=== PATIENT | female | born 1945 | race Caucasian/White ===

== ENCOUNTER 2024-09-28 08:48 | Outpatient (CLI) | payer MEDICARE, SELFPAY ==
--- NOTE | 2024-09-28 08:55 | XR_ITS ---
FINAL REPORT CLINICAL HISTORY: Left hip/pelvis pain COMPARISON: None FINDINGS: LEFT HIP: Two views of the left hip with an AP view of the pelvis demonstrate a comminuted fracture of the left acetabulum with mild displacement, either acute or subacute. There is a age indeterminate fracture of the pubic symphysis and inferior pubic ramus. There are post ORIF changes of the left femur without acute process. The right pelvis is unremarkable. IMPRESSION: Multiple mildly displaced left pelvic fractures, either acute or subacute. CT could better distinguish if these are not known fractures. Reviewed, Interpreted and Dictated by Torsten Hatfield MD Transcribed by Jessica Bragg Authenticated and [facility]
--- OUTSIDE RECORDS SUMMARY | 2024-09-28 09:02 | XMS_ITS | Encounter Summary ---
Author Organization [facility] Address [address] [place] [address] Care Team Providers Care Petal Cutter Name Role Phone Elizabeth Nova APRN Primary Care Provider [phone] Mickey Briseno MD Unavailable [phone] Reason for Referral * Consultation (Routine) - Authorized Specialty Diagnoses / Procedures Referred By Marina sinclair Referred To Contact Gastroenterology Diagnoses Other iron deficiency anemia Elizabeth Nova APRN [address] [place] [address] Phone: tel: fax: Referral ID Status Reason Start Date Expiration Date Visits Requested Visits Authorized [id number] Authorized Specialty Services Required 07/27/2023 01/25/2025 1 1 Encounter Details Date Type Department Care Team (Late st Contact Info) Description 07/27/2023 Community [facility] [address] [place] [address] Elizabeth Nova APRN [address] [place] [address] Iron deficiency anemia secondary to inadequate dietary iron intake (Primary Dx); Other iron deficiency anemia Social History Tobacco Use Types Packs/Day Years Used Date Smoking Tobacco: Never Smokeless Tobacco: Never Comments Unknown Sex and Gender Information Value Date Recorded Sex Assigned at Not on file Legal Sex Female 8:39 PM EDT Gender Identity Not on file Sexual Orientation Not on file documented as of this encounter Plan of Treatment Scheduled Referrals Name Type Priority Associated Diagnoses Order Schedule Ambulatory referral to Gastroenterology Outpatient Referral Routine Other iron deficiency anemia Expected: 07/27/2023 (Approximate), Expires: 01/25/2025 documented as of this encounter Visit Diagnoses Diagnosis Iron deficiency anemia secondary to inadequate dietary iron intake- Primary Other iron deficiency anemia documented in this encounter Care Teams Petal Cutter Relationship Specialty Start Date End Date Elizabeth Nova APRN [address] [place] [address] PCP - General 06/23/23 Mickey Briseno MD [address] [place] [address] Medical Oncologist Medical Oncology 08/16/23 documented as of this encounter
--- OUTSIDE RECORDS SUMMARY | 2024-09-28 09:02 | XMS_ITS | Clinical Summary ---
Author Organization [facility] Address [address] [place] [address] Care Team Providers Care Fractionation Supervisor Name Role Phone Elizabeth Nova APRN Primary Care Provider Mickey Briseno MD Unavailable [phone] Allergies Active Allergy Reactions Criticality Noted Date Comments Mayo Dizziness High 12/30/2009 Dizziness, nausea, syncopal episode Medications ALPRAZolam (Xanax) 1 MG tablet Take by mouth if needed. Active busPIRone (Buspar) 15 MG tablet 4 Active cephalexin (Keflex) 500 MG capsule 4 Active fLuvoxaMINE (Luvox) 100 MG tablet 4 Active gabapentin (Neurontin) 600 MG tablet 4 Active hydrOXYzine HCl (Atarax) 50 MG tablet 3 Active zolpidem (Ambien) 10 MG tablet Take by mouth 1 (one) time each day in the evening. Active venlafaxine (Effexor) 75 MG tablet 3 Active polyethylene glycol (GoLYTELY) 236 g solution SEE PHARMACY NOTES FOR PATIENT LABEL INSTRUCTIONS- for Colonoscopy prep protocol 4000 mL 4 Active Active Problems Problem Noted Date Diagnosed Date Iron deficiency anemia secon fidencio to inadequate dietary iron intake 06/23/2023 Social History Tobacco Use Types Packs/Day Years Used Date Smoking Tobacco: Never Smokeless Tobacco: Never Tobacco Cessation:Counseling Given: Not Answered Comments Unknown Sex and Gender Information Value Date Recorded Sex Assigned at Not on file Legal Sex Female 8:39 PM EDT Gender Identity Not on file Sexual Orientation Not on file Last Filed Vital Signs Vital Sign Reading Time Taken Comments Blood Pressure 175/83 06/23/2023 12:21 PM EDT Pulse 87 06/23/2023 12:21 PM EDT Temperature 38 C (100.4 F) 06/23/2023 12:21 PM EDT Respiratory Rate - - Oxygen Saturation 95% 06/23/2023 12: 21 PM EDT Inhaled Oxygen Concentration - - Weight 46.7 kg (102 lb 15.3 oz) 024 12:21 PM EDT Height 152.4 cm (5') 06/23/2023 12:21 PM EDT Body Mass Index 20.11 06/23/2023 12:21 PM EDT Plan of Treatment Health Maintenance Due Date Last Done Comments [facility]-Depression Screening 1943 [facility]-Infant/Child/Adol SDOH Screenings 1943 [facility]- SDOH Screenings 1961 [facility]-Adult SDOH Screenings 1961 [facility]-DTaP,Tdap,and Td Vaccines (1 - Tdap) 1962 [facility]-Zoster Vaccines (1 of 2) 1993 [facility]-RSV Vaccine: 60+ Years or (1 - 1-dose 75+ series) 2018 [facility]-Medicare Annual Wellness (AWV) 03/02/2023 03/02/2022, 02/25/2021, 02/20/2020 [id number] Vaccine ( season) 2023 01/12/2023, 07/22/2020 [facility]-Influenza Vaccine (Season Ended) 2024 02/25/2021, 01/03/2019, 11/19/2015, Additional history exists [facility]-Bone Density Scan 03/04/2025 03/04/2023 , 03/04/2023, 06/04/2015 [facility]-Pneumococcal Vaccine: 50+ Years Completed 07/04/2018, 05/25/2016, 05/25/2016 HPV Vaccines Aged Out No longer eligi ble based on patient's age to complete this topic [facility]-HIB Vaccines Aged Out No longer e ligible based on patient's age to complete this topic [facility]-Hepatitis A Vaccines Aged Out No longer eligible based on patient's age to complete this topic [facility]-IPV Vaccines Aged Out No longer e ligible based on patient's age to complete this topic [facility]-Rotavirus Vaccines Aged Out No lo nger eligible based on patient's age to complete this topic Insurance [employer] MEDICARE Care Teams Fractionation Supervisor Relationship Specialty Start Date End Date Elizabeth Nova, VALVE MECHANIC [address] [place] [address] PCP - General 06/23/23 Mickey Briseno MD [address] [facility] [address] [place] [address] Medical Oncologist Medical Oncology 08/16/23
--- OUTSIDE RECORDS SUMMARY | 2024-09-28 09:02 | XMS_ITS | Clinical Summary ---
Author Organization [facility] Address [address] [place] [address] Phone Care Team Providers Care Shovel Handle Assembler Name Role Phone Karissa Garcia Unavailable Conditions or Problems Problem Name Problem Code Onset Date Status Entry Date Provider Comment Standard Description Annotate Gastroenteri tis/colitis, non-infectio us NEC 65038688 (SNOMED CT) 0 Active 0 Karissa Garcia Noninfectious gastroenteritis CKD III(document a or b) 021248825 (SNOMED CT) 0 Active 0 Karissa Garcia Chronic kidney disease stage 3A Staph Kloosi Sepsis A41.1 (ICD-10-CM ) 0 Active 0 Karissa Garcia Sepsis due to other specified staphylococcus Hematuria, gross 16240190 (SNOMED CT) 0 Active 0 Karissa Garcia Blood in urine Urinary tract infection (UTI) 16938224 (SNOMED CT) 0 Active 0 Karissa Garcia Urinary tract infectious disease CKD, Stage III 434740802 (SNOMED CT) 04/30 Resolved 04/30 Karissa Garcia Chronic kidney disease stage 3 Acute renal failure due to dehydration 391401061 (SNOMED CT) 04/30 Resolved 04/30 Karissa Garcia Acute renal failure due to ischemia Pulmonary infiltrates 411589071 (SNOMED CT) 04/30 Resolved 04/30 Karissa Garcia Asthmatic pulmonary eosinophilia Cough 43267117 (SNOMED CT) 04/30 Resolved 04/30 Karissa Garcia Cough Pressure ulcer of left hip, stage 4 047838305 (SNOMED CT) 04/30 Resolved 04/30 Karissa Garcia Pressure ulcer stage 4 Pressure ulcer of left hip, unstageable 503393099 (SNOMED CT) 04/30 Resolved 04/30 Karissa Garcia Nonstageable pressure ulcer Acute renal failure due to dehydration 002785600 (SNOMED CT) 04/30 Removed 04/30 Karissa Garcia Acute renal failure due to ischemia Pressure ulcer of left hip, unstageable 334533555 (SNOMED CT) 04/30 Removed 04/30 Karissa Garcia Nonstageable pressure ulcer Pressure ulcer of left hip, stage 4 880384078 (SNOMED CT) 04/30 Removed 04/30 Karissa Garcia Pressure ulcer stage 4 Pulmonary infiltrates 564839410 (SNOMED CT) 04/30 Removed 04/30 Karissa Garcia Asthmatic pulmonary eosinophilia Cough 25386823 (SNOMED CT) 04/30 Removed 04/30 Kraissa Garcia Cough Neutrophilic leukemoid reaction 29785129 (SNOMED CT) 04/30 Active 04/30 Karissa Garcia Leukemoid reaction CKD, Stage III 684484285 (SNOMED CT) 04/30 Removed 04/30 Karissa Garcia Chronic kidney disease stage 3 Medications Medication Instructions Start Date Stop Date Generic Name ND Provider ZOFRAN 4 MG ORAL TABLET Take 1 tablet by mouth every six hours as needed 0 ZOFRAN 4 MG ORAL TABLET Caihakan Michi DULCOLAX 10 MG SUPP Insert once a day as needed 003 bisacodyl 66095052058 Caihakan Michi RANITIDINE HCL 150 MG ORAL TABLET Take 1 tablet by mouth once a day 003 RANITIDINE HCL 150 MG ORAL TABLET Caihakan Michi VITAMIN C 1000 MG TABS Take 1 tablet by mouth once a day 0/03 ascorbic acid (vitamin c) 15323146619 Cailybetito Michi SEROQUEL 100 MG TABS Take 1 tablet by mouth once a day 0/03 quetiapine 11891302226 Stephanie Borden DOXYCYCLINE HYCLATE 100 MG CAPS Take 1 tablet by mouth twice a day 0/03 doxycycline hyclate 31795704035 Stephanie Borden Ditropan XL 10 mg tablet extended release 24hr Take 1 tablet by mouth once a day 0/03 oxybutynin chloride 02954908004 Stephanie Borden AUGMENTIN 875-125 MG ORAL TABLET Take 1 tablet by mouth twice a day 003 AUGMENTIN 875-125 MG ORAL TABLET Stephanie Borden FLORASTOR 250 MG CAPS Take 1 tablet by mouth twice a day 0/03 saccharomyces boulardii 54079855158 Stephanie Borden FERROUS SULFATE 325 (65 Fe) MG TABS Take 1 tablet by mouth twice a day 003 ferrous sulfate 93060996045 Stephanie Borden COLACE 100 MG CAPS Take 1 tablet by mouth twice a day 0/03 docusate sodium 97382833657 Stephanie Borden DIALYVITE VITAMIN D3 MAX 1.25 MG (81284 UT) TABS Take 1 tablet by mouth twice a week 0/03 cholecalciferol (vitamin d3) 54246479427 Stephanie Borden PERCOCET 5-325 MG TABS Take 1 tablet by mouth every four hours as needed 0/03 oxycodone-acetami nophen 57166169431 Stephanie Borden TYLENOL 325 MG CAPS Take 2 tablet by mouth every four hours 0/03 ACETAMINOPHEN Stephanie Borden PAXIL 40 MG TABS Take 1 tablet by mouth once a day 0/03 paroxetine hcl 51105588368 Stephanie Borden LOVENOX 100 MG/ML SUBCUTANEOUS SOLUTION Inject 0.3 ml subcutaneously once a day 0/03 LOVENOX 100 MG/ML SUBCUTANEOUS SOLUTION Stephanie Borden MIDODRINE HCL 10 MG TABS 10 mg, Oral, 3 Times Daily Before Meals midodrine 16238205372 Alejohakan Borden ALENDRONATE SODIUM 70 MG TABS 1 PO every 7 days. Give w/ water 30 minutes before first food/drink in the AM. Do not lay down 30 min after taken alendronate 21862692519 Stephanie Borden ALPRAZOLAM 1 MG TABS TAKE ONE-HALF TO ONE TABLET BY MOUTH ONCE DAILY (EVERY 24 HOURS) NEEDED alprazolam 40211116378 Alejohakan Borden ascorbic acid (vitamin C) 1,000 mg capsule 1,000 mg, Oral, Daily ascorbic acid (vitamin c) 48784133645 Alejohakan Borden aspirin 81 mg capsule 81 mg, Oral, Daily aspirin Alejohakan Borden ETODOLAC 200 MG CAPS 200 mg, Oral, 2 Times Daily PRN etodolac 78854386337 Alejohakan Borden MULTIVITAMIN WOMEN 50+ TABS 1 tablet, Oral, Daily bvkfuuiq-ndz-cmyq -fa-lutein 60288390417 Alejohakan Borden Ditropan XL 10 mg tablet extended release 24hr 10 mg, Oral, Daily oxybutynin chloride 45412546064 Alejohakan Borden PAROXETINE HCL 40 MG TABS 40 mg, Oral, Daily paroxetine hcl 74619822575 Alejohakan Borden QUETIAPINE FUMARATE 300 MG TABS 300 mg, Oral, Nightly quetiapine 59615783938 Alejohakan Borden VITAMIN D (ERGOCALCIFEROL ) 70167 UNIT CAPS TAKE 1 CAPSULE TWICE WEEKLY ergocalciferol (vitamin d2) 84090898479 Alejohakan Borden PEPCID 20 MG TABS Take 1 tablet by mouth daily 05/05 FAMOTIDINE 43897054079 Emily Kerr RANITIDINE HCL 150 MG ORAL TABLET Take 1 tablet by mouth daily 0/03 RANITIDINE HCL 20547362346 Emily Kerr DIALYVITE VITAMIN D3 MAX 1.25 MG (32086 UT) TABS Take one (1) tablet by mouth twice a week 0/03 CHOLECALCIFEROL 37958073413 Emily Kerr VITAMIN C 1000 MG TABS Take 1 tablet by mouth daily 0/03 ASCORBIC ACID 92624257684 Emily Kerr FLORASTOR 250 MG CAPS Take one (1) tablet by mouth twice a day 0/03 SACCHAROMYCES MARSHALLI 37333389492 Emily Kerr SEROQUEL 100 MG TABS Take 1 tablet by mouth daily 0/03 QUETIAPINE FUMARATE 03456131577 Emily Kerr PAXIL 40 MG TABS Take 1 tablet by mouth daily 0/03 PAROXETINE HCL 05897958395 Emily Kerr PERCOCET 5-325 MG TABS Take 1 tablet by mouth every 4 hours as needed 0/03 OXYCODONE-ACETAMI NOPHEN 80740525697 Emily Krer DITROPAN XL 10 MG ORAL TABLET EXTENDED RELEASE 24 HOUR Take 1 tablet by mouth daily 0/03 OXYBUTYNIN CHLORIDE 59185241419 Emily Kerr ZOFRAN 4 MG ORAL TABLET Take 1 tablet by mouth every 6 hours as needed 0/03 ONDANSETRON HCL 34883490610 Emily Kerr FERROUS SULFATE 325 (65 Fe) MG TABS Take one (1) tablet by mouth twice a day 0/03 FERROUS SULFATE 80555012206 Emily Kerr PEPCID 20 MG TABS Take 1 tablet by mouth daily 07/04 FAMOTIDINE 87542067824 Emily Kerr LOVENOX 100 MG/ML SUBCUTANEOUS SOLUTION Inject 0.3 mL subq daily 0/03 ENOXAPARIN SODIUM 51048815244 Emily Kerr DOXYCYCLINE HYCLATE 100 MG CAPS .Take one (1) tablet by mouth twice a day 4/08 DOXYCYCLINE HYCLATE 80073673786 Emily Kerr COLACE 100 MG CAPS Take one (1) tablet by mouth twice a day 6/ DOCUSATE SODIUM 20994441013 Emily Kerr DULCOLAX 10 MG SUPP insert 1 daily as needed 0/03 BISACODYL 20425234111 Emily Kerr AUGMENTIN 875-125 MG ORAL TABLET Take one (1) tablet by mouth twice a day 0/03 AMOXICILLIN-POT CLAVULANATE 37455681810 Emily Kerr TYLENOL 325 MG CAPS Take 2 tablets by mouth every 4 hours 0/03 ACETAMINOPHEN 53180413557 Emily Kerr Medications Administered No information available. Allergies, Adverse Reactions, Alerts Allergy Name Reaction Description Start Date Severity Statu s Provider LITHIUM Moderate Active Emily Kerr Results Date Name Value Unit Range Flag Description Clinical Lists Update: HEP C AB non-reactive Hepatit is C virus Ab [Presence] in Serum Office Visit: room 12. Hospi kavin Follow Up MEDS REVIEW Done Documenta tion of current medications (procedure) Lab Report: ADULT TRANSTHORA CIC ECHO COMPLETE W/ COLOR, SPECTRAL AND CON ... ZZ-GE-unk at 1500 EDT GE use only - for LinkLogic import when terms are not otherwise specified Clinical Lists Update: ORALTOBACUSE Never Tobacco smoking status SMOK STATUS Never smoker Toba tobacco conditioner smoking status Plan of Care No information available. Procedures No information available. Vital Signs Date Name Value Unit Description BMI (Body Mass Index) 21.48 kg/m2 Bod y Mass Index (Ratio) Body Temperature 98.2 [degF] temperat ure E&M BP Diastolic 58 mm[Hg] blood pressu re, diastolic BP Systolic 94 mm[Hg] blood pressur e, systolic Heart Rate 92 /min pulse rate Height 60 [in_us] height E&M Respiratory Rate 16 /min respirat ory rate E&M Weight Measured 110.0 [lb_av] weight E& M Weight Measured 110.0 [lb_av] weight E& M Immunizations Vaccine Administration Date Standard Description CVX Co de Dose Unspecified Formulation Unspecified Formulation 33 Unknown Unspecified Formulation Unspecified Formulation 88 Unknown Pneumovax 23 Injection Injectable 25 MCG/0.5ML Pneumovax 23 Injection Injectable 25 MCG/0.5ML 33 Unknown Prevnar Intramuscular Suspension 16 MCG/0.5ML Prevnar Intramuscular Suspension 16 MCG/0.5ML 100 Unknown Pfizer COVID-19 Vaccine Dose 1 Pfizer COVID-19 Vaccine Dose 1 208 Unknown Advance Directives Directive Description Start Date NO ADVANCED DIRECTIVES AT THIS TIME 2017
== END 2024-09-28 23:59 | disposition home or self-care (01) ==
LOC: RAD 08:52
PROVIDERS: PCP Internal Medicine Adolescent Medicine; Visit Provider Physician Assistant
DX: S32.82XA Multiple fractures of pelvis without disruption of pelvic ring, initial encounter for closed fracture (principal)
CPT/HCPCS: 73502

== ENCOUNTER 2024-10-26 15:03 | Outpatient (CLI) | payer MEDICARE, SELFPAY ==
--- OUTSIDE RECORDS SUMMARY | 2024-08-27 09:21 | XMS_ITS | Encounter Summary ---
Author Organization [facility] Address [address] [place] [id number] Care Team Providers Care Laundry Routeman Name Role Phone Provider, No Known Primary Care Provider Unavail able Reason for Visit * Reason Comments Hip Pain * Auth/Cert (Routine) Specialty Diagnoses / Procedures Referred By Contac t Referred To Contact Diagnoses Hip fracture Referral ID Status Reason Start Date Expiration Date Visits Re quested Visits Authorized [id number] 1 1 Encounter Details Date Type Department Care Team (Late st Contact Info) Description 08/27/2024 9:21 AM EDT - 09/02/2024 2:06 PM EDT Hospital Encounter [address] [place] [id number] Karmen Wilson MD [address] [facility] [place] [address] Fran Vaca MD [address] [place] [address] Carolyne Reynoso MD [address] [facility] 4th [place] [address] Luca Bell MD [address] [facility] [address]th [place] [address] Fall in home, initial encounter (Primary Dx); Closed nondisplaced fracture of left acetabulum, unspecified portion of acetabulum, initial encounter; Inability to bear weight; Insomnia, unspecified type; Idiopathic peripheral neuropathy Discharge Disposition: Assisted Facility (DC - External) Social History Tobacco Use Types Packs/Day Years Used Date Smoking Tobacco: Never Passive Smoke Exposure: Never Smokeless Tobacco: Never Tobacco Cessation:Counseling Given: No Alcohol Use Standard Drinks/Week Comments No 0 (1 standard drink = 0.6 oz pur e alcohol) AUDIT-C Answer Date Recorded Q1: How often do you have a drink containing alcohol? Never 08/27/2024 Q2: How many drinks containi ng alcohol do you have on a typical day when you are drinking? Patient does not drink Frequency of Binge Drinking Not on file 08/04 Overall Financial Resource Strain (CARDIA) Answe r Date Recorded How hard is it for you to pa y for the very basics like food, housing, medical care, and heating? Not hard at all 03/03/2022 PHQ-2 Answer Date Recorded Retired PHQ-9: Brief Depression Severity Measure Score 1 03/02/2022 Exercise Vital Sign Answer Date Recorde d On average, how many days pe r week do you engage in moderate to strenuous exercise (like a brisk walk)? 0 days 08/31/2024 On average, how many minutes do you engage in exercise at this level? 0 min 08/31/2024 Hunger Vital Sign Answer Date Recorded Within the past 12 months, y ou worried that your food would run out before you got the money to buy more. Never true 07/01/19 22 Within the past 12 months, t he food you bought just didn't last and you didn't have money to get more. Never true 06/30/2021 PRAPARE - Transportation Answer Date Re corded In the past 12 months, has l ack of transportation kept you from medical appointments or from getting medications? No 02/04 In the past 12 months, has l ack of transportation kept you from meetings, work, or from getting things needed for daily living? No 03/03/2022 Housing Stability Vital Sign Answer Clyde e Recorded In the last 12 months, was t here a time when you were not able to pay the mortgage or rent on time? No 03/03/2022 In the last 12 months, how many places have you lived? 1 03/03/2022 In the last 12 months, was t here a time when you did not have a steady place to sleep or slept in a chcf (including now)? No 03/03/2022 Abuse Screen Answer Date Recorded Feels Unsafe at Home or Work/School no 08/27/2024 Feels Threatened by Someone no 08/04 Does Anyone Try to Keep You From Having Contact with Others or Doing Things Outside Your Home? no 08/27/2024 Physical Signs of Abuse Present no 08/27/2024 Housing Stability Answer Date Recorded Current Living Arrangements independent living f acility 08/28/2024 Potentially Unsafe Housing Conditions Not on brittney e 08/28/2024 Family and Community Support Answer Clyde e Recorded If for any reason you need h elp with day-to-day activities such as bathing, preparing meals, shopping, managing finances, etc., do you get the help you need? I get all the help I need 08/31/2024 Lonely or Isolated Not on file 08/31/2024 Education Answer Date Recorded Help with school or training? Not on file Preferred Language Chilean 08/31/2024 Comments No Sex and Gender Information Value Date Recorded Sex Assigned at Not on file Legal Sex Female 1:29 PM EDT Gender Identity Not on file Sexual Orientation Not on file documented as of this encounter Last Filed Vital Signs Vital Sign Reading Time Taken Comments Blood Pressure 106/63 09/02/2024 11:16 AM EDT Pulse 81 09/02/2024 11:16 AM EDT Temperature 36.9 C (98.4 F) 09/02/2024 11:16 AM EDT Respiratory Rate 18 09/02/2024 11:16 AM EDT Oxygen Saturation 93% 09/02/2024 11:16 AM EDT Inhaled Oxygen Concentration - - Weight 49.9 kg (110 lb) 08/27/2024 8:59 AM EDT Height 152.4 cm (5') 08/27/2024 8:59 AM EDT Body Mass Index 21.48 08/27/2024 8:59 AM EDT documented in this encounter Functional Status * Calculated C-SSRS Risk Score (Lifetime/Recent) Answer Date of Assessment Author No Risk Indicated 08/27/2024 9:02 AM EDT Helga Ernst RN * [place] Suicide Severity Rating Scale (Screener/Recent Self-Report) Question Answer Date of Assessment Author 1. Wish to be (Past 1 Month) No 08/27/2024 9:02 AM EDT Helga Ernst RN 2. Non-Specific Active Suicidal Thoughts (Past 1 Month) No 08/27/2024 9:02 AM EDT Helga Ernst RN 6. Suicidal Behavior (Lifetime) No 08/27/2024 9:02 AM EDT Helga Ernst RN documented as of this encounter Discharge Summaries * Mary Ann Whitfield PA-C - 09/02/2024 8:59 AM EDT Images from the original note were not included. [facility] Medicine Services DISCHARGE SUMMARY Patient Name: Lorin Raymundo : 1945 Date of Admission: 08/27/2024 9:21 AM Date of Discharge: 09/02/2024 Primary Care Physician: Provider, No Known Hospital Course Active Hospital Problems Diagnosis POA Hip fracture [S72.009A] Yes Closed nondisplaced fracture of left acetabulum [S32.402A] Yes Moderate malnutrition [E44.0] Yes Kidney disease, chronic, stage III (GFR 30-59 ml/min) [N18.30] Yes Generalized anxiety disorder [F41.1] Yes Resolved Hospital Problems No resolved problems to display. Hospital Course: Lorin Raymundo is an 79 y.o. female with PMH significant for anxiety/depression, bipolar disorder, CKD III and prior colon cancer. Admitted to [facility] for L hip fracture after a fall at home. Found to have an acute L acetabular fracture. Ortho evaluated and recommended non-operativemanagement, protected WB and follow up in 3-4 weeks with repeat imaging. PT/OT followed and CM has arranged SNF for rehab. Acute left acetabular fracture Ground level fall Fell while going to restroom, was not using her walker. Unable to bear weight on LLE after the fall X-ray showed left hip acetabular fracture. Dr. Cody with orthopedic surgery evaluated - recommended non-operative management Partial/protected weightbearing on LLE with walker at all times PT/OT followed - to SNF for rehab today ASA 81mg daily x 6 weeks for DVT PPX Follow up with ortho on 09/28/24 @ 11:20am with repeat XRs Anxiety/depression/bipolar/insomnia Resumed home medications Constipation Acute on chronic. At baseline, she reports she usually takes stool softeners but then develops diarrhea and takes Imodium (3 all at once, then 2 more a couple of hours later). Then does not have BM for 3-4 days, develops abdominal cramping and has to take stool softeners which then cause diarrhea Discussed daily bowel regimen to prevent cyclical constipation/diarrhea Day of Discharge HPI: In bed. Developed diarrhea overnight after taking several stool softeners the day before. To SNF today. She asked me to look at a laceration that she sustained during a fall that happened before - said she didn't tell her daughter about it because she had plans and she didn't want her daughter to cancel them Review of Systems Gen- No fevers, chills CV- No chest pain, palpitations Resp- No cough, dyspnea GI- No N/V/D, abd pain Vital Signs: Temp: [97.7 ??F (36.5 ??C)-98.8 ??F (37.1 ??C)] 98.5 ??F (36.9 ??C) Heart Rate: [68-88] 88 Resp: [18] 18 BP: (94-138)/(55-80) 138/68 Physical Exam: Constitutional: No acute distress, awake, alert and conversant HENT: NCAT, mucous membranes moist Respiratory: Clear to auscultation bilaterally, normal respiratory effort Cardiovascular: RRR Gastrointestinal: Positive bowel sounds, soft, nontender, nondistended Musculoskeletal: No bilateral ankle edema Psychiatric: Appropriate affect, cooperative with exam Neurologic: Oriented x 3, moves all extremities spontaneously without focal deficits, speech clear Skin: R posterior scalp laceration is well approximated with no sutures or brian in place. It is clean and dry with no erythema, induration or purulence. I cleaned off dried blood with a warm wash cloth but did not remove all crust as to not cause any bleeding. Pertinent and/or Most Recent Results LAB RESULTS: Lab 09/01/24 1408 08/31/24 0844 08/30/24 0826 08/29/24 1231 08/28/24 0710 08/27/24 1319 WBC 11.19* 12.27* 11.84* 8.91 8.79 11.31* HEMOGLOBIN 9.1* 9.7* 10.1* 9.6* 10.2* 11.7* HEMATOCRIT 28.9* 30.6* 32.3* 31.1* 32.8* 36.4 PLATELETS 304 263 241 207 231 283 NEUTROS ABS -- -- -- -- 6.35 8.28* IMMATURE GRANS (ABS) -- -- -- -- 0.03 0.06* LYMPHS ABS -- -- -- -- 1.27 1.91 MONOS ABS -- -- -- -- 0.81 0.93* EOS ABS -- -- -- -- 0.29 0.09 MCV 94.1 93.9 93.9 95.7 94.8 93.6 Lab 09/01/24 1408 08/31/24 0844 08/30/24 0808/29/24 1231 08/28/24 0710 SODIUM 143 139 137 137 136 POTASSIUM 4.1 4.1 3.8 4.2 4.1 CHLORIDE 104 102 101 101 100 CO2 29.0 25.0 25.0 24.0 26.0 ANION GAP 10.0 12.0 11.0 12.0 10.0 BUN 16.7 14.5 15.4 17.6 12 CREATININE 1.00 0.69 0.74 0.99 1.04* EGFR 56.7* 87.3 81.4 57.4* 54.1* GLUCOSE 157* 101* 114* 126* 115* CALCIUM 7.9* 8.4* 8.6 8.5* 8.2* MAGNESIUM 2.2 1.8 2.1 2.0 1.9 PHOSPHORUS -- -- -- -- 3.1 TSH -- -- -- -- 1.260 Lab 08/28/24 0710 08/27/24 1510 TOTAL PROTEIN 5.8* 6.7 ALBUMIN 3.4* 3.8 GLOBULIN 2.4 2.9 ALT (SGPT) 7 13 AST (SGOT) 13 17 BILIRUBIN 0.4 0.5 ALK PHOS 56 66 Brief Urine Lab Results (Last result in the past 365 days) Color Clarity Blood Leuk Est Nitrite Protein CREAT Urine HCG 08/28/24 0439 Yellow Clear Trace Small (1+) Negative Trace Microbiology Results (last 10 days) No results found for the last [address] Pelvis Without Contrast Result Date: 08/27/2024 CT HEAD WO CONTRAST, CT PELVIS WO CONTRAST Date of Exam: 08/27/2024 12:24 PM EDT Indication: Fell 2 weeks ago, headache since, fell again last night. Comparison: Head CT 12/27/2021. Hip and pelvis radiographs 08/27/2024.. CT abdomen/pelvis 12/27/2021. Technique: Axial CT images were obtained of the head and pelvis without contrast administration. Automated exposure control and iterative construction methods were used. Findings: Head CT: No acute intracranial hemorrhage.Intact appearing malone-white differentiation.No extra-axial fluid collection.No significant mass effect. No hydrocephalus. Mild generalized parenchymal volume loss. Moderate periventricular and subcortical white matter hypoattenuation, nonspecific, perhaps from small vessel ischemic/hypertensive changes in a patient of this age.There are intracranial atherosclerotic calcifications. Mild scattered mucosal thickening in the paranasal sinuses.nonspecific small bilateral mastoid effusions. . Bilateral lens replacements. No acuteor aggressive appearing bony or extracranial soft tissue process. Pelvis CT: Small and large bowel:No significant abnormality. Peritoneal cavity: No free fluid or free air. Bladder: No significant abnormality. Pelvic organs: No significant abnormality. Vasculature: Atherosclerotic calcifications. Lymph nodes: No pathologic appearing lymph nodes by imaging criteria. Bones and soft tissues: Acute comminuted fracture of the left acetabulum. Subacute to chronic appearing nondisplaced fracture of the left inferior pubic ramus. Left proximal femoral fixation hardware. Degenerative changes of the imaged spine. Mild osteoarthrosis of the bilateral hips and sacroiliac joints. Impression: No acute intracranial findings. Acute comminuted fracture of the left acetabulum. Electronically Signed: Reynaldo Santamaria MD 08/27/2024 12:58 PM EDT Workstation ID: [id number] CT Head Without Contrast Result Date: 08/27/2024 CT HEAD WO CONTRAST, CT PELVIS WO CONTRAST Date of Exam: 08/27/2024 12:24 PM EDT Indication: Fell 2 weeks ago, headache since, fell again last night. Comparison: Head CT 12/27/2021. Hip and pelvis radiographs 08/27/2024.. CT abdomen/pelvis 12/27/2021. Technique: Axial CT images were obtained of the head and pelvis without contrast administration. Automated exposure control and iterative construction methods were used. Findings: Head CT: No acute intracranial hemorrhage.Intact appearing malone-white differentiation.No extra-axial fluid collection.No significant mass effect. No hydrocephalus. Mild generalized parenchymal volume loss. Moderate periventricular and subcortical white matter hypoattenuation, nonspecific, perhaps from small vessel ischemic/hypertensive changes in a patient of this age.There are intracranial atherosclerotic calcifications. Mild scattered mucosal thickening in the paranasal sinuses.nonspecific small bilateral mastoid effusions. . Bilateral lens replacements. No acuteor aggressive appearing bony or extracranial soft tissue process. Pelvis CT: Small and large bowel:No significant abnormality. Peritoneal cavity: No free fluid or free air. Bladder: No significant abnormality. Pelvic organs: No significant abnormality. Vasculature: Atherosclerotic calcifications. Lymph nodes: No pathologic appearing lymph nodes by imaging criteria. Bones and soft tissues: Acute comminuted fracture of the left acetabulum. Subacute to chronic appearing nondisplaced fracture of the left inferior pubic ramus. Left proximal femoral fixation hardware. Degenerative changes of the imaged spine. Mild osteoarthrosis of the bilateral hips and sacroiliac joints. Impression: No acute intracranial findings. Acute comminuted fracture of the left acetabulum. Electronically Signed: Reynaldo Santamaria MD 08/27/2024 12:58 PM EDT Workstation ID: [id number] XR Chest 1 View Result Date: 08/27/2024 XR CHEST 1 VW Date of Exam: 08/27/2024 10:35 AM EDT Indication: cough, preop Comparison: 08/10/2024 Findings: Heart size and pulmonary vasculature are within normal limits. Lungs clear than calcified granuloma on the left. Costophrenic angles sharp Impression: No active cardiopulmonary disease Electronically Signed: Denys Munguia 08/27/2024 10:49AM EDT Workstation ID: [id number] XR Knee 1 or 2 View Left Result Date: 08/27/2024 XR KNEE 1 OR 2 VW LEFT Date of Exam: 08/27/2024 9:46 AM EDT Indication: trauma Comparison: 10/18/2020knee radiographs Findings: Partially visualized femoral hardware without evidence of complication. Moderate knee joint effusion. No traumatic malalignment. Moderate degenerative changes of the knee. Articular surfaces appear grossly intact. No evidence of fracture. Impression: 1.Moderate knee joint effusion without evidence of acute fracture or malalignment. 2.Moderate degenerative changes of the knee. Electronically Signed: Richard Wilkerson MD 08/27/2024 10:02AM EDT Workstation ID: [id number] XR Hip With or Without Pelvis 2 - 3 View Left Result Date: 08/27/2024 XR HIP W OR WO PELVIS 2-3 VIEW LEFT Date of Exam: 08/27/2024 9:26 AM EDT Indication: For the last night, cannot put weight on left hip today Comparison: None available. Findings: There is a nondisplaced comminuted fracture of the acetabulum. The fracture involves the acetabular roof and medial acetabular wall. There is an associated fracture at the junction of the superior pubic ramus and ilium. The left hip is not dislocated. There has been previous internal fixation of a fracture of the proximal left femur with a nail and kailee. No acute fracture of the proximal left femur is demonstrated. Degenerative disease in the lower lumbar spine noted Impression: Nondisplaced comminuted fracture of the left acetabulum Electronically Signed: Denys Munguia 08/27/2024 10:02 AM EDT Workstation ID: [id number] Results for orders placed during the hospital encounter of 04/19/17 Duplex Venous Lower Extremity - Bilateral CAR Interpretation Summary ?? Normal bilateral lower extremity venous duplex scan. ?? Technically difficult and limited study. Results for orders placed during the hospital encounter of 12/27/21 Adult Transthoracic Echo Complete W/ Cont if Necessary Per Protocol Interpretation Summary ?? Estimated left ventricular EF = 60% ?? Mild mitral valve regurgitation is present. ?? Moderate tricuspid valve regurgitation is present. Discharge Details Discharge Medications New Medications Instructions Start Date acetaminophen 325 MG tablet Commonly known as: TYLENOL 650 mg, Oral, Every 4 Hours PRN Lidocaine 4 % 1 patch, Transdermal, Every 24 Hours Scheduled, Remove & Discard patch within 12 hours or as directed by loperamide 2 MG capsule Commonly known as: IMODIUM 2 mg, Oral, 3 Times Daily PRN polyethylene glycol 17 g packet Commonly known as: MIRALAX 17 g, Oral, Daily Start Date: September 03, 2024 sennosides-docusate 8.6-50 MG per tablet Commonly known as: PERICOLACE 2 tablets, Oral, 2 Times Daily PRN Changes to Medications Instructions Start Date ascorbic acid 1000 MG tablet Commonly known as: VITAMIN C What changed: additional instructions 1,000 mg, Oral, Daily promethazine 12.5 MG tablet Commonly known as: PHENERGAN What changed: medication strength how much to take 12.5 mg, Oral, Every 8 Hours PRN Continue These Medications Instructions Start Date aspirin 81 MG EC tablet 81 mg, Daily fluvoxaMINE 50 MG tablet Commonly known as: LUVOX 100 mg, Oral, Nightly gabapentin 600 MG tablet Commonly known as: NEURONTIN 600 mg, Oral, 3 Times Daily risperiDONE 0.25 MG tablet Commonly known as: risperDAL 0.5 mg, Oral, 2 Times Daily Vitamin D 50 MCG (2000 UT) tablet 2,000 Units, Daily zolpidem CR 12.5 MG CR tablet Commonly known as: Ambien CR 12.5 mg, Oral, Nightly PRN Allergies Allergen Reactions Fish-Derived Products Hives [place] Other (See Comments) Stated had trouble talking and could not walk Poultry Meal Hives Shellfish-Derived Products Hives Discharge Disposition:Assisted Facility (DC - External) Diet: Diet Instructions Diet: Regular/House Diet; Thin (IDDSI 0) Discharge Diet: Regular/House Diet Fluid Consistency: Thin (IDDSI 0) - Regular diet Activity: Activity Instructions Activity as Tolerated Ortho weight bearing status: partial/protected weight bearing left lower extremity with pelvic/acetabular fractures, walker and wheelchair, okay for pivoting and transfers as able Additional Activity Instructions: - x2 assist bedside commode CODE STATUS: Code Status and Medical Interventions: No CPR (Do Not Attempt to Resuscitate); Limited Support; No intubation (DNI) Ordered at: 08/30/24 1544 Code Status (Patient has no pulse and is not breathing): No CPR (Do Not Attempt to Resuscitate) Medical Interventions (Patient has pulse or is breathing): Limited Support Medical Intervention Limits: No intubation (DNI) Level Of Support Discussed With: Patient Future Appointments Date Time Provider Department Center 09/28/2024 11:20 AM Jodi Danielson PA-C [facility] Additional Instructions for the Follow-ups that You Need to Schedule Discharge Follow-up with PCP As directed Currently Documented PCP: Provider, No Known PCP Phone Number: None Follow Up Details: after dc from rehab Discharge Follow-up with Specified Provider: Ortho; 3 Weeks As directed To: Ortho Follow Up: 3 Weeks Follow Up Details: with repeat imaging Mary Ann Whitfield PA-C 09/02/24 Cosigned by Luca Bell MD at 09/02/2024 11:55 AM EDT Associated attestation - Luca Bell MD - 09/02/2024 11:55 AM EDT Attending Reba I supervised care of the patient on day of service with direct care provided by the advanced care provider (APC). Luca Bell MD 09/02/24 * Veda Zheng APRN - 09/01/2024 11:40 AM EDT Images from the original note were not included. [facility] Medicine Services DISCHARGE SUMMARY Patient Name: Lorin Raymundo : 1945 Date of Admission: 08/27/2024 9:21 AM Date of Discharge: 09/01/24 Primary Care Physician: Provider, No Known Consults No orders found from 07/29/2024 to 08/28/2024. Hospital Course Presenting Problem: fall Active Hospital Problems Diagnosis POA Hip fracture [S72.009A] Yes Closed nondisplaced fracture of left acetabulum [S32.402A] Yes Moderate malnutrition [E44.0] Yes Kidney disease, chronic, stage III (GFR 30-59 ml/min) [N18.30] Yes Generalized anxiety disorder [F41.1] Yes Resolved Hospital Problems No resolved problems to display. Hospital Course: Lorin Raymundo is a 79 y.o. female with history of anxiety/depression/bipolar, CKD, history of coloncancer who presented with acute left acetabular fracture after fall. Acute left acetabular fracture Ground level fall Patient fell. She was not using her walker when she went to the restroom. Patient is not able to bear weight since the fall. X-ray showed left hip acetabular fracture. Dr. Cody with Ortho consulted. Nonoperative measures. Patient reports that she lives in an independent living apartment by herself. Continue PT/OT consultation Follow-up in 3-4 weeks with Orthopedic PA team BH, AP pelvis/inlet/outlet xrays upon arrival to clinic Chemical DVT prophylaxis recommended as an inpatient and then aspirin 81 mg by mouth daily for 6 weeks post-injury Anxiety/depression/bipolar, Resume home medication Discharge Follow Up Recommendations for outpatient labs/diagnostics: PCP 1 week Ortho 3 weeks with repeat imaging Day of Discharge HPI: No issues overnight No complaints currently Hoping for dc to facility today Vital Signs: Temp: [97.6 ??F (36.4 ??C)-99.5 ??F (37.5 ??C)] 97.7 ??F (36.5 ??C) Heart Rate: [71-88] 71 Resp: [18] 18 BP: (92-126)/(55-78) 103/55 Physical Exam: Constitutional: No acute distress, awake, alert, sitting up in bed using eyebrow pencil HENT: NCAT, mucous membranes moist Respiratory: Clear to auscultation bilaterally, respiratory effort normal Cardiovascular: RRR, no murmurs, rubs, or gallops Gastrointestinal: Positive bowel sounds, soft, nontender, nondistended Musculoskeletal: No bilateral ankle edema Psychiatric: Appropriate affect, cooperative, pleasant Neurologic: Oriented x 3, LANDRY, speech clear Skin: No rashes noted Pertinent and/or Most Recent Results LAB RESULTS: Lab 09/01/24 1408 08/31/24 0844 08/30/24 0826 08/29/24 1231 08/28/24 0710 08/27/24 1319 WBC 11.19* 12.27* 11.84* 8.91 8.79 11.31* HEMOGLOBIN 9.1* 9.7* 10.1* 9.6* 10.2* 11.7* HEMATOCRIT 28.9* 30.6* 32.3* 31.1* 32.8* 36.4 PLATELETS 304 263 241 207 231 283 NEUTROS ABS -- -- -- -- 6.35 8.28* IMMATURE GRANS (ABS) -- -- -- -- 0.03 0.06* LYMPHS ABS -- -- -- -- 1.27 1.91 MONOS ABS -- -- -- -- 0.81 0.93* EOS ABS -- -- -- -- 0.29 0.09 MCV 94.1 93.9 93.9 95.7 94.8 93.6 Lab 08/31/24 0844 08/30/24 0826 08/29/24 1231 08/28/24 0710 08/27/24 1510 SODIUM 139 137 137 136 139 POTASSIUM 4.1 3.8 4.2 4.1 4.3 CHLORIDE 102 101 101 100 101 CO2 25.0 25.0 24.0 26.0 25.0 ANION GAP 12.0 11.0 12.0 10.0 13.0 BUN 14.5 15.4 17.6 12 11 CREATININE 0.69 0.74 0.99 1.04* 0.87 EGFR 87.3 81.4 57.4* 54.1* 67.0 GLUCOSE 101* 114* 126* 115* 95 CALCIUM 8.4* 8.6 8.5* 8.2* 9.0 MAGNESIUM 1.8 2.1 2.0 1.9 -- PHOSPHORUS -- -- -- 3.1 -- TSH -- -- -- 1.260 -- Lab 08/28/24 0710 08/27/24 1510 TOTAL PROTEIN 5.8* 6.7 ALBUMIN 3.4* 3.8 GLOBULIN 2.4 2.9 ALT (SGPT) 7 13 AST (SGOT) 13 17 BILIRUBIN 0.4 0.5 ALK PHOS 56 66 Brief Urine Lab Results (Last result in the past 365 days) Color Clarity Blood Leuk Est Nitrite Protein CREAT Urine HCG 08/28/24 0439 Yellow Clear Trace Small (1+) Negative Trace Microbiology Results (last 10 days) No results found for the last [address] Pelvis Without Contrast Result Date: 08/27/2024 CT HEAD WO CONTRAST, CT PELVIS WO CONTRAST Date of Exam: 08/27/2024 12:24 PM EDT Indication: Fell 2 weeks ago, headache since, fell again last night. Comparison: Head CT 12/27/2021. Hip and pelvis radiographs 08/27/2024.. CT abdomen/pelvis 12/27/2021. Technique: Axial CT images were obtained of the head and pelvis without contrast administration. Automated exposure control and iterative construction methods were used. Findings: Head CT: No acute intracranial hemorrhage.Intact appearing malone-white differentiation.No extra-axial fluid collection.No significant mass effect. No hydrocephalus. Mild generalized parenchymal volume loss. Moderate periventricular and subcortical white matter hypoattenuation, nonspecific, perhaps from small vessel ischemic/hypertensive changes in a patient of this age.There are intracranial atherosclerotic calcifications. Mild scattered mucosal thickening in the paranasal sinuses.nonspecific small bilateral mastoid effusions. . Bilateral lens replacements. No acuteor aggressive appearing bony or extracranial soft tissue process. Pelvis CT: Small and large bowel:No significant abnormality. Peritoneal cavity: No free fluid or free air. Bladder: No significant abnormality. Pelvic organs: No significant abnormality. Vasculature: Atherosclerotic calcifications. Lymph nodes: No pathologic appearing lymph nodes by imaging criteria. Bones and soft tissues: Acute comminuted fracture of the left acetabulum. Subacute to chronic appearing nondisplaced fracture of the left inferior pubic ramus. Left proximal femoral fixation hardware. Degenerative changes of the imaged spine. Mild osteoarthrosis of the bilateral hips and sacroiliac joints. Impression: No acute intracranial findings. Acute comminuted fracture of the left acetabulum. Electronically Signed: Reynaldo Santamaria MD 08/27/2024 12:58 PM EDT Workstation ID: [id number] CT Head Without Contrast Result Date: 08/27/2024 CT HEAD WO CONTRAST, CT PELVIS WO CONTRAST Date of Exam: 08/27/2024 12:24 PM EDT Indication: Fell 2 weeks ago, headache since, fell again last night. Comparison: Head CT 12/27/2021. Hip and pelvis radiographs 08/27/2024.. CT abdomen/pelvis 12/27/2021. Technique: Axial CT images were obtained of the head and pelvis without contrast administration. Automated exposure control and iterative construction methods were used. Findings: Head CT: No acute intracranial hemorrhage.Intact appearing malone-white differentiation.No extra-axial fluid collection.No significant mass effect. No hydrocephalus. Mild generalized parenchymal volume loss. Moderate periventricular and subcortical white matter hypoattenuation, nonspecific, perhaps from small vessel ischemic/hypertensive changes in a patient of this age.There are intracranial atherosclerotic calcifications. Mild scattered mucosal thickening in the paranasal sinuses.nonspecific small bilateral mastoid effusions. . Bilateral lens replacements. No acuteor aggressive appearing bony or extracranial soft tissue process. Pelvis CT: Small and large bowel:No significant abnormality. Peritoneal cavity: No free fluid or free air. Bladder: No significant abnormality. Pelvic organs: No significant abnormality. Vasculature: Atherosclerotic calcifications. Lymph nodes: No pathologic appearing lymph nodes by imaging criteria. Bones and soft tissues: Acute comminuted fracture of the left acetabulum. Subacute to chronic appearing nondisplaced fracture of the left inferior pubic ramus. Left proximal femoral fixation hardware. Degenerative changes of the imaged spine. Mild osteoarthrosis of the bilateral hips and sacroiliac joints. Impression: No acute intracranial findings. Acute comminuted fracture of the left acetabulum. Electronically Signed: Reynaldo Santamaria MD 08/27/2024 12:58 PM EDT Workstation ID: [id number] XR Chest 1 View Result Date: 08/27/2024 XR CHEST 1 VW Date of Exam: 08/27/2024 10:35 AM EDT Indication: cough, preop Comparison: 08/10/2024 Findings: Heart size and pulmonary vasculature are within normal limits. Lungs clear than calcified granuloma on the left. Costophrenic angles sharp Impression: No active cardiopulmonary disease Electronically Signed: Denys Munguia 08/27/2024 10:49AM EDT Workstation ID: [id number] XR Knee 1 or 2 View Left Result Date: 08/27/2024 XR KNEE 1 OR 2 VW LEFT Date of Exam: 08/27/2024 9:46 AM EDT Indication: trauma Comparison: 10/18/2020knee radiographs Findings: Partially visualized femoral hardware without evidence of complication. Moderate knee joint effusion. No traumatic malalignment. Moderate degenerative changes of the knee. Articular surfaces appear grossly intact. No evidence of fracture. Impression: 1.Moderate knee joint effusion without evidence of acute fracture or malalignment. 2.Moderate degenerative changes of the knee. Electronically Signed: Richard Wilkerson MD 08/27/2024 10:02AM EDT Workstation ID: [id number] XR Hip With or Without Pelvis 2 - 3 View Left Result Date: 08/27/2024 XR HIP W OR WO PELVIS 2-3 VIEW LEFT Date of Exam: 08/27/2024 9:26 AM EDT Indication: For the last night, cannot put weight on left hip today Comparison: None available. Findings: There is a nondisplaced comminuted fracture of the acetabulum. The fracture involves the acetabular roof and medial acetabular wall. There is an associated fracture at the junction of the superior pubic ramus and ilium. The left hip is not dislocated. There has been previous internal fixation of a fracture of the proximal left femur with a nail and kailee. No acute fracture of the proximal left femur is demonstrated. Degenerative disease in the lower lumbar spine noted Impression: Nondisplaced comminuted fracture of the left acetabulum Electronically Signed: Denys Floresnes 08/27/2024 10:02 AM EDT Workstation ID: [id number] Results for orders placed during the hospital encounter of 04/19/17 Duplex Venous Lower Extremity - Bilateral CAR Interpretation Summary ?? Normal bilateral lower extremity venous duplex scan. ?? Technically difficult and limited study. Results for orders placed during the hospital encounter of 04/19/17 Duplex Venous Lower Extremity - Bilateral CAR Interpretation Summary ?? Normal bilateral lower extremity venous duplex scan. ?? Technically difficult and limited study. Results for orders placed during the hospital encounter of 12/27/21 Adult Transthoracic Echo Complete W/ Cont if Necessary Per Protocol Interpretation Summary ?? Estimated left ventricular EF = 60% ?? Mild mitral valve regurgitation is present. ?? Moderate tricuspid valve regurgitation is present. Pending Labs Order Current Status Basic Metabolic Panel In process Magnesium In process Discharge Details Discharge Medications New Medications Instructions Start Date acetaminophen 325 MG tablet Commonly known as: TYLENOL 650 mg, Oral, Every 4 Hours PRN Lidocaine 4 % 1 patch, Transdermal, Every 24 Hours Scheduled, Remove & Discard patch within 12 hours or as directed by MD Start Date: September 02, 2024 Changes to Medications Instructions Start Date ascorbic acid 1000 MG tablet Commonly known as: VITAMIN C What changed: additional instructions 1,000 mg, Oral, Daily Continue These Medications Instructions Start Date aspirin 81 MG EC tablet 81 mg, Daily fluvoxaMINE 50 MG tablet Commonly known as: LUVOX 100 mg, Oral, Nightly gabapentin 600 MG tablet Commonly known as: NEURONTIN 600 mg, Oral, 3 Times Daily promethazine 25 MG tablet Commonly known as: PHENERGAN 25 mg, Every 8 Hours PRN risperiDONE 0.25 MG tablet Commonly known as: risperDAL 0.5 mg, Oral, 2 Times Daily Vitamin D 50 MCG (1999 UT) tablet 2,000 Units, Daily zolpidem CR 12.5 MG CR tablet Commonly known as: Ambien CR 12.5 mg, Oral, Nightly PRN Allergies Allergen Reactions Fish-Derived Products Hives Gowrie Other (See Comments) Stated had trouble talking and could not walk Poultry Meal Hives Shellfish-Derived Products Hives Discharge Disposition: Assisted Facility (DC - External) Diet: Hospital: Diet Order Procedures Diet: Regular/House; Fluid Consistency: Thin (IDDSI 0) Diet Instructions Diet: Regular/House Diet; Thin (IDDSI 0) Discharge Diet: Regular/House Diet Fluid Consistency: Thin (IDDSI 0) - Regular diet Activity: Activity Instructions Activity as Tolerated Ortho weight bearing status: partial/protected weight bearing left lower extremity with pelvic/acetabular fractures, walker and wheelchair, okay for pivoting and transfers as able Additional Activity Instructions: - x2 assist bedside commode CODE STATUS: Code Status and Medical Interventions: No CPR (Do Not Attempt to Resuscitate); Limited Support; No intubation (DNI) Ordered at: 08/30/24 1544 Code Status (Patient has no pulse and is not breathing): No CPR (Do Not Attempt to Resuscitate) Medical Interventions (Patient has pulse or is breathing): Limited Support Medical Intervention Limits: No intubation (DNI) Level Of Support Discussed With: Patient Future Appointments Date Time Provider Department Center 09/28/2024 11:20 AM Jodi Danielson PA-C [facility] Additional Instructions for the Follow-ups that You Need to Schedule Discharge Follow-up with PCP As directed Currently Documented PCP: Provider, No Known PCP Phone Number: None Follow Up Details: after dc from rehab Discharge Follow-up with Specified Provider: Ortho; 3 Weeks As directed To: Ortho Follow Up: 3 Weeks Follow Up Details: with repeat imaging Veda Zheng APRN 09/01/24 Time Spent on Discharge: I spent 25 minutes on this discharge activity which included: bqol-ly-cqrzhppzrdlum with the patient, reviewing the data in the system, coordination of the care with the nursing staff as well as consultants, documentation, and entering orders. Cosigned by Luca Bell MD at 09/02/2024 10:18 AM EDT Associated attestation - Luca Bell MD - 09/02/2024 10:18 AM EDT I have reviewed this documentation and agree. * Katie Neves - 08/31/2024 10:23 AM EDT Images from the original note were not included. Lorin Raymundo (79 y.o. Female) Date of 1945 Social Security Number [id number] Address [id number] [facility] [address] [facility] Marital Status Admission Date 08/27/2024 Admission Type Emergency Admitting Provider Luca Bell MD Attending Provider Luca Bell MD Department, Room/Bed [address], S[address]/1 Discharge Date Discharge Disposition Discharge Destination Attending Provider: Luca Bell MD Allergies: Fish-derived Products, Gowrie, Poultry Meal, Shellfish-derived Products Isolation: None Infection: None Code Status: No CPR Ht: 152.4 cm (60 ) Wt: 49.9 kg (110 lb) Admission Cmt: None Principal Problem: Hip fracture [S72.009A] Active Insurance as of 08/27/2024 Primary Coverage Payor Plan Insurance Group Employer/Plan Group [employer] MEDICARE REPLACEMENT [employer] MEDICARE ADVANTAGE PPO [id number] Payor Plan Address Payor Plan Phone Number Payor Plan Fax Number Effective Dates [address] [address] 11/03/2022 - None Entered [facility] [id number] Subscriber Name Subscriber Date Member ID LORIN RAYMUNDO 1945 [id number] Emergency Contacts Procurement Consultant (Rel.) Home Phone Work Phone Mobile Phone Sultana Raymundo (Daughter) [phone] -- [phone] History & Physical Carolyne Reynoso MD at 08/27/24 1302 [facility] Medicine Services HISTORY AND PHYSICAL Patient Name: Lorin Raymundo : 1945 Primary Care Physician: Jj, No Known Date of admission: 08/27/2024 Subjective Subjective Chief Complaint:GLF. HPI: Lorin Raymundo is a 79 y.o. female history of anxiety/depression/bipolar, CKD, history of colon cancer who presented after GLF. Patient fell last night. She was not using her walker when she went to the restroom. Patient is not able to bear weight since the fall. In ED patient was hemodynamically stable. Labs ordered but not collected yet. X-ray showed left hip acetabular fracture. Dr. Escobar Davis consulted. Nonoperative measures. Patient reports that she lives in an independent living apartment by herself. She is not going to be able to take take her back. PT/OT consultation. [facility] was asked admit the patient for therapy and placement. Review of Systems Constitutional: Positive for fatigue. Negative for fever. Respiratory: Negative for cough. Cardiovascular: Negative for chest pain. Gastrointestinal: Negative for abdominal pain. Neurological: Positive for weakness. Personal History Past Medical History: Diagnosis Date Anxiety Arthritis Bipolar 1 disorder Cancer Depression Fibromyalgia GERD (gastroesophageal reflux disease) Joint pain localized in the knee Kidney infection Normal routine history and physical examination Seizures Oncology Problem List: Colon cancer (10/09/2015; Status: Active) Oncology/Hematology History No history exists. Past Surgical History: Procedure Laterality Date COLECTOMY PARTIAL / TOTAL N/A Partial COLON SURGERY 1994 HIP TROCHANTERIC NAILING WITH INTRAMEDULLARY HIP SCREW Left 04/21/2017 Procedure: HIP TROCANTERIC NAILING WITH INTRAMEDULLARY HIP SCREW LEFT Debridement of stage 4 decubitus ulcers x 2 with placement of wound vac to left hip; Surgeon: Silver Denny MD; Location: [facility]; Service: KNEE ARTHROSCOPY Right Family History: family history includes Cancer in her brother, daughter, father, and mother. Social History: reports that she has never smoked. She has never used smokeless tobacco. She reports that she does not drink alcohol and does not use drugs. Social History Social History Narrative Not on file Medications: Aspirin Buf([id number]-[id number]), Vitamin D, alendronate, ascorbic acid, hydrOXYzine pamoate, mirtazapine, multivitamin with minerals, omeprazole, ondansetron ODT, risperiDONE, sertraline, tolterodine LA, and zolpidem Allergies Allergen Reactions Gowrie Other (See Comments) Stated had trouble talking and could not walk Objective Objective Vital Signs: Temp: [98.3 ??F (36.8 ??C)] 98.3 ??F (36.8 ??C) Heart Rate: [79-100] 86 Resp: [16] 16 BP: (114-135)/(69-87) 114/74 Physical Exam Vitals and nursing note reviewed. Constitutional: Appearance: Normal appearance. HENT: Head: Normocephalic. Cardiovascular: Rate and Rhythm: Normal rate. Pulmonary: Effort: Pulmonary effort is normal. Abdominal: General: Abdomen is flat. Musculoskeletal: General: Tenderness present. Skin: General: Skin is warm. Neurological: Mental Status: She is alert and oriented to person, place, and time. Psychiatric: Mood and Affect: Mood normal. Result Review: I have personally reviewed the results from the time of this admission to 08/27/2024 13:02 EDT and agree with these findings: [x] Laboratory list / accordion [] Microbiology [] Radiology [] EKG/Telemetry [x] Cardiology/Vascular [] Pathology [] Old records [] Other: Most notable findings include: LAB RESULTS: Brief Urine Lab Results (Last result in the past 365 days) Color Clarity Blood Leuk Est Nitrite Protein CREAT Urine HCG 10/11/23 1114 Yellow Clear Small (1+) Moderate (2+) Negative Negative Microbiology Results (last 10 days) No results found for the last [address] Pelvis Without Contrast Result Date: 08/27/2024 CT HEAD WO CONTRAST, CT PELVIS WO CONTRAST Date of Exam: 08/27/2024 12:24 PM EDT Indication: Fell 2 weeks ago, headache since, fell again last night. Comparison: Head CT 12/27/2021. Hip and pelvis radiographs 08/27/2024.. CT abdomen/pelvis 12/27/2021. Technique: Axial CT images were obtained of the head and pelvis without contrast administration. Automated exposure control and iterative construction methods were used. Findings: Head CT: No acute intracranial hemorrhage.Intact appearing malone-white differentiation.No extra-axial fluid collection.No significant mass effect. No hydrocephalus. Mild generalized parenchymal volume loss. Moderate periventricular and subcortical white matter hypoattenuation, nonspecific, perhaps from small vessel ischemic/hypertensive changes in a patient of this age.There are intracranial atherosclerotic calcifications. Mild scattered mucosal thickening in the paranasal sinuses.nonspecific small bilateral mastoid effusions. . Bilateral lens replacements. No acuteor aggressive appearing bony or extracranial soft tissue process. Pelvis CT: Small and large bowel:No significant abnormality. Peritoneal cavity: No free fluid or free air. Bladder: No significant abnormality. Pelvic organs: No significant abnormality. Vasculature: Atherosclerotic calcifications. Lymph nodes: No pathologic appearing lymph nodes by imaging criteria. Bones and soft tissues: Acute comminuted fracture of the left acetabulum. Subacute to chronic appearing nondisplaced fracture of the left inferior pubic ramus. Left proximal femoral fixation hardware. Degenerative changes of the imaged spine. Mild osteoarthrosis of the bilateral hips and sacroiliac joints. Impression: Impression: No acute intracranial findings. Acute comminuted fracture of the left acetabulum. Electronically Signed: Reynaldo Santamaria MD 08/27/2024 12:58 PM EDT Workstation ID: [id number] CT Head Without Contrast Result Date: 08/27/2024 CT HEAD WO CONTRAST, CT PELVIS WO CONTRAST Date of Exam: 08/27/2024 12:24 PM EDT Indication: Fell 2 weeks ago, headache since, fell again last night. Comparison: Head CT 12/27/2021. Hip and pelvis radiographs 08/27/2024.. CT abdomen/pelvis 12/27/2021. Technique: Axial CT images were obtained of the head and pelvis without contrast administration. Automated exposure control and iterative construction methods were used. Findings: Head CT: No acute intracranial hemorrhage.Intact appearing malone-white differentiation.No extra-axial fluid collection.No significant mass effect. No hydrocephalus. Mild generalized parenchymal volume loss. Moderate periventricular and subcortical white matter hypoattenuation, nonspecific, perhaps from small vessel ischemic/hypertensive changes in a patient of this age.There are intracranial atherosclerotic calcifications. Mild scattered mucosal thickening in the paranasal sinuses.nonspecific small bilateral mastoid effusions. . Bilateral lens replacements. No acuteor aggressive appearing bony or extracranial soft tissue process. Pelvis CT: Small and large bowel:No significant abnormality. Peritoneal cavity: No free fluid or free air. Bladder: No significant abnormality. Pelvic organs: No significant abnormality. Vasculature: Atherosclerotic calcifications. Lymph nodes: No pathologic appearing lymph nodes by imaging criteria. Bones and soft tissues: Acute comminuted fracture of the left acetabulum. Subacute to chronic appearing nondisplaced fracture of the left inferior pubic ramus. Left proximal femoral fixation hardware. Degenerative changes of the imaged spine. Mild osteoarthrosis of the bilateral hips and sacroiliac joints. Impression: Impression: No acute intracranial findings. Acute comminuted fracture of the left acetabulum. Electronically Signed: Reynaldo Santamaria MD 08/27/2024 12:58 PM EDT Workstation ID: [id number] XR Chest 1 View Result Date: 08/27/2024 XR CHEST 1 VW Date of Exam: 08/27/2024 10:35 AM EDT Indication: cough, preop Comparison: 08/10/2024 Findings: Heart size and pulmonary vasculature are within normal limits. Lungs clear than calcified granuloma on the left. Costophrenic angles sharp Impression: Impression: No active cardiopulmonary disease Electronically Signed: Denys Munguia 08/27/2024 10:49 AM EDT Workstation ID: [id number] XR Knee 1 or 2 View Left Result Date: 08/27/2024 XR KNEE 1 OR 2 VW LEFT Date of Exam: 08/27/2024 9:46 AM EDT Indication: trauma Comparison: 10/18/2020knee radiographs Findings: Partially visualized femoral hardware without evidence of complication. Moderate knee joint effusion. No traumatic malalignment. Moderate degenerative changes of the knee. Articular surfaces appear grossly intact. No evidence of fracture. Impression: Impression: 1.Moderate knee joint effusion without evidence of acute fracture or malalignment. 2.Moderate degenerative changes of the knee. Electronically Signed: Richard Wilkerson MD 08/27/2024 10:02 AM EDT Workstation ID: [id number] XR Hip With or Without Pelvis 2 - 3 View Left Result Date: 08/27/2024 XR HIP W OR WO PELVIS 2-3 VIEW LEFT Date of Exam: 08/27/2024 9:26 AM EDT Indication: For the last night, cannot put weight on left hip today Comparison: None available. Findings: There is a nondisplaced comminuted fracture of the acetabulum. The fracture involves the acetabular roof and medial acetabular wall. There is an associated fracture at the junction of the superior pubic ramus and ilium. The left hip is not dislocated. There has been previous internal fixation of a fracture of the proximal left femur with a nail and kailee. No acute fracture of the proximal left femur is demonstrated. Degenerative disease in the lower lumbar spine noted Impression: Impression: Nondisplaced comminuted fracture of the left acetabulum Electronically Signed: Denys Munguia 08/27/2024 10:02 AM EDT Workstation ID: [id number] Results for orders placed during the hospital encounter of 12/27/21 Adult Transthoracic Echo Complete W/ Cont if Necessary Per Protocol Interpretation Summary ?? Estimated left ventricular EF = 60% ?? Mild mitral valve regurgitation is present. ?? Moderate tricuspid valve regurgitation is present. Assessment & Plan Assessment & Plan Hip fracture Generalized anxiety disorder Kidney disease, chronic, stage III (GFR 30-59 ml/min) Moderate malnutrition Lorin Raymundo is a 79 y.o. female history of anxiety/depression/bipolar, CKD, history of colon cancer who presented with acute left acetabular fractureafter GLF. ## Acute left acetabular fracture ## Ground level fall - Patient fell last night. She was not using her walker when she went to the restroom. - Patient is not able to bear weight since the fall. - In ED patient was hemodynamically stable. - Labs ordered but not collected yet. - X-ray showed left hip acetabular fracture. - Dr. Cody with Ortho consulted. Nonoperative measures. - Patient reports that she lives in an independent living apartment by herself. - She is not going to be able to take take her back. - PT/OT consultation. - CM to facilitate discharge pending therapy eval. ## Anxiety/depression/bipolar, - Restart home meds once reconciled. DVT prophylaxis: Lovenox Expected Discharge Expected Discharge Date: 08/29/2024; Expected Discharge Time: This note has been completed as part of a split-shared workflow. Signature: Electronically signed by Carolyne Reynoso MD, 08/27/24, 1:07 PM EDT 1622 Physician Progress Notes (most recent note) Jodi Danielson PA-C at 08/30/24 [id number] Attestation signed by Arun Cody MD at 08/31/24 3778 I have reviewed this documentation and agree. Orthopedic Surgery Note CHIEF COMPLAINT: Left pelvic/acetabular Subjective: Patient seen this afternoon resting in bed. Pain is well-controlled. No new complaints at this time. PHYSICAL THERAPY PROGRESS Outcome Evaluation: Patient continues to need reminder for wt bearing status during transfers. She was able to propell w/c with cues and good technique. (08/30/24 1134) Medications/Allergies: Current Facility-Administered Medications: acetaminophen (TYLENOL) tablet 650 mg, 650 mg, Oral, Q4H PRN, 650 mg at 08/30/24 0638 OR acetaminophen (TYLENOL) 160 MG/5ML oral solution 650 mg, 650 mg, Oral, Q4H PRN OR acetaminophen (TYLENOL) suppository 650 mg, 650 mg, Rectal, Q4H PRN, Carolyne Reynoso MD aspirin EC tablet 81 mg, 81 mg, Oral, Daily, Luca Bell MD, 81 mg at 08/30/24 0821 sennosides-docusate (PERICOLACE) 8.6-50 MG per tablet 2 tablet, 2 tablet, Oral, BID PRN AND polyethylene glycol (MIRALAX) packet 17 g, 17 g, Oral, Daily PRN AND bisacodyl (DULCOLAX) EC tablet5 mg, 5 mg, Oral, Daily PRN AND bisacodyl (DULCOLAX) suppository 10 mg, 10 mg, Rectal, Daily PRN, Carolyne Reynoso MD Calcium Replacement - Follow Nurse / BPA Driven Protocol, , Not Applicable, PRN, Carolyne Reynoso MD enoxaparin sodium (LOVENOX) syringe 30 mg, 30 mg, Subcutaneous, Daily, Carolyne Reynoso MD, 30 mg at08/30/24 0821 gabapentin (NEURONTIN) capsule 600 mg, 600 mg, Oral, Q8H, Luca Bell MD, 600 mg at Lidocaine 4 % 1 patch, 1 patch, Transdermal, Q24H, Carolyne Reynoso MD, 1 patch at 08/29/24 0819 Magnesium Standard Dose Replacement - Follow Nurse / BPA Driven Protocol, , Not Applicable, PRN, Carolyne Reynoso MD melatonin tablet 5 mg, 5 mg, Oral, Nightly PRN, Briana Gasca, TAPE SEWER, 5 mg at 08/27/242117 ondansetron ODT (ZOFRAN-ODT) disintegrating tablet 4 mg, 4 mg, Oral, Q6H PRN OR ondansetron (ZOFRAN) injection 4 mg, 4 mg, Intravenous, Q6H PRN, Carolyne Reynoso MD pantoprazole (PROTONIX) EC tablet 40 mg, 40 mg, Oral, Q AM, Carolyne Reynoso MD, 40 mg at 08/30/24 0638 Phosphorus Replacement - Follow Nurse / BPA Driven Protocol, , Not Applicable, PREdgardo Peraza Rabie, MD Potassium Replacement - Follow Nurse / BPA Driven Protocol, , Not Applicable, Edgardo CHEN Rabie, MD risperiDONE (risperDAL) tablet 0.25 mg, 0.25 mg, Oral, BID, Carolyne Reynoso MD, 0.25 mg at 030 sertraline (ZOLOFT) tablet 100 mg, 100 mg, Oral, Daily, Carolyne Reynoso MD, 100 mg at 08/30/24 0821 sodium chloride 0.9 % flush 10 mL, 10 mL, Intravenous, Q12H, Carolyne Reynoso MD, 10 mL at 08/30/24 0821 sodium chloride 0.9 % flush 10 mL, 10 mL, Intravenous, PRN, Carolyne Reynoso MD sodium chloride 0.9 % infusion 40 mL, 40 mL, Intravenous, PRN, Carolyne Reynoso MD traMADol (ULTRAM) tablet 25 mg, 25 mg, Oral, Q8H PRN, Carolyne Reynoso MD zolpidem (AMBIEN) tablet 10 mg, 10 mg, Oral, Nightly, Luca Bell MD Allergies Allergen Reactions Fish-Derived Products Hives [place] Other (See Comments) Stated had trouble talking and could not walk Poultry Meal Hives Shellfish-Derived Products Hives Objective: Vital Signs Temp: [97.6 ??F (36.4 ??C)-98.5 ??F (36.9 ??C)] 98 ??F (36.7 ??C) Heart Rate: [71-87] 87 Resp: [16-18] 16 BP: (106-121)/(59-72) 121/65 Results Review: I reviewed the patient's new clinical results. Results from last 7 days Lab Units 08/30/24 0826 WBC 10*3/mm3 11.84* HEMOGLOBIN g/dL 10.1* HEMATOCRIT % 32.3* PLATELETS 10*3/mm3 241 Results from last 7 days Lab Units 08/30/24 0826 SODIUM mmol/L 137 POTASSIUM mmol/L 3.8 CHLORIDE mmol/L 101 CO2 mmol/L 25.0 BUN mg/dL 15.4 CREATININE mg/dL 0.74 GLUCOSE mg/dL 114* CALCIUM mg/dL 8.6 Results from last 7 days Lab Units 08/30/24 0826 08/29/24 1231 08/28/24 0710 SODIUM mmol/L 137 < > 136 POTASSIUM mmol/L 3.8 < > 4.1 CHLORIDE mmol/L 101 < > 100 CO2 mmol/L 25.0 < > 26.0 BUN mg/dL 15.4 < > 12 CREATININE mg/dL 0.74 < > 1.04* CALCIUM mg/dL 8.6 < > 8.2* ALK PHOS U/L -- -- 56 ALT (SGPT) U/L -- -- 7 AST (SGOT) U/L -- -- 13 GLUCOSE mg/dL 114* < > 115* < > = values in this interval not displayed. Physical Exam: General: comfortable Vascular: digits are pink and well perfused Neurologic: sensation to light touch is intact distally, EHL/FHL/TA/GCS intact Dermatologic: Skin is clean dry and intact left hip; no obvious signs or symptoms of infection or DVT, no calf swelling No pain with gentle log rolling No hip deformity, symmetric leg length No tenderness with palpation of pelvis and hip area Hip fracture Generalized anxiety disorder Kidney disease, chronic, stage III (GFR 30-59 ml/min) Moderate malnutrition Closed nondisplaced fracture of left acetabulum Assessment/Plan: Closed nondisplaced fracture of left acetabulum Nonoperative management recommended. Pain is controlled at this time. Improvements noted. Disposition: Anticipate placement will be needed Pain control - well controlled at this time while resting in bed Diet - per primary team PT/OT: partial/protected weightbearing as tolerated with assistance of therapy team AP pelvis, inlet outlet views upon arrival to the clinic in 3 to 4 weeks. Chemical DVT prophylaxis recommended as an inpatient and then aspirin 81 mg by mouth daily for 6 weeks post-injury I discussed the patient's findings and my recommendations with the patient. Follow-up: Please have the schedulers call our office line at [phone] for a clinic appointment with our orthopedic PA team in 3 to 4 weeks. Jodi Danielson PA-C [facility] Orthopedic Surgery 08/30/24 16:51 EDT 5225 Physical Therapy Notes (most recent note) Nciole Urias, PT at 08/30/24 0948 Version 1 of Patient Name: Lorin Raymnudo : 1945 Today's Date: 08/30/2024 Admit Date: 08/27/2024 Visit Dx: ICD-10-CM ICD-9-CM 1. Fall in home, initial encounter W19.XXXA E888.9 Y92.009 E849.0 2. Closed nondisplaced fracture of left acetabulum, unspecified portion of acetabulum, initial encounter S32.402A 808.0 3. Inability to bear weight R26.89 V49.89 Patient Active Problem List Diagnosis Insomnia Generalized anxiety disorder Gastroesophageal reflux disease Vitamin D deficiency Osteoporosis Peripheral neuropathy Kidney disease, chronic, stage III (GFR 30-59 ml/min) Overflow incontinence Colon cancer Moderate malnutrition Hip fracture Closed nondisplaced fracture of left acetabulum Past Medical History: Diagnosis Date Anxiety Arthritis Bipolar 1 disorder Cancer Depression Fibromyalgia GERD (gastroesophageal reflux disease) Joint pain localized in the knee Kidney infection Normal routine history and physical examination Seizures Past Surgical History: Procedure Laterality Date COLECTOMY PARTIAL / TOTAL N/A Partial COLON SURGERY 1994 HIP TROCHANTERIC NAILING WITH INTRAMEDULLARY HIP SCREW Left 04/21/2017 Procedure: HIP TROCANTERIC NAILING WITH INTRAMEDULLARY HIP SCREW LEFT Debridement of stage 4 decubitus ulcers x 2 with placement of wound vac to left hip; Surgeon: Silver Denny MD; Location: [facility]; Service: KNEE ARTHROSCOPY Right General Information Row Name 08/30/24 1129 08/30/24 112 Physical Therapy Time and Intention Document Type therapy note (daily note) -MI therapy note (daily note) -MI Mode of Treatment physical therapy -MI physical therapy -MI Row Name 08/30/24112808/30/241127 General Information Patient Profile Reviewed yes -MI yes -MI Existing Precautions/Restrictions fall;partial weight bearing;left;seizures;other (see comments) PWB, TTWB -MI fall;partial weight bearing;left;seizures;other (see comments) -MI Row Name 08/30/241128 Cognition Orientation Status (Cognition) oriented x 3 -[facility] Name 08/30/241128 Safety Issues/Impairments Affecting Functional Mobility Impairments Affecting Function (Mobility) balance;strength;endurance/activity tolerance;pain;range of motion (ROM);motor control;sensation/sensory awareness -MI Comment, Safety Issues/Impairments (Mobility) alert, following commands -MI User Turner (r) = Recorded By, (t) = Taken By, (c) = Cosigned By Initials Name Provider Type MI Nicole Urias PT Physical Therapist Mobility Row Name 08/30/24 112 Bed Mobility Bed Mobility supine-sit;scooting/bridging -MI Scooting/Bridging Cosmos (Bed Mobility) modified independence -MI Supine-Sit Cosmos (Bed Mobility) verbal cues;minimum assist (75% patient effort) -MI Assistive Device (Bed Mobility) head of bed elevated;bed rails;repositioning sheet -MI Comment, (Bed Mobility) some help with L leg getting in/oob -[facility] Name 08/30/241128 Transfers Comment, (Transfers) STS with cues for hand placement. Demonstrated good technique -[facility] Name 08/30/241128 Sit-Stand Transfer Sit-Stand Cosmos (Transfers) verbal cues;minimum assist (75% patient effort);1 person to manage equipment -MI Assistive Device (Sit-Stand Transfers) walker, front-wheeled -[facility] Name 08/30/241128 Gait/Stairs (Locomotion) Cosmos Level (Gait) 1 person assist;1 person to manage equipment;contact guard;verbal cues -MI Assistive Device (Gait) walker, front-wheeled -MI Distance in Feet (Gait) 3 -MI Deviations/Abnormal Patterns (Gait) left sided deviations;antalgic;stride length decreased;weight shifting decreased;gait speed decreased -MI Bilateral Gait Deviations forward flexed posture -MI Comment, (Gait/Stairs) Gt training limited to transfers with walker. Cues for sequencing steps. Encouraged upright posture and pushing into walker to off load L leg. Some assistance needed to controlwker on turns. Some difficulty off loading leg requiring VC and tactile cues. Time taken to transfer to w/c and work on propulsion with VC for turning. Patietn able to push 200 feet with frequent standing rest breaks. -[facility] Name 08/30/24 1129 Mobility Extremity Weight-bearing Status left lower extremity -MI Left Lower Extremity (Weight-bearing Status) partial weight-bearing (PWB) -MI User Turner (r) = Recorded By, (t) = Taken By, (c) = Cosigned By Initials Name Provider Type MI Nicole Urias, PT Physical Therapist Obj/Interventions [facility] 08/30/24 1133 Motor Skills Therapeutic Exercise hip -[facility] 08/30/24 1133 Hip (Therapeutic Exercise) Hip Strengthening (Therapeutic Exercise) bilateral;flexion;extension;10 repetitions -[facility] 08/30/24 1133 Knee (Therapeutic Exercise) Knee (Therapeutic Exercise) AROM (active range of motion) -MI Knee AROM (Therapeutic Exercise) bilateral;LAQ (long arc quad);10 repetitions -[facility] 08/30/24 1133 Ankle (Therapeutic Exercise) Ankle AROM (Therapeutic Exercise) bilateral;dorsiflexion;plantarflexion;10 repetitions -[facility] 08/30/24 1133 Balance Dynamic Standing Balance 1 person to manage equipment;minimal assist -MI Position/Device Used, Standing Balance supported;walker, rolling -MI User Turner (r) = Recorded By, (t) = Taken By, (c) = Cosigned By Initials Name Provider Type MI Nicole Urias, PT Physical Therapist Goals/Plan No documentation. Clinical Impression [facility] Name 08/30/24 1134 Pain Pain Location hip -MI Pain Side/Orientation left -MI Pain Management Interventions positioning techniques utilized -MI Response to Pain Interventions functional ability unchanged -[facility] 08/30/24 1134 Pain Scale: FACES Pre/Post-Treatment Pain: FACES Scale, Pretreatment 2-->hurts little bit -MI Posttreatment Pain Rating 2-->hurts little bit -[facility] 08/30/24 1134 Plan of Care Review Plan of Care Reviewed With patient -MI Progress improving -MI Outcome Evaluation Patient continues to need reminder for wt bearing status during transfers. She was able to propell w/c with cues and good technique. -MI Row Name 08/30/24 1134 Therapy Assessment/Plan (PT) Patient/Family Therapy Goals Statement (PT) walk one day -MI Rehab Potential (PT) good -MI Criteria for Skilled Interventions Met (PT) yes;skilled treatment is necessary;meets criteria -MI Therapy Frequency (PT) daily -MI User Turner (r) = Recorded By, (t) = Taken By, (c) = Cosigned By Initials Name Provider Type MI Nicole Urias, PT Physical Therapist Outcome Measures Row Name 08/30/24 1137 How much help from another person do you currently need... Turning from your back to your side while in flat bed without using bedrails? 3 -SC Moving from lying on back to sitting on the side of a flat bed without bedrails? 3 -SC Moving to and from a bed to a chair (including a wheelchair)? 3 -SC Standing up from a chair using your arms (e.g., wheelchair, bedside chair)? 3 -SC Climbing 3-5 steps with a railing? 2 -SC To walk in hospital room? 3 -MI AM-PAC 6 Clicks Score (PT) 17 -MI Highest Level of Mobility Goal Stand (1 or More Minutes)-[facility] Row Name 08/30/24 1137 Functional Assessment Outcome Measure Options AM-PAC 6 Clicks Basic Mobility (PT) -MI User Turner (r) = Recorded By, (t) = Taken By, (c) = Cosigned By Initials Name Provider Type MI Nicole Urias, PT Physical Therapist Physical Therapy Education Title: PT OT [employer] Therapies (In Progress) Topic: Physical Therapy (Done) Point: Mobility training (Done) Learning Progress Summary Patient Eager, Phill, VU,NR by MI at 08/30/2024 1138 Comment: reviewed wt bearing status Eager, Phill, VU by MI at 08/29/2024 1150 Comment: reviewed HEP Acceptance, E,D, VU,NR by at 08/28/2024 1010 Comment: Educated on precautions, partial weight bearing status, LE HEP, benefits of mobility and being OOB, correct supine to sit t/f technique, correct sit<->stand t/f technique, correct bed to chair t/f technique, and progression of POC. Point: Home exercise program (Done) Learning Progress Summary Patient Eager, E, VU,NR by MI at 08/30/2024 1138 Comment: reviewed wt bearing status Eager, E, VU by MI at 08/29/2024 1150 Comment: reviewed HEP Acceptance, E,D, VU,NR by LR at 08/28/2024 1010 Comment: Educated on precautions, partial weight bearing status, LE HEP, benefits of mobility and being OOB, correct supine to sit t/f technique, correct sit<->stand t/f technique, correct bed to chair t/f technique, and progression of POC. Point: Body mechanics (Done) Learning Progress Summary Patient Eager, E, VU,NR by MI at 08/30/2024 1138 Comment: reviewed wt bearing status Eager, E, VU by MI at 08/29/2024 1150 Comment: reviewed HEP Acceptance, E,D, VU,NR by LR at 08/28/2024 1010 Comment: Educated on precautions, partial weight bearing status, LE HEP, benefits of mobility and being OOB, correct supine to sit t/f technique, correct sit<->stand t/f technique, correct bed to chair t/f technique, and progression of POC. Point: Precautions (Done) Learning Progress Summary Patient Eager, E, VU,NR by MI at 08/30/2024 1138 Comment: reviewed wt bearing status Eager, E, VU by MI at 08/29/2024 1150 Comment: reviewed HEP Acceptance, E,D, VU,NR by LR at 08/28/2024 1010 Comment: Educated on precautions, partial weight bearing status, LE HEP, benefits of mobility and being OOB, correct supine to sit t/f technique, correct sit<->stand t/f technique, correct bed to chair t/f technique, and progression of POC. User Turner Initials Effective Dates Name Provider Type Discipline MI 05/08/22 - Nicole Urias, PT Physical Therapist PT LR 05/08/22 - Susan Guerrero, PT Physical Therapist PT PT Recommendation and Plan Progress: improving Outcome Evaluation: Patient continues to need reminder for wt bearing status during transfers. She was able to propell w/c with cues and good technique. Time Calculation: PT Charges Row Name 08/30/24 0948 Time Calculation Start Time 0948 -MI PT Received On 08/30/24 -MI PT Goal Re-Cert Due Date 09/07/24 -MI Timed Charges 34398 - PT Therapeutic Exercise Minutes 5 -SC 80101 - Gait Training Minutes 5 -SC 22897 - PT Therapeutic Activity Minutes 25 -SC Total Minutes Timed Charges Total Minutes 35 -SC Total Minutes 35 -SC User Turner (r) = Recorded By, (t) = Taken By, (c) = Cosigned By Initials Name Provider Type MI Nicole Urias PT Physical Therapist Therapy Charges for Today Code Description Service Date Service Provider Modifiers Qty 37218510317 HC PT THER PROC EA 15 MIN 08/29/2024 Nicole Urias PT GP 1 33610257223 HC PT THERAPEUTIC ACT EA 15 MIN 08/30/2024 Nicole Urias PT GP 2 28371917874 HC PT THER SUPP EA 15 MIN 08/30/2024 Nicole Urias PT GP 2 PT G-Codes Outcome Measure Options: AM-PAC 6 Clicks Basic Mobility (PT) AM-PAC 6 Clicks Score (PT): 17 AM-PAC 6 Clicks Score (OT): 13 PT Discharge Summary Anticipated Discharge Disposition (PT): [facility] Nicole Urias PT 08/30/2024 1140 Occupational Therapy Notes (most recent note) Tisha Yu, OT at 08/29/24 1115 Patient Name: Lorin Raymundo : 1945 Today's Date: 08/29/2024 Admit Date: 08/27/2024 Visit Dx: ICD-10-CM ICD-9-CM 1. Fall in home, initial encounter W19.XXXA E888.9 Y92.009 E849.0 2. Closed nondisplaced fracture of left acetabulum, unspecified portion of acetabulum, initial encounter S32.402A 808.0 3. Inability to bear weight R26.89 V49.89 Patient Active Problem List Diagnosis Insomnia Generalized anxiety disorder Gastroesophageal reflux disease Vitamin D deficiency Osteoporosis Peripheral neuropathy Kidney disease, chronic, stage III (GFR 30-59 ml/min) Overflow incontinence Colon cancer Moderate malnutrition Hip fracture Closed nondisplaced fracture of left acetabulum Past Medical History: Diagnosis Date Anxiety Arthritis Bipolar 1 disorder Cancer Depression Fibromyalgia GERD (gastroesophageal reflux disease) Joint pain localized in the knee Kidney infection Normal routine history and physical examination Seizures Past Surgical History: Procedure Laterality Date COLECTOMY PARTIAL / TOTAL N/A Partial COLON SURGERY 1994 HIP TROCHANTERIC NAILING WITH INTRAMEDULLARY HIP SCREW Left 04/21/2017 Procedure: HIP TROCANTERIC NAILING WITH INTRAMEDULLARY HIP SCREW LEFT Debridement of stage 4 decubitus ulcers x 2 with placement of wound vac to left hip; Surgeon: Silver Denny MD; Location: [facility]; Service: KNEE ARTHROSCOPY Right General Information Row Name 08/29/24 1133 OT Time and Intention Document Type therapy note (daily note) -MR Mode of Treatment occupational therapy -MR Row Name 08/29/24 1133 General Information Existing Precautions/Restrictions fall;partial weight bearing;left;seizures;other (see comments) L acetabulum fx s/p fall, partial/protected weight bearing L LE -MR Barriers to Rehab medically complex -MR Row Name 08/29/24 1133 Cognition Orientation Status (Cognition) oriented x 3 -MR Row Name 08/29/24 1133 Safety Issues/Impairments Affecting Functional Mobility Safety Issues Affecting Function (Mobility) awareness of need for assistance;insight into deficits/self-awareness;positioning of assistive device;safety precaution awareness;safety precautions follow- through/compliance;sequencing abilities -MR Impairments Affecting Function (Mobility) balance;strength;endurance/activity tolerance;pain;range of motion (ROM);motor control;sensation/sensory awareness -MR User Turner (r) = Recorded By, (t) = Taken By, (c) = Cosigned By Initials Name Provider Type MR Gigi Tisha, OT Occupational Therapist Mobility/ADL's Row Name 08/29/24 1133 Bed Mobility Bed Mobility rolling left;sidelying-sit -MR Rolling Right Cosmos (Bed Mobility) moderate assist (50% patient effort);verbal cues;nonverbal cues (demo/gesture) -MR Sidelying-Sit Cosmos (Bed Mobility) moderate assist (50% patient effort);2 person assist;verbal cues;nonverbal cues (demo/gesture) -MR Assistive Device (Bed Mobility) head of bed elevated;bed rails -MR Row Name 08/29/24 1133 Transfers Transfers bed-chair transfer -MR Row Name 08/29/24 1133 Bed-Chair Transfer Bed-Chair Cosmos (Transfers) verbal cues;minimum assist (75% patient effort);2 person assist -MR Assistive Device (Bed-Chair Transfers) walker, front-wheeled -MR Row Name 08/29/24 1133 Activities of Daily Living BADL Assessment/Intervention grooming;lower body dressing -MR Row Name 08/29/24 1133 Mobility Extremity Weight-bearing Status left lower extremity -MR Left Lower Extremity (Weight-bearing Status) partial weight-bearing (PWB);other (see comments) partial/protected weight bearing -MR Row Name 08/29/24 1133 Grooming Assessment/Training Cosmos Level (Grooming) hair care, combing/brushing;wash face, hands;set up -MR Position (Grooming) supported sitting -MR Row Name 08/29/24 1133 Lower Body Dressing Assessment/Training Cosmos Level (Lower Body Dressing) don;socks;dependent (less than 25% patient effort) -MR Position (Lower Body Dressing) supine -MR User Turner (r) = Recorded By, (t) = Taken By, (c) = Cosigned By Initials Name Provider Type Tisha Pierson OT Occupational Therapist Obj/Interventions Row Name 08/29/24 1134 Balance Balance Assessment sitting static balance;sitting dynamic balance;standing static balance;standing dynamic balance -MR Static Sitting Balance standby assist -MR Dynamic Sitting Balance contact guard -MR Position, Sitting Balance unsupported;sitting edge of bed;sitting in chair -MR Static Standing Balance minimal assist;verbal cues;non-verbal cues (demo/gesture) -MR Dynamic Standing Balance minimal assist;2-person assist;verbal cues;non-verbal cues (demo/gesture) -MR Position/Device Used, Standing Balance supported;walker, front-wheeled -MR Balance Interventions sitting;standing;sit to stand;supported;static;dynamic -MR User Turner (r) = Recorded By, (t) = Taken By, (c) = Cosigned By Initials Name Provider Type Tisha Pierson, BERNICE Occupational Therapist Goals/Plan No documentation. Clinical Impression Row Name 08/29/24 1135 Pain Assessment Pretreatment Pain Rating 0/10 - no pain - Posttreatment Pain Rating 0/10 - no pain - Row Name 08/29/24 1135 Plan of Care Review Plan of Care Reviewed With patient -MR Progress no change -MR Outcome Evaluation Patient demonstrated improvements w/ activity tolerance, good effort noted w/ grooming tasks. Pt continues to be below her functional baseline warranting continuation of skilled OTservices. Continue per current POC as able. -MR Row Name 08/29/24 1135 Therapy Plan Review/Discharge Plan (OT) Anticipated Discharge Disposition (OT) [facility]ent[facility] facility -MR Row Name 08/29/24 1135 Vital Signs O2 Delivery Pre Treatment room air -MR O2 Delivery Intra Treatment room air -MR O2 Delivery Post Treatment room air -MR Pre Patient Position Supine -MR Intra Patient Position Standing -MR Post Patient Position Sitting -MR Row Name 08/29/24 1135 Positioning and Restraints Pre-Treatment Position in bed -MR Post Treatment Position chair -MR In Chair with PT;sitting -MR User Turner (r) = Recorded By, (t) = Taken By, (c) = Cosigned By Initials Name Provider Type Tisha Pierson OT Occupational Therapist Outcome Measures Row Name 08/29/24 1136 How much help from another is currently needed... Putting on and taking off regular lower body clothing? 1 -MR Bathing (including washing, rinsing, and drying) 2 -MR Toileting (which includes using toilet bed farrell or urinal) 1 -MR Putting on and taking off regular upper body clothing 3 -MR Taking care of personal grooming (such as brushing teeth) 3 -MR Eating meals 3 -MR AM-PAC 6 Clicks Score (OT) 13 -MR Row Name 08/29/24 1136 Functional Assessment Outcome Measure Options AM-PAC 6 Clicks Daily Activity (OT) -MR User Turner (r) = Recorded By, (t) = Taken By, (c) = Cosigned By Initials Name Provider Type Tisha Pierson OT Occupational Therapist Occupational Therapy Education Title: PT OT [employer] Therapies (In Progress) Topic: Occupational Therapy (In Progress) Point: ADL training (In Progress) Learning Progress Summary Patient Acceptance, E, NR by MR at 08/29/2024 1136 Acceptance, E, NR by SA at 08/28/2024 1533 Point: Precautions (In Progress) Learning Progress Summary Patient Acceptance, E, NR by MR at 08/29/2024 1136 Acceptance, E, NR by SA at 08/28/2024 1533 Point: Body mechanics (In Progress) Learning Progress Summary Patient Acceptance, E, NR by at 08/29/2024 1136 Acceptance, E, NR by at 08/28/2024 1533 User Turner Initials Effective Dates Name Provider Type Discipline MR 12/25/21 - Tisha Yu OT Occupational Therapist OT 07/19/24 - Nevin Larsen OT Occupational Therapist OT OT Recommendation and Plan Plan of Care Review Plan of Care Reviewed With: patient Progress: no change Outcome Evaluation: Patient demonstrated improvements w/ activity tolerance, good effort noted w/ grooming tasks. Pt continues to be below her functional baseline warranting continuation of skilled OT services. Continue per current POC as able. Time Calculation: Time Calculation- OT Row Name 08/29/241135 Time Calculation- OT OT Start Time 1115 -MR OT Received On 08/29/24 -MR Timed Charges 29834 - OT Therapeutic Activity Minutes 5 -MR 91586 - OT Self Care/Mgmt Minutes 5 -MR Total Minutes Timed Charges Total Minutes 10 -MR Total Minutes 10 -MR User Turner (r) = Recorded By, (t) = Taken By, (c) = Cosigned By Initials Name Provider Type MR Gigi Tisha, BERNICE Occupational Therapist Therapy Charges for Today Code Description Service Date Service Provider Modifiers Qty [id number] OT THERAPEUTIC ACT EA 15 MIN 08/29/2024 Tisha Yu OT GO 1 Tisha Yu OT 08/29/2024 1137 * Bette Leonardo RN - 08/30/2024 9:22 AM EDT Images from the original note were not included. Lorin Raymundo (79 y.o. Female) Bette Leonardo RN [phone] Looking for short term rehab Date of 1945 Social Security Number [id number] Address [facility] [place] [address] [facility] [address] [employer] Status Admission Date 08/27/2024 Admission Type Emergency Admitting Provider Luca Bell MD Attending Provider Luca Bell MD Department, Room/Bed [facility] 3H, S386/1 Discharge Date Discharge Disposition Discharge Destination Attending Provider: Luca Bell MD Allergies: Fish-derived Products, [place], Poultry Meal, Shellfish-derived Products Isolation: None Infection: None Code Status: Prior Ht: 152.4 cm (60 ) Wt: 49.9 kg (110 lb) Admission Cmt: None Principal Problem: Hip fracture [S72.009A] Active Insurance as of 08/27/2024 Primary Coverage Payor Plan Insurance Group Employer/Plan Group [employer] MEDICARE REPLACEMENT [employer] MEDICARE ADVANTAGE PPO [id number] Payor Plan Address Payor Plan Phone Number Payor Plan Fax Number Effective Dates [address] [address] 11/03/2022 - None Entered [facility] [id number] Subscriber Name Subscriber Date Member ID LORIN RAYMUNDO 1945 [id number] Emergency Contacts Procurement Consultant (Rel.) Home Phone Work Phone Mobile Phone Sultana Raymundo (Daughter) [phone] -- [phone] Insurance Information [employer] REPLACEMENT/[employer] MEDICARE ADVANTAGE PPO Subscriber: Lorin Raymundo Subscriber#: [id number] Group#: [id number] Precert#: -- Authorization#: -- Effective Date: -- History & Physical Carolyne Reynoso MD at 08/27/24 1302 [facility] Medicine Services HISTORY AND PHYSICAL Patient Name: Lorin Raymundo : 1945 Primary Care Physician: Provider, No Known Date of admission: 08/27/2024 Subjective Subjective Chief Complaint:GLF. HPI: Lorin Raymundo is a 79 y.o. female history of anxiety/depression/bipolar, CKD, history of colon cancer who presented after GLF. Patient fell last night. She was not using her walker when she went to the restroom. Patient is not able to bear weight since the fall. In ED patient was hemodynamically stable. Labs ordered but not collected yet. X-ray showed left hip acetabular fracture. Dr. Escobar Davis consulted. Nonoperative measures. Patient reports that she lives in an independent living apartment by herself. She is not going to be able to take take her back. PT/OT consultation. [facility] [place] was asked admit the patient for therapy and placement. Review of Systems Constitutional: Positive for fatigue. Negative for fever. Respiratory: Negative for cough. Cardiovascular: Negative for chest pain. Gastrointestinal: Negative for abdominal pain. Neurological: Positive for weakness. Personal History Past Medical History: Diagnosis Date Anxiety Arthritis Bipolar 1 disorder Cancer Depression Fibromyalgia GERD (gastroesophageal reflux disease) Joint pain localized in the knee Kidney infection Normal routine history and physical examination Seizures Oncology Problem List: Colon cancer (10/09/2015; Status: Active) Oncology/Hematology History No history exists. Past Surgical History: Procedure Laterality Date COLECTOMY PARTIAL / TOTAL N/A Partial COLON SURGERY 1994 HIP TROCHANTERIC NAILING WITH INTRAMEDULLARY HIP SCREW Left 04/21/2017 Procedure: HIP TROCANTERIC NAILING WITH INTRAMEDULLARY HIP SCREW LEFT Debridement of stage 4 decubitus ulcers x 2 with placement of wound vac to left hip; Surgeon: Silver Denny MD; Location: [facility]; Service: KNEE ARTHROSCOPY Right Family History: family history includes Cancer in her brother, daughter, father, and mother. Social History: reports that she has never smoked. She has never used smokeless tobacco. She reports that she does not drink alcohol and does not use drugs. Social History Social History Narrative Not on file Medications: Aspirin Buf([id number]), Vitamin D, alendronate, ascorbic acid, hydrOXYzine pamoate, mirtazapine, multivitamin with minerals, omeprazole, ondansetron ODT, risperiDONE, sertraline, tolterodine LA, and zolpidem Allergies Allergen Reactions [place] Other (See Comments) Stated had trouble talking and could not walk Objective Objective Vital Signs: Temp: [98.3 ??F (36.8 ??C)] 98.3 ??F (36.8 ??C) Heart Rate: [79-100] 86 Resp: [16] 16 BP: (114-135)/(69-87) 114/74 Physical Exam Vitals and nursing note reviewed. Constitutional: Appearance: Normal appearance. HENT: Head: Normocephalic. Cardiovascular: Rate and Rhythm: Normal rate. Pulmonary: Effort: Pulmonary effort is normal. Abdominal: General: Abdomen is flat. Musculoskeletal: General: Tenderness present. Skin: General: Skin is warm. Neurological: Mental Status: She is alert and oriented to person, place, and time. Psychiatric: Mood and Affect: Mood normal. Result Review: I have personally reviewed the results from the time of this admission to 08/27/2024 13:02 EDT and agree with these findings: [x] Laboratory list / accordion [] Microbiology [] Radiology [] EKG/Telemetry [x] Cardiology/Vascular [] Pathology [] Old records [] Other: Most notable findings include: LAB RESULTS: Brief Urine Lab Results (Last result in the past 365 days) Color Clarity Blood Leuk Est Nitrite Protein CREAT Urine HCG 10/11/23 1114 Yellow Clear Small (1+) Moderate (2+) Negative Negative Microbiology Results (last 10 days) No results found for the last [address] Pelvis Without Contrast Result Date: 08/27/2024 CT HEAD WO CONTRAST, CT PELVIS WO CONTRAST Date of Exam: 08/27/2024 12:24 PM EDT Indication: Fell 2 weeks ago, headache since, fell again last night. Comparison: Head CT 12/27/2021. Hip and pelvis radiographs 08/27/2024.. CT abdomen/pelvis 12/27/2021. Technique: Axial CT images were obtained of the head and pelvis without contrast administration. Automated exposure control and iterative construction methods were used. Findings: Head CT: No acute intracranial hemorrhage.Intact appearing malone-white differentiation.No extra-axial fluid collection.No significant mass effect. No hydrocephalus. Mild generalized parenchymal volume loss. Moderate periventricular and subcortical white matter hypoattenuation, nonspecific, perhaps from small vessel ischemic/hypertensive changes in a patient of this age.There are intracranial atherosclerotic calcifications. Mild scattered mucosal thickening in the paranasal sinuses.nonspecific small bilateral mastoid effusions. . Bilateral lens replacements. No acuteor aggressive appearing bony or extracranial soft tissue process. Pelvis CT: Small and large bowel:No significant abnormality. Peritoneal cavity: No free fluid or free air. Bladder: No significant abnormality. Pelvic organs: No significant abnormality. Vasculature: Atherosclerotic calcifications. Lymph nodes: No pathologic appearing lymph nodes by imaging criteria. Bones and soft tissues: Acute comminuted fracture of the left acetabulum. Subacute to chronic appearing nondisplaced fracture of the left inferior pubic ramus. Left proximal femoral fixation hardware. Degenerative changes of the imaged spine. Mild osteoarthrosis of the bilateral hips and sacroiliac joints. Impression: Impression: No acute intracranial findings. Acute comminuted fracture of the left acetabulum. Electronically Signed: Reynaldo Santamaria MD 08/27/2024 12:58 PM EDT Workstation ID: [id number] CT Head Without Contrast Result Date: 08/27/2024 CT HEAD WO CONTRAST, CT PELVIS WO CONTRAST Date of Exam: 08/27/2024 12:24 PM EDT Indication: Fell 2 weeks ago, headache since, fell again last night. Comparison: Head CT 12/27/2021. Hip and pelvis radiographs 08/27/2024.. CT abdomen/pelvis 12/27/2021. Technique: Axial CT images were obtained of the head and pelvis without contrast administration. Automated exposure control and iterative construction methods were used. Findings: Head CT: No acute intracranial hemorrhage.Intact appearing malone-white differentiation.No extra-axial fluid collection.No significant mass effect. No hydrocephalus. Mild generalized parenchymal volume loss. Moderate periventricular and subcortical white matter hypoattenuation, nonspecific, perhaps from small vessel ischemic/hypertensive changes in a patient of this age.There are intracranial atherosclerotic calcifications. Mild scattered mucosal thickening in the paranasal sinuses.nonspecific small bilateral mastoid effusions. . Bilateral lens replacements. No acuteor aggressive appearing bony or extracranial soft tissue process. Pelvis CT: Small and large bowel:No significant abnormality. Peritoneal cavity: No free fluid or free air. Bladder: No significant abnormality. Pelvic organs: No significant abnormality. Vasculature: Atherosclerotic calcifications. Lymph nodes: No pathologic appearing lymph nodes by imaging criteria. Bones and soft tissues: Acute comminuted fracture of the left acetabulum. Subacute to chronic appearing nondisplaced fracture of the left inferior pubic ramus. Left proximal femoral fixation hardware. Degenerative changes of the imaged spine. Mild osteoarthrosis of the bilateral hips and sacroiliac joints. Impression: Impression: No acute intracranial findings. Acute comminuted fracture of the left acetabulum. Electronically Signed: Reynaldo Santamaria MD 08/27/2024 12:58 PM EDT Workstation ID: [id number] XR Chest 1 View Result Date: 08/27/2024 XR CHEST 1 VW Date of Exam: 08/27/2024 10:35 AM EDT Indication: cough, preop Comparison: 08/10/2024 Findings: Heart size and pulmonary vasculature are within normal limits. Lungs clear than calcified granuloma on the left. Costophrenic angles sharp Impression: Impression: No active cardiopulmonary disease Electronically Signed: Denys Munguia 08/27/2024 10:49 AM EDT Workstation ID: [id number] XR Knee 1 or 2 View Left Result Date: 08/27/2024 XR KNEE 1 OR 2 VW LEFT Date of Exam: 08/27/2024 9:46 AM EDT Indication: trauma Comparison: 10/18/2020knee radiographs Findings: Partially visualized femoral hardware without evidence of complication. Moderate knee joint effusion. No traumatic malalignment. Moderate degenerative changes of the knee. Articular surfaces appear grossly intact. No evidence of fracture. Impression: Impression: 1.Moderate knee joint effusion without evidence of acute fracture or malalignment. 2.Moderate degenerative changes of the knee. Electronically Signed: Richard Wilkerson MD 08/27/2024 10:02 AM EDT Workstation ID: [id number] XR Hip With or Without Pelvis 2 - 3 View Left Result Date: 08/27/2024 XR HIP W OR WO PELVIS 2-3 VIEW LEFT Date of Exam: 08/27/2024 9:26 AM EDT Indication: For the last night, cannot put weight on left hip today Comparison: None available. Findings: There is a nondisplaced comminuted fracture of the acetabulum. The fracture involves the acetabular roof and medial acetabular wall. There is an associated fracture at the junction of the superior pubic ramus and ilium. The left hip is not dislocated. There has been previous internal fixation of a fracture of the proximal left femur with a nail and kailee. No acute fracture of the proximal left femur is demonstrated. Degenerative disease in the lower lumbar spine noted Impression: Impression: Nondisplaced comminuted fracture of the left acetabulum Electronically Signed: Denys Munguia 08/27/2024 10:02 AM EDT Workstation ID: [id number] Results for orders placed during the hospital encounter of 12/27/21 Adult Transthoracic Echo Complete W/ Cont if Necessary Per Protocol Interpretation Summary ?? Estimated left ventricular EF = 60% ?? Mild mitral valve regurgitation is present. ?? Moderate tricuspid valve regurgitation is present. Assessment & Plan Assessment & Plan Hip fracture Generalized anxiety disorder Kidney disease, chronic, stage III (GFR 30-59 ml/min) Moderate malnutrition Lorin Raymundo is a 79 y.o. female history of anxiety/depression/bipolar, CKD, history of colon cancer who presented with acute left acetabular fractureafter GLF. ## Acute left acetabular fracture ## Ground level fall - Patient fell last night. She was not using her walker when she went to the restroom. - Patient is not able to bear weight since the fall. - In ED patient was hemodynamically stable. - Labs ordered but not collected yet. - X-ray showed left hip acetabular fracture. - Dr. Cody with Ortho consulted. Nonoperative measures. - Patient reports that she lives in an independent living apartment by herself. - She is not going to be able to take take her back. - PT/OT consultation. - CM to facilitate discharge pending therapy eval. ## Anxiety/depression/bipolar, - Restart home meds once reconciled. DVT prophylaxis: Lovenox Expected Discharge Expected Discharge Date: 08/29/2024; Expected Discharge Time: This note has been completed as part of a split-shared workflow. Signature: Electronically signed by Carolyne Reynoso MD, 08/27/24, 1:07 PM EDT 1622 Current Facility-Administered Medications Medication Dose Route Frequency Provider Last Rate Last Admin acetaminophen (TYLENOL) tablet 650 mg 650 mg Oral Q4H PRN Carolyne Reynoso MD 650 mg at 08/30/24 0638 Or acetaminophen (TYLENOL) 160 MG/5ML oral solution 650 mg 650 mg Oral Q4H PRN Carolyne Reynoso MD Or acetaminophen (TYLENOL) suppository 650 mg 650 mg Rectal Q4H PRN Carolyne Reynoso MD aspirin EC tablet 81 mg 81 mg Oral Daily Luca Bell MD 81 mg at 08/30/24 0821 sennosides-docusate (PERICOLACE) 8.6-50 MG per tablet 2 tablet 2 tablet Oral BID PRN Carolyne Reynoso MD And polyethylene glycol (MIRALAX) packet 17 g 17 g Oral Daily PRN Carolyne Reynoso MD And bisacodyl (DULCOLAX) EC tablet 5 mg 5 mg Oral Daily PRN Carolyne Reynoso MD And bisacodyl (DULCOLAX) suppository 10 mg 10 mg Rectal Daily PRN Carolyne Reynoso MD Calcium Replacement - Follow Nurse / BPA Driven Protocol Not Applicable PRN Carolyne Reynoso MD enoxaparin sodium (LOVENOX) syringe 30 mg 30 mg Subcutaneous Daily Carolyne Reynoso MD 30 mg at 08/30/24 0821 gabapentin (NEURONTIN) capsule 600 mg 600 mg Oral Q8H Luca Bell MD 600 mg at 08/30/24 0638 Lidocaine 4 % 1 patch 1 patch Transdermal Q24H Carolyne Reynoso MD 1 patch at 08/29/24 0819 Magnesium Standard Dose Replacement - Follow Nurse / BPA Driven Protocol Not Applicable PRN Carolyne Reynoso MD melatonin tablet 5 mg 5 mg Oral Nightly PRN Briana Gasca APRN 5 mg at 08/27/24 211 ondansetron ODT (ZOFRAN-ODT) disintegrating tablet 4 mg 4 mg Oral Q6H PRN Carolyne Reynoso MD Or ondansetron (ZOFRAN) injection 4 mg 4 mg Intravenous Q6H PRN Carolyne Reynoso MD pantoprazole (PROTONIX) EC tablet 40 mg 40 mg Oral Q AM Carolyne Reynoso MD 40 mg at 08/30/24 0638 Phosphorus Replacement - Follow Nurse / BPA Driven Protocol Not Applicable PRN Carolyne Reynoso MD Potassium Replacement - Follow Nurse / BPA Driven Protocol Not Applicable PRN Carolyne Reynoso MD risperiDONE (risperDAL) tablet 0.25 mg 0.25 mg Oral BID Carolyne Reynoso MD 0.25 mg at 08/29/24 204 sertraline (ZOLOFT) tablet 100 mg 100 mg Oral Daily Carolyne Reynoso MD 100 mg at 08/30/24 0821 sodium chloride 0.9 % flush 10 mL 10 mL Intravenous Q12H Carolyne Reynoso MD 10 mL at 08/30/24 0821 sodium chloride 0.9 % flush 10 mL 10 mL Intravenous PRN Carolyne Reynoso MD sodium chloride 0.9 % infusion 40 mL 40 mL Intravenous PRN Carolyne Reynoso MD traMADol (ULTRAM) tablet 25 mg 25 mg Oral Q8H PRN Carolyne Reynoso MD zolpidem (AMBIEN) tablet 5 mg 5 mg Oral Nightly Luca Bell MD 5 mg at 08/29/242048 Physician Progress Notes (most recent note) Luca Bell MD at 08/29/24 0920 [facility] Medicine Services PROGRESS NOTE Patient Name: Lorin Raymundo : 1945 Date of Admission: 08/27/2024 Primary Care Physician: Provider, No Known Subjective Subjective CC: Left acetabular fracture HPI: No significant overnight events, patient doing well this a.m., not endorsing any pain at this time.Did have a small bowel movement. Objective Objective Vital Signs: Temp: [97.4 ??F (36.3 ??C)-99.2 ??F (37.3 ??C)] 97.9 ??F (36.6 ??C) Heart Rate: [64-94] 65 Resp: [16] 16 BP: (88-123)/(54-75) 94/64 Flow (L/min) (Oxygen Therapy): [2] 2 Physical Exam: Constitutional: No acute distress, awake, alert HENT: NCAT, mucous membranes moist Respiratory: Clear to auscultation bilaterally, respiratory effort normal Cardiovascular: RRR, no murmurs, rubs, or gallops Gastrointestinal: Positive bowel sounds, soft, nontender, nondistended Musculoskeletal: No bilateral ankle edema Psychiatric: Appropriate affect, cooperative Neurologic: Oriented x 3, strength symmetric in all extremities, Cranial Nerves grossly intact to confrontation, speech clear Skin: No rashes Results Reviewed: LAB RESULTS: Lab 08/28/24 0710 08/27/24 1319 WBC 8.79 11.31* HEMOGLOBIN 10.2* 11.7* HEMATOCRIT 32.8* 36.4 PLATELETS 231 283 NEUTROS ABS 6.35 8.28* IMMATURE GRANS (ABS) 0.03 0.06* LYMPHS ABS 1.27 1.91 MONOS ABS 0.81 0.93* EOS ABS 0.29 0.09 MCV 94.8 93.6 Lab 08/28/24 0710 08/27/24 1510 SODIUM 136 139 POTASSIUM 4.1 4.3 CHLORIDE 100 101 CO2 26.0 25.0 ANION GAP 10.0 13.0 BUN 12 11 CREATININE 1.04* 0.87 EGFR 54.1* 67.0 GLUCOSE 115* 95 CALCIUM 8.2* 9.0 MAGNESIUM 1.9 -- PHOSPHORUS 3.1 -- TSH 1.260 -- Lab 08/28/24 0710 08/27/24 1510 TOTAL PROTEIN 5.8* 6.7 ALBUMIN 3.4* 3.8 GLOBULIN 2.4 2.9 ALT (SGPT) 7 13 AST (SGOT) 13 17 BILIRUBIN 0.4 0.5 ALK PHOS 56 66 Brief Urine Lab Results (Last result in the past 365 days) Color Clarity Blood Leuk Est Nitrite Protein CREAT Urine HCG 08/28/24 0439 Yellow Clear Trace Small (1+) Negative Trace Microbiology Results Abnormal None CT Pelvis Without Contrast Result Date: 08/27/2024 CT HEAD WO CONTRAST, CT PELVIS WO CONTRAST Date of Exam: 08/27/2024 12:24 PM EDT Indication: Fell 2 weeks ago, headache since, fell again last night. Comparison: Head CT 12/27/2021. Hip and pelvis radiographs 08/27/2024.. CT abdomen/pelvis 12/27/2021. Technique: Axial CT images were obtained of the head and pelvis without contrast administration. Automated exposure control and iterative construction methods were used. Findings: Head CT: No acute intracranial hemorrhage.Intact appearing malone-white differentiation.No extra-axial fluid collection.No significant mass effect. No hydrocephalus. Mild generalized parenchymal volume loss. Moderate periventricular and subcortical white matter hypoattenuation, nonspecific, perhaps from small vessel ischemic/hypertensive changes in a patient of this age.There are intracranial atherosclerotic calcifications. Mild scattered mucosal thickening in the paranasal sinuses.nonspecific small bilateral mastoid effusions. . Bilateral lens replacements. No acuteor aggressive appearing bony or extracranial soft tissue process. Pelvis CT: Small and large bowel:No significant abnormality. Peritoneal cavity: No free fluid or free air. Bladder: No significant abnormality. Pelvic organs: No significant abnormality. Vasculature: Atherosclerotic calcifications. Lymph nodes: No pathologic appearing lymph nodes by imaging criteria. Bones and soft tissues: Acute comminuted fracture of the left acetabulum. Subacute to chronic appearing nondisplaced fracture of the left inferior pubic ramus. Left proximal femoral fixation hardware. Degenerative changes of the imaged spine. Mild osteoarthrosis of the bilateral hips and sacroiliac joints. Impression: Impression: No acute intracranial findings. Acute comminuted fracture of the left acetabulum. Electronically Signed: Reynaldo Santamaria MD 08/27/2024 12:58 PM EDT Workstation ID: [id number] CT Head Without Contrast Result Date: 08/27/2024 CT HEAD WO CONTRAST, CT PELVIS WO CONTRAST Date of Exam: 08/27/2024 12:24 PM EDT Indication: Fell 2 weeks ago, headache since, fell again last night. Comparison: Head CT 12/27/2021. Hip and pelvis radiographs 08/27/2024.. CT abdomen/pelvis 12/27/2021. Technique: Axial CT images were obtained of the head and pelvis without contrast administration. Automated exposure control and iterative construction methods were used. Findings: Head CT: No acute intracranial hemorrhage.Intact appearing malone-white differentiation.No extra-axial fluid collection.No significant mass effect. No hydrocephalus. Mild generalized parenchymal volume loss. Moderate periventricular and subcortical white matter hypoattenuation, nonspecific, perhaps from small vessel ischemic/hypertensive changes in a patient of this age.There are intracranial atherosclerotic calcifications. Mild scattered mucosal thickening in the paranasal sinuses.nonspecific small bilateral mastoid effusions. . Bilateral lens replacements. No acuteor aggressive appearing bony or extracranial soft tissue process. Pelvis CT: Small and large bowel:No significant abnormality. Peritoneal cavity: No free fluid or free air. Bladder: No significant abnormality. Pelvic organs: No significant abnormality. Vasculature: Atherosclerotic calcifications. Lymph nodes: No pathologic appearing lymph nodes by imaging criteria. Bones and soft tissues: Acute comminuted fracture of the left acetabulum. Subacute to chronic appearing nondisplaced fracture of the left inferior pubic ramus. Left proximal femoral fixation hardware. Degenerative changes of the imaged spine. Mild osteoarthrosis of the bilateral hips and sacroiliac joints. Impression: Impression: No acute intracranial findings. Acute comminuted fracture of the left acetabulum. Electronically Signed: Reynaldo Santamaria MD 08/27/2024 12:58 PM EDT Workstation ID: [id number] XR Chest 1 View Result Date: 08/27/2024 XR CHEST 1 VW Date of Exam: 08/27/2024 10:35 AM EDT Indication: cough, preop Comparison: 08/10/2024 Findings: Heart size and pulmonary vasculature are within normal limits. Lungs clear than calcified granuloma on the left. Costophrenic angles sharp Impression: Impression: No active cardiopulmonary disease Electronically Signed: Denys Munguia 08/27/2024 10:49 AM EDT Workstation ID: [id number] XR Knee 1 or 2 View Left Result Date: 08/27/2024 XR KNEE 1 OR 2 VW LEFT Date of Exam: 08/27/2024 9:46 AM EDT Indication: trauma Comparison: 10/18/2020knee radiographs Findings: Partially visualized femoral hardware without evidence of complication. Moderate knee joint effusion. No traumatic malalignment. Moderate degenerative changes of the knee. Articular surfaces appear grossly intact. No evidence of fracture. Impression: Impression: 1.Moderate knee joint effusion without evidence of acute fracture or malalignment. 2.Moderate degenerative changes of the knee. Electronically Signed: Richard Wilkerson MD 08/27/2024 10:02 AM EDT Workstation ID: [id number] XR Hip With or Without Pelvis 2 - 3 View Left Result Date: 08/27/2024 XR HIP W OR WO PELVIS 2-3 VIEW LEFT Date of Exam: 08/27/2024 9:26 AM EDT Indication: For the last night, cannot put weight on left hip today Comparison: None available. Findings: There is a nondisplaced comminuted fracture of the acetabulum. The fracture involves the acetabular roof and medial acetabular wall. There is an associated fracture at the junction of the superior pubic ramus and ilium. The left hip is not dislocated. There has been previous internal fixation of a fracture of the proximal left femur with a nail and kailee. No acute fracture of the proximal left femur is demonstrated. Degenerative disease in the lower lumbar spine noted Impression: Impression: Nondisplaced comminuted fracture of the left acetabulum Electronically Signed: Denys Munguia 08/27/2024 10:02 AM EDT Workstation ID: [id number] Results for orders placed during the hospital encounter of 12/27/21 Adult Transthoracic Echo Complete W/ Cont if Necessary Per Protocol Interpretation Summary ?? Estimated left ventricular EF = 60% ?? Mild mitral valve regurgitation is present. ?? Moderate tricuspid valve regurgitation is present. Current medications: Scheduled Meds:aspirin, 81 mg, Oral, Daily enoxaparin sodium, 30 mg, Subcutaneous, Daily gabapentin, 600 mg, Oral, Q8H Lidocaine, 1 patch, Transdermal, Q24H pantoprazole, 40 mg, Oral, Q AM risperiDONE, 0.25 mg, Oral, BID sertraline, 100 mg, Oral, Daily sodium chloride, 10 mL, Intravenous, Q12H zolpidem, 5 mg, Oral, Nightly Continuous Infusions: PRN Meds:. acetaminophen OR acetaminophen OR acetaminophen senna-docusate sodium AND polyethylene glycol AND bisacodyl AND bisacodyl Calcium Replacement - Follow Nurse / BPA Driven Protocol Magnesium Standard Dose Replacement - Follow Nurse / BPA Driven Protocol melatonin ondansetron ODT OR ondansetron Phosphorus Replacement - Follow Nurse / BPA Driven Protocol Potassium Replacement - Follow Nurse / BPA Driven Protocol sodium chloride sodium chloride traMADol Assessment & Plan Assessment & Plan Active Hospital Problems Diagnosis POA Hip fracture [S72.009A] Yes Closed nondisplaced fracture of left acetabulum [S32.402A] Yes Moderate malnutrition [E44.0] Yes Kidney disease, chronic, stage III (GFR 30-59 ml/min) [N18.30] Yes Generalized anxiety disorder [F41.1] Yes Resolved Hospital Problems No resolved problems to display. Brief Hospital Course to date: Lorin Raymundo is a 79 y.o. female history of anxiety/depression/bipolar, CKD, history of colon cancer who presented with acute left acetabular fractureafter GLF. Acute left acetabular fracture Ground level fall Patient fell last night. She was not using her walker when she went to the restroom. Patient is not able to bear weight since the fall. In ED patient was hemodynamically stable. Labs ordered but not collected yet. X-ray showed left hip acetabular fracture. Dr. Cody with Ortho consulted. Nonoperative measures. Patient reports that she lives in an independent living apartment by herself. She is not going to be able to take take her back. PT/OT consultation, plan for SNF CM to facilitate discharge Follow-up in 3-4 weeks with Orthopedic [place] team [facility] [place] pelvis/inlet/outlet xrays upon arrival to clinic Chemical DVT prophylaxis recommended as an inpatient and then aspirin 81 mg by mouth daily for 6 weeks post-injury Anxiety/depression/bipolar, Resume home medication Expected Discharge Location and Transportation: Rehab Expected Discharge TBD Expected Discharge Date: 08/29/2024; Expected Discharge Time: VTE Prophylaxis: Pharmacologic VTE prophylaxis orders are present. Total time spent: Time Spent: Time Spent: 40 minutes Time spent includes time reviewing chart, quiv-qu-[id number] time, counseling patient/family/caregiver, ordering medications/tests/procedures, communicating with other health healthcare translator, documenting clinical information in the electronic health record, and coordination of care. AM-PAC 6 Clicks Score (PT): 15 (08/28/242011) CODE STATUS: There are no questions and answers to display. Luca Bell MD 08/29/24 1449 Physical Therapy Notes (most recent note) Nicole Urias, PT at 08/29/24 1115 Version 1 of 1 Patient Name: Lorin Raymundo : 1945 Today's Date: 08/29/2024 Admit Date: 08/27/2024 Visit Dx: ICD-10-CM ICD-9-CM 1. Fall in home, initial encounter W19.XXXA E888.9 Y92.009 E849.0 2. Closed nondisplaced fracture of left acetabulum, unspecified portion of acetabulum, initial encounter S32.402A 808.0 3. Inability to bear weight R26.89 V49.89 Patient Active Problem List Diagnosis Insomnia Generalized anxiety disorder Gastroesophageal reflux disease Vitamin D deficiency Osteoporosis Peripheral neuropathy Kidney disease, chronic, stage III (GFR 30-59 ml/min) Overflow incontinence Colon cancer Moderate malnutrition Hip fracture Closed nondisplaced fracture of left acetabulum Past Medical History: Diagnosis Date Anxiety Arthritis Bipolar 1 disorder Cancer Depression Fibromyalgia GERD (gastroesophageal reflux disease) Joint pain localized in the knee Kidney infection Normal routine history and physical examination Seizures Past Surgical History: Procedure Laterality Date COLECTOMY PARTIAL / TOTAL N/A Partial COLON SURGERY 1994 HIP TROCHANTERIC NAILING WITH INTRAMEDULLARY HIP SCREW Left 04/21/2017 Procedure: HIP TROCANTERIC NAILING WITH INTRAMEDULLARY HIP SCREW LEFT Debridement of stage 4 decubitus ulcers x 2 with placement of wound vac to left hip; Surgeon: Silver Denny MD; Location: [facility]; Service: KNEE ARTHROSCOPY Right General Information Row Name 08/29/24 1138 Physical Therapy Time and Intention Document Type therapy note (daily note) -MI Mode of Treatment physical therapy;co-treatment -MI Row Name 08/29/24 1138 General Information Patient Profile Reviewed yes -MI Existing Precautions/Restrictions fall;partial weight bearing;left;seizures;other (see comments) L acetabular fx, pwb -MI Row Name 08/29/24 1138 Cognition Orientation Status (Cognition) oriented x 3 -MI Row Name 08/29/24 1138 Safety Issues/Impairments Affecting Functional Mobility Impairments Affecting Function (Mobility) balance;strength;endurance/activity tolerance;pain;range of motion (ROM);motor control;sensation/sensory awareness -MI Comment, Safety Issues/Impairments (Mobility) alert, following commands -MI User Turner (r) = Recorded By, (t) = Taken By, (c) = Cosigned By Initials Name Provider Type MI Nicole Urias, PT Physical Therapist Mobility Row Name 08/29/24 1139 Bed Mobility Bed Mobility supine-sit;scooting/bridging -MI Scooting/Bridging Cosmos (Bed Mobility) minimum assist (75% patient effort);moderate assist (50% patient effort) -MI Supine-Sit Cosmos (Bed Mobility) verbal cues;minimum assist (75% patient effort) -MI Assistive Device (Bed Mobility) head of bed elevated;bed rails;repositioning sheet -MI Comment, (Bed Mobility) worked on getting up to EOB with VC for sequencing. Able to move legs over edge and reach for bed rail. Assistance needed to scoot forward which required alot of cueing -MI Row Name 08/29/24 113 Transfers Comment, (Transfers) STS from EOb with VC for hand placement.. Demonstrated slow, careful transfer into standing -[facility] Name 08/29/24 1139 Bed-Chair Transfer Bed-Chair Cosmos (Transfers) verbal cues;minimum assist (75% patient effort);2 person assist -MI Assistive Device (Bed-Chair Transfers) walker, front-wheeled -MI Row Name 08/29/24 1139 Sit-Stand Transfer Sit-Stand Cosmos (Transfers) verbal cues;minimum assist (75% patient effort);1 person to manage equipment -MI Assistive Device (Sit-Stand Transfers) walker, front-wheeled -[facility] Name 08/29/24 1139 Gait/Stairs (Locomotion) Cosmos Level (Gait) 1 person assist;1 person to manage equipment;contact guard;verbal cues -MI Assistive Device (Gait) walker, front-wheeled [facility] Distance in Feet (Gait) 3 -MI Deviations/Abnormal Patterns (Gait) left sided deviations;antalgic;stride length decreased;weight shifting decreased;gait speed decreased -MI Bilateral Gait Deviations forward flexed posture -MI Comment, (Gait/Stairs) Gt training limited to transfer with walker. Cues for sequencing steping . Encouraged upright posture and pushing into walker to off load L leg. Some assistance needed to control walker on turns. Further ambuilation deferred due to inability to sustaing PWB for longer distance -[facility] 08/29/24 1139 Mobility Extremity Weight-bearing Status left lower extremity -MI Left Lower Extremity (Weight-bearing Status) partial weight-bearing (PWB) -MI User Turner (r) = Recorded By, (t) = Taken By, (c) = Cosigned By Initials Name Provider Type MI Nicole Urias PT Physical Therapist Obj/Interventions [facility] 08/29/24 114 Motor Skills Therapeutic Exercise hip;knee;ankle -[facility] 08/29/24 114 Hip (Therapeutic Exercise) Hip (Therapeutic Exercise) AAROM (active assistive range of motion) -MI Hip AAROM (Therapeutic Exercise) left;flexion;extension;10 repetitions;supine -[facility] 08/29/24 114 Knee (Therapeutic Exercise) Knee (Therapeutic Exercise) AROM (active range of motion) -MI Knee Isometrics (Therapeutic Exercise) bilateral;10 repetitions;quad sets -MI Knee Strengthening (Therapeutic Exercise) bilateral;flexion;extension;LAQ (long arc quad);10 repetitions;2 sets -[facility] 08/29/24 114 Ankle (Therapeutic Exercise) Ankle (Therapeutic Exercise) AROM (active range of motion) -MI Ankle AROM (Therapeutic Exercise) bilateral;dorsiflexion;plantarflexion;10 repetitions -[facility] 08/29/24 1144 Balance Balance Assessment standing dynamic balance -MI Dynamic Standing Balance 1-person assist;1 person to manage equipment;minimal assist -MI Position/Device Used, Standing Balance supported;walker, rolling -MI Comment, Balance no lob -MI User Turner (r) = Recorded By, (t) = Taken By, (c) = Cosigned By Initials Name Provider Type MI Nicole Urias, PT Physical Therapist Goals/Plan No documentation. Clinical Impression [facility] Name 08/29/24 1147 Pain Pain Location hip -MI Pain Side/Orientation left -MI Pain Management Interventions positioning techniques utilized -MI Response to Pain Interventions functional ability unchanged -[facility] 08/29/24 1147 Pain Scale: FACES Pre/Post-Treatment Pain: FACES Scale, Pretreatment 2-->hurts little bit -MI Posttreatment Pain Rating 4-->hurts little more -[facility] Name 08/29/24 1147 Plan of Care Review Plan of Care Reviewed With patient -MI Progress improving -MI Outcome Evaluation Patient with better pain control today and able to control her waker to get to chair. Recommend also working on w/c transfers and propulsion. -[facility] 08/29/24 1147 Therapy Assessment/Plan (PT) Patient/Family Therapy Goals Statement (PT) decrease pain -MI Rehab Potential (PT) good -MI Criteria for Skilled Interventions Met (PT) yes;skilled treatment is necessary;meets criteria -MI Therapy Frequency (PT) daily -[facility] Name 08/29/24 1147 Positioning and Restraints Pre-Treatment Position in bed -MI Post Treatment Position chair -MI In Chair notified nsg;reclined;sitting;call light within reach;encouraged to call for assist -MI User Turner (r) = Recorded By, (t) = Taken By, (c) = Cosigned By Initials Name Provider Type MI Nicole Urias, PT Physical Therapist Outcome Measures Row Name 08/29/24 1149 How much help from another person do you currently need... Turning from your back to your side while in flat bed without using bedrails? 3 -SC Moving from lying on back to sitting on the side of a flat bed without bedrails? 3 -SC Moving to and from a bed to a chair (including a wheelchair)? 3 -SC Standing up from a chair using your arms (e.g., wheelchair, bedside chair)? 3 -SC Climbing 3-5 steps with a railing? 2 -SC To walk in hospital room? 3 -MI AM-PAC 6 Clicks Score (PT) 17 -MI Highest Level of Mobility Goal Stand (1 or More Minutes)-5 -MI Row Name 08/29/24 1149 08/29/24 1136 Functional Assessment Outcome Measure Options AM-PAC 6 Clicks Basic Mobility (PT) -MI AM-PAC 6 Clicks Daily Activity (OT)-MR User Turner (r) = Recorded By, (t) = Taken By, (c) = Cosigned By Initials Name Provider Type MI Nicole Urias, PT Physical Therapist Tisha Pierson, OT Occupational Therapist Physical Therapy Education Title: PT OT [employer] Therapies (In Progress) Topic: Physical Therapy (Done) Point: Mobility training (Done) Learning Progress Summary Patient Phill Roberts VU by MI at 08/29/2024 1150 Comment: reviewed HEP Acceptance, E,D, VU,NR by LR at 08/28/2024 1010 Comment: Educated on precautions, partial weight bearing status, LE HEP, benefits of mobility and being OOB, correct supine to sit t/f technique, correct sit<->stand t/f technique, correct bed to chair t/f technique, and progression of POC. Point: Home exercise program (Done) Learning Progress Summary Patient Phill Roberts VU by MI at 08/29/2024 1150 Comment: reviewed HEP Acceptance, E,D, VU,NR by LR at 08/28/2024 1010 Comment: Educated on precautions, partial weight bearing status, LE HEP, benefits of mobility and being OOB, correct supine to sit t/f technique, correct sit<->stand t/f technique, correct bed to chair t/f technique, and progression of POC. Point: Body mechanics (Done) Learning Progress Summary Patient Phill Roberts, VU by MI at 08/29/2024 1150 Comment: reviewed HEP Acceptance, E,D, VU,NR by LR at 08/28/2024 1010 Comment: Educated on precautions, partial weight bearing status, LE HEP, benefits of mobility and being OOB, correct supine to sit t/f technique, correct sit<->stand t/f technique, correct bed to chair t/f technique, and progression of POC. Point: Precautions (Done) Learning Progress Summary Patient Phill Roberts, VU by MI at 08/29/2024 1150 Comment: reviewed HEP Acceptance, E,Keyanna, VU,NR by LR at 08/28/2024 1010 Comment: Educated on precautions, partial weight bearing status, LE HEP, benefits of mobility and being OOB, correct supine to sit t/f technique, correct sit<->stand t/f technique, correct bed to chair t/f technique, and progression of POC. User Turner Initials Effective Dates Name Provider Type Discipline MI 05/08/22 - Nicole Urias PT Physical Therapist PT LR 05/08/22 - Susan Guerrero PT Physical Therapist PT PT Recommendation and Plan Progress: improving Outcome Evaluation: Patient with better pain control today and able to control her waker to get to chair. Recommend also working on w/c transfers and propulsion. Time Calculation: PT Charges Row Name 08/29/24 1115 Time Calculation Start Time 1115 -MI PT Received On 08/29/24 -MI PT Goal Re-Cert Due Date 09/07/24 -MI Timed Charges 84945 - PT Therapeutic Exercise Minutes 5 -MI 23152 - Gait Training Minutes 5 -MI Total Minutes Timed Charges Total Minutes 10 -MI Total Minutes 10 -MI User Turner (r) = Recorded By, (t) = Taken By, (c) = Cosigned By Initials Name Provider Type MI Nicole Urias, PT Physical Therapist Therapy Charges for Today Code Description Service Date Service Provider Modifiers Qty 12053887457 HC PT THER PROC EA 15 MIN 08/29/2024 Nicole Urias, PT GP 1 PT G-Codes Outcome Measure Options: AM-PAC 6 Clicks Basic Mobility (PT) AM-PAC 6 Clicks Score (PT): 17 AM-PAC 6 Clicks Score (OT): 13 PT Discharge Summary Anticipated Discharge Disposition (PT): [facility] Nicole Urias PT 08/29/2024 1151 Occupational Therapy Notes (most recent note) Tisha Yu, OT at 08/29/24 1115 Patient Name: Lorin Raymundo : 1945 Today's Date: 08/29/2024 Admit Date: 08/27/2024 Visit Dx: ICD-10-CM ICD-9-CM 1. Fall in home, initial encounter W19.XXXA E888.9 Y92.009 E849.0 2. Closed nondisplaced fracture of left acetabulum, unspecified portion of acetabulum, initial encounter S32.402A 808.0 3. Inability to bear weight R26.89 V49.89 Patient Active Problem List Diagnosis Insomnia Generalized anxiety disorder Gastroesophageal reflux disease Vitamin D deficiency Osteoporosis Peripheral neuropathy Kidney disease, chronic, stage III (GFR 30-59 ml/min) Overflow incontinence Colon cancer Moderate malnutrition Hip fracture Closed nondisplaced fracture of left acetabulum Past Medical History: Diagnosis Date Anxiety Arthritis Bipolar 1 disorder Cancer Depression Fibromyalgia GERD (gastroesophageal reflux disease) Joint pain localized in the knee Kidney infection Normal routine history and physical examination Seizures Past Surgical History: Procedure Laterality Date COLECTOMY PARTIAL / TOTAL N/A Partial COLON SURGERY 1994 HIP TROCHANTERIC NAILING WITH INTRAMEDULLARY HIP SCREW Left 04/21/2017 Procedure: HIP TROCANTERIC NAILING WITH INTRAMEDULLARY HIP SCREW LEFT Debridement of stage 4 decubitus ulcers x 2 with placement of wound vac to left hip; Surgeon: Silver Denny MD; Location: [facility]; Service: KNEE ARTHROSCOPY Right General Information Row Name 08/29/24 1133 OT Time and Intention Document Type therapy note (daily note) -MR Mode of Treatment occupational therapy -MR Row Name 08/29/24 1133 General Information Existing Precautions/Restrictions fall;partial weight bearing;left;seizures;other (see comments) L acetabulum fx s/p fall, partial/protected weight bearing L LE -MR Barriers to Rehab medically complex -MR Row Name 08/29/24 1133 Cognition Orientation Status (Cognition) oriented x 3 -MR Row Name 08/29/24 1133 Safety Issues/Impairments Affecting Functional Mobility Safety Issues Affecting Function (Mobility) awareness of need for assistance;insight into deficits/self-awareness;positioning of assistive device;safety precaution awareness;safety precautions follow- through/compliance;sequencing abilities -MR Impairments Affecting Function (Mobility) balance;strength;endurance/activity tolerance;pain;range of motion (ROM);motor control;sensation/sensory awareness -MR User Turner (r) = Recorded By, (t) = Taken By, (c) = Cosigned By Initials Name Provider Type Tisha Pierson, OT Occupational Therapist Mobility/ADL's Row Name 08/29/24 1133 Bed Mobility Bed Mobility rolling left;sidelying-sit -MR Rolling Right Cosmos (Bed Mobility) moderate assist (50% patient effort);verbal cues;nonverbal cues (demo/gesture) -MR Sidelying-Sit Cosmos (Bed Mobility) moderate assist (50% patient effort);2 person assist;verbal cues;nonverbal cues (demo/gesture) -MR Assistive Device (Bed Mobility) head of bed elevated;bed rails -MR Row Name 08/29/24 1133 Transfers Transfers bed-chair transfer -MR Row Name 08/29/24 1133 Bed-Chair Transfer Bed-Chair Cosmos (Transfers) verbal cues;minimum assist (75% patient effort);2 person assist -MR Assistive Device (Bed-Chair Transfers) walker, front-wheeled -MR Row Name 08/29/24 1133 Activities of Daily Living BADL Assessment/Intervention grooming;lower body dressing -MR Row Name 08/29/24 1133 Mobility Extremity Weight-bearing Status left lower extremity -MR Left Lower Extremity (Weight-bearing Status) partial weight-bearing (PWB);other (see comments) partial/protected weight bearing -MR Row Name 08/29/24 1133 Grooming Assessment/Training Cosmos Level (Grooming) hair care, combing/brushing;wash face, hands;set up -MR Position (Grooming) supported sitting -MR Row Name 08/29/24 1133 Lower Body Dressing Assessment/Training Cosmos Level (Lower Body Dressing) don;socks;dependent (less than 25% patient effort) -MR Position (Lower Body Dressing) supine -MR User Turner (r) = Recorded By, (t) = Taken By, (c) = Cosigned By Initials Name Provider Type Tisha Pierson OT Occupational Therapist Obj/Interventions Row Name 08/29/24 1134 Balance Balance Assessment sitting static balance;sitting dynamic balance;standing static balance;standing dynamic balance -MR Static Sitting Balance standby assist -MR Dynamic Sitting Balance contact guard -MR Position, Sitting Balance unsupported;sitting edge of bed;sitting in chair -MR Static Standing Balance minimal assist;verbal cues;non-verbal cues (demo/gesture) -MR Dynamic Standing Balance minimal assist;2-person assist;verbal cues;non-verbal cues (demo/gesture) -MR Position/Device Used, Standing Balance supported;walker, front-wheeled -MR Balance Interventions sitting;standing;sit to stand;supported;static;dynamic -MR User Turner (r) = Recorded By, (t) = Taken By, (c) = Cosigned By Initials Name Provider Type Tisha Pierson OT Occupational Therapist Goals/Plan No documentation. Clinical Impression Row Name 08/29/24 1135 Pain Assessment Pretreatment Pain Rating 0/10 - no pain -MR Posttreatment Pain Rating 0/10 - no pain -MR Row Name 08/29/24 1135 Plan of Care Review Plan of Care Reviewed With patient -MR Progress no change -MR Outcome Evaluation Patient demonstrated improvements w/ activity tolerance, good effort noted w/ grooming tasks. Pt continues to be below her functional baseline warranting continuation of skilled OTservices. Continue per current POC as able. -MR Row Name 08/29/24 1135 Therapy Plan Review/Discharge Plan (OT) Anticipated Discharge Disposition (OT) penitentiary facility -MR Row Name 08/29/24 1135 Vital Signs O2 Delivery Pre Treatment room air -MR O2 Delivery Intra Treatment room air -MR O2 Delivery Post Treatment room air -MR Pre Patient Position Supine -MR Intra Patient Position Standing -MR Post Patient Position Sitting -MR Row Name 08/29/24 1135 Positioning and Restraints Pre-Treatment Position in bed -MR Post Treatment Position chair -MR In Chair with PT;sitting -MR User Turner (r) = Recorded By, (t) = Taken By, (c) = Cosigned By Initials Name Provider Type Tisha Pierson OT Occupational Therapist Outcome Measures Row Name 08/29/24 1136 How much help from another is currently needed... Putting on and taking off regular lower body clothing? 1 -MR Bathing (including washing, rinsing, and drying) 2 -MR Toileting (which includes using toilet bed farrell or urinal) 1 -MR Putting on and taking off regular upper body clothing 3 -MR Taking care of personal grooming (such as brushing teeth) 3 -MR Eating meals 3 -MR AM-PAC 6 Clicks Score (OT) 13 -MR Row Name 08/29/24 1136 Functional Assessment Outcome Measure Options AM-PAC 6 Clicks Daily Activity (OT) -MR User Turner (r) = Recorded By, (t) = Taken By, (c) = Cosigned By Initials Name Provider Type MR Yu Tisha OT Occupational Therapist Occupational Therapy Education Title: PT OT [employer] Therapies (In Progress) Topic: Occupational Therapy (In Progress) Point: ADL training (In Progress) Learning Progress Summary Patient Acceptance, E, NR by MR at 08/29/2024 1136 Acceptance, E, NR by SA at 08/28/2024 1533 Point: Precautions (In Progress) Learning Progress Summary Patient Acceptance, E, NR by MR at 08/29/2024 1136 Acceptance, E, NR by SA at 08/28/2024 1533 Point: Body mechanics (In Progress) Learning Progress Summary Patient Acceptance, E, NR by MR at 08/29/2024 1136 Acceptance, E, NR by SA at 08/28/2024 1533 User Turner Initials Effective Dates Name Provider Type Discipline MR 12/25/21 - Tisha Yu OT Occupational Therapist OT 07/19/24 - Nevin Larsen OT Occupational Therapist OT OT Recommendation and Plan Plan of Care Review Plan of Care Reviewed With: patient Progress: no change Outcome Evaluation: Patient demonstrated improvements w/ activity tolerance, good effort noted w/ grooming tasks. Pt continues to be below her functional baseline warranting continuation of skilled OT services. Continue per current POC as able. Time Calculation: Time Calculation- OT Row Name 08/29/241135 Time Calculation- OT OT Start Time 1115 -MR OT Received On 08/29/24 -MR Timed Charges 75939 - OT Therapeutic Activity Minutes 5 -MR 28003 - OT Self Care/Mgmt Minutes 5 -MR Total Minutes Timed Charges Total Minutes 10 -MR Total Minutes 10 -MR User Turner (r) = Recorded By, (t) = Taken By, (c) = Cosigned By Initials Name Provider Type MR Yu Tisha, BERNICE Occupational Therapist Therapy Charges for Today Code Description Service Date Service Provider Modifiers Qty [id number] HC OT THERAPEUTIC ACT EA 15 MIN 08/29/2024 Tisha Yu OT GO 1 Tisha Yu OT 08/29/2024 113 * Bette Leonardo RN - 08/29/2024 9:45 AM EDT Images from the original note were not included. Lorin Raymundo (79 y.o. Female) Bette Leonardo RN [phone] Date of 1945 Social Security Number [id number] Address [address] [facility] [address] [employer] Marital Status Admission Date 08/27/2024 Admission Type Emergency Admitting Provider Luca Bell MD Attending Provider Luca Bell MD Department, Room/Bed [facility] 3H, S386/1 Discharge Date Discharge Disposition Discharge Destination Attending Provider: Luca Bell MD Allergies: Fish-derived Products, [place], Poultry Meal, Shellfish-derived Products Isolation: None Infection: None Code Status: Prior Ht: 152.4 cm (60 ) Wt: 49.9 kg (110 lb) Admission Cmt: None Principal Problem: Hip fracture [S72.009A] Active Insurance as of 08/27/2024 Primary Coverage Payor Plan Insurance Group Employer/Plan Group [employer] MEDICARE REPLACEMENT [employer]NA MEDICARE ADVANTAGE PPO [id number] Payor Plan Address Payor Plan Phone Number Payor Plan Fax Number Effective Dates [address] [address] 11/03/2022 - None Entered [facility] [address] Subscriber Name Subscriber Date Member ID LORIN RAYMUNDO 1945 [id number] Emergency Contacts Procurement Consultant (Rel.) Home Phone Work Phone Mobile Phone Sultana Raymundo (Daughter) [phone] -- [phone] Insurance Information [employer] MEDICARE REPLACEMENT/[employer] MEDICARE ADVANTAGE PPO Subscriber: Lorin Raymundo Subscriber#: [id number] Group#: [id number] Precert#: -- Authorization#: -- Effective Date: -- History & Physical Carolyne Reynoso MD at 08/27/24 1302 [facility] Medicine Services HISTORY AND PHYSICAL Patient Name: Lorin Raymundo : 1945 Primary Care Physician: Provider, No Known Date of admission: 08/27/2024 Subjective Subjective Chief Complaint:GLF. HPI: Lorin Raymundo is a 79 y.o. female history of anxiety/depression/bipolar, CKD, history of colon cancer who presented after GLF. Patient fell last night. She was not using her walker when she went to the restroom. Patient is not able to bear weight since the fall. In ED patient was hemodynamically stable. Labs ordered but not collected yet. X-ray showed left hip acetabular fracture. Dr. Escobar Davis consulted. Nonoperative measures. Patient reports that she lives in an independent living apartment by herself. She is not going to be able to take take her back. PT/OT consultation. [facility] [place] was asked admit the patient for therapy and placement. Review of Systems Constitutional: Positive for fatigue. Negative for fever. Respiratory: Negative for cough. Cardiovascular: Negative for chest pain. Gastrointestinal: Negative for abdominal pain. Neurological: Positive for weakness. Personal History Past Medical History: Diagnosis Date Anxiety Arthritis Bipolar 1 disorder Cancer Depression Fibromyalgia GERD (gastroesophageal reflux disease) Joint pain localized in the knee Kidney infection Normal routine history and physical examination Seizures Oncology Problem List: Colon cancer (10/09/2015; Status: Active) Oncology/Hematology History No history exists. Past Surgical History: Procedure Laterality Date COLECTOMY PARTIAL / TOTAL N/A Partial COLON SURGERY 1994 HIP TROCHANTERIC NAILING WITH INTRAMEDULLARY HIP SCREW Left 04/21/2017 Procedure: HIP TROCANTERIC NAILING WITH INTRAMEDULLARY HIP SCREW LEFT Debridement of stage 4 decubitus ulcers x 2 with placement of wound vac to left hip; Surgeon: Silver Denny MD; Location: [facility]; Service: KNEE ARTHROSCOPY Right Family History: family history includes Cancer in her brother, daughter, father, and mother. Social History: reports that she has never smoked. She has never used smokeless tobacco. She reports that she does not drink alcohol and does not use drugs. Social History Social History Narrative Not on file Medications: Aspirin Buf([id number]), Vitamin D, alendronate, ascorbic acid, hydrOXYzine pamoate, mirtazapine, multivitamin with minerals, omeprazole, ondansetron ODT, risperiDONE, sertraline, tolterodine LA, and zolpidem Allergies Allergen Reactions [place] Other (See Comments) Stated had trouble talking and could not walk Objective Objective Vital Signs: Temp: [98.3 ??F (36.8 ??C)] 98.3 ??F (36.8 ??C) Heart Rate: [79-100] 86 Resp: [16] 16 BP: (114-135)/(69-87) 114/74 Physical Exam Vitals and nursing note reviewed. Constitutional: Appearance: Normal appearance. HENT: Head: Normocephalic. Cardiovascular: Rate and Rhythm: Normal rate. Pulmonary: Effort: Pulmonary effort is normal. Abdominal: General: Abdomen is flat. Musculoskeletal: General: Tenderness present. Skin: General: Skin is warm. Neurological: Mental Status: She is alert and oriented to person, place, and time. Psychiatric: Mood and Affect: Mood normal. Result Review: I have personally reviewed the results from the time of this admission to 08/27/2024 13:02 EDT and agree with these findings: [x] Laboratory list / accordion [] Microbiology [] Radiology [] EKG/Telemetry [x] Cardiology/Vascular [] Pathology [] Old records [] Other: Most notable findings include: LAB RESULTS: Brief Urine Lab Results (Last result in the past 365 days) Color Clarity Blood Leuk Est Nitrite Protein CREAT Urine HCG 10/11/23 1114 Yellow Clear Small (1+) Moderate (2+) Negative Negative Microbiology Results (last 10 days) No results found for the last [address] Pelvis Without Contrast Result Date: 08/27/2024 CT HEAD WO CONTRAST, CT PELVIS WO CONTRAST Date of Exam: 08/27/2024 12:24 PM EDT Indication: Fell 2 weeks ago, headache since, fell again last night. Comparison: Head CT 12/27/2021. Hip and pelvis radiographs 08/27/2024.. CT abdomen/pelvis 12/27/2021. Technique: Axial CT images were obtained of the head and pelvis without contrast administration. Automated exposure control and iterative construction methods were used. Findings: Head CT: No acute intracranial hemorrhage.Intact appearing malone-white differentiation.No extra-axial fluid collection.No significant mass effect. No hydrocephalus. Mild generalized parenchymal volume loss. Moderate periventricular and subcortical white matter hypoattenuation, nonspecific, perhaps from small vessel ischemic/hypertensive changes in a patient of this age.There are intracranial atherosclerotic calcifications. Mild scattered mucosal thickening in the paranasal sinuses.nonspecific small bilateral mastoid effusions. . Bilateral lens replacements. No acuteor aggressive appearing bony or extracranial soft tissue process. Pelvis CT: Small and large bowel:No significant abnormality. Peritoneal cavity: No free fluid or free air. Bladder: No significant abnormality. Pelvic organs: No significant abnormality. Vasculature: Atherosclerotic calcifications. Lymph nodes: No pathologic appearing lymph nodes by imaging criteria. Bones and soft tissues: Acute comminuted fracture of the left acetabulum. Subacute to chronic appearing nondisplaced fracture of the left inferior pubic ramus. Left proximal femoral fixation hardware. Degenerative changes of the imaged spine. Mild osteoarthrosis of the bilateral hips and sacroiliac joints. Impression: Impression: No acute intracranial findings. Acute comminuted fracture of the left acetabulum. Electronically Signed: Reynaldo Santamaria MD 08/27/2024 12:58 PM EDT Workstation ID: [id number] CT Head Without Contrast Result Date: 08/27/2024 CT HEAD WO CONTRAST, CT PELVIS WO CONTRAST Date of Exam: 08/27/2024 12:24 PM EDT Indication: Fell 2 weeks ago, headache since, fell again last night. Comparison: Head CT 12/27/2021. Hip and pelvis radiographs 08/27/2024.. CT abdomen/pelvis 12/27/2021. Technique: Axial CT images were obtained of the head and pelvis without contrast administration. Automated exposure control and iterative construction methods were used. Findings: Head CT: No acute intracranial hemorrhage.Intact appearing malone-white differentiation.No extra-axial fluid collection.No significant mass effect. No hydrocephalus. Mild generalized parenchymal volume loss. Moderate periventricular and subcortical white matter hypoattenuation, nonspecific, perhaps from small vessel ischemic/hypertensive changes in a patient of this age.There are intracranial atherosclerotic calcifications. Mild scattered mucosal thickening in the paranasal sinuses.nonspecific small bilateral mastoid effusions. . Bilateral lens replacements. No acuteor aggressive appearing bony or extracranial soft tissue process. Pelvis CT: Small and large bowel:No significant abnormality. Peritoneal cavity: No free fluid or free air. Bladder: No significant abnormality. Pelvic organs: No significant abnormality. Vasculature: Atherosclerotic calcifications. Lymph nodes: No pathologic appearing lymph nodes by imaging criteria. Bones and soft tissues: Acute comminuted fracture of the left acetabulum. Subacute to chronic appearing nondisplaced fracture of the left inferior pubic ramus. Left proximal femoral fixation hardware. Degenerative changes of the imaged spine. Mild osteoarthrosis of the bilateral hips and sacroiliac joints. Impression: Impression: No acute intracranial findings. Acute comminuted fracture of the left acetabulum. Electronically Signed: Reynaldo Santamaria MD 08/27/2024 12:58 PM EDT Workstation ID: [id number] XR Chest 1 View Result Date: 08/27/2024 XR CHEST 1 VW Date of Exam: 08/27/2024 10:35 AM EDT Indication: cough, preop Comparison: 08/10/2024 Findings: Heart size and pulmonary vasculature are within normal limits. Lungs clear than calcified granuloma on the left. Costophrenic angles sharp Impression: Impression: No active cardiopulmonary disease Electronically Signed: Denys Munguia 08/27/2024 10:49 AM EDT Workstation ID: [id number] XR Knee 1 or 2 View Left Result Date: 08/27/2024 XR KNEE 1 OR 2 VW LEFT Date of Exam: 08/27/2024 9:46 AM EDT Indication: trauma Comparison: 10/18/2020knee radiographs Findings: Partially visualized femoral hardware without evidence of complication. Moderate knee joint effusion. No traumatic malalignment. Moderate degenerative changes of the knee. Articular surfaces appear grossly intact. No evidence of fracture. Impression: Impression: 1.Moderate knee joint effusion without evidence of acute fracture or malalignment. 2.Moderate degenerative changes of the knee. Electronically Signed: Richard Wilkerson MD 08/27/2024 10:02 AM EDT Workstation ID: [id number] XR Hip With or Without Pelvis 2 - 3 View Left Result Date: 08/27/2024 XR HIP W OR WO PELVIS 2-3 VIEW LEFT Date of Exam: 08/27/2024 9:26 AM EDT Indication: For the last night, cannot put weight on left hip today Comparison: None available. Findings: There is a nondisplaced comminuted fracture of the acetabulum. The fracture involves the acetabular roof and medial acetabular wall. There is an associated fracture at the junction of the superior pubic ramus and ilium. The left hip is not dislocated. There has been previous internal fixation of a fracture of the proximal left femur with a nail and kailee. No acute fracture of the proximal left femur is demonstrated. Degenerative disease in the lower lumbar spine noted Impression: Impression: Nondisplaced comminuted fracture of the left acetabulum Electronically Signed: Denys Munguia 08/27/2024 10:02 AM EDT Workstation ID: [id number] Results for orders placed during the hospital encounter of 12/27/21 Adult Transthoracic Echo Complete W/ Cont if Necessary Per Protocol Interpretation Summary ?? Estimated left ventricular EF = 60% ?? Mild mitral valve regurgitation is present. ?? Moderate tricuspid valve regurgitation is present. Assessment & Plan Assessment & Plan Hip fracture Generalized anxiety disorder Kidney disease, chronic, stage III (GFR 30-59 ml/min) Moderate malnutrition Lorin Raymundo is a 79 y.o. female history of anxiety/depression/bipolar, CKD, history of colon cancer who presented with acute left acetabular fractureafter GLF. ## Acute left acetabular fracture ## Ground level fall - Patient fell last night. She was not using her walker when she went to the restroom. - Patient is not able to bear weight since the fall. - In ED patient was hemodynamically stable. - Labs ordered but not collected yet. - X-ray showed left hip acetabular fracture. - Dr. Cody with Ortho consulted. Nonoperative measures. - Patient reports that she lives in an independent living apartment by herself. - She is not going to be able to take take her back. - PT/OT consultation. - CM to facilitate discharge pending therapy eval. ## Anxiety/depression/bipolar, - Restart home meds once reconciled. DVT prophylaxis: Lovenox Expected Discharge Expected Discharge Date: 08/29/2024; Expected Discharge Time: This note has been completed as part of a split-shared workflow. Signature: Electronically signed by Carolyne Reynoso MD, 08/27/24, 1:07 PM EDT 8388 Current Facility-Administered Medications Medication Dose Route Frequency Provider Last Rate Last Admin acetaminophen (TYLENOL) tablet 650 mg 650 mg Oral Q4H PRN Carolyne Reynoso MD 650 mg at 08/29/24 0515 Or acetaminophen (TYLENOL) 160 MG/5ML oral solution 650 mg 650 mg Oral Q4H PRN Carolyne Reynoso MD Or acetaminophen (TYLENOL) suppository 650 mg 650 mg Rectal Q4H PRN Carolyne Reynoso MD aspirin EC tablet 81 mg 81 mg Oral Daily Luca Bell MD 81 mg at 08/29/24 0817 sennosides-docusate (PERICOLACE) 8.6-50 MG per tablet 2 tablet 2 tablet Oral BID PRN Carolyne Reynoso MD And polyethylene glycol (MIRALAX) packet 17 g 17 g Oral Daily PRN Carolyne Reynoso MD And bisacodyl (DULCOLAX) EC tablet 5 mg 5 mg Oral Daily PRN Carolyne Reynoso MD And bisacodyl (DULCOLAX) suppository 10 mg 10 mg Rectal Daily PRN Carolyne Reynoso MD Calcium Replacement - Follow Nurse / BPA Driven Protocol Not Applicable PRN Carolyne Reynoso MD enoxaparin sodium (LOVENOX) syringe 30 mg 30 mg Subcutaneous Daily Carolyne Reynoso MD 30 mg at 08/29/24 0818 gabapentin (NEURONTIN) capsule 600 mg 600 mg Oral Q8H Luca Bell MD 600 mg at 08/29/24 0515 Lidocaine 4 % 1 patch 1 patch Transdermal Q24H Carolyne Reynoso MD 1 patch at 08/29/24 0819 Magnesium Standard Dose Replacement - Follow Nurse / BPA Driven Protocol Not Applicable PRN Carolyne Reynoso MD melatonin tablet 5 mg 5 mg Oral Nightly PRN Briana Gasca APRN 5 mg at 08/27/24 2118 ondansetron ODT (ZOFRAN-ODT) disintegrating tablet 4 mg 4 mg Oral Q6H PRN Carolyne Reynoso MD Or ondansetron (ZOFRAN) injection 4 mg 4 mg Intravenous Q6H PRN Carolyne Reynoso MD pantoprazole (PROTONIX) EC tablet 40 mg 40 mg Oral Q AM Carolyne Reynoso MD 40 mg at 08/29/24 0515 Phosphorus Replacement - Follow Nurse / BPA Driven Protocol Not Applicable PRN Carolyne Reynoso MD Potassium Replacement - Follow Nurse / BPA Driven Protocol Not Applicable PRN Carolyne Reynoso MD risperiDONE (risperDAL) tablet 0.25 mg 0.25 mg Oral BID Carolyne Reynoos MD 0.25 mg at 08/29/24 0818 sertraline (ZOLOFT) tablet 100 mg 100 mg Oral Daily Carolyne Reynoso MD 100 mg at 08/29/24 0817 sodium chloride 0.9 % flush 10 mL 10 mL Intravenous Q12H Carolyne Reynoso MD 10 mL at 08/29/24 0822 sodium chloride 0.9 % flush 10 mL 10 mL Intravenous PRN Carolyne Reynoso MD sodium chloride 0.9 % infusion 40 mL 40 mL Intravenous PRN Carolyne Reynoso MD traMADol (ULTRAM) tablet 25 mg 25 mg Oral Q8H PRN Carolyne Reynoso MD zolpidem (AMBIEN) tablet 5 mg 5 mg Oral Nightly Luca Bell MD 5 mg at 08/28/242005 Physician Progress Notes (most recent note) Luca Bell MD at 08/28/24 1316 [facility] Medicine Services PROGRESS NOTE Patient Name: Lorin Raymundo : 1945 Date of Admission: 08/27/2024 Primary Care Physician: Provider, No Known Subjective Subjective CC: Left acetabular fracture HPI: Patient doing well this a.m., no active complaints otherwise. Does not endorse significant amount of pain, tolerating diet well. Worked with physical therapy today. Does endorse constipation. Objective Objective Vital Signs: Temp: [97.3 ??F (36.3 ??C)-98.9 ??F (37.2 ??C)] 97.4 ??F (36.3 ??C) Heart Rate: [74-94] 94 Resp: [16-18] 16 BP: (97-124)/(53-76) 122/69 Flow (L/min) (Oxygen Therapy): [2] 2 Physical Exam: Constitutional: No acute distress, awake, alert HENT: NCAT, mucous membranes moist Respiratory: Clear to auscultation bilaterally, respiratory effort normal Cardiovascular: RRR, no murmurs, rubs, or gallops Gastrointestinal: Positive bowel sounds, soft, nontender, nondistended Musculoskeletal: No bilateral ankle edema Psychiatric: Appropriate affect, cooperative Neurologic: Oriented x 3, strength symmetric in all extremities, Cranial Nerves grossly intact to confrontation, speech clear Skin: No rashes Results Reviewed: LAB RESULTS: Lab 08/28/24 0710 08/27/24 1319 WBC 8.79 11.31* HEMOGLOBIN 10.2* 11.7* HEMATOCRIT 32.8* 36.4 PLATELETS 231 283 NEUTROS ABS 6.35 8.28* IMMATURE GRANS (ABS) 0.03 0.06* LYMPHS ABS 1.27 1.91 MONOS ABS 0.81 0.93* EOS ABS 0.29 0.09 MCV 94.8 93.6 Lab 08/28/24 0710 08/27/24 1510 SODIUM 136 139 POTASSIUM 4.1 4.3 CHLORIDE 100 101 CO2 26.0 25.0 ANION GAP 10.0 13.0 BUN 12 11 CREATININE 1.04* 0.87 EGFR 54.1* 67.0 GLUCOSE 115* 95 CALCIUM 8.2* 9.0 MAGNESIUM 1.9 -- PHOSPHORUS 3.1 -- TSH 1.260 -- Lab 08/28/24 0710 08/27/24 1510 TOTAL PROTEIN 5.8* 6.7 ALBUMIN 3.4* 3.8 GLOBULIN 2.4 2.9 ALT (SGPT) 7 13 AST (SGOT) 13 17 BILIRUBIN 0.4 0.5 ALK PHOS 56 66 Brief Urine Lab Results (Last result in the past 365 days) Color Clarity Blood Leuk Est Nitrite Protein CREAT Urine HCG 08/28/24 0439 Yellow Clear Trace Small (1+) Negative Trace Microbiology Results Abnormal None CT Pelvis Without Contrast Result Date: 08/27/2024 CT HEAD WO CONTRAST, CT PELVIS WO CONTRAST Date of Exam: 08/27/2024 12:24 PM EDT Indication: Fell 2 weeks ago, headache since, fell again last night. Comparison: Head CT 12/27/2021. Hip and pelvis radiographs 08/27/2024.. CT abdomen/pelvis 12/27/2021. Technique: Axial CT images were obtained of the head and pelvis without contrast administration. Automated exposure control and iterative construction methods were used. Findings: Head CT: No acute intracranial hemorrhage.Intact appearing malone-white differentiation.No extra-axial fluid collection.No significant mass effect. No hydrocephalus. Mild generalized parenchymal volume loss. Moderate periventricular and subcortical white matter hypoattenuation, nonspecific, perhaps from small vessel ischemic/hypertensive changes in a patient of this age.There are intracranial atherosclerotic calcifications. Mild scattered mucosal thickening in the paranasal sinuses.nonspecific small bilateral mastoid effusions. . Bilateral lens replacements. No acuteor aggressive appearing bony or extracranial soft tissue process. Pelvis CT: Small and large bowel:No significant abnormality. Peritoneal cavity: No free fluid or free air. Bladder: No significant abnormality. Pelvic organs: No significant abnormality. Vasculature: Atherosclerotic calcifications. Lymph nodes: No pathologic appearing lymph nodes by imaging criteria. Bones and soft tissues: Acute comminuted fracture of the left acetabulum. Subacute to chronic appearing nondisplaced fracture of the left inferior pubic ramus. Left proximal femoral fixation hardware. Degenerative changes of the imaged spine. Mild osteoarthrosis of the bilateral hips and sacroiliac joints. Impression: Impression: No acute intracranial findings. Acute comminuted fracture of the left acetabulum. Electronically Signed: Reynaldo Santamaria MD 08/27/2024 12:58 PM EDT Workstation ID: [id number] CT Head Without Contrast Result Date: 08/27/2024 CT HEAD WO CONTRAST, CT PELVIS WO CONTRAST Date of Exam: 08/27/2024 12:24 PM EDT Indication: Fell 2 weeks ago, headache since, fell again last night. Comparison: Head CT 12/27/2021. Hip and pelvis radiographs 08/27/2024.. CT abdomen/pelvis 12/27/2021. Technique: Axial CT images were obtained of the head and pelvis without contrast administration. Automated exposure control and iterative construction methods were used. Findings: Head CT: No acute intracranial hemorrhage.Intact appearing malone-white differentiation.No extra-axial fluid collection.No significant mass effect. No hydrocephalus. Mild generalized parenchymal volume loss. Moderate periventricular and subcortical white matter hypoattenuation, nonspecific, perhaps from small vessel ischemic/hypertensive changes in a patient of this age.There are intracranial atherosclerotic calcifications. Mild scattered mucosal thickening in the paranasal sinuses.nonspecific small bilateral mastoid effusions. . Bilateral lens replacements. No acuteor aggressive appearing bony or extracranial soft tissue process. Pelvis CT: Small and large bowel:No significant abnormality. Peritoneal cavity: No free fluid or free air. Bladder: No significant abnormality. Pelvic organs: No significant abnormality. Vasculature: Atherosclerotic calcifications. Lymph nodes: No pathologic appearing lymph nodes by imaging criteria. Bones and soft tissues: Acute comminuted fracture of the left acetabulum. Subacute to chronic appearing nondisplaced fracture of the left inferior pubic ramus. Left proximal femoral fixation hardware. Degenerative changes of the imaged spine. Mild osteoarthrosis of the bilateral hips and sacroiliac joints. Impression: Impression: No acute intracranial findings. Acute comminuted fracture of the left acetabulum. Electronically Signed: Reynaldo Santamaria MD 08/27/2024 12:58 PM EDT Workstation ID: [id number] XR Chest 1 View Result Date: 08/27/2024 XR CHEST 1 VW Date of Exam: 08/27/2024 10:35 AM EDT Indication: cough, preop Comparison: 08/10/2024 Findings: Heart size and pulmonary vasculature are within normal limits. Lungs clear than calcified granuloma on the left. Costophrenic angles sharp Impression: Impression: No active cardiopulmonary disease Electronically Signed: Denys Munguia 08/27/2024 10:49 AM EDT Workstation ID: [id number] XR Knee 1 or 2 View Left Result Date: 08/27/2024 XR KNEE 1 OR 2 VW LEFT Date of Exam: 08/27/2024 9:46 AM EDT Indication: trauma Comparison: 10/18/2020knee radiographs Findings: Partially visualized femoral hardware without evidence of complication. Moderate knee joint effusion. No traumatic malalignment. Moderate degenerative changes of the knee. Articular surfaces appear grossly intact. No evidence of fracture. Impression: Impression: 1.Moderate knee joint effusion without evidence of acute fracture or malalignment. 2.Moderate degenerative changes of the knee. Electronically Signed: Richard Wilkerson MD 08/27/2024 10:02 AM EDT Workstation ID: [id number] XR Hip With or Without Pelvis 2 - 3 View Left Result Date: 08/27/2024 XR HIP W OR WO PELVIS 2-3 VIEW LEFT Date of Exam: 08/27/2024 9:26 AM EDT Indication: For the last night, cannot put weight on left hip today Comparison: None available. Findings: There is a nondisplaced comminuted fracture of the acetabulum. The fracture involves the acetabular roof and medial acetabular wall. There is an associated fracture at the junction of the superior pubic ramus and ilium. The left hip is not dislocated. There has been previous internal fixation of a fracture of the proximal left femur with a nail and kailee. No acute fracture of the proximal left femur is demonstrated. Degenerative disease in the lower lumbar spine noted Impression: Impression: Nondisplaced comminuted fracture of the left acetabulum Electronically Signed: Denys Munguia 08/27/2024 10:02 AM EDT Workstation ID: [id number] Results for orders placed during the hospital encounter of 12/27/21 Adult Transthoracic Echo Complete W/ Cont if Necessary Per Protocol Interpretation Summary ?? Estimated left ventricular EF = 60% ?? Mild mitral valve regurgitation is present. ?? Moderate tricuspid valve regurgitation is present. Current medications: Scheduled Meds:aspirin, 81 mg, Oral, Daily enoxaparin sodium, 30 mg, Subcutaneous, Daily gabapentin, 600 mg, Oral, Q8H Lidocaine, 1 patch, Transdermal, Q24H pantoprazole, 40 mg, Oral, Q AM risperiDONE, 0.25 mg, Oral, BID sertraline, 100 mg, Oral, Daily sodium chloride, 10 mL, Intravenous, Q12H zolpidem, 5 mg, Oral, Nightly Continuous Infusions: PRN Meds:. acetaminophen OR acetaminophen OR acetaminophen senna-docusate sodium AND polyethylene glycol AND bisacodyl AND bisacodyl Calcium Replacement - Follow Nurse / BPA Driven Protocol Magnesium Standard Dose Replacement - Follow Nurse / BPA Driven Protocol melatonin ondansetron ODT OR ondansetron Phosphorus Replacement - Follow Nurse / BPA Driven Protocol Potassium Replacement - Follow Nurse / BPA Driven Protocol sodium chloride sodium chloride traMADol Assessment & Plan Assessment & Plan Active Hospital Problems Diagnosis POA Hip fracture [S72.009A] Yes Closed nondisplaced fracture of left acetabulum [S32.402A] Yes Moderate malnutrition [E44.0] Yes Kidney disease, chronic, stage III (GFR 30-59 ml/min) [N18.30] Yes Generalized anxiety disorder [F41.1] Yes Resolved Hospital Problems No resolved problems to display. Brief Hospital Course to date: Lorin Raymundo is a 79 y.o. female history of anxiety/depression/bipolar, CKD, history of colon cancer who presented with acute left acetabular fractureafter GLF. Acute left acetabular fracture Ground level fall Patient fell last night. She was not using her walker when she went to the restroom. Patient is not able to bear weight since the fall. In ED patient was hemodynamically stable. Labs ordered but not collected yet. X-ray showed left hip acetabular fracture. Dr. Cody with Ortho consulted. Nonoperative measures. Patient reports that she lives in an independent living apartment by herself. She is not going to be able to take take her back. PT/OT consultation. CM to facilitate discharge pending therapy eval. Follow-up in 3-4 weeks with Orthopedic [place] [facility] [place] pelvis/inlet/outlet xrays upon arrival to clinic Chemical DVT prophylaxis recommended as an inpatient and then aspirin 81 mg by mouth daily for 6 weeks post-injury Anxiety/depression/bipolar, Resume home medication Expected Discharge Location and Transportation: Rehab Expected Discharge TBD Expected Discharge Date: 08/29/2024; Expected Discharge Time: VTE Prophylaxis: Pharmacologic VTE prophylaxis orders are present. Total time spent: Time Spent: Time Spent: 40 minutes Time spent includes time reviewing chart, [id number]-[id number] time, counseling patient/family/caregiver, ordering medications/tests/procedures, communicating with other health healthcare translator, documenting clinical information in the electronic health record, and coordination of care. AM-PAC 6 Clicks Score (PT): 13 (08/28/24 1010) CODE STATUS: There are no questions and answers to display. Luca Bell MD 08/28/24 1442 Physical Therapy Notes (most recent note) Susan Guerrero, PT at 08/28/24 1010 Version 1 of 1 Patient Name: Lorin Raymundo : 1945 Today's Date: 08/28/2024 Admit Date: 08/27/2024 Visit Dx: ICD-10-CM ICD-9-CM 1. Fall in home, initial encounter W19.XXXA E888.9 Y92.009 E849.0 2. Closed nondisplaced fracture of left acetabulum, unspecified portion of acetabulum, initial encounter S32.402A 808.0 3. Inability to bear weight R26.89 V49.89 Patient Active Problem List Diagnosis Insomnia Generalized anxiety disorder Gastroesophageal reflux disease Vitamin D deficiency Osteoporosis Peripheral neuropathy Kidney disease, chronic, stage III (GFR 30-59 ml/min) Overflow incontinence Colon cancer Moderate malnutrition Hip fracture Closed nondisplaced fracture of left acetabulum Past Medical History: Diagnosis Date Anxiety Arthritis Bipolar 1 disorder Cancer Depression Fibromyalgia GERD (gastroesophageal reflux disease) Joint pain localized in the knee Kidney infection Normal routine history and physical examination Seizures Past Surgical History: Procedure Laterality Date COLECTOMY PARTIAL / TOTAL N/A Partial COLON SURGERY 1994 HIP TROCHANTERIC NAILING WITH INTRAMEDULLARY HIP SCREW Left 04/21/2017 Procedure: HIP TROCANTERIC NAILING WITH INTRAMEDULLARY HIP SCREW LEFT Debridement of stage 4 decubitus ulcers x 2 with placement of wound vac to left hip; Surgeon: Silver Denny MD; Location: [facility]; Service: KNEE ARTHROSCOPY Right General Information Row Name 08/28/24 1010 Physical Therapy Time and Intention Document Type evaluation -LR Mode of Treatment physical therapy;individual therapy -LR Row Name 08/28/24 1010 General Information Patient Profile Reviewed yes -LR Prior Level of Function independent:;all household mobility;gait;transfer;bed mobility;ADL's ambulated independently with rollator, w/c for long distances -LR Existing Precautions/Restrictions fall;partial weight bearing;left;seizures;other (see comments) L acetabulum fx s/p fall, partial/protected weight bearing L LE -LR Barriers to Rehab none identified -LR Row Name 08/28/24 1010 Living Environment Current Living Arrangements independent living facility states she has 2 call buttons in room and one on her phone if she needs assistance -LR People in Home alone -LR Row Name 08/28/24 1010 Home Main Entrance Number of Stairs, Main Entrance none -LR Row Name 08/28/24 1010 Stairs Within Home, Primary Number of Stairs, Within Home, Primary none -LR Row Name 08/28/24 1010 Cognition Orientation Status (Cognition) oriented x 3;other (see comments) required increased time for current month and year -LR Row Name 08/28/24 1010 Safety Issues/Impairments Affecting Functional Mobility Safety Issues Affecting Function (Mobility) awareness of need for assistance;insight into deficits/self-awareness;safety precautions follow- through/compliance;safety precaution awareness;positioning of assistive device;sequencing abilities -LR Impairments Affecting Function (Mobility) balance;strength;endurance/activity tolerance;pain;range of motion (ROM);motor control;sensation/sensory awareness -LR User Turner (r) = Recorded By, (t) = Taken By, (c) = Cosigned By Initials Name Provider Type LR Susan Guerrero, PT Physical Therapist Mobility Row Name 08/28/24 1010 Bed Mobility Bed Mobility supine-sit;scooting/bridging -LR Scooting/Bridging Cosmos (Bed Mobility) verbal cues;moderate assist (50% patient effort) -LR Supine-Sit Cosmos (Bed Mobility) verbal cues;minimum assist (75% patient effort) -LR Assistive Device (Bed Mobility) head of bed elevated;bed rails;other (see comments);repositioning sheet -LR Comment, (Bed Mobility) Verbal cues to move LEs towards EOB and to push up from bed to raise trunk into sitting. Once in long sitting, patient had difficulty pushing from bed to scoot hips to get feet on floor. Required mod assist with draw sheet to scoot hips out to get feet on floor. Denied dizziness upon sitting up. -LR Row Name 08/28/24 1010 Transfers Comment, (Transfers) Verbal cues to push up from bed to stand and to reach back for chair to lower into sitting. Verbal cues to step L LE out before t/f for comfort and to keep R LE under her prior to t/f. Cues for limited weight bearing on L LE during t/f. Mild dizziness upon standing. PT demonstrated correct technique for forward ambulation prior to patient standing. Patient unable to adequately weight shift to take steps forward. Verbal cues for t/f to chair. Patient could only unweight R LEenough to pivot to chair. One small side step noted with R LE at the end. Limited weight bearing noted on L d/t pain and weight bearing restriction. -LR Row Name 08/28/24 1010 Bed-Chair Transfer Bed-Chair Cosmos (Transfers) verbal cues;minimum assist (75% patient effort);2 person assist -LR Assistive Device (Bed-Chair Transfers) walker, front-wheeled -LR Row Name 08/28/24 1010 Sit-Stand Transfer Sit-Stand Cosmos (Transfers) verbal cues;minimum assist (75% patient effort);1 person to manage equipment -LR Assistive Device (Sit-Stand Transfers) walker, front-wheeled -LR Row Name 08/28/24 1010 Gait/Stairs (Locomotion) Patient was able to Ambulate no, other medical factors prevent ambulation -LR Reason Patient was unable to Ambulate Uncontrolled Pain;Excessive Weakness -LR Cosmos Level (Stairs) not tested -LR Comment, (Gait/Stairs) Patient could not adequately weight shift and maintain PWB on L to attempt forward ambulation. -LR Row Name 08/28/24 1010 Mobility Extremity Weight-bearing Status left lower extremity -LR Left Lower Extremity (Weight-bearing Status) partial weight-bearing (PWB);other (see comments) partial/protected weigh bearing -LR User Turner (r) = Recorded By, (t) = Taken By, (c) = Cosigned By Initials Name Provider Type LR Susan Guerrero, PT Physical Therapist Obj/Interventions Row Name 08/28/24 1010 Range of Motion Comprehensive General Range of Motion lower extremity range of motion deficits identified -LR Row Name 08/28/24 1010 Strength Comprehensive (MMT) General Manual Muscle Testing (MMT) Assessment lower extremity strength deficits identified -LR Row Name 08/28/24 1010 Motor Skills Therapeutic Exercise ankle;hip;knee;other (see comments) cues for technique; min assist L hip abd, L heel slides -LR Row Name 08/28/24 1010 Hip (Therapeutic Exercise) Hip (Therapeutic Exercise) strengthening exercise;isometric exercises -LR Hip Isometrics (Therapeutic Exercise) bilateral;gluteal sets;sitting;10 repetitions -LR Hip Strengthening (Therapeutic Exercise) bilateral;aBduction;sitting;10 repetitions -LR Row Name 08/28/24 1010 Knee (Therapeutic Exercise) Knee (Therapeutic Exercise) strengthening exercise;isometric exercises -LR Knee Isometrics (Therapeutic Exercise) bilateral;quad sets;sitting;10 repetitions -LR Knee Strengthening (Therapeutic Exercise) bilateral;heel slides;sitting;10 repetitions -LR Row Name 08/28/24 1010 Ankle (Therapeutic Exercise) Ankle (Therapeutic Exercise) AROM (active range of motion) -LR Ankle AROM (Therapeutic Exercise) bilateral;dorsiflexion;plantarflexion;sitting;10 repetitions -LR Row Name 08/28/24 1010 Balance Balance Assessment sitting static balance;sitting dynamic balance;standing static balance;standing dynamic balance -LR Static Sitting Balance standby assist -LR Dynamic Sitting Balance contact guard -LR Position, Sitting Balance unsupported;sitting edge of bed -LR Static Standing Balance minimal assist;1 person to manage equipment -LR Dynamic Standing Balance minimal assist;2-person assist -LR Position/Device Used, Standing Balance supported;walker, rolling -LR Row Name 08/28/24 1010 Sensory Assessment (Somatosensory) Sensory Assessment (Somatosensory) LE sensation intact;other (see comments) patient denied numbness/tingling presently, reports neuropathy in feet at baseline, reported light touch was equal and intact upon assessment -LR Row Name 08/28/24 1010 General Lower Extremity Assessment (Range of Motion) Lower Extremity: Range of Motion RLE ROM WFL -LR Comment: Lower Extremity ROM L hip AROM impaired 15% d/t pain, L knee/ankle AROM WFL -LR Row Name 08/28/24 1010 Lower Extremity (Manual Muscle Testing) Lower Extremity: Manual Muscle Testing (MMT) other (see comments) -LR Comment, MMT: Lower Extremity L LE functionally 4-/5, R LE functionally 4/5 -LR User Turner (r) = Recorded By, (t) = Taken By, (c) = Cosigned By Initials Name Provider Type LR Susan Guerrero, PT Physical Therapist Goals/Plan Row Name 08/28/24 1010 Bed Mobility Goal 1 (PT) Activity/Assistive Device (Bed Mobility Goal 1, PT) sit to supine/supine to sit -LR Cosmos Level/Cues Needed (Bed Mobility Goal 1, PT) contact guard required -LR Time Frame (Bed Mobility Goal 1, PT) short term goal (STG);3 days -LR Progress/Outcomes (Bed Mobility Goal 1, PT) goal ongoing -LR Row Name 08/28/24 1010 Transfer Goal 1 (PT) Activity/Assistive Device (Transfer Goal 1, PT) [id number]-[id number]/[id number]-zr-[id number];[id number]-[id number]/lmlxx-ci-[id number]-LR Cosmos Level/Cues Needed (Transfer Goal 1, PT) contact guard required -LR Time Frame (Transfer Goal 1, PT) long-term goal (LTG);5 days -LR Progress/Outcome (Transfer Goal 1, PT) goal ongoing - Row Name 08/28/24 1010 Gait Training Goal 1 (PT) Activity/Assistive Device (Gait Training Goal 1, PT) gait (walking locomotion);walker, rolling -LR Cosmos Level (Gait Training Goal 1, PT) minimum assist (75% or more patient effort);other (see comments) x2 -LR Distance (Gait Training Goal 1, PT) 25 feet -LR Time Frame (Gait Training Goal 1, PT) long-term goal (LTG);5 days -LR Progress/Outcome (Gait Training Goal 1, PT) goal ongoing -LR Row Name 08/28/24 1010 Therapy Assessment/Plan (PT) Planned Therapy Interventions (PT) balance training;bed mobility training;home exercise program;gait training;patient/family education;transfer training;strengthening;ROM (range of motion) -LR User Turner (r) = Recorded By, (t) = Taken By, (c) = Cosigned By Initials Name Provider Type LR Susan Guerrero, PT Physical Therapist Clinical Impression Row Name 08/28/24 1010 Pain Pretreatment Pain Rating 0/10 - no pain -LR Pain Location hip -LR Pain Side/Orientation left;lateral -LR Pain Management Interventions exercise or physical activity utilized;movement retraining implemented -LR Response to Pain Interventions activity level improved;mobility function improved;functional ability improved;activity participation with increased pain -LR Additional Documentation Pain Scale: FACES Pre/Post-Treatment (Group) -LR Row Name 08/28/24 1010 Pain Scale: FACES Pre/Post-Treatment Pain: FACES Scale, Pretreatment 0-->no hurt -LR Posttreatment Pain Rating 4-->hurts little more -LR Row Name 08/28/24 1010 Plan of Care Review Plan of Care Reviewed With patient -LR Progress improving -LR Outcome Evaluation Patient performed bed to chair t/f via pivoting on R LE, with use of RW and min assist x2, limited by pain and weakness. Patient was unable to adequately weight shift to attempt forward ambulation. Patient currently below functional baseline, demonstrating decreased functional mobility status, impaired balance, decreased endurance, and decreased strength/ROM. Will address thesedeficits to promote return to PLOF. Recommend SNF at d/c. -LR Row Name 08/28/24 1010 Therapy Assessment/Plan (PT) Patient/Family Therapy Goals Statement (PT) decrease pain, get better -LR Rehab Potential (PT) good -LR Criteria for Skilled Interventions Met (PT) yes;skilled treatment is necessary;meets criteria -LR Therapy Frequency (PT) daily -LR Predicted Duration of Therapy Intervention (PT) 5 days -LR Row Name 08/28/24 1010 Vital Signs Pre Systolic BP Rehab 107 -LR Pre Treatment Diastolic BP 63 -LR Intra Systolic BP Rehab 117 -LR Intra Treatment Diastolic BP 70 -LR Post Systolic BP Rehab 129 -LR Post Treatment Diastolic BP 69 -LR Pre Patient Position Supine -LR Intra Patient Position Sitting -LR Post Patient Position Sitting -LR Row Name 08/28/24 1010 Positioning and Restraints Pre-Treatment Position in bed -LR Post Treatment Position chair -LR In Chair notified nsg;reclined;sitting;call light within reach;encouraged to call for assist;exit alarm on;compression device;legs elevated;waffle cushion;on mechanical lift sling -LR User Turner (r) = Recorded By, (t) = Taken By, (c) = Cosigned By Initials Name Provider Type Susan Mckeon, PT Physical Therapist Outcome Measures Row Name 08/28/24 1010 08/28/24 0805 How much help from another person do you currently need... Turning from your back to your side while in flat bed without using bedrails? 3 -LR 3 -DJ Moving from lying on back to sitting on the side of a flat bed without bedrails? 3 -LR -- Moving to and from a bed to a chair (including a wheelchair)? 2 -LR -- Standing up from a chair using your arms (e.g., wheelchair, bedside chair)? 3 - LR -- Climbing 3-5 steps with a railing? 1 -LR -- To walk in hospital room? 1 -LR -- AM-PAC 6 Clicks Score (PT) 13 -LR -- Highest Level of Mobility Goal Move to Chair/Commode-4 -LR -- Row Name 08/28/24 1010 Functional Assessment Outcome Measure Options AM-PAC 6 Clicks Basic Mobility (PT) -LR User Turner (r) = Recorded By, (t) = Taken By, (c) = Cosigned By Initials Name Provider Type Susna Mckeon, PT Physical Therapist Be Collado, RN Registered Nurse Physical Therapy Education Title: PT OT [employer] Therap[facility] (In Progress) Topic: Physical Therapy (Done) Point: Mobility training (Done) Learning Progress Summary Patient Acceptance, E,D, VU,NR by BESSY at 08/28/2024 1010 Comment: Educated on precautions, partial weight bearing status, LE HEP, benefits of mobility and being OOB, correct supine to sit t/f technique, correct sit<->stand t/f technique, correct bed to chair t/f technique, and progression of POC. Point: Home exercise program (Done) Learning Progress Summary Patient Acceptance, E,D, VU,NR by LR at 08/28/2024 1010 Comment: Educated on precautions, partial weight bearing status, LE HEP, benefits of mobility and being OOB, correct supine to sit t/f technique, correct sit<->stand t/f technique, correct bed to chair t/f technique, and progression of POC. Point: Body mechanics (Done) Learning Progress Summary Patient Acceptance, E,D, VU,NR by LR at 08/28/2024 1010 Comment: Educated on precautions, partial weight bearing status, LE HEP, benefits of mobility and being OOB, correct supine to sit t/f technique, correct sit<->stand t/f technique, correct bed to chair t/f technique, and progression of POC. Point: Precautions (Done) Learning Progress Summary Patient Acceptance, E,D, VU,NR by LR at 08/28/2024 1010 Comment: Educated on precautions, partial weight bearing status, LE HEP, benefits of mobility and being OOB, correct supine to sit t/f technique, correct sit<->stand t/f technique, correct bed to chair t/f technique, and progression of POC. User Turner Initials Effective Dates Name Provider Type Discipline 05/08/22 - Susan Guerrero, PT Physical Therapist PT PT Recommendation and Plan Planned Therapy Interventions (PT): balance training, bed mobility training, home exercise program,gait training, patient/family education, transfer training, strengthening, ROM (range of motion) Progress: improving Outcome Evaluation: Patient performed bed to chair t/f via pivoting on R LE, with use of RW and minassist x2, limited by pain and weakness. Patient was unable to adequately weight shift to attempt forward ambulation. Patient currently below functional baseline, demonstrating decreased functional mobility status, impaired balance, decreased endurance, and decreased strength/ROM. Will address these deficits to promote return to PLOF. Recommend SNF at d/c. Time Calculation: PT Evaluation Complexity History, PT Evaluation Complexity: 3 or more personal factors and/or comorbidities Examination of Body Systems (PT Eval Complexity): total of 3 or more elements Clinical Presentation (PT Evaluation Complexity): evolving Clinical Decision Making (PT Evaluation Complexity): moderate complexity Overall Complexity (PT Evaluation Complexity): moderate complexity PT Charges Row Name 08/28/24 1010 Time Calculation Start Time 1010 -LR PT Received On 08/28/24 -LR PT Goal Re-Cert Due Date 09/07/24 -LR Timed Charges 81023 - PT Therapeutic Exercise Minutes 10 -LR Untimed Charges PT Eval/Re-eval Minutes 60 -LR Total Minutes Timed Charges Total Minutes 10 -LR Untimed Charges Total Minutes 60 -LR Total Minutes 70 -LR User Turner (r) = Recorded By, (t) = Taken By, (c) = Cosigned By Initials Name Provider Type LR Susan Guerrero, PT Physical Therapist Therapy Charges for Today Code Description Service Date Service Provider Modifiers Qty 57038190541 HC PT THER PROC EA 15 MIN 08/28/2024 Susan Guerrero, PT GP 1 55532292795 HC PT EVAL MOD COMPLEXITY 4 08/28/2024 Susan Guerrero, PT GP 1 [id number] HC PT THER SUPP EA 15 MIN 08/28/2024 Susan Guerrero, PT GP 3 PT G-Codes Outcome Measure Options: AM-PAC 6 Clicks Basic Mobility (PT) AM-PAC 6 Clicks Score (PT): 13 PT Discharge Summary Anticipated Discharge Disposition (PT[facility] Susan Guerrero PT 08/28/2024 1121 Occupational Therapy Notes (most recent note) Nevin Larsen, OT at 08/28/24 1459 Patient Name: Lorin Raymundo : 1945 Today's Date: 08/28/2024 Admit Date: 08/27/2024 Visit Dx: ICD-10-CM ICD-9-CM 1. Fall in home, initial encounter W19.XXXA E888.9 Y92.009 E849.0 2. Closed nondisplaced fracture of left acetabulum, unspecified portion of acetabulum, initial encounter S32.402A 808.0 3. Inability to bear weight R26.89 V49.89 Patient Active Problem List Diagnosis Insomnia Generalized anxiety disorder Gastroesophageal reflux disease Vitamin D deficiency Osteoporosis Peripheral neuropathy Kidney disease, chronic, stage III (GFR 30-59 ml/min) Overflow incontinence Colon cancer Moderate malnutrition Hip fracture Closed nondisplaced fracture of left acetabulum Past Medical History: Diagnosis Date Anxiety Arthritis Bipolar 1 disorder Cancer Depression Fibromyalgia GERD (gastroesophageal reflux disease) Joint pain localized in the knee Kidney infection Normal routine history and physical examination Seizures Past Surgical History: Procedure Laterality Date COLECTOMY PARTIAL / TOTAL N/A Partial COLON SURGERY 1994 HIP TROCHANTERIC NAILING WITH INTRAMEDULLARY HIP SCREW Left 04/21/2017 Procedure: HIP TROCANTERIC NAILING WITH INTRAMEDULLARY HIP SCREW LEFT Debridement of stage 4 decubitus ulcers x 2 with placement of wound vac to left hip; Surgeon: Silver Denny MD; Location: [facility]; Service: KNEE ARTHROSCOPY Right General Information Row Name 08/28/24 1519 OT Time and Intention Document Type evaluation -SA Mode of Treatment occupational therapy - Row Name 08/28/24 1519 General Information Patient Profile Reviewed yes -SA Prior Level of Function independent:;all household mobility;gait;transfer;bed mobility;ADL's Independent with rollator, w/c for long distances - Existing Precautions/Restrictions fall;partial weight bearing;left;seizures;other (see comments) L acetabulum fx s/p fall, partial/protected weight bearing L LE -SA Barriers to Rehab medically complex - Row Name 08/28/24 1519 Living Environment Current Living Arrangements independent living facility - People in Home alone - Row Name 08/28/24 1519 Home Main Entrance Number of Stairs, Main Entrance none -SA Row Name 08/28/24 1519 Stairs Within Home, Primary Number of Stairs, Within Home, Primary none -SA Row Name 08/28/24 1519 Cognition Orientation Status (Cognition) oriented x 3 -SA Row Name 08/28/24 1519 Safety Issues/Impairments Affecting Functional Mobility Safety Issues Affecting Function (Mobility) awareness of need for assistance;insight into deficits/self-awareness;positioning of assistive device;safety precaution awareness;safety precautions follow- through/compliance;sequencing abilities -SA Impairments Affecting Function (Mobility) balance;strength;endurance/activity tolerance;pain;range of motion (ROM);motor control;sensation/sensory awareness - User Turner (r) = Recorded By, (t) = Taken By, (c) = Cosigned By Initials Name Provider Type Nevin Cisneros OT Occupational Therapist Mobility/ADL's Row Name 08/28/24 152 Bed Mobility Bed Mobility rolling right - Rolling Right Cosmos (Bed Mobility) verbal cues;moderate assist (50% patient effort) - Assistive Device (Bed Mobility) bed rails - Row Name 08/28/24 152 Transfers Comment, (Transfers) Pt declined transfers at this time, pt reported too fatigued after sitting in chair so long, also reported soreness from sitting in chair; pt also on bed farrell upon OT arrival and had not yet had a bowel movement; pt agreeable to rolling right to reposition bed farrell for comfort - Row Name 08/28/24 152 Functional Mobility Patient was able to Ambulate no, other medical factors prevent ambulation - Row Name 08/28/24 152 Mobility Extremity Weight-bearing Status left lower extremity - Left Lower Extremity (Weight-bearing Status) partial weight-bearing (PWB);other (see comments) partial/protected weight bearing - User Turner (r) = Recorded By, (t) = Taken By, (c) = Cosigned By Initials Name Provider Type Nevin Cisneros OT Occupational Therapist Obj/Interventions Row Name 08/28/24 1525 08/28/24 152 Sensory Assessment (Somatosensory) Sensory Assessment (Somatosensory) sensation intact - -- - Row Name 08/28/24 1525 08/28/24 1523 Vision Assessment/Intervention Visual Impairment/Limitations WFL - -- - Row Name 08/28/24 1525 08/28/24 1523 Range of Motion Comprehensive General Range of Motion bilateral upper extremity ROM WNL -SA -- - Row Name 08/28/24 1525 08/28/24 1523 Strength Comprehensive (MMT) Comment, General Manual Muscle Testing (MMT) Assessment BUE grossly at least 3/5 throughout as demonstrated with functional movement - -- - Row Name 08/28/24 1525 Shoulder (Therapeutic Exercise) Shoulder (Therapeutic Exercise) AROM (active range of motion) - Shoulder AROM (Therapeutic Exercise) bilateral;flexion;extension;scapular elevation;10 repetitions - Row Name 08/28/24 1525 Elbow/Forearm (Therapeutic Exercise) Elbow/Forearm (Therapeutic Exercise) AROM (active range of motion) -SA Elbow/Forearm AROM (Therapeutic Exercise) bilateral;flexion;extension;10 repetitions -SA Row Name 08/28/24 152 Motor Skills Therapeutic Exercise shoulder;elbow/forearm -SA User Turner (r) = Recorded By, (t) = Taken By, (c) = Cosigned By Initials Name Provider Type Nevin Cisneros OT Occupational Therapist Goals/Plan Row Name 08/28/24 153 Bed Mobility Goal 1 (OT) Activity/Assistive Device (Bed Mobility Goal 1, OT) supine to sit -SA Cosmos Level/Cues Needed (Bed Mobility Goal 1, OT) standby assist -SA Time Frame (Bed Mobility Goal 1, OT) long-term goal (LTG);10 days -SA Progress/Outcomes (Bed Mobility Goal 1, OT) new goal -SA Row Name 08/28/241530 Transfer Goal 1 (OT) Activity/Assistive Device (Transfer Goal 1, OT) [id number]-uf-pfhet/[id number]-au-xgx -SA Cosmos Level/Cues Needed (Transfer Goal 1, OT) minimum assist (75% or more patient effort) -SA Time Frame (Transfer Goal 1, OT) long-term goal (LTG);10 days -SA Progress/Outcome (Transfer Goal 1, OT) new goal -SA Row Name 08/28/241530 Dressing Goal 1 (OT) Activity/Device (Dressing Goal 1, OT) lower body dressing -SA Cosmos/Cues Needed (Dressing Goal 1, OT) minimum assist (75% or more patient effort) -SA Time Frame (Dressing Goal 1, OT) ferry terminal supervisor goal (LTG);10 days -SA Progress/Outcome (Dressing Goal 1, OT) new goal -SA Row Name 08/28/24 153 Grooming Goal 1 (OT) Activity/Device (Grooming Goal 1, OT) hair care;wash face, hands;oral care;other (see comments) Sitting EOB -SA Cosmos (Grooming Goal 1, OT) set-up required -SA Time Frame (Grooming Goal 1, OT) short term goal (STG);5 days -SA Progress/Outcome (Grooming Goal 1, OT) new goal -SA Row Name 08/28/24 153 Therapy Assessment/Plan (OT) Planned Therapy Interventions (OT) activity tolerance training;adaptive equipment training;functional balance retraining;occupation/activity based interventions;patient/caregiver education/training;ROM/therapeutic exercise;strengthening exercise;transfer/mobility retraining - User Turner (r) = Recorded By, (t) = Taken By, (c) = Cosigned By Initials Name Provider Type SA Nevin Larsen OT Occupational Therapist Clinical Impression Row Name 08/28/24 1527 08/28/24 152 Pain Assessment Pretreatment Pain Rating 0/10 - no pain -SA 0/10 - no pain Reported no pain at rest, general soreness LLE after sitting up in chair -SA Posttreatment Pain Rating 0/10 - no pain -SA 0/10 - no pain -SA Row Name 08/28/24 1527 08/28/24 152 Plan of Care Review Plan of Care Reviewed With patient -SA patient -SA Progress no change -SA no change -SA Outcome Evaluation OT evaluation complete. Pt declined OOB mobility secondary to fatigue and on bedpan at time of OT arrival. Pt did agree to roll to R 1x for better positioning of bed farrell and was able to roll with Mod A and use of bed rails. Pt performed BUE AROM exercises without difficulty. Pt presents below baseline level secondary to weakness, decreased activity tolerance, impaired balance,and decreased independence with ADLs and fxnl mobility and would benefit from skilled IPOT servicesto improve fxnl status. OT recommends SNF at discharge. - -- Row Name 08/28/241526 Therapy Assessment/Plan (OT) Patient/Family Therapy Goal Statement (OT) Return to [facility] - Rehab Potential (OT) good - Criteria for Skilled Therapeutic Interventions Met (OT) yes;meets criteria;skilled treatment is necessary - Therapy Frequency (OT) daily - Predicted Duration of Therapy Intervention (OT) 10 days - Row Name 08/28/241526 Therapy Plan Review/Discharge Plan (OT) Anticipated Discharge Disposition (OT[facility] - Row Name 08/28/24 152 Vital Signs Pre Systolic BP Rehab 122 -SA Pre Treatment Diastolic BP 69 -SA Pre SpO2 (%) 95 -SA O2 Delivery Pre Treatment room air -SA Pre Patient Position Supine -SA Row Name 08/28/24 152 Positioning and Restraints Pre-Treatment Position in bed -SA Post Treatment Position bed -SA In Bed notified nsg;supine;fowlers;call light within reach;encouraged to call for assist;exit alarmon -SA User Turner (r) = Recorded By, (t) = Taken By, (c) = Cosigned By Initials Name Provider Type Nevin Cisneros OT Occupational Therapist Outcome Measures Row Name 08/28/24 1532 How much help from another is currently needed... Putting on and taking off regular lower body clothing? 1 -SA Bathing (including washing, rinsing, and drying) 2 -SA Toileting (which includes using toilet bed farrell or urinal) 1 -SA Putting on and taking off regular upper body clothing 3 -SA Taking care of personal grooming (such as brushing teeth) 3 -SA Eating meals 3 -SA AM-PAC 6 Clicks Score (OT) 13 -SA Row Name 08/28/24 1010 08/28/24 0805 How much help from another person do you currently need... Turning from your back to your side while in flat bed without using bedrails? 3 -LR 3 -MK Moving from lying on back to sitting on the side of a flat bed without bedrails? 3 -LR 3 -MK Moving to and from a bed to a chair (including a wheelchair)? 2 -LR 2 -MK Standing up from a chair using your arms (e.g., wheelchair, bedside chair)? 3 - LR 2 -MK Climbing 3-5 steps with a railing? 1 -LR 1 -MK To walk in hospital room? 1 -LR 1 -MK AM-PAC 6 Clicks Score (PT) 13 -LR 12 -MK Highest Level of Mobility Goal Move to Chair/Commode-4 -LR Move to Chair/Commode-4 -MK Row Name 08/28/24 1532 08/28/24 1010 Functional Assessment Outcome Measure Options AM-PAC 6 Clicks Daily Activity (OT) - AM-PAC 6 Clicks Basic Mobility (PT)-LR User Turner (r) = Recorded By, (t) = Taken By, (c) = Cosigned By Initials Name Provider Type Susan Mckeon, PT Physical Therapist Chelsea Frye, RN Registered Nurse Nevin Cisneros OT Occupational Therapist Occupational Therapy Education Title: PT OT [employer] Therapies (In Progress) Topic: Occupational Therapy (In Progress) Point: ADL training (In Progress) Learning Progress Summary Patient Acceptance, E, NR by at 08/28/2024 1533 Point: Precautions (In Progress) Learning Progress Summary Patient Acceptance, E, NR by at 08/28/2024 1533 Point: Body mechanics (In Progress) Learning Progress Summary Patient Acceptance, E, NR by at 08/28/2024 1533 User Turner Initials Effective Dates Name Provider Type Discipline 07/19/24 - Nevin Larsen OT Occupational Therapist OT OT Recommendation and Plan Planned Therapy Interventions (OT): activity tolerance training, adaptive equipment training, functional balance retraining, occupation/activity based interventions, patient/caregiver education/training, ROM/therapeutic exercise, strengthening exercise, transfer/mobility retraining Therapy Frequency (OT): daily Plan of Care Review Plan of Care Reviewed With: patient Progress: no change Outcome Evaluation: OT evaluation complete. Pt declined OOB mobility secondary to fatigue and on bed farrell at time of OT arrival. Pt did agree to roll to R 1x for better positioning of bed farrell and was able to roll with Mod A and use of bed rails. Pt performed BUE AROM exercises without difficulty. Ptpresents below baseline level secondary to weakness, decreased activity tolerance, impaired balance, and decreased independence with ADLs and fxnl mobility and would benefit from skilled IPOT services to improve fxnl status. OT recommends SNF at discharge. Time Calculation: Evaluation Complexity (OT) Review Occupational Profile/Medical/Therapy History Complexity: expanded/moderate complexity Assessment, Occupational Performance/Identification of Deficit Complexity: 3-5 performance deficits Clinical Decision Making Complexity (OT): detailed assessment/moderate complexity Overall Complexity of Evaluation (OT): moderate complexity Time Calculation- OT Row Name 08/28/241532 Time Calculation- OT OT Start Time 1459 - OT Received On 08/28/24 OT Goal Re-Cert Due Date 09/07/24 - Untimed Charges OT Eval/Re-eval Minutes 40 -SA Total Minutes Untimed Charges Total Minutes 40 -SA Total Minutes 40 -SA User Turner (r) = Recorded By, (t) = Taken By, (c) = Cosigned By Initials Name Provider Type Nevin Larsen OT Occupational Therapist Therapy Charges for Today Code Description Service Date Service Provider Modifiers Qty [id number] OT EVAL MOD COMPLEXITY 3 08/28/2024 Nevin Larsen OT GO 1 Nevin Larsen OT 08/28/2024 1534 documented in this encounter Discharge Instructions * Discharge Instr - Activity* Natalia Mccain RN - 09/01/2024 8:00 AM EDT - x2 assist bedside commode * Discharge Instr - Diet* Natalia Mccain RN - 09/01/2024 8:01 AM EDT - Regular diet * Attachments The following attachments cannot be sent through Care Everywhere. * Simple Pelvic Fracture Adult (Chilean) * Fall Prevention in the Home Adult [id number] (Chilean) * How to Use a Walker (Chilean) documented in this encounter Medications at Time of Discharge acetaminophen (TYLENOL) 325 MG tablet Take 2 tablets by mouth Every 4 (Four) Hours As Needed for Mild Pain. 09/01/2024 aspirin 81 MG EC tablet Take 1 tablet by mouth Daily. OTC Cholecalciferol (Vitamin D) 50 MCG (2000 UT) tablet Take 1 tablet by mouth Daily. OTC gabapentin (NEURONTIN) 600 MG tabletIndications :Idiopathic peripheral neuropathy Take 1 tablet by mouth 3 (Three) Times a Day. 9 tablet 09/01/2024 Lidocaine 4 % Place 1 patch on the skin as directed by provider Daily. Remove & Discard patch within 12 hours or as directed by MD 09/02/2024 loperamide (IMODIUM) 2 MG capsule Take 1 capsule by mouth 3 (Three) Times a Day As Needed for Diarrhea. 09/02/2024 polyethylene glycol (MIRALAX) 17 g packet Take 17 g by mouth Daily. 09/03/2024 promethazine (PHENERGAN) 12.5 MG tablet Take 1 tablet by mouth Every 8 (Eight) Hours As Needed for Nausea or Vomiting. 09/02/2024 risperiDONE (risperDAL) 0.25 MG tablet Take 2 tablets by mouth 2 (Two) Times a Day. 09/01/2024 sennosides-docusa te (PERICOLACE) 8.6-50 MG per tablet Take 2 tablets by mouth 2 (Two) Times a Day As Needed for Constipation. 09/02/2024 vitamin C (VITAMIN C) 1000 MG tablet Take 1 tablet by mouth Daily. 04/29/2017 zolpidem CR (Ambien CR) 12.5 MG CR tabletIndications :Insomnia, unspecified type Take 1 tablet by mouth At Night As Needed for Sleep. 3 tablet 09/01/2024 fluvoxaMINE (LUVOX) 50 MG tablet Take 2 tablets by mouth Every Night. documented as of this encounter Progress Notes * Luca Bell MD - 08/31/2024 12:54 PM EDT Images from the original note were not included. [facility] Medicine Services PROGRESS NOTE Patient Name: Lorin Raymundo : 1945 Date of Admission: 08/27/2024 Primary Care Physician: Provider, No Known Subjective Subjective CC: Left acetabular fracture HPI: No significant overnight events, patient endorsing constipation, adjusting bowel regimen. No pain endorsed, states she slept very well last night, dose of Ambien was increased. Likely to be transferred tomorrow, pending precertification has a bed at [facility]. Objective Objective Vital Signs: Temp: [98 ??F (36.7 ??C)-98.8 ??F (37.1 ??C)] 98.3 ??F (36.8 ??C) Heart Rate: [81-92] 92 Resp: [16-18] 18 BP: (106-123)/(57-78) 106/57 Physical Exam: Constitutional: No acute distress, awake, alert HENT: NCAT, mucous membranes moist Respiratory: Clear to auscultation bilaterally, respiratory effort normal Cardiovascular: RRR, no murmurs, rubs, or gallops Gastrointestinal: Positive bowel sounds, soft, nontender, nondistended Musculoskeletal: No bilateral ankle edema Psychiatric: Appropriate affect, cooperative Neurologic: Oriented x 3, strength symmetric in all extremities, Cranial Nerves grossly intact to confrontation, speech clear Skin: No rashes Results Reviewed: LAB RESULTS: Lab 08/31/24 0844 08/30/24 0808/29/24 12308/28/24 0710 08/27/24 1319 WBC 12.27* 11.84* 8.91 8.79 11.31* HEMOGLOBIN 9.7* 10.1* 9.6* 10.2* 11.7* HEMATOCRIT 30.6* 32.3* 31.1* 32.8* 36.4 PLATELETS 263 241 207 231 283 NEUTROS ABS -- -- -- 6.35 8.28* IMMATURE GRANS (ABS) -- -- -- 0.03 0.06* LYMPHS ABS -- -- -- 1.27 1.91 MONOS ABS -- -- -- 0.81 0.93* EOS ABS -- -- -- 0.29 0.09 MCV 93.9 93.9 95.7 94.8 93.6 Lab 08/31/24 08 08/30/24 0808/29/24 12308/28/24 0708/27/24 1510 SODIUM 139 137 137 136 139 POTASSIUM 4.1 3.8 4.2 4.1 4.3 CHLORIDE 102 101 101 100 101 CO2 25.0 25.0 24.0 26.0 25.0 ANION GAP 12.0 11.0 12.0 10.0 13.0 BUN 14.5 15.4 17.6 12 11 CREATININE 0.69 0.74 0.99 1.04* 0.87 EGFR 87.3 81.4 57.4* 54.1* 67.0 GLUCOSE 101* 114* 126* 115* 95 CALCIUM 8.4* 8.6 8.5* 8.2* 9.0 MAGNESIUM 1.8 2.1 2.0 1.9 -- PHOSPHORUS -- -- -- 3.1 -- TSH -- -- -- 1.260 -- Lab 08/28/24 0708/27/24 1510 TOTAL PROTEIN 5.8* 6.7 ALBUMIN 3.4* 3.8 GLOBULIN 2.4 2.9 ALT (SGPT) 7 13 AST (SGOT) 13 17 BILIRUBIN 0.4 0.5 ALK PHOS 56 66 Brief Urine Lab Results (Last result in the past 365 days) Color Clarity Blood Leuk Est Nitrite Protein CREAT Urine HCG 08/28/24 0439 Yellow Clear Trace Small (1+) Negative Trace Microbiology Results Abnormal None No radiology results from the last 24 hrs Results for orders placed during the hospital encounter of 12/27/21 Adult Transthoracic Echo Complete W/ Cont if Necessary Per Protocol Interpretation Summary ?? Estimated left ventricular EF = 60% ?? Mild mitral valve regurgitation is present. ?? Moderate tricuspid valve regurgitation is present. Current medications: Scheduled Meds:aspirin, 81 mg, Oral, Daily enoxaparin sodium, 30 mg, Subcutaneous, Daily gabapentin, 600 mg, Oral, Q8H Lidocaine, 1 patch, Transdermal, Q24H pantoprazole, 40 mg, Oral, Q AM risperiDONE, 0.25 mg, Oral, BID sertraline, 100 mg, Oral, Daily sodium chloride, 10 mL, Intravenous, Q12H zolpidem, 10 mg, Oral, Nightly Continuous Infusions: PRN Meds:. acetaminophen OR acetaminophen OR acetaminophen senna-docusate sodium AND polyethylene glycol AND bisacodyl AND bisacodyl Calcium Replacement - Follow Nurse / BPA Driven Protocol Magnesium Standard Dose Replacement - Follow Nurse / BPA Driven Protocol melatonin ondansetron ODT OR ondansetron Phosphorus Replacement - Follow Nurse / BPA Driven Protocol Potassium Replacement - Follow Nurse / BPA Driven Protocol sodium chloride sodium chloride traMADol Assessment & Plan Assessment & Plan Active Hospital Problems Diagnosis POA Hip fracture [S72.009A] Yes Closed nondisplaced fracture of left acetabulum [S32.402A] Yes Moderate malnutrition [E44.0] Yes Kidney disease, chronic, stage III (GFR 30-59 ml/min) [N18.30] Yes Generalized anxiety disorder [F41.1] Yes Resolved Hospital Problems No resolved problems to display. Brief Hospital Course to date: Lorin Raymundo is a 79 y.o. female history of anxiety/depression/bipolar, CKD, history of colon cancer who presented with acute left acetabular fractureafter GLF. Acute left acetabular fracture Ground level fall Patient fell last night. She was not using her walker when she went to the restroom. Patient is not able to bear weight since the fall. In ED patient was hemodynamically stable. Labs ordered but not collected yet. X-ray showed left hip acetabular fracture. Dr. Cody with Ortho consulted. Nonoperative measures. Patient reports that she lives in an independent living apartment by herself. She is not going to be able to take take her back. PT/OT consultation, plan for SNF CM to facilitate discharge Follow-up in 3-4 weeks with Orthopedic PA team [facility] [place] pelvis/inlet/outlet xrays upon arrival to clinic Chemical DVT prophylaxis recommended as an inpatient and then aspirin 81 mg by mouth daily for 6 weeks post-injury Anxiety/depression/bipolar, Resume home medication Expected Discharge Location and Transportation: Rehab Expected Discharge TBD Expected Discharge Date: 08/29/2024; Expected Discharge Time: VTE Prophylaxis: Pharmacologic VTE prophylaxis orders are present. Total time spent: Time Spent: Time Spent: 40 minutes Time spent includes time reviewing chart, debo-bo-iodd time, counseling patient/family/caregiver, ordering medications/tests/procedures, communicating with other health healthcare translator, documenting clinical information in the electronic health record, and coordination of care. AM-PAC 6 Clicks Score (PT): 16 (08/31/24 1108) CODE STATUS: Code Status and Medical Interventions: No CPR (Do Not Attempt to Resuscitate); Limited Support; No intubation (DNI) Ordered at: 08/30/24 0816 Code Status (Patient has no pulse and is not breathing): No CPR (Do Not Attempt to Resuscitate) Medical Interventions (Patient has pulse or is breathing): Limited Support Medical Intervention Limits: No intubation (DNI) Level Of Support Discussed With: Patient Luca Bell MD 08/31/24 * Jodi Danielson PA-C - 08/30/2024 4:50 PM EDT Orthopedic Surgery Note CHIEF COMPLAINT: Left pelvic/acetabular Subjective: Patient seen this afternoon resting in bed. Pain is well-controlled. No new complaints at this time. PHYSICAL THERAPY PROGRESS Outcome Evaluation: Patient continues to need reminder for wt bearing status during transfers. She was able to propell w/c with cues and good technique. (08/30/24 9353) Medications/Allergies: Current Facility-Administered Medications: acetaminophen (TYLENOL) tablet 650 mg, 650 mg, Oral, Q4H PRN, 650 mg at 08/30/24 0638 OR acetaminophen (TYLENOL) 160 MG/5ML oral solution 650 mg, 650 mg, Oral, Q4H PRN OR acetaminophen (TYLENOL) suppository 650 mg, 650 mg, Rectal, Q4H PRN, Carolyne Reynoso MD aspirin EC tablet 81 mg, 81 mg, Oral, Daily, Luca Bell MD, 81 mg at 08/30/24 0821 sennosides-docusate (PERICOLACE) 8.6-50 MG per tablet 2 tablet, 2 tablet, Oral, BID PRN AND polyethylene glycol (MIRALAX) packet 17 g, 17 g, Oral, Daily PRN AND bisacodyl (DULCOLAX) EC tablet5 mg, 5 mg, Oral, Daily PRN AND bisacodyl (DULCOLAX) suppository 10 mg, 10 mg, Rectal, Daily PRN, Carolyne Reynoso MD Calcium Replacement - Follow Nurse / BPA Driven Protocol, , Not Applicable, PRN, Carolyne Reynoso MD enoxaparin sodium (LOVENOX) syringe 30 mg, 30 mg, Subcutaneous, Daily, Carolyne Reynoso MD, 30 mg at08/30/24 08 gabapentin (NEURONTIN) capsule 600 mg, 600 mg, Oral, Q8H, Luca Bell MD, 600 mg at Lidocaine 4 % 1 patch, 1 patch, Transdermal, Q24H, Carolyne Reynoso MD, 1 patch at 08/29/24 0819 Magnesium Standard Dose Replacement - Follow Nurse / BPA Driven Protocol, , Not Applicable, PRN, Carolyne Reynoso MD melatonin tablet 5 mg, 5 mg, Oral, Nightly PRN, Briana Gasca, TAPE SEWER, 5 mg at 08/27/242117 ondansetron ODT (ZOFRAN-ODT) disintegrating tablet 4 mg, 4 mg, Oral, Q6H PRN OR ondansetron (ZOFRAN) injection 4 mg, 4 mg, Intravenous, Q6H PRN, Carolyne Reynoso MD pantoprazole (PROTONIX) EC tablet 40 mg, 40 mg, Oral, Q AM, Carolyne Reynoso MD, 40 mg at 08/30/24 0638 Phosphorus Replacement - Follow Nurse / BPA Driven Protocol, , Not Applicable, PRN, Carolyne Reynoso MD Potassium Replacement - Follow Nurse / BPA Driven Protocol, , Not Applicable, PRN, Carolyne Reynoso MD risperiDONE (risperDAL) tablet 0.25 mg, 0.25 mg, Oral, BID, Carolyne Reynoso MD, 0.25 mg at sertraline (ZOLOFT) tablet 100 mg, 100 mg, Oral, Daily, Carolyne Reynoso MD, 100 mg at 08/30/24 0821 sodium chloride 0.9 % flush 10 mL, 10 mL, Intravenous, Q12H, Carolyne Reynoso MD, 10 mL at 08/30/24 0821 sodium chloride 0.9 % flush 10 mL, 10 mL, Intravenous, PRN, Carolyne Reynoso MD sodium chloride 0.9 % infusion 40 mL, 40 mL, Intravenous, PRN, Carolyne Reynoso MD traMADol (ULTRAM) tablet 25 mg, 25 mg, Oral, Q8H PRN, Carolyne Reynoso MD zolpidem (AMBIEN) tablet 10 mg, 10 mg, Oral, Nightly, Luca Bell MD Allergies Allergen Reactions Fish-Derived Products Hives [place] Other (See Comments) Stated had trouble talking and could not walk Poultry Meal Hives Shellfish-Derived Products Hives Objective: Vital Signs Temp: [97.6 ??F (36.4 ??C)-98.5 ??F (36.9 ??C)] 98 ??F (36.7 ??C) Heart Rate: [71-87] 87 Resp: [16-18] 16 BP: (106-121)/(59-72) 121/65 Results Review: I reviewed the patient's new clinical results. Results from last 7 days Lab Units 08/30/24 0826 WBC 10*3/mm3 11.84* HEMOGLOBIN g/dL 10.1* HEMATOCRIT % 32.3* PLATELETS 10*3/mm3 241 Results from last 7 days Lab Units 08/30/24 0826 SODIUM mmol/L 137 POTASSIUM mmol/L 3.8 CHLORIDE mmol/L 101 CO2 mmol/L 25.0 BUN mg/dL 15.4 CREATININE mg/dL 0.74 GLUCOSE mg/dL 114* CALCIUM mg/dL 8.6 Results from last 7 days Lab Units 08/30/24 0826 08/29/24 1231 08/28/24 0710 SODIUM mmol/L 137 < > 136 POTASSIUM mmol/L 3.8 < > 4.1 CHLORIDE mmol/L 101 < > 100 CO2 mmol/L 25.0 < > 26.0 BUN mg/dL 15.4 < > 12 CREATININE mg/dL 0.74 < > 1.04* CALCIUM mg/dL 8.6 < > 8.2* ALK PHOS U/L -- -- 56 ALT (SGPT) U/L -- -- 7 AST (SGOT) U/L -- -- 13 GLUCOSE mg/dL 114* < > 115* < > = values in this interval not displayed. Physical Exam: General: comfortable Vascular: digits are pink and well perfused Neurologic: sensation to light touch is intact distally, EHL/FHL/TA/GCS intact Dermatologic: Skin is clean dry and intact left hip; no obvious signs or symptoms of infection or DVT, no calf swelling No pain with gentle log rolling No hip deformity, symmetric leg length No tenderness with palpation of pelvis and hip area Hip fracture Generalized anxiety disorder Kidney disease, chronic, stage III (GFR 30-59 ml/min) Moderate malnutrition Closed nondisplaced fracture of left acetabulum Assessment/Plan: Closed nondisplaced fracture of left acetabulum Nonoperative management recommended. Pain is controlled at this time. Improvements noted. Disposition: Anticipate placement will be needed Pain control - well controlled at this time while resting in bed Diet - per primary team PT/OT: partial/protected weightbearing as tolerated with assistance of therapy team AP pelvis, inlet outlet views upon arrival to the clinic in 3 to 4 weeks. Chemical DVT prophylaxis recommended as an inpatient and then aspirin 81 mg by mouth daily for 6 weeks post-injury I discussed the patient's findings and my recommendations with the patient. Follow-up: Please have the schedulers call our office line at [phone] for a clinic appointment with our orthopedic PA team in 3 to 4 weeks. Jodi Danielson PA-C [facility] Orthopedic Surgery 08/30/24 16:51 EDT Cosigned by Arun Cody MD at 08/31/2024 7:58 AM EDT Associated attestation - Arun Cody MD - 08/31/2024 7:58 AM EDT I have reviewed this documentation and agree. * Luca Bell MD - 08/30/2024 10:06 AM EDT Images from the original note were not included. [facility] Medicine Services PROGRESS NOTE Patient Name: Lorin Raymundo : 1945 Date of Admission: 08/27/2024 Primary Care Physician: Provider, No Known Subjective Subjective CC: Left acetabular fracture HPI: Overnight events, patient stating that her Ambien dose given here is half of what she takes at home, did not sleep very well overnight. Has trialed trazodone in the past which also did not work for her. Objective Objective Vital Signs: Temp: [97.6 ??F (36.4 ??C)-98.5 ??F (36.9 ??C)] 98 ??F (36.7 ??C) Heart Rate: [71-79] 76 Resp: [16-18] 16 BP: (106-113)/(59-72) 110/72 Physical Exam: Constitutional: No acute distress, awake, alert HENT: NCAT, mucous membranes moist Respiratory: Clear to auscultation bilaterally, respiratory effort normal Cardiovascular: RRR, no murmurs, rubs, or gallops Gastrointestinal: Positive bowel sounds, soft, nontender, nondistended Musculoskeletal: No bilateral ankle edema Psychiatric: Appropriate affect, cooperative Neurologic: Oriented x 3, strength symmetric in all extremities, Cranial Nerves grossly intact to confrontation, speech clear Skin: No rashes Results Reviewed: LAB RESULTS: Lab 08/30/24 0826 08/29/24 1231 08/28/24 0710 08/27/24 1319 WBC 11.84* 8.91 8.79 11.31* HEMOGLOBIN 10.1* 9.6* 10.2* 11.7* HEMATOCRIT 32.3* 31.1* 32.8* 36.4 PLATELETS 241 207 231 283 NEUTROS ABS -- -- 6.35 8.28* IMMATURE GRANS (ABS) -- -- 0.03 0.06* LYMPHS ABS -- -- 1.27 1.91 MONOS ABS -- -- 0.81 0.93* EOS ABS -- -- 0.29 0.09 MCV 93.9 95.7 94.8 93.6 Lab 08/30/24 0826 08/29/24 1231 08/28/24 0710 08/27/24 1510 SODIUM 137 137 136 139 POTASSIUM 3.8 4.2 4.1 4.3 CHLORIDE 101 101 100 101 CO2 25.0 24.0 26.0 25.0 ANION GAP 11.0 12.0 10.0 13.0 BUN 15.4 17.6 12 11 CREATININE 0.74 0.99 1.04* 0.87 EGFR 81.4 57.4* 54.1* 67.0 GLUCOSE 114* 126* 115* 95 CALCIUM 8.6 8.5* 8.2* 9.0 MAGNESIUM 2.1 2.0 1.9 -- PHOSPHORUS -- -- 3.1 -- TSH -- -- 1.260 -- Lab 08/28/24 0710 08/27/24 1510 TOTAL PROTEIN 5.8* 6.7 ALBUMIN 3.4* 3.8 GLOBULIN 2.4 2.9 ALT (SGPT) 7 13 AST (SGOT) 13 17 BILIRUBIN 0.4 0.5 ALK PHOS 56 66 Brief Urine Lab Results (Last result in the past 365 days) Color Clarity Blood Leuk Est Nitrite Protein CREAT Urine HCG 08/28/24 0439 Yellow Clear Trace Small (1+) Negative Trace Microbiology Results Abnormal None No radiology results from the last 24 hrs Results for orders placed during the hospital encounter of 12/27/21 Adult Transthoracic Echo Complete W/ Cont if Necessary Per Protocol Interpretation Summary ?? Estimated left ventricular EF = 60% ?? Mild mitral valve regurgitation is present. ?? Moderate tricuspid valve regurgitation is present. Current medications: Scheduled Meds:aspirin, 81 mg, Oral, Daily enoxaparin sodium, 30 mg, Subcutaneous, Daily gabapentin, 600 mg, Oral, Q8H Lidocaine, 1 patch, Transdermal, Q24H pantoprazole, 40 mg, Oral, Q AM risperiDONE, 0.25 mg, Oral, BID sertraline, 100 mg, Oral, Daily sodium chloride, 10 mL, Intravenous, Q12H zolpidem, 5 mg, Oral, Nightly Continuous Infusions: PRN Meds:. acetaminophen OR acetaminophen OR acetaminophen senna-docusate sodium AND polyethylene glycol AND bisacodyl AND bisacodyl Calcium Replacement - Follow Nurse / BPA Driven Protocol Magnesium Standard Dose Replacement - Follow Nurse / BPA Driven Protocol melatonin ondansetron ODT OR ondansetron Phosphorus Replacement - Follow Nurse / BPA Driven Protocol Potassium Replacement - Follow Nurse / BPA Driven Protocol sodium chloride sodium chloride traMADol Assessment & Plan Assessment & Plan Active Hospital Problems Diagnosis POA Hip fracture [S72.009A] Yes Closed nondisplaced fracture of left acetabulum [S32.402A] Yes Moderate malnutrition [E44.0] Yes Kidney disease, chronic, stage III (GFR 30-59 ml/min) [N18.30] Yes Generalized anxiety disorder [F41.1] Yes Resolved Hospital Problems No resolved problems to display. Brief Hospital Course to date: Lorin Raymundo is a 79 y.o. female history of anxiety/depression/bipolar, CKD, history of colon cancer who presented with acute left acetabular fractureafter GLF. Acute left acetabular fracture Ground level fall Patient fell last night. She was not using her walker when she went to the restroom. Patient is not able to bear weight since the fall. In ED patient was hemodynamically stable. Labs ordered but not collected yet. X-ray showed left hip acetabular fracture. Dr. Cody with Ortho consulted. Nonoperative measures. Patient reports that she lives in an independent living apartment by herself. She is not going to be able to take take her back. PT/OT consultation, plan for SNF CM to facilitate discharge Follow-up in 3-4 weeks with Orthopedic PA team [facility], AP pelvis/inlet/outlet xrays upon arrival to clinic Chemical DVT prophylaxis recommended as an inpatient and then aspirin 81 mg by mouth daily for 6 weeks post-injury Anxiety/depression/bipolar, Resume home medication Expected Discharge Location and Transportation: Rehab Expected Discharge TBD Expected Discharge Date: 08/29/2024; Expected Discharge Time: VTE Prophylaxis: Pharmacologic VTE prophylaxis orders are present. Total time spent: Time Spent: Time Spent: 40 minutes Time spent includes time reviewing chart, [id number] time, counseling patient/family/caregiver, ordering medications/tests/procedures, communicating with other health healthcare translator, documenting clinical information in the electronic health record, and coordination of care. AM-PAC 6 Clicks Score (PT): 16 (08/29/242044) CODE STATUS: There are no questions and answers to display. Luca Bell MD 08/30/24 * Luca Bell MD - 08/29/2024 9:20 AM EDT Images from the original note were not included. [facility] Medicine Services PROGRESS NOTE Patient Name: Lorin Raymundo : 1945 Date of Admission: 08/27/2024 Primary Care Physician: Provider, No Known Subjective Subjective CC: Left acetabular fracture HPI: No significant overnight events, patient doing well this a.m., not endorsing any pain at this time.Did have a small bowel movement. Objective Objective Vital Signs: Temp: [97.4 ??F (36.3 ??C)-99.2 ??F (37.3 ??C)] 97.9 ??F (36.6 ??C) Heart Rate: [64-94] 65 Resp: [16] 16 BP: (88-123)/(54-75) 94/64 Flow (L/min) (Oxygen Therapy): [2] 2 Physical Exam: Constitutional: No acute distress, awake, alert HENT: NCAT, mucous membranes moist Respiratory: Clear to auscultation bilaterally, respiratory effort normal Cardiovascular: RRR, no murmurs, rubs, or gallops Gastrointestinal: Positive bowel sounds, soft, nontender, nondistended Musculoskeletal: No bilateral ankle edema Psychiatric: Appropriate affect, cooperative Neurologic: Oriented x 3, strength symmetric in all extremities, Cranial Nerves grossly intact to confrontation, speech clear Skin: No rashes Results Reviewed: LAB RESULTS: Lab 08/28/24 0710 08/27/24 1319 WBC 8.79 11.31* HEMOGLOBIN 10.2* 11.7* HEMATOCRIT 32.8* 36.4 PLATELETS 231 283 NEUTROS ABS 6.35 8.28* IMMATURE GRANS (ABS) 0.03 0.06* LYMPHS ABS 1.27 1.91 MONOS ABS 0.81 0.93* EOS ABS 0.29 0.09 MCV 94.8 93.6 Lab 08/28/24 0710 08/27/24 1510 SODIUM 136 139 POTASSIUM 4.1 4.3 CHLORIDE 100 101 CO2 26.0 25.0 ANION GAP 10.0 13.0 BUN 12 11 CREATININE 1.04* 0.87 EGFR 54.1* 67.0 GLUCOSE 115* 95 CALCIUM 8.2* 9.0 MAGNESIUM 1.9 -- PHOSPHORUS 3.1 -- TSH 1.260 -- Lab 08/28/24 0710 08/27/24 1510 TOTAL PROTEIN 5.8* 6.7 ALBUMIN 3.4* 3.8 GLOBULIN 2.4 2.9 ALT (SGPT) 7 13 AST (SGOT) 13 17 BILIRUBIN 0.4 0.5 ALK PHOS 56 66 Brief Urine Lab Results (Last result in the past 365 days) Color Clarity Blood Leuk Est Nitrite Protein CREAT Urine HCG 08/28/24 0439 Yellow Clear Trace Small (1+) Negative Trace Microbiology Results Abnormal None CT Pelvis Without Contrast Result Date: 08/27/2024 CT HEAD WO CONTRAST, CT PELVIS WO CONTRAST Date of Exam: 08/27/2024 12:24 PM EDT Indication: Fell 2 weeks ago, headache since, fell again last night. Comparison: Head CT 12/27/2021. Hip and pelvis radiographs 08/27/2024.. CT abdomen/pelvis 12/27/2021. Technique: Axial CT images were obtained of the head and pelvis without contrast administration. Automated exposure control and iterative construction methods were used. Findings: Head CT: No acute intracranial hemorrhage.Intact appearing malone-white differentiation.No extra-axial fluid collection.No significant mass effect. No hydrocephalus. Mild generalized parenchymal volume loss. Moderate periventricular and subcortical white matter hypoattenuation, nonspecific, perhaps from small vessel ischemic/hypertensive changes in a patient of this age.There are intracranial atherosclerotic calcifications. Mild scattered mucosal thickening in the paranasal sinuses.nonspecific small bilateral mastoid effusions. . Bilateral lens replacements. No acuteor aggressive appearing bony or extracranial soft tissue process. Pelvis CT: Small and large bowel:No significant abnormality. Peritoneal cavity: No free fluid or free air. Bladder: No significant abnormality. Pelvic organs: No significant abnormality. Vasculature: Atherosclerotic calcifications. Lymph nodes: No pathologic appearing lymph nodes by imaging criteria. Bones and soft tissues: Acute comminuted fracture of the left acetabulum. Subacute to chronic appearing nondisplaced fracture of the left inferior pubic ramus. Left proximal femoral fixation hardware. Degenerative changes of the imaged spine. Mild osteoarthrosis of the bilateral hips and sacroiliac joints. Impression: Impression: No acute intracranial findings. Acute comminuted fracture of the left acetabulum. Electronically Signed: Reynaldo Santamaria MD 08/27/2024 12:58 PM EDT Workstation ID: [id number] CT Head Without Contrast Result Date: 08/27/2024 CT HEAD WO CONTRAST, CT PELVIS WO CONTRAST Date of Exam: 08/27/2024 12:24 PM EDT Indication: Fell 2 weeks ago, headache since, fell again last night. Comparison: Head CT 12/27/2021. Hip and pelvis radiographs 08/27/2024.. CT abdomen/pelvis 12/27/2021. Technique: Axial CT images were obtained of the head and pelvis without contrast administration. Automated exposure control and iterative construction methods were used. Findings: Head CT: No acute intracranial hemorrhage.Intact appearing malone-white differentiation.No extra-axial fluid collection.No significant mass effect. No hydrocephalus. Mild generalized parenchymal volume loss. Moderate periventricular and subcortical white matter hypoattenuation, nonspecific, perhaps from small vessel ischemic/hypertensive changes in a patient of this age.There are intracranial atherosclerotic calcifications. Mild scattered mucosal thickening in the paranasal sinuses.nonspecific small bilateral mastoid effusions. . Bilateral lens replacements. No acuteor aggressive appearing bony or extracranial soft tissue process. Pelvis CT: Small and large bowel:No significant abnormality. Peritoneal cavity: No free fluid or free air. Bladder: No significant abnormality. Pelvic organs: No significant abnormality. Vasculature: Atherosclerotic calcifications. Lymph nodes: No pathologic appearing lymph nodes by imaging criteria. Bones and soft tissues: Acute comminuted fracture of the left acetabulum. Subacute to chronic appearing nondisplaced fracture of the left inferior pubic ramus. Left proximal femoral fixation hardware. Degenerative changes of the imaged spine. Mild osteoarthrosis of the bilateral hips and sacroiliac joints. Impression: Impression: No acute intracranial findings. Acute comminuted fracture of the left acetabulum. Electronically Signed: Reynaldo Santamaria MD 08/27/2024 12:58 PM EDT Workstation ID: [id number] XR Chest 1 View Result Date: 08/27/2024 XR CHEST 1 VW Date of Exam: 08/27/2024 10:35 AM EDT Indication: cough, preop Comparison: 08/10/2024 Findings: Heart size and pulmonary vasculature are within normal limits. Lungs clear than calcified granuloma on the left. Costophrenic angles sharp Impression: Impression: No active cardiopulmonary disease Electronically Signed: Denys Munguia 08/27/2024 10:49 AM EDT Workstation ID: [id number] XR Knee 1 or 2 View Left Result Date: 08/27/2024 XR KNEE 1 OR 2 VW LEFT Date of Exam: 08/27/2024 9:46 AM EDT Indication: trauma Comparison: 10/18/2020knee radiographs Findings: Partially visualized femoral hardware without evidence of complication. Moderate knee joint effusion. No traumatic malalignment. Moderate degenerative changes of the knee. Articular surfaces appear grossly intact. No evidence of fracture. Impression: Impression: 1.Moderate knee joint effusion without evidence of acute fracture or malalignment. 2.Moderate degenerative changes of the knee. Electronically Signed: Richard Wilkerson MD 08/27/2024 10:02 AM EDT Workstation ID: [id number] XR Hip With or Without Pelvis 2 - 3 View Left Result Date: 08/27/2024 XR HIP W OR WO PELVIS 2-3 VIEW LEFT Date of Exam: 08/27/2024 9:26 AM EDT Indication: For the last night, cannot put weight on left hip today Comparison: None available. Findings: There is a nondisplaced comminuted fracture of the acetabulum. The fracture involves the acetabular roof and medial acetabular wall. There is an associated fracture at the junction of the superior pubic ramus and ilium. The left hip is not dislocated. There has been previous internal fixation of a fracture of the proximal left femur with a nail and kailee. No acute fracture of the proximal left femur is demonstrated. Degenerative disease in the lower lumbar spine noted Impression: Impression: Nondisplaced comminuted fracture of the left acetabulum Electronically Signed: Denys Munguia 08/27/2024 10:02 AM EDT Workstation ID: [id number] Results for orders placed during the hospital encounter of 12/27/21 Adult Transthoracic Echo Complete W/ Cont if Necessary Per Protocol Interpretation Summary ?? Estimated left ventricular EF = 60% ?? Mild mitral valve regurgitation is present. ?? Moderate tricuspid valve regurgitation is present. Current medications: Scheduled Meds:aspirin, 81 mg, Oral, Daily enoxaparin sodium, 30 mg, Subcutaneous, Daily gabapentin, 600 mg, Oral, Q8H Lidocaine, 1 patch, Transdermal, Q24H pantoprazole, 40 mg, Oral, Q AM risperiDONE, 0.25 mg, Oral, BID sertraline, 100 mg, Oral, Daily sodium chloride, 10 mL, Intravenous, Q12H zolpidem, 5 mg, Oral, Nightly Continuous Infusions: PRN Meds:. acetaminophen OR acetaminophen OR acetaminophen senna-docusate sodium AND polyethylene glycol AND bisacodyl AND bisacodyl Calcium Replacement - Follow Nurse / BPA Driven Protocol Magnesium Standard Dose Replacement - Follow Nurse / BPA Driven Protocol melatonin ondansetron ODT OR ondansetron Phosphorus Replacement - Follow Nurse / BPA Driven Protocol Potassium Replacement - Follow Nurse / BPA Driven Protocol sodium chloride sodium chloride traMADol Assessment & Plan Assessment & Plan Active Hospital Problems Diagnosis POA Hip fracture [S72.009A] Yes Closed nondisplaced fracture of left acetabulum [S32.402A] Yes Moderate malnutrition [E44.0] Yes Kidney disease, chronic, stage III (GFR 30-59 ml/min) [N18.30] Yes Generalized anxiety disorder [F41.1] Yes Resolved Hospital Problems No resolved problems to display. Brief Hospital Course to date: Lorin Raymundo is a 79 y.o. female history of anxiety/depression/bipolar, CKD, history of colon cancer who presented with acute left acetabular fractureafter GLF. Acute left acetabular fracture Ground level fall Patient fell last night. She was not using her walker when she went to the restroom. Patient is not able to bear weight since the fall. In ED patient was hemodynamically stable. Labs ordered but not collected yet. X-ray showed left hip acetabular fracture. Dr. Cody with Ortho consulted. Nonoperative measures. Patient reports that she lives in an independent living apartment by herself. She is not going to be able to take take her back. PT/OT consultation, plan for SNF CM to facilitate discharge Follow-up in 3-4 weeks with Orthopedic [place] team [facility] [place] pelvis/inlet/outlet xrays upon arrival to clinic Chemical DVT prophylaxis recommended as an inpatient and then aspirin 81 mg by mouth daily for 6 weeks post-injury Anxiety/depression/bipolar, Resume home medication Expected Discharge Location and Transportation: Rehab Expected Discharge TBD Expected Discharge Date: 08/29/2024; Expected Discharge Time: VTE Prophylaxis: Pharmacologic VTE prophylaxis orders are present. Total time spent: Time Spent: Time Spent: 40 minutes Time spent includes time reviewing chart, [id number]-[id number] time, counseling patient/family/caregiver, ordering medications/tests/procedures, communicating with other health healthcare translator, documenting clinical information in the electronic health record, and coordination of care. AM-PAC 6 Clicks Score (PT): 15 (08/28/242011) CODE STATUS: There are no questions and answers to display. Luca Bell MD 08/29/24 * Luca Bell MD - 08/28/2024 1:16 PM EDT Images from the original note were not included. [facility] Medicine Services PROGRESS NOTE Patient Name: Lorin Raymundo : 1945 Date of Admission: 08/27/2024 Primary Care Physician: Provider, No Known Subjective Subjective CC: Left acetabular fracture HPI: Patient doing well this a.m., no active complaints otherwise. Does not endorse significant amount of pain, tolerating diet well. Worked with physical therapy today. Does endorse constipation. Objective Objective Vital Signs: Temp: [97.3 ??F (36.3 ??C)-98.9 ??F (37.2 ??C)] 97.4 ??F (36.3 ??C) Heart Rate: [74-94] 94 Resp: [16-18] 16 BP: (97-124)/(53-76) 122/69 Flow (L/min) (Oxygen Therapy): [2] 2 Physical Exam: Constitutional: No acute distress, awake, alert HENT: NCAT, mucous membranes moist Respiratory: Clear to auscultation bilaterally, respiratory effort normal Cardiovascular: RRR, no murmurs, rubs, or gallops Gastrointestinal: Positive bowel sounds, soft, nontender, nondistended Musculoskeletal: No bilateral ankle edema Psychiatric: Appropriate affect, cooperative Neurologic: Oriented x 3, strength symmetric in all extremities, Cranial Nerves grossly intact to confrontation, speech clear Skin: No rashes Results Reviewed: LAB RESULTS: Lab 08/28/24 0710 08/27/24 1319 WBC 8.79 11.31* HEMOGLOBIN 10.2* 11.7* HEMATOCRIT 32.8* 36.4 PLATELETS 231 283 NEUTROS ABS 6.35 8.28* IMMATURE GRANS (ABS) 0.03 0.06* LYMPHS ABS 1.27 1.91 MONOS ABS 0.81 0.93* EOS ABS 0.29 0.09 MCV 94.8 93.6 Lab 08/28/24 0710 08/27/24 1510 SODIUM 136 139 POTASSIUM 4.1 4.3 CHLORIDE 100 101 CO2 26.0 25.0 ANION GAP 10.0 13.0 BUN 12 11 CREATININE 1.04* 0.87 EGFR 54.1* 67.0 GLUCOSE 115* 95 CALCIUM 8.2* 9.0 MAGNESIUM 1.9 -- PHOSPHORUS 3.1 -- TSH 1.260 -- Lab 08/28/24 0710 08/27/24 1510 TOTAL PROTEIN 5.8* 6.7 ALBUMIN 3.4* 3.8 GLOBULIN 2.4 2.9 ALT (SGPT) 7 13 AST (SGOT) 13 17 BILIRUBIN 0.4 0.5 ALK PHOS 56 66 Brief Urine Lab Results (Last result in the past 365 days) Color Clarity Blood Leuk Est Nitrite Protein CREAT Urine HCG 08/28/24 0439 Yellow Clear Trace Small (1+) Negative Trace Microbiology Results Abnormal None CT Pelvis Without Contrast Result Date: 08/27/2024 CT HEAD WO CONTRAST, CT PELVIS WO CONTRAST Date of Exam: 08/27/2024 12:24 PM EDT Indication: Fell 2 weeks ago, headache since, fell again last night. Comparison: Head CT 12/27/2021. Hip and pelvis radiographs 08/27/2024.. CT abdomen/pelvis 12/27/2021. Technique: Axial CT images were obtained of the head and pelvis without contrast administration. Automated exposure control and iterative construction methods were used. Findings: Head CT: No acute intracranial hemorrhage.Intact appearing malone-white differentiation.No extra-axial fluid collection.No significant mass effect. No hydrocephalus. Mild generalized parenchymal volume loss. Moderate periventricular and subcortical white matter hypoattenuation, nonspecific, perhaps from small vessel ischemic/hypertensive changes in a patient of this age.There are intracranial atherosclerotic calcifications. Mild scattered mucosal thickening in the paranasal sinuses.nonspecific small bilateral mastoid effusions. . Bilateral lens replacements. No acuteor aggressive appearing bony or extracranial soft tissue process. Pelvis CT: Small and large bowel:No significant abnormality. Peritoneal cavity: No free fluid or free air. Bladder: No significant abnormality. Pelvic organs: No significant abnormality. Vasculature: Atherosclerotic calcifications. Lymph nodes: No pathologic appearing lymph nodes by imaging criteria. Bones and soft tissues: Acute comminuted fracture of the left acetabulum. Subacute to chronic appearing nondisplaced fracture of the left inferior pubic ramus. Left proximal femoral fixation hardware. Degenerative changes of the imaged spine. Mild osteoarthrosis of the bilateral hips and sacroiliac joints. Impression: Impression: No acute intracranial findings. Acute comminuted fracture of the left acetabulum. Electronically Signed: Reynaldo Santamaria MD 08/27/2024 12:58 PM EDT Workstation ID: [id number] CT Head Without Contrast Result Date: 08/27/2024 CT HEAD WO CONTRAST, CT PELVIS WO CONTRAST Date of Exam: 08/27/2024 12:24 PM EDT Indication: Fell 2 weeks ago, headache since, fell again last night. Comparison: Head CT 12/27/2021. Hip and pelvis radiographs 08/27/2024.. CT abdomen/pelvis 12/27/2021. Technique: Axial CT images were obtained of the head and pelvis without contrast administration. Automated exposure control and iterative construction methods were used. Findings: Head CT: No acute intracranial hemorrhage.Intact appearing malone-white differentiation.No extra-axial fluid collection.No significant mass effect. No hydrocephalus. Mild generalized parenchymal volume loss. Moderate periventricular and subcortical white matter hypoattenuation, nonspecific, perhaps from small vessel ischemic/hypertensive changes in a patient of this age.There are intracranial atherosclerotic calcifications. Mild scattered mucosal thickening in the paranasal sinuses.nonspecific small bilateral mastoid effusions. . Bilateral lens replacements. No acuteor aggressive appearing bony or extracranial soft tissue process. Pelvis CT: Small and large bowel:No significant abnormality. Peritoneal cavity: No free fluid or free air. Bladder: No significant abnormality. Pelvic organs: No significant abnormality. Vasculature: Atherosclerotic calcifications. Lymph nodes: No pathologic appearing lymph nodes by imaging criteria. Bones and soft tissues: Acute comminuted fracture of the left acetabulum. Subacute to chronic appearing nondisplaced fracture of the left inferior pubic ramus. Left proximal femoral fixation hardware. Degenerative changes of the imaged spine. Mild osteoarthrosis of the bilateral hips and sacroiliac joints. Impression: Impression: No acute intracranial findings. Acute comminuted fracture of the left acetabulum. Electronically Signed: Reynaldo Santamaria MD 08/27/2024 12:58 PM EDT Workstation ID: [id number] XR Chest 1 View Result Date: 08/27/2024 XR CHEST 1 VW Date of Exam: 08/27/2024 10:35 AM EDT Indication: cough, preop Comparison: 08/10/2024 Findings: Heart size and pulmonary vasculature are within normal limits. Lungs clear than calcified granuloma on the left. Costophrenic angles sharp Impression: Impression: No active cardiopulmonary disease Electronically Signed: Denys Munguia 08/27/2024 10:49 AM EDT Workstation ID: [id number] XR Knee 1 or 2 View Left Result Date: 08/27/2024 XR KNEE 1 OR 2 VW LEFT Date of Exam: 08/27/2024 9:46 AM EDT Indication: trauma Comparison: 10/18/2020knee radiographs Findings: Partially visualized femoral hardware without evidence of complication. Moderate knee joint effusion. No traumatic malalignment. Moderate degenerative changes of the knee. Articular surfaces appear grossly intact. No evidence of fracture. Impression: Impression: 1.Moderate knee joint effusion without evidence of acute fracture or malalignment. 2.Moderate degenerative changes of the knee. Electronically Signed: Richard Wilkerson MD 08/27/2024 10:02 AM EDT Workstation ID: [id number] XR Hip With or Without Pelvis 2 - 3 View Left Result Date: 08/27/2024 XR HIP W OR WO PELVIS 2-3 VIEW LEFT Date of Exam: 08/27/2024 9:26 AM EDT Indication: For the last night, cannot put weight on left hip today Comparison: None available. Findings: There is a nondisplaced comminuted fracture of the acetabulum. The fracture involves the acetabular roof and medial acetabular wall. There is an associated fracture at the junction of the superior pubic ramus and ilium. The left hip is not dislocated. There has been previous internal fixation of a fracture of the proximal left femur with a nail and kailee. No acute fracture of the proximal left femur is demonstrated. Degenerative disease in the lower lumbar spine noted Impression: Impression: Nondisplaced comminuted fracture of the left acetabulum Electronically Signed: Denys Munguia 08/27/2024 10:02 AM EDT Workstation ID: [id number] Results for orders placed during the hospital encounter of 12/27/21 Adult Transthoracic Echo Complete W/ Cont if Necessary Per Protocol Interpretation Summary ?? Estimated left ventricular EF = 60% ?? Mild mitral valve regurgitation is present. ?? Moderate tricuspid valve regurgitation is present. Current medications: Scheduled Meds:aspirin, 81 mg, Oral, Daily enoxaparin sodium, 30 mg, Subcutaneous, Daily gabapentin, 600 mg, Oral, Q8H Lidocaine, 1 patch, Transdermal, Q24H pantoprazole, 40 mg, Oral, Q AM risperiDONE, 0.25 mg, Oral, BID sertraline, 100 mg, Oral, Daily sodium chloride, 10 mL, Intravenous, Q12H zolpidem, 5 mg, Oral, Nightly Continuous Infusions: PRN Meds:. acetaminophen OR acetaminophen OR acetaminophen senna-docusate sodium AND polyethylene glycol AND bisacodyl AND bisacodyl Calcium Replacement - Follow Nurse / BPA Driven Protocol Magnesium Standard Dose Replacement - Follow Nurse / BPA Driven Protocol melatonin ondansetron ODT OR ondansetron Phosphorus Replacement - Follow Nurse / BPA Driven Protocol Potassium Replacement - Follow Nurse / BPA Driven Protocol sodium chloride sodium chloride traMADol Assessment & Plan Assessment & Plan Active Hospital Problems Diagnosis POA Hip fracture [S72.009A] Yes Closed nondisplaced fracture of left acetabulum [S32.402A] Yes Moderate malnutrition [E44.0] Yes Kidney disease, chronic, stage III (GFR 30-59 ml/min) [N18.30] Yes Generalized anxiety disorder [F41.1] Yes Resolved Hospital Problems No resolved problems to display. Brief Hospital Course to date: Lorin Raymundo is a 79 y.o. female history of anxiety/depression/bipolar, CKD, history of colon cancer who presented with acute left acetabular fractureafter GLF. Acute left acetabular fracture Ground level fall Patient fell last night. She was not using her walker when she went to the restroom. Patient is not able to bear weight since the fall. In ED patient was hemodynamically stable. Labs ordered but not collected yet. X-ray showed left hip acetabular fracture. Dr. Cody with Ortho consulted. Nonoperative measures. Patient reports that she lives in an independent living apartment by herself. She is not going to be able to take take her back. PT/OT consultation. CM to facilitate discharge pending therapy eval. Follow-up in 3-4 weeks with Orthopedic PA team [facility], [facility] pelvis/inlet/outlet xrays upon arrival to clinic Chemical DVT prophylaxis recommended as an inpatient and then aspirin 81 mg by mouth daily for 6 weeks post-injury Anxiety/depression/bipolar, Resume home medication Expected Discharge Location and Transportation: Rehab Expected Discharge TBD Expected Discharge Date: 08/29/2024; Expected Discharge Time: VTE Prophylaxis: Pharmacologic VTE prophylaxis orders are present. Total time spent: Time Spent: Time Spent: 40 minutes Time spent includes time reviewing chart, [id number] time, counseling patient/family/caregiver, ordering medications/tests/procedures, communicating with other health healthcare translator, documenting clinical information in the electronic health record, and coordination of care. AM-PAC 6 Clicks Score (PT): 13 (08/28/24 1010) CODE STATUS: There are no questions and answers to display. Luca Bell MD 08/28/24 * Arun Cody MD - 08/28/2024 8:19 AM EDT Orthopedic Surgery Note - Arun Cody MD CHIEF COMPLAINT: Left pelvic/acetabular Subjective: The patient is resting comfortably this a.m. Review of system negative except left-sided hip/pelvicand acetabular pain. Counseled patient again on the diagnosis and treatment. Anticipate physical therapy working with the patient discussed weightbearing status. PHYSICAL THERAPY PROGRESS Medications/Allergies: Current Facility-Administered Medications: acetaminophen (TYLENOL) tablet 650 mg, 650 mg, Oral, Q4H PRN OR acetaminophen (TYLENOL) 160 MG/5ML oral solution 650 mg, 650 mg, Oral, Q4H PRN OR acetaminophen (TYLENOL) suppository 650 mg, 650 mg, Rectal, Q4H PRN, Carolyne Reynoso MD sennosides-docusate (PERICOLACE) 8.6-50 MG per tablet 2 tablet, 2 tablet, Oral, BID PRN AND polyethylene glycol (MIRALAX) packet 17 g, 17 g, Oral, Daily PRN AND bisacodyl (DULCOLAX) EC tablet5 mg, 5 mg, Oral, Daily PRN AND bisacodyl (DULCOLAX) suppository 10 mg, 10 mg, Rectal, Daily PRN, Carolyne Reynoso MD Calcium Replacement - Follow Nurse / BPA Driven Protocol, , Not Applicable, PRN, Carolyne Reynoso MD enoxaparin sodium (LOVENOX) syringe 30 mg, 30 mg, Subcutaneous, Daily, Carolyne Reynoso MD, 30 mg at08/27/24 1557 Lidocaine 4 % 1 patch, 1 patch, Transdermal, Q24H, Carolyne Reynoso MD, 1 patch at 08/27/24 1557 Magnesium Standard Dose Replacement - Follow Nurse / BPA Driven Protocol, , Not Applicable, APRIL, Carolyne Reynoso MD melatonin tablet 5 mg, 5 mg, Oral, Nightly PRN, Briana Gasca, TAPE SEWER, 5 mg at 08/27/24 2118 ondansetron ODT (ZOFRAN-ODT) disintegrating tablet 4 mg, 4 mg, Oral, Q6H PRN OR ondansetron (ZOFRAN) injection 4 mg, 4 mg, Intravenous, Q6H PRN, Carolyne Reynoso MD pantoprazole (PROTONIX) EC tablet 40 mg, 40 mg, Oral, Q AM, Carolyne Reynoso MD, 40 mg at 08/28/24 0643 Phosphorus Replacement - Follow Nurse / BPA Driven Protocol, , Not Applicable, PRN, Carolyne Reynoso MD Potassium Replacement - Follow Nurse / BPA Driven Protocol, , Not Applicable, PRN, Carolyne Reynoso MD risperiDONE (risperDAL) tablet 0.25 mg, 0.25 mg, Oral, BID, Carolyne Reynoso MD, 0.25 mg at 118 sertraline (ZOLOFT) tablet 100 mg, 100 mg, Oral, Daily, Carolyne Reynoso MD, 100 mg at 08/27/24 1557 sodium chloride 0.9 % flush 10 mL, 10 mL, Intravenous, Q12H, Carolyne Reynoso MD, 10 mL at 08/27/24 2120 sodium chloride 0.9 % flush 10 mL, 10 mL, Intravenous, PRN, Carolyne Reynoso MD sodium chloride 0.9 % infusion 40 mL, 40 mL, Intravenous, PRN, Carolyne Reynoso MD traMADol (ULTRAM) tablet 25 mg, 25 mg, Oral, Q8H PRN, Carolyne Reynoso MD Allergies Allergen Reactions Fish-Derived Products Hives [place] Other (See Comments) Stated had trouble talking and could not walk Poultry Meal Hives Shellfish-Derived Products Hives Objective: Vital Signs Temp: [97.3 ??F (36.3 ??C)-98.9 ??F (37.2 ??C)] 97.7 ??F (36.5 ??C) Heart Rate: [74-100] 77 Resp: [16-18] 16 BP: (97-135)/(53-87) Results Review: I reviewed the patient's new clinical results. Results from last 7 days Lab Units 08/28/24 0710 WBC 10*3/mm3 8.79 HEMOGLOBIN g/dL 10.2* HEMATOCRIT % 32.8* PLATELETS 10*3/mm3 231 Results from last 7 days Lab Units 08/27/24 1510 SODIUM mmol/L 139 POTASSIUM mmol/L 4.3 CHLORIDE mmol/L 101 CO2 mmol/L 25.0 BUN mg/dL 11 CREATININE mg/dL 0.87 GLUCOSE mg/dL 95 CALCIUM mg/dL 9.0 Results from last 7 days Lab Units 08/27/24 1510 SODIUM mmol/L 139 POTASSIUM mmol/L 4.3 CHLORIDE mmol/L 101 CO2 mmol/L 25.0 BUN mg/dL 11 CREATININE mg/dL 0.87 CALCIUM mg/dL 9.0 ALK PHOS U/L 66 ALT (SGPT) U/L 13 AST (SGOT) U/L 17 GLUCOSE mg/dL 95 Physical Exam: General: comfortable Vascular: digits are pink and well perfused Neurologic: sensation to light touch is intact distally, EHL/FHL/TA/GCS intact Dermatologic: Skin is clean dry and intact left hip; no obvious signs or symptoms of infection or DVT, no calf swelling No pain with gentle log rolling No hip deformity, symmetric leg length Patient has pain with ambulation Hip fracture Generalized anxiety disorder Kidney disease, chronic, stage III (GFR 30-59 ml/min) Moderate malnutrition Closed nondisplaced fracture of left acetabulum Assessment/Plan: Disposition: Anticipate placement will be needed Pain control - well controlled at this time while resting in bed Diet - per primary team Closed nondisplaced fracture of left acetabulum Assessment and plan is stable as compared to prior. Patient will need to work with physical therapyand advance as tolerated. Please contact our team with any questions or concerns during this hospitalization. We will plan to see her back in 3 to 4 weeks for repeat evaluation. AP pelvis, inlet outlet views upon arrival to the clinic in 3 to 4 weeks. I discussed the patient's findings and my recommendations with patient. Very pleasant patient. Anticipate placement being necessary. Formal plan as noted below. Okay for partial/protected weightbearing to the left lower extremity but I do think this will be driven by her pain and hopefully will improve in short order but significant injury. DVT prophylaxis is recommended as noted below I reviewed xrays and CT reviewed I spoke with Dr. Wilson in the emergency department on day of admission Recommendations for left sided pelvic and acetabular fractures: Admission to team, appreciate their assistance Ortho weight bearing status: partial/protected weight bearing left lower extremity with pelvic/acetabular fractures, walker and wheelchair, okay for pivoting and transfers as able Chemical DVT prophylaxis recommended as an inpatient and then aspirin 81 mg by mouth daily for 6 weeks post-injury PT/OT recommended No orthopedic surgery recommended so okay to continue diet from orthopedic perspective LEFT sided pubic root and acetabular fracture CT scan reviewed and patient counseled Follow-up in 3-4 weeks with Orthopedic [place] team [facility] [place] pelvis/inlet/outlet xrays upon arrival to clinic Please have the schedulers call our office line at [phone] for a clinic appointment with our orthopedic PA team in 3 to 4 weeks. I discussed the patient's findings and my recommendations with the patient. No future appointments. Arun Cody MD, FAAOS Orthopedic Surgeon [facility] [address] [place] [address]. [address] [place] [address] Arun Cody MD 08/28/24 08:20 EDT * Arun Cody MD - 08/27/2024 11:12 AM EDT I reviewed xrays and CT reviewed I spoke with Dr. Wilson Recommendations for left sided pelvic and acetabular fractures: Admission to IM team, appreciate their assistance Ortho weight bearing status: partial/protected weight bearing left lower extremity with pelvic/acetabular fractures, walker and wheelchair, okay for pivoting and transfers as able Chemical DVT prophylaxis recommended as an inpatient and then aspirin 81 mg by mouth daily for 6 weeks post-injury PT/OT recommended No orthopedic surgery recommended so okay for diet from orthopedic perspective LEFT sided pubic root and acetabular fracture CT scan *reviewed* Follow-up in 3-4 weeks with Orthopedic PA team [facility] [place], AP pelvis/inlet/outlet xrays upon arrival to clinic documented in this encounter H&P Notes * Carolyne Reynoso MD - 08/27/2024 1:02 PM EDT Images from the original note were not included. [facility] Medicine Services HISTORY AND PHYSICAL Patient Name: Lorin Raymundo : 1945 Primary Care Physician: Provider, No Known Date of admission: 08/27/2024 Subjective Subjective Chief Complaint:GLF. HPI: Lorin Raymundo is a 79 y.o. female history of anxiety/depression/bipolar, CKD, history of colon cancer who presented after GLF. Patient fell last night. She was not using her walker when she went to the restroom. Patient is not able to bear weight since the fall. In ED patient was hemodynamically stable. Labs ordered but not collected yet. X-ray showed left hip acetabular fracture. Dr. Escobar Davis consulted. Nonoperative measures. Patient reports that she lives in an independent living apartment by herself. She is not going to be able to take take her back. PT/OT consultation. [facility] [place] was asked admit the patient for therapy and placement. Review of Systems Constitutional: Positive for fatigue. Negative for fever. Respiratory: Negative for cough. Cardiovascular: Negative for chest pain. Gastrointestinal: Negative for abdominal pain. Neurological: Positive for weakness. Personal History Past Medical History: Diagnosis Date Anxiety Arthritis Bipolar 1 disorder Cancer Depression Fibromyalgia GERD (gastroesophageal reflux disease) Joint pain localized in the knee Kidney infection Normal routine history and physical examination Seizures Oncology Problem List: Colon cancer (10/09/2015; Status: Active) Oncology/Hematology History No history exists. Past Surgical History: Procedure Laterality Date COLECTOMY PARTIAL / TOTAL N/A Partial COLON SURGERY 1994 HIP TROCHANTERIC NAILING WITH INTRAMEDULLARY HIP SCREW Left 04/21/2017 Procedure: HIP TROCANTERIC NAILING WITH INTRAMEDULLARY HIP SCREW LEFT Debridement of stage 4 decubitus ulcers x 2 with placement of wound vac to left hip; Surgeon: Silver Denny MD; Location: [facility]; Service: KNEE ARTHROSCOPY Right Family History: family history includes Cancer in her brother, daughter, father, and mother. Social History: reports that she has never smoked. She has never used smokeless tobacco. She reports that she does not drink alcohol and does not use drugs. Social History Social History Narrative Not on file Medications: Aspirin Buf([id number]), Vitamin D, alendronate, ascorbic acid, hydrOXYzine pamoate, mirtazapine, multivitamin with minerals, omeprazole, ondansetron ODT, risperiDONE, sertraline, tolterodine LA, and zolpidem Allergies Allergen Reactions [place] Other (See Comments) Stated had trouble talking and could not walk Objective Objective Vital Signs: Temp: [98.3 ??F (36.8 ??C)] 98.3 ??F (36.8 ??C) Heart Rate: [79-100] 86 Resp: [16] 16 BP: (114-135)/(69-87) 114/74 Physical Exam Vitals and nursing note reviewed. Constitutional: Appearance: Normal appearance. HENT: Head: Normocephalic. Cardiovascular: Rate and Rhythm: Normal rate. Pulmonary: Effort: Pulmonary effort is normal. Abdominal: General: Abdomen is flat. Musculoskeletal: General: Tenderness present. Skin: General: Skin is warm. Neurological: Mental Status: She is alert and oriented to person, place, and time. Psychiatric: Mood and Affect: Mood normal. Result Review: I have personally reviewed the results from the time of this admission to 08/27/2024 13:02 EDT and agree with these findings: [x] Laboratory list / accordion [] Microbiology [] Radiology [] EKG/Telemetry [x] Cardiology/Vascular [] Pathology [] Old records [] Other: Most notable findings include: LAB RESULTS: Brief Urine Lab Results (Last result in the past 365 days) Color Clarity Blood Leuk Est Nitrite Protein CREAT Urine HCG 10/11/23 1114 Yellow Clear Small (1+) Moderate (2+) Negative Negative Microbiology Results (last 10 days) No results found for the last [address] Pelvis Without Contrast Result Date: 08/27/2024 CT HEAD WO CONTRAST, CT PELVIS WO CONTRAST Date of Exam: 08/27/2024 12:24 PM EDT Indication: Fell 2 weeks ago, headache since, fell again last night. Comparison: Head CT 12/27/2021. Hip and pelvis radiographs 08/27/2024.. CT abdomen/pelvis 12/27/2021. Technique: Axial CT images were obtained of the head and pelvis without contrast administration. Automated exposure control and iterative construction methods were used. Findings: Head CT: No acute intracranial hemorrhage.Intact appearing malone-white differentiation.No extra-axial fluid collection.No significant mass effect. No hydrocephalus. Mild generalized parenchymal volume loss. Moderate periventricular and subcortical white matter hypoattenuation, nonspecific, perhaps from small vessel ischemic/hypertensive changes in a patient of this age.There are intracranial atherosclerotic calcifications. Mild scattered mucosal thickening in the paranasal sinuses.nonspecific small bilateral mastoid effusions. . Bilateral lens replacements. No acuteor aggressive appearing bony or extracranial soft tissue process. Pelvis CT: Small and large bowel:No significant abnormality. Peritoneal cavity: No free fluid or free air. Bladder: No significant abnormality. Pelvic organs: No significant abnormality. Vasculature: Atherosclerotic calcifications. Lymph nodes: No pathologic appearing lymph nodes by imaging criteria. Bones and soft tissues: Acute comminuted fracture of the left acetabulum. Subacute to chronic appearing nondisplaced fracture of the left inferior pubic ramus. Left proximal femoral fixation hardware. Degenerative changes of the imaged spine. Mild osteoarthrosis of the bilateral hips and sacroiliac joints. Impression: Impression: No acute intracranial findings. Acute comminuted fracture of the left acetabulum. Electronically Signed: Reynaldo Santamaria MD 08/27/2024 12:58 PM EDT Workstation ID: [id number] CT Head Without Contrast Result Date: 08/27/2024 CT HEAD WO CONTRAST, CT PELVIS WO CONTRAST Date of Exam: 08/27/2024 12:24 PM EDT Indication: Fell 2 weeks ago, headache since, fell again last night. Comparison: Head CT 12/27/2021. Hip and pelvis radiographs 08/27/2024.. CT abdomen/pelvis 12/27/2021. Technique: Axial CT images were obtained of the head and pelvis without contrast administration. Automated exposure control and iterative construction methods were used. Findings: Head CT: No acute intracranial hemorrhage.Intact appearing malone-white differentiation.No extra-axial fluid collection.No significant mass effect. No hydrocephalus. Mild generalized parenchymal volume loss. Moderate periventricular and subcortical white matter hypoattenuation, nonspecific, perhaps from small vessel ischemic/hypertensive changes in a patient of this age.There are intracranial atherosclerotic calcifications. Mild scattered mucosal thickening in the paranasal sinuses.nonspecific small bilateral mastoid effusions. . Bilateral lens replacements. No acuteor aggressive appearing bony or extracranial soft tissue process. Pelvis CT: Small and large bowel:No significant abnormality. Peritoneal cavity: No free fluid or free air. Bladder: No significant abnormality. Pelvic organs: No significant abnormality. Vasculature: Atherosclerotic calcifications. Lymph nodes: No pathologic appearing lymph nodes by imaging criteria. Bones and soft tissues: Acute comminuted fracture of the left acetabulum. Subacute to chronic appearing nondisplaced fracture of the left inferior pubic ramus. Left proximal femoral fixation hardware. Degenerative changes of the imaged spine. Mild osteoarthrosis of the bilateral hips and sacroiliac joints. Impression: Impression: No acute intracranial findings. Acute comminuted fracture of the left acetabulum. Electronically Signed: Reynaldo Santamaria MD 08/27/2024 12:58 PM EDT Workstation ID: [id number] XR Chest 1 View Result Date: 08/27/2024 XR CHEST 1 VW Date of Exam: 08/27/2024 10:35 AM EDT Indication: cough, preop Comparison: 08/10/2024 Findings: Heart size and pulmonary vasculature are within normal limits. Lungs clear than calcified granuloma on the left. Costophrenic angles sharp Impression: Impression: No active cardiopulmonary disease Electronically Signed: Denys Munguia 08/27/2024 10:49 AM EDT Workstation ID: [id number] XR Knee 1 or 2 View Left Result Date: 08/27/2024 XR KNEE 1 OR 2 VW LEFT Date of Exam: 08/27/2024 9:46 AM EDT Indication: trauma Comparison: 10/18/2020knee radiographs Findings: Partially visualized femoral hardware without evidence of complication. Moderate knee joint effusion. No traumatic malalignment. Moderate degenerative changes of the knee. Articular surfaces appear grossly intact. No evidence of fracture. Impression: Impression: 1.Moderate knee joint effusion without evidence of acute fracture or malalignment. 2.Moderate degenerative changes of the knee. Electronically Signed: Richard Wilkerson MD 08/27/2024 10:02 AM EDT Workstation ID: [id number] XR Hip With or Without Pelvis 2 - 3 View Left Result Date: 08/27/2024 XR HIP W OR WO PELVIS 2-3 VIEW LEFT Date of Exam: 08/27/2024 9:26 AM EDT Indication: For the last night, cannot put weight on left hip today Comparison: None available. Findings: There is a nondisplaced comminuted fracture of the acetabulum. The fracture involves the acetabular roof and medial acetabular wall. There is an associated fracture at the junction of the superior pubic ramus and ilium. The left hip is not dislocated. There has been previous internal fixation of a fracture of the proximal left femur with a nail and kailee. No acute fracture of the proximal left femur is demonstrated. Degenerative disease in the lower lumbar spine noted Impression: Impression: Nondisplaced comminuted fracture of the left acetabulum Electronically Signed: Denys Munguia 08/27/2024 10:02 AM EDT Workstation ID: [id number] Results for orders placed during the hospital encounter of 12/27/21 Adult Transthoracic Echo Complete W/ Cont if Necessary Per Protocol Interpretation Summary ?? Estimated left ventricular EF = 60% ?? Mild mitral valve regurgitation is present. ?? Moderate tricuspid valve regurgitation is present. Assessment & Plan Assessment & Plan Hip fracture Generalized anxiety disorder Kidney disease, chronic, stage III (GFR 30-59 ml/min) Moderate malnutrition Lorin Raymundo is a 79 y.o. female history of anxiety/depression/bipolar, CKD, history of colon cancer who presented with acute left acetabular fractureafter GLF. ## Acute left acetabular fracture ## Ground level fall - Patient fell last night. She was not using her walker when she went to the restroom. - Patient is not able to bear weight since the fall. - In ED patient was hemodynamically stable. - Labs ordered but not collected yet. - X-ray showed left hip acetabular fracture. - Dr. Cody with Ortho consulted. Nonoperative measures. - Patient reports that she lives in an independent living apartment by herself. - She is not going to be able to take take her back. - PT/OT consultation. - CM to facilitate discharge pending therapy eval. ## Anxiety/depression/bipolar, - Restart home meds once reconciled. DVT prophylaxis: Lovenox Expected Discharge Expected Discharge Date: 08/29/2024; Expected Discharge Time: This note has been completed as part of a split-shared workflow. Signature: Electronically signed by Carolyne Reynoso MD, 08/27/24, 1:07 PM EDT documented in this encounter Consult Notes * Arun Cody MD - 08/27/2024 10:27 PM EDT Referring Provider:Dr. Wilson, ER Reason for Consultation: left acetabular/pelvic fractures Patient Care Team: Provider, No Known as PCP - General Chief complaint left acetabular/pelvic pain Subjective . History of present illness: The patient suffered a fall. I was contacted by the ER and discussed with Dr. Wilson. CT and xrays reviewed. Prior left IMN with Dr. Denny. Fall in her bathroom, unable to ambulate due to pelvic pain LOCATION: Sharp, left pelvic acetabular region QUALITY: Off-and-on, sharp TIMING: Off-and-on WORSENED WITH: Ambulation IMPROVED WITH: Rest PAIN RATING (OUT OF 10): Up to 10 of 10 at time of injury Review of Systems Pertinent items are noted in HPI, all other systems reviewed and negative, emergency room and ER notes reviewed for more comprehensive review of systems. Patient does have left-sided hip/acetabular pain. History Family History Problem Relation Age of Onset Cancer Mother Cancer Father Cancer Brother Cancer Daughter Social History Socioeconomic History Marital status: Tobacco Use Smoking status: Never Smokeless tobacco: Never Substance and Sexual Activity Alcohol use: No Drug use: No Sexual activity: Never Past Surgical History: Procedure Laterality Date COLECTOMY PARTIAL / TOTAL N/A Partial COLON SURGERY 1994 HIP TROCHANTERIC NAILING WITH INTRAMEDULLARY HIP SCREW Left 04/21/2017 Procedure: HIP TROCANTERIC NAILING WITH INTRAMEDULLARY HIP SCREW LEFT Debridement of stage 4 decubitus ulcers x 2 with placement of wound vac to left hip; Surgeon: Silver Denny MD; Location: [facility]; Service: KNEE ARTHROSCOPY Right Past Medical History: Diagnosis Date Anxiety Arthritis Bipolar 1 disorder Cancer Depression Fibromyalgia GERD (gastroesophageal reflux disease) Joint pain localized in the knee Kidney infection Normal routine history and physical examination Seizures Allergies Allergen Reactions Fish-Derived Products Hives [place] Other (See Comments) Stated had trouble talking and could not walk Poultry Meal Hives Shellfish-Derived Products Hives Current Facility-Administered Medications: acetaminophen (TYLENOL) tablet 650 mg, 650 mg, Oral, Q4H PRN OR acetaminophen (TYLENOL) 160 MG/5ML oral solution 650 mg, 650 mg, Oral, Q4H PRN OR acetaminophen (TYLENOL) suppository 650 mg, 650 mg, Rectal, Q4H PRN, Carolyne Reynoso MD sennosides-docusate (PERICOLACE) 8.6-50 MG per tablet 2 tablet, 2 tablet, Oral, BID PRN AND polyethylene glycol (MIRALAX) packet 17 g, 17 g, Oral, Daily PRN AND bisacodyl (DULCOLAX) EC tablet5 mg, 5 mg, Oral, Daily PRN AND bisacodyl (DULCOLAX) suppository 10 mg, 10 mg, Rectal, Daily PRN, Carolyne Reynoso MD Calcium Replacement - Follow Nurse / BPA Driven Protocol, , Not Applicable, PRN, Carolyne Reynoso MD enoxaparin sodium (LOVENOX) syringe 30 mg, 30 mg, Subcutaneous, Daily, Carolyne Reynoso MD, 30 mg at08/27/24 1557 Lidocaine 4 % 1 patch, 1 patch, Transdermal, Q24H, Carolyne Reynoso MD, 1 patch at 08/27/24 1557 Magnesium Standard Dose Replacement - Follow Nurse / BPA Driven Protocol, , Not Applicable, PRN, Carolyne Reynoso MD melatonin tablet 5 mg, 5 mg, Oral, Nightly PRN, Briana Gasca, TAPE SEWER, 5 mg at 08/27/242117 ondansetron ODT (ZOFRAN-ODT) disintegrating tablet 4 mg, 4 mg, Oral, Q6H PRN OR ondansetron (ZOFRAN) injection 4 mg, 4 mg, Intravenous, Q6H PRN, Carolyne Reynoso MD [START ON 08/28/2024] pantoprazole (PROTONIX) EC tablet 40 mg, 40 mg, Oral, Q AM, Carolyne Reynoso MD Phosphorus Replacement - Follow Nurse / BPA Driven Protocol, , Not Applicable, PREdgardo Peraza Rabie, MD Potassium Replacement - Follow Nurse / BPA Driven Protocol, , Not Applicable, PREdgardo Peraza Rabie, MD risperiDONE (risperDAL) tablet 0.25 mg, 0.25 mg, Oral, BID, Carolyne Reynoso MD, 0.25 mg at sertraline (ZOLOFT) tablet 100 mg, 100 mg, Oral, Daily, Carolyne Reynoso MD, 100 mg at 08/27/24 1557 sodium chloride 0.9 % flush 10 mL, 10 mL, Intravenous, Q12H, Carolyne Reynoso MD, 10 mL at 08/27/24 2120 sodium chloride 0.9 % flush 10 mL, 10 mL, Intravenous, PRN, Carolyne Reynoso MD sodium chloride 0.9 % infusion 40 mL, 40 mL, Intravenous, PRN, Carolyne Reynoso MD traMADol (ULTRAM) tablet 25 mg, 25 mg, Oral, Q8H PRN, Carolyne Reynoso MD Objective Vital Signs Temp: [98.3 ??F (36.8 ??C)-98.9 ??F (37.2 ??C)] 98.9 ??F (37.2 ??C) Heart Rate: [79-100] 85 Resp: [16-18] 18 BP: (106-135)/(53-87) 106/53 Physical Exam: General Appearance: Alert, cooperative, pleasant, evaluated this p.m. Head: Normocephalic, without obvious abnormality, atraumatic Ears: Ears intact with no obvious external abnormalities noted Throat: No external oral excretions Lungs: respirations regular, even and unlabored Heart: Regular rhythm and normal rate Chest Wall: No abnormalities observed, no intercostal retractions noted Abdomen: soft nontender, nondistended, no guarding Pulses: well perfused Skin: No bleeding or rash left hip Neurologic: sensation intact distally Orthopedic/MSK: Motor intact distally left hip reasonable arc of motion for left hip joint she notes that the pain is with attempted ambulation. No groin pain with logrolling. No pain of the femur proper. Well-perfused distally motor intact distally. Negative compression testing Results Review: I reviewed the patient's new clinical results. Results from last 7 days Lab Units 08/27/24 1319 WBC 10*3/mm3 11.31* HEMOGLOBIN g/dL 11.7* HEMATOCRIT % 36.4 PLATELETS 10*3/mm3 283 Results from last 7 days Lab Units 08/27/24 1510 SODIUM mmol/L 139 POTASSIUM mmol/L 4.3 CHLORIDE mmol/L 101 CO2 mmol/L 25.0 BUN mg/dL 11 CREATININE mg/dL 0.87 GLUCOSE mg/dL 95 CALCIUM mg/dL 9.0 Results from last 7 days Lab Units 08/27/24 1510 SODIUM mmol/L 139 POTASSIUM mmol/L 4.3 CHLORIDE mmol/L 101 CO2 mmol/L 25.0 BUN mg/dL 11 CREATININE mg/dL 0.87 CALCIUM mg/dL 9.0 ALK PHOS U/L 66 ALT (SGPT) U/L 13 AST (SGOT) U/L 17 GLUCOSE mg/dL 95 CT Pelvis Without Contrast Result Date: 08/27/2024 CT HEAD WO CONTRAST, CT PELVIS WO CONTRAST Date of Exam: 08/27/2024 12:24 PM EDT Indication: Fell 2 weeks ago, headache since, fell again last night. Comparison: Head CT 12/27/2021. Hip and pelvis radiographs 08/27/2024.. CT abdomen/pelvis 12/27/2021. Technique: Axial CT images were obtained of the head and pelvis without contrast administration. Automated exposure control and iterative construction methods were used. Findings: Head CT: No acute intracranial hemorrhage.Intact appearing malone-white differentiation.No extra-axial fluid collection.No significant mass effect. No hydrocephalus. Mild generalized parenchymal volume loss. Moderate periventricular and subcortical white matter hypoattenuation, nonspecific, perhaps from small vessel ischemic/hypertensive changes in a patient of this age.There are intracranial atherosclerotic calcifications. Mild scattered mucosal thickening in the paranasal sinuses.nonspecific small bilateral mastoid effusions. . Bilateral lens replacements. No acuteor aggressive appearing bony or extracranial soft tissue process. Pelvis CT: Small and large bowel:No significant abnormality. Peritoneal cavity: No free fluid or free air. Bladder: No significant abnormality. Pelvic organs: No significant abnormality. Vasculature: Atherosclerotic calcifications. Lymph nodes: No pathologic appearing lymph nodes by imaging criteria. Bones and soft tissues: Acute comminuted fracture of the left acetabulum. Subacute to chronic appearing nondisplaced fracture of the left inferior pubic ramus. Left proximal femoral fixation hardware. Degenerative changes of the imaged spine. Mild osteoarthrosis of the bilateral hips and sacroiliac joints. Impression: No acute intracranial findings. Acute comminuted fracture of the left acetabulum. Electronically Signed: Reynaldo Santamaria MD 08/27/2024 12:58 PM EDT Workstation ID: [id number] XR Knee 1 or 2 View Left Result Date: 08/27/2024 XR KNEE 1 OR 2 VW LEFT Date of Exam: 08/27/2024 9:46 AM EDT Indication: trauma Comparison: 10/18/2020knee radiographs Findings: Partially visualized femoral hardware without evidence of complication. Moderate knee joint effusion. No traumatic malalignment. Moderate degenerative changes of the knee. Articular surfaces appear grossly intact. No evidence of fracture. Impression: 1.Moderate knee joint effusion without evidence of acute fracture or malalignment. 2.Moderate degenerative changes of the knee. Electronically Signed: Richard Wilkerson MD 08/27/2024 10:02AM EDT Workstation ID: [id number] XR Hip With or Without Pelvis 2 - 3 View Left Result Date: 08/27/2024 XR HIP W OR WO PELVIS 2-3 VIEW LEFT Date of Exam: 08/27/2024 9:26 AM EDT Indication: For the last night, cannot put weight on left hip today Comparison: None available. Findings: There is a nondisplaced comminuted fracture of the acetabulum. The fracture involves the acetabular roof and medial acetabular wall. There is an associated fracture at the junction of the superior pubic ramus and ilium. The left hip is not dislocated. There has been previous internal fixation of a fracture of the proximal left femur with a nail and kailee. No acute fracture of the proximal left femur is demonstrated. 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 Some displacement of the pubicroot. Baseline degenerative changes noted. Evidence of prior left hip intertrochanteric nail. Assessment & Plan Hip fracture Generalized anxiety disorder Kidney disease, chronic, stage III (GFR 30-59 ml/min) Moderate malnutrition Closed nondisplaced fracture of left acetabulum I discussed the patient's findings and my recommendations with patient. Very pleasant patient. Anticipate placement being necessary. Formal plan as noted below. Okay for partial/protected weightbearing to the left lower extremity but I do think this will be driven by her pain and hopefully will improve in short order but significant injury. DVT prophylaxis is recommended as noted below I reviewed xrays and CT reviewed I spoke with Dr. Wilson Recommendations for left sided pelvic and acetabular fractures: Admission to IM team, appreciate their assistance Ortho weight bearing status: partial/protected weight bearing left lower extremity with pelvic/acetabular fractures, walker and wheelchair, okay for pivoting and transfers as able Chemical DVT prophylaxis recommended as an inpatient and then aspirin 81 mg by mouth daily for 6 weeks post-injury PT/OT recommended No orthopedic surgery recommended so okay for diet from orthopedic perspective LEFT sided pubic root and acetabular fracture CT scan *reviewed* Follow-up in 3-4 weeks with Orthopedic PA team [facility], AP pelvis/inlet/outlet xrays upon arrival to clinic Please have the schedulers call our office line at [phone] for a clinic appointment with our orthopedic PA team in 3 to 4 weeks.. Arun Cody MD, FAAOS Orthopedic Surgeon Fellowship-trained Shoulder and Elbow Surgeon [facility] [address] [place] [address]. [address] [place] [address] Arun Cody MD 08/27/24 22:27 EDT documented in this encounter Nursing Notes * Natalia Mccain RN - 09/02/2024 9:19 AM EDT Report called to Jonah Jon RN wants [facility] summary. This nurse will fax to number from previous case management note. * Vonnie Garrett RN - 09/02/2024 6:05 AM EDT Problem: Adult Inpatient Plan of Care Goal: Absence of Hospital-Acquired Illness or Injury Intervention: Identify and Manage Fall Risk Recent Flowsheet Documentation Taken 09/02/2024 0600 by Vonnie Garrett RN Safety Promotion/Fall Prevention: safety round/check completed Taken 09/02/2024 0400 by Vonnie Garrett RN Safety Promotion/Fall Prevention: safety round/check completed Taken 09/02/2024 0200 by Vonnie Garrett RN Safety Promotion/Fall Prevention: safety round/check completed Intervention: Prevent Skin Injury Recent Flowsheet Documentation Taken 09/02/2024 06 by Vonnie Garrett RN Body Position: supine Skin Protection: incontinence pads utilized Taken 09/02/2024 0400 by Vonnie Garrett RN Body Position: position maintained Skin Protection: incontinence pads utilized Taken 09/02/2024 0200 by Vonnie Garrett RN Body Position: position maintained Skin Protection: incontinence pads utilized Intervention: Prevent Infection Recent Flowsheet Documentation Taken 09/02/2024 06 by Vonnie Garrett RN Infection Prevention: rest/sleep promoted Taken 09/02/2024 0400 by Vonnie Garrett RN Infection Prevention: rest/sleep promoted Taken 09/02/2024 020 by Vonnie Garrett RN Infection Prevention: rest/sleep promoted Problem: Skin Injury Risk Increased Goal: Skin Health and Integrity Intervention: Optimize Skin Protection Recent Flowsheet Documentation Taken 09/02/2024 06 by Vonnie Garrett RN Pressure Reduction Techniques: frequent weight shift encouraged weight shift assistance provided Head of Bed (HOB) Positioning: HOB elevated Pressure Reduction Devices: positioning supports utilized pressure-redistributing mattress utilized Skin Protection: incontinence pads utilized Taken 09/02/2024 040 by Vonnie Garrett RN Pressure Reduction Techniques: frequent weight shift encouraged weight shift assistance provided Head of Bed (HOB) Positioning: HOB elevated Pressure Reduction Devices: positioning supports utilized pressure-redistributing mattress utilized Skin Protection: incontinence pads utilized Taken 09/02/2024 0200 by Vonnie Garrett RN Pressure Reduction Techniques: frequent weight shift encouraged weight shift assistance provided Head of Bed (HOB) Positioning: HOB elevated Pressure Reduction Devices: positioning supports utilized pressure-redistributing mattress utilized Skin Protection: incontinence pads utilized Problem: Fall Injury Risk Goal: Absence of Fall and Fall-Related Injury Intervention: Promote Injury-Free Environment Recent Flowsheet Documentation Taken 09/02/2024 06 by Vonnie Garrett RN Safety Promotion/Fall Prevention: safety round/check completed Taken 09/02/2024 0400 by Vonnie Garrett RN Safety Promotion/Fall Prevention: safety round/check completed Taken 09/02/2024 0200 by Vonnie Garrett RN Safety Promotion/Fall Prevention: safety round/check completed Problem: Mobility Impairment Goal: Optimal Mobility Intervention: Optimize Mobility Recent Flowsheet Documentation Taken 09/02/2024 0600 by Vonnie Garrett RN Positioning/Transfer Devices: pillows in use Taken 09/02/2024 0400 by Vonnie Garrett RN Positioning/Transfer Devices: pillows in use Taken 09/02/2024 0200 by Vonnie Garrett RN Positioning/Transfer Devices: pillows in use Goal Outcome Evaluation: * Natalia Mccain RN - 09/01/2024 4:10 PM EDT Problem: Adult Inpatient Plan of Care Goal: Plan of Care Review Outcome: Progressing Goal: Patient-Specific Goal (Individualized) Outcome: Progressing Goal: Absence of Hospital-Acquired Illness or Injury Outcome: Progressing Intervention: Identify and Manage Fall Risk Recent Flowsheet Documentation Taken 09/01/2024 1608 by Natalia Mccain RN Safety Promotion/Fall Prevention: activity supervised assistive device/personal items within reach clutter free environment maintained elopement precautions fall prevention program maintained gait belt lighting adjusted mobility aid in reach muscle strengthening facilitated nonskid shoes/slippers when out of bed room organization consistent safety round/check completed toileting scheduled Taken 09/01/2024 1409 by Natalia Mccain RN Safety Promotion/Fall Prevention: activity supervised assistive device/personal items within reach clutter free environment maintained elopement precautions fall prevention program maintained gait belt lighting adjusted mobility aid in reach muscle strengthening facilitated nonskid shoes/slippers when out of bed room organization consistent safety round/check completed toileting scheduled Taken 09/01/2024 1206 by Natalia Mccain RN Safety Promotion/Fall Prevention: activity supervised assistive device/personal items within reach clutter free environment maintained elopement precautions fall prevention program maintained gait belt lighting adjusted mobility aid in reach muscle strengthening facilitated nonskid shoes/slippers when out of bed room organization consistent safety round/check completed toileting scheduled Taken 09/01/2024 1031 by Natalia Mccain RN Safety Promotion/Fall Prevention: activity supervised assistive device/personal items within reach clutter free environment maintained elopement precautions fall prevention program maintained gait belt lighting adjusted mobility aid in reach muscle strengthening facilitated nonskid shoes/slippers when out of bed room organization consistent safety round/check completed toileting scheduled Taken 09/01/2024 0850 by Natalia Mccain RN Safety Promotion/Fall Prevention: activity supervised assistive device/personal items within reach clutter free environment maintained elopement precautions fall prevention program maintained gait belt lighting adjusted mobility aid in reach muscle strengthening facilitated nonskid shoes/slippers when out of bed room organization consistent safety round/check completed toileting scheduled Intervention: Prevent Skin Injury Recent Flowsheet Documentation Taken 09/01/2024 1608 by Natalia Mccain RN Body Position: position maintained Skin Protection: incontinence pads utilized silicone foam dressing in place transparent dressing maintained Taken 09/01/2024 1409 by Natalia Mccain RN Body Position: position maintained Skin Protection: incontinence pads utilized silicone foam dressing in place transparent dressing maintained Taken 09/01/2024 1206 by Natalia Mccain RN Body Position: position maintained Skin Protection: incontinence pads utilized silicone foam dressing in place transparent dressing maintained Taken 09/01/2024 1031 by Natalia Mccain RN Body Position: position maintained Skin Protection: incontinence pads utilized silicone foam dressing in place transparent dressing maintained Taken 09/01/2024 0850 by Natalia Mccain RN Body Position: position maintained Skin Protection: incontinence pads utilized silicone foam dressing in place transparent dressing maintained Intervention: Prevent Infection Recent Flowsheet Documentation Taken 09/01/2024 1608 by Natalia Mccain RN Infection Prevention: environmental surveillance performed equipment surfaces disinfected hand hygiene promoted personal protective equipment utilized rest/sleep promoted single patient room provided Taken 09/01/2024 1409 by Natalia Mccain RN Infection Prevention: environmental surveillance performed equipment surfaces disinfected hand hygiene promoted personal protective equipment utilized rest/sleep promoted single patient room provided Taken 09/01/2024 1206 by Natalia Mccain RN Infection Prevention: environmental surveillance performed equipment surfaces disinfected hand hygiene promoted personal protective equipment utilized rest/sleep promoted single patient room provided Taken 09/01/2024 1031 by Natalia Mccain RN Infection Prevention: environmental surveillance performed equipment surfaces disinfected hand hygiene promoted personal protective equipment utilized rest/sleep promoted single patient room provided Taken 09/01/2024 0850 by Natalia Mccain RN Infection Prevention: environmental surveillance performed equipment surfaces disinfected hand hygiene promoted personal protective equipment utilized rest/sleep promoted single patient room provided Goal: Optimal Comfort and Wellbeing Outcome: Progressing Intervention: Provide Person-Centered Care Recent Flowsheet Documentation Taken 09/01/2024 0850 by Natalia Mccain RN Trust Relationship/Rapport: care explained choices provided emotional support provided empathic listening provided questions answered questions encouraged reassurance provided thoughts/feelings acknowledged Goal: Readiness for Transition of Care Outcome: Progressing Problem: Skin Injury Risk Increased Goal: Skin Health and Integrity Outcome: Progressing Intervention: Optimize Skin Protection Recent Flowsheet Documentation Taken 09/01/2024 1608 by Natalia Mccain RN Pressure Reduction Techniques: frequent weight shift encouraged Head of Bed (HOB) Positioning: [facility] elevated Pressure Reduction Devices: pressure-redistributing mattress utilized positioning supports utilized Skin Protection: incontinence pads utilized silicone foam dressing in place transparent dressing maintained Taken 09/01/2024 1409 by Natalia Mccain RN Pressure Reduction Techniques: frequent weight shift encouraged Head of Bed (HOB) Positioning: [facility] elevated Pressure Reduction Devices: pressure-redistributing mattress utilized positioning supports utilized Skin Protection: incontinence pads utilized silicone foam dressing in place transparent dressing maintained Taken 09/01/2024 1206 by Natalia Mccain RN Pressure Reduction Techniques: frequent weight shift encouraged Head of Bed (HOB) Positioning: [facility] elevated Pressure Reduction Devices: pressure-redistributing mattress utilized positioning supports utilized Skin Protection: incontinence pads utilized silicone foam dressing in place transparent dressing maintained Taken 09/01/2024 1031 by Natalia Mccain RN Pressure Reduction Techniques: frequent weight shift encouraged Head of Bed (HOB) Positioning: [facility] elevated Pressure Reduction Devices: pressure-redistributing mattress utilized positioning supports utilized Skin Protection: incontinence pads utilized silicone foam dressing in place transparent dressing maintained Taken 09/01/2024 0850 by Natalia Mccain RN Pressure Reduction Techniques: frequent weight shift encouraged Head of Bed (HOB) Positioning: [facility] elevated Pressure Reduction Devices: pressure-redistributing mattress utilized positioning supports utilized Skin Protection: incontinence pads utilized silicone foam dressing in place transparent dressing maintained Problem: Fall Injury Risk Goal: Absence of Fall and Fall-Related Injury Outcome: Progressing Intervention: Identify and Manage Contributors Recent Flowsheet Documentation Taken 09/01/2024 1608 by Natalia Mccain RN Medication Review/Management: medications reviewed Taken 09/01/2024 1409 by Natalia Mccain RN Medication Review/Management: medications reviewed Taken 09/01/2024 1206 by Natalia Mccain RN Medication Review/Management: medications reviewed Taken 09/01/2024 1031 by Natalia Mccain RN Medication Review/Management: medications reviewed Taken 09/01/2024 0850 by Natalia Mccain RN Medication Review/Management: medications reviewed Intervention: Promote Injury-Free Environment Recent Flowsheet Documentation Taken 09/01/2024 1608 by Natalia Mccain RN Safety Promotion/Fall Prevention: activity supervised assistive device/personal items within reach clutter free environment maintained elopement precautions fall prevention program maintained gait belt lighting adjusted mobility aid in reach muscle strengthening facilitated nonskid shoes/slippers when out of bed room organization consistent safety round/check completed toileting scheduled Taken 09/01/2024 1409 by Natalia Mccain RN Safety Promotion/Fall Prevention: activity supervised assistive device/personal items within reach clutter free environment maintained elopement precautions fall prevention program maintained gait belt lighting adjusted mobility aid in reach muscle strengthening facilitated nonskid shoes/slippers when out of bed room organization consistent safety round/check completed toileting scheduled Taken 09/01/2024 1206 by Natalia Mccain RN Safety Promotion/Fall Prevention: activity supervised assistive device/personal items within reach clutter free environment maintained elopement precautions fall prevention program maintained gait belt lighting adjusted mobility aid in reach muscle strengthening facilitated nonskid shoes/slippers when out of bed room organization consistent safety round/check completed toileting scheduled Taken 09/01/2024 1031 by Natalia Mccain RN Safety Promotion/Fall Prevention: activity supervised assistive device/personal items within reach clutter free environment maintained elopement precautions fall prevention program maintained gait belt lighting adjusted mobility aid in reach muscle strengthening facilitated nonskid shoes/slippers when out of bed room organization consistent safety round/check completed toileting scheduled Taken 09/01/2024 0850 by Natalia Mccain RN Safety Promotion/Fall Prevention: activity supervised assistive device/personal items within reach clutter free environment maintained elopement precautions fall prevention program maintained gait belt lighting adjusted mobility aid in reach muscle strengthening facilitated nonskid shoes/slippers when out of bed room organization consistent safety round/check completed toileting scheduled Problem: Mobility Impairment Goal: Optimal Mobility Outcome: Progressing Intervention: Optimize Mobility Recent Flowsheet Documentation Taken 09/01/2024 1608 by Natalia Mccain RN Positioning/Transfer Devices: pillows in use Taken 09/01/2024 1409 by Natalia Mccain RN Positioning/Transfer Devices: pillows in use Taken 09/01/2024 1206 by Natalia Mccain RN Positioning/Transfer Devices: pillows in use Taken 09/01/2024 1031 by Natalia Mccain RN Positioning/Transfer Devices: pillows in use Taken 09/01/2024 0850 by Natalia Mccain RN Positioning/Transfer Devices: pillows in use Problem: Pain Acute Goal: Optimal Pain Control and Function Outcome: Progressing Intervention: Optimize Psychosocial Wellbeing Recent Flowsheet Documentation Taken 09/01/2024 0850 by Natalia Mccain RN Diversional Activities: smartphone television Intervention: Prevent or Manage Pain Recent Flowsheet Documentation Taken 09/01/2024 1608 by Natalia Mccain RN Medication Review/Management: medications reviewed Taken 09/01/2024 1409 by Natalia Mccain RN Medication Review/Management: medications reviewed Taken 09/01/2024 1206 by Natalia Mccain RN Medication Review/Management: medications reviewed Taken 09/01/2024 1031 by Natalia Mccain RN Medication Review/Management: medications reviewed Taken 09/01/2024 0850 by Natalia Mccain RN Medication Review/Management: medications reviewed Goal Outcome Evaluation: * Jammie Bianchi, PT - 09/01/2024 10:37 AM EDT Goal Outcome Evaluation: Plan of Care Reviewed With: patient Progress: no change Outcome Evaluation: Pt continues to present below baseline with weakness, impaired balance, and decreased endurance. Min A provided for transfer out of w/c. No overt LOB. She continues to progress w/w/c training. Further IPPT is warrented. PT will progress as able per POC. Anticipated Discharge Disposition (PT): [facility] * Tisha Yu OT - 09/01/2024 10:14 AM EDT Goal Outcome Evaluation: Plan of Care Reviewed With: patient Progress: improving Outcome Evaluation: Pt demonstrating improvements w/ activity tolerance, transfers and w/c mobilitythis date. Pt continues to be below her functional baseline warranting continuation of skilled OT services. Continue per current POC. Anticipated Discharge Disposition (OT): penitentiary facility * Samia Aviles RN - 09/01/2024 4:06 AM EDT Problem: Adult Inpatient Plan of Care Goal: Plan of Care Review Outcome: Progressing Flowsheets (Taken 09/01/2024 0406) Plan of Care Reviewed With: patient Goal: Optimal Comfort and Wellbeing Outcome: Progressing Intervention: Provide Person-Centered Care Recent Flowsheet Documentation Taken 08/31/20241999 by Samia Aviles RN Trust Relationship/Rapport: care explained choices provided emotional support provided empathic listening provided questions answered questions encouraged reassurance provided thoughts/feelings acknowledged Goal: Readiness for Transition of Care Outcome: Progressing Problem: Skin Injury Risk Increased Goal: Skin Health and Integrity Outcome: Progressing Intervention: Optimize Skin Protection Recent Flowsheet Documentation Taken 09/01/2024 0400 by Samia Aviles RN Pressure Reduction Techniques: frequent weight shift encouraged weight shift assistance provided Head of Bed (HOB) Positioning: [facility] elevated Pressure Reduction Devices: positioning supports utilized pressure-redistributing mattress utilized Skin Protection: incontinence pads utilized Taken 09/01/2024 0200 by Samia Aviles RN Pressure Reduction Techniques: frequent weight shift encouraged weight shift assistance provided Head of Bed (HOB) Positioning: [facility] elevated Pressure Reduction Devices: positioning supports utilized pressure-redistributing mattress utilized Skin Protection: incontinence pads utilized Taken 09/01/2024 0000 by Samia Aviles RN Pressure Reduction Techniques: frequent weight shift encouraged weight shift assistance provided Head of Bed (HOB) Positioning: [facility] elevated Pressure Reduction Devices: positioning supports utilized pressure-redistributing mattress utilized Skin Protection: incontinence pads utilized Taken 08/31/2024 2200 by Samia Aviles RN Pressure Reduction Techniques: frequent weight shift encouraged weight shift assistance provided Head of Bed (HOB) Positioning: [facility] elevated Pressure Reduction Devices: positioning supports utilized pressure-redistributing mattress utilized Skin Protection: incontinence pads utilized Taken 08/31/20241999 by Samia Aviles RN Pressure Reduction Techniques: frequent weight shift encouraged weight shift assistance provided Head of Bed (HOB) Positioning: [facility] elevated Pressure Reduction Devices: positioning supports utilized pressure-redistributing mattress utilized Skin Protection: incontinence pads utilized Problem: Fall Injury Risk Goal: Absence of Fall and Fall-Related Injury Outcome: Progressing Intervention: Identify and Manage Contributors Recent Flowsheet Documentation Taken 08/31/20241999 by Samia Aviles RN Medication Review/Management: medications reviewed Intervention: Promote Injury-Free Environment Recent Flowsheet Documentation Taken 09/01/2024 0400 by Samia Aviles RN Safety Promotion/Fall Prevention: safety round/check completed Taken 09/01/2024 0200 by Samia Aviles RN Safety Promotion/Fall Prevention: safety round/check completed Taken 09/01/2024 0000 by Samia Aviles RN Safety Promotion/Fall Prevention: safety round/check completed Taken 08/31/2024 2200 by Samia Aviles RN Safety Promotion/Fall Prevention: safety round/check completed Taken 08/31/20241999 by Samia Aviles RN Safety Promotion/Fall Prevention: activity supervised assistive device/personal items within reach clutter free environment maintained fall prevention program maintained gait belt lighting adjusted mobility aid in reach nonskid shoes/slippers when out of bed room organization consistent safety round/check completed toileting scheduled Problem: Pain Acute Goal: Optimal Pain Control and Function Outcome: Progressing Intervention: Optimize Psychosocial Wellbeing Recent Flowsheet Documentation Taken 08/31/20241999 by Samia Aviles RN Diversional Activities: smartphone television Intervention: Prevent or Manage Pain Recent Flowsheet Documentation Taken 08/31/20241999 by Samia Aviles RN Medication Review/Management: medications reviewed Goal Outcome Evaluation: Plan of Care Reviewed With: patient * Natalia Mccain RN - 08/31/2024 5:24 PM EDT Problem: Adult Inpatient Plan of Care Goal: Plan of Care Review Outcome: Progressing Goal: Patient-Specific Goal (Individualized) Outcome: Progressing Goal: Absence of Hospital-Acquired Illness or Injury Outcome: Progressing Intervention: Identify and Manage Fall Risk Recent Flowsheet Documentation Taken 08/31/2024 1601 by Natalia Mccain RN Safety Promotion/Fall Prevention: activity supervised assistive device/personal items within reach clutter free environment maintained elopement precautions fall prevention program maintained gait belt lighting adjusted mobility aid in reach muscle strengthening facilitated nonskid shoes/slippers when out of bed room organization consistent safety round/check completed toileting scheduled Taken 08/31/2024 1408 by Natalia Mccain RN Safety Promotion/Fall Prevention: activity supervised assistive device/personal items within reach clutter free environment maintained elopement precautions fall prevention program maintained gait belt lighting adjusted mobility aid in reach muscle strengthening facilitated nonskid shoes/slippers when out of bed room organization consistent safety round/check completed toileting scheduled Taken 08/31/2024 1216 by Natalia Mccain RN Safety Promotion/Fall Prevention: activity supervised assistive device/personal items within reach clutter free environment maintained elopement precautions fall prevention program maintained gait belt lighting adjusted mobility aid in reach muscle strengthening facilitated nonskid shoes/slippers when out of bed room organization consistent safety round/check completed toileting scheduled Taken 08/31/2024 1005 by Natalia Mccain RN Safety Promotion/Fall Prevention: activity supervised assistive device/personal items within reach clutter free environment maintained elopement precautions fall prevention program maintained gait belt lighting adjusted mobility aid in reach muscle strengthening facilitated nonskid shoes/slippers when out of bed room organization consistent safety round/check completed toileting scheduled Taken 08/31/2024 0835 by Natalia Mccain RN Safety Promotion/Fall Prevention: activity supervised assistive device/personal items within reach clutter free environment maintained elopement precautions fall prevention program maintained gait belt lighting adjusted mobility aid in reach muscle strengthening facilitated nonskid shoes/slippers when out of bed room organization consistent safety round/check completed toileting scheduled Intervention: Prevent Skin Injury Recent Flowsheet Documentation Taken 08/31/2024 1601 by Natalia Mccain RN Body Position: position changed independently Skin Protection: incontinence pads utilized silicone foam dressing in place transparent dressing maintained Taken 08/31/2024 1408 by Natalia Mccain RN Body Position: position maintained Skin Protection: incontinence pads utilized silicone foam dressing in place transparent dressing maintained Taken 08/31/2024 1216 by Natalia Mccain RN Body Position: position maintained Skin Protection: incontinence pads utilized silicone foam dressing in place transparent dressing maintained Taken 08/31/2024 1005 by Natalia Mccain RN Body Position: position maintained Skin Protection: incontinence pads utilized silicone foam dressing in place transparent dressing maintained Taken 08/31/2024 0835 by Natalia Mccain RN Body Position: position maintained Skin Protection: incontinence pads utilized silicone foam dressing in place transparent dressing maintained Intervention: Prevent and Manage VTE (Venous Thromboembolism) Risk Recent Flowsheet Documentation Taken 08/31/2024 0835 by Natalia Mccain RN VTE Prevention/Management: (lovenox) other (see comments) Intervention: Prevent Infection Recent Flowsheet Documentation Taken 08/31/2024 1601 by Natalia Mccain RN Infection Prevention: environmental surveillance performed equipment surfaces disinfected hand hygiene promoted personal protective equipment utilized rest/sleep promoted single patient room provided Taken 08/31/2024 1408 by Natalia Mccain RN Infection Prevention: environmental surveillance performed equipment surfaces disinfected hand hygiene promoted personal protective equipment utilized rest/sleep promoted single patient room provided Taken 08/31/2024 1216 by Natalia Mccain RN Infection Prevention: environmental surveillance performed equipment surfaces disinfected hand hygiene promoted personal protective equipment utilized rest/sleep promoted single patient room provided Taken 08/31/2024 1005 by Natalia Mccain RN Infection Prevention: environmental surveillance performed equipment surfaces disinfected hand hygiene promoted personal protective equipment utilized rest/sleep promoted single patient room provided Taken 08/31/2024 0835 by Natalia Mccain RN Infection Prevention: environmental surveillance performed equipment surfaces disinfected hand hygiene promoted personal protective equipment utilized rest/sleep promoted single patient room provided Goal: Optimal Comfort and Wellbeing Outcome: Progressing Intervention: Provide Person-Centered Care Recent Flowsheet Documentation Taken 08/31/2024 0835 by Natalia Mccain RN Trust Relationship/Rapport: care explained choices provided emotional support provided empathic listening provided questions answered reassurance provided questions encouraged thoughts/feelings acknowledged Goal: Readiness for Transition of Care Outcome: Progressing Problem: Skin Injury Risk Increased Goal: Skin Health and Integrity Outcome: Progressing Intervention: Optimize Skin Protection Recent Flowsheet Documentation Taken 08/31/2024 1601 by Natalia Mccain RN Pressure Reduction Techniques: frequent weight shift encouraged Head of Bed (HOB) Positioning: [facility] elevated Pressure Reduction Devices: pressure-redistributing mattress utilized positioning supports utilized Skin Protection: incontinence pads utilized silicone foam dressing in place transparent dressing maintained Taken 08/31/2024 1408 by Natalia Mccain RN Pressure Reduction Techniques: frequent weight shift encouraged Head of Bed (HOB) Positioning: [facility] elevated Pressure Reduction Devices: pressure-redistributing mattress utilized positioning supports utilized Skin Protection: incontinence pads utilized silicone foam dressing in place transparent dressing maintained Taken 08/31/2024 1216 by Natalia Mccain RN Pressure Reduction Techniques: frequent weight shift encouraged Head of Bed (HOB) Positioning: [facility] elevated Pressure Reduction Devices: pressure-redistributing mattress utilized positioning supports utilized Skin Protection: incontinence pads utilized silicone foam dressing in place transparent dressing maintained Taken 08/31/2024 1005 by Natalia Mccain RN Pressure Reduction Techniques: frequent weight shift encouraged Head of Bed (HOB) Positioning: [facility] elevated Pressure Reduction Devices: pressure-redistributing mattress utilized positioning supports utilized Skin Protection: incontinence pads utilized silicone foam dressing in place transparent dressing maintained Taken 08/31/2024 0835 by Natalia Mccain RN Pressure Reduction Techniques: frequent weight shift encouraged Head of Bed (HOB) Positioning: [facility] elevated Pressure Reduction Devices: pressure-redistributing mattress utilized positioning supports utilized Skin Protection: incontinence pads utilized silicone foam dressing in place transparent dressing maintained Problem: Fall Injury Risk Goal: Absence of Fall and Fall-Related Injury Outcome: Progressing Intervention: Identify and Manage Contributors Recent Flowsheet Documentation Taken 08/31/2024 1601 by Natalia Mccain RN Medication Review/Management: medications reviewed Taken 08/31/2024 1408 by Natalia Mccain RN Medication Review/Management: medications reviewed Taken 08/31/2024 1216 by Natalia Mccain RN Medication Review/Management: medications reviewed Taken 08/31/2024 1005 by Natalia Mccain RN Medication Review/Management: medications reviewed Taken 08/31/2024 0835 by Natalia Mccain RN Medication Review/Management: medications reviewed Intervention: Promote Injury-Free Environment Recent Flowsheet Documentation Taken 08/31/2024 1601 by Natalia Mccain RN Safety Promotion/Fall Prevention: activity supervised assistive device/personal items within reach clutter free environment maintained elopement precautions fall prevention program maintained gait belt lighting adjusted mobility aid in reach muscle strengthening facilitated nonskid shoes/slippers when out of bed room organization consistent safety round/check completed toileting scheduled Taken 08/31/2024 1408 by Natalia Mccain, FALGUNI Safety Promotion/Fall Prevention: activity supervised assistive device/personal items within reach clutter free environment maintained elopement precautions fall prevention program maintained gait belt lighting adjusted mobility aid in reach muscle strengthening facilitated nonskid shoes/slippers when out of bed room organization consistent safety round/check completed toileting scheduled Taken 08/31/2024 1216 by Natalia Mccain RN Safety Promotion/Fall Prevention: activity supervised assistive device/personal items within reach clutter free environment maintained elopement precautions fall prevention program maintained gait belt lighting adjusted mobility aid in reach muscle strengthening facilitated nonskid shoes/slippers when out of bed room organization consistent safety round/check completed toileting scheduled Taken 08/31/2024 1005 by Natalia Mccain RN Safety Promotion/Fall Prevention: activity supervised assistive device/personal items within reach clutter free environment maintained elopement precautions fall prevention program maintained gait belt lighting adjusted mobility aid in reach muscle strengthening facilitated nonskid shoes/slippers when out of bed room organization consistent safety round/check completed toileting scheduled Taken 08/31/2024 0835 by Natalia Mccain RN Safety Promotion/Fall Prevention: activity supervised assistive device/personal items within reach clutter free environment maintained elopement precautions fall prevention program maintained gait belt lighting adjusted mobility aid in reach muscle strengthening facilitated nonskid shoes/slippers when out of bed room organization consistent safety round/check completed toileting scheduled Problem: Mobility Impairment Goal: Optimal Mobility Outcome: Progressing Intervention: Optimize Mobility Recent Flowsheet Documentation Taken 08/31/2024 1601 by Natalia Mccain RN Positioning/Transfer Devices: pillows in use Taken 08/31/2024 1408 by Natalia Mccain RN Positioning/Transfer Devices: pillows in use Taken 08/31/2024 1216 by Natalia Mccain RN Positioning/Transfer Devices: pillows in use Taken 08/31/2024 1005 by Natalia Mccain RN Positioning/Transfer Devices: pillows in use Taken 08/31/2024 0835 by Natalia Mccain RN Positioning/Transfer Devices: pillows in use Problem: Pain Acute Goal: Optimal Pain Control and Function Outcome: Progressing Intervention: Optimize Psychosocial Wellbeing Recent Flowsheet Documentation Taken 08/31/2024 0835 by Natalia Mccain RN Diversional Activities: smartphone television Intervention: Prevent or Manage Pain Recent Flowsheet Documentation Taken 08/31/2024 1601 by Natalia Mccain RN Medication Review/Management: medications reviewed Taken 08/31/2024 1408 by Natalia Mccain RN Medication Review/Management: medications reviewed Taken 08/31/2024 1216 by Natalia Mccain RN Medication Review/Management: medications reviewed Taken 08/31/2024 1005 by Natalia Mccain RN Medication Review/Management: medications reviewed Taken 08/31/2024 0835 by Natalia Mccain RN Medication Review/Management: medications reviewed Goal Outcome Evaluation: * Bobbi Arciniega, PT - 08/31/2024 10:16 AM EDT Goal Outcome Evaluation: Plan of Care Reviewed With: patient Progress: improving Outcome Evaluation: Pt performs functional transfers with min-A x1 and mobilizes via w/v for 160' with 1 rest break due to BUE fatigue. Pt continues to require cues for maintenance of WB precautions and sequencing of mobility tasks but overall has demonstrated improvement over the course of her stay. Recommend SNF following d/c for best functional outcome. Anticipated Discharge Disposition (PT): [facility]it[facility]iary facility * Jeremias Keenan RN - 08/31/2024 5:41 AM EDT Oriented x 4, patient slept through the night with no sx of acute distress after scheduled Ambien administration. VSS on RA. SR in 70s on cardiac mx. PO Bisacodyl administered for constipation ( lastBM on 08/28 ). Q2T&R in place. Call light in reach. * Alexandra Martinez RN - 08/30/2024 7:50 PM EDT Goal Outcome Evaluation: A&Ox4 and VSS on RA. Tylenol effective for minimal complaints of pain. Skin interventions utilized with Allevyn dressings in place, waffle mattress in place, and pt turned q 2hrs. PRN bowel medication administered. Call light in place. Awaiting facility placement * Nicole Urias PT - 08/30/2024 9:48 AM EDT Goal Outcome Evaluation: Plan of Care Reviewed With: patient Progress: improving Outcome Evaluation: Patient continues to need reminder for wt bearing status during transfers. She was able to propell w/c with cues and good technique. Anticipated Discharge Disposition (PT): penitentiary facility * Thomas Sierra RN - 08/30/2024 6:22 AM EDT Goal Outcome Evaluation: Plan of Care Reviewed With: patient Progress: no change Pt is alert and oriented X 4. VSS. RA/2L NC. Voiding well via purewick. Q2H turned. * Tisha Yu OT - 08/29/2024 11:15 AM EDT Goal Outcome Evaluation: Plan of Care Reviewed With: patient Progress: no change Outcome Evaluation: Patient demonstrated improvements w/ activity tolerance, good effort noted w/ grooming tasks. Pt continues to be below her functional baseline warranting continuation of skilled OT services. Continue per current POC as able. Anticipated Discharge Disposition (OT): penitentiary facility * Nicole Urias PT - 08/29/2024 11:15 AM EDT Goal Outcome Evaluation: Plan of Care Reviewed With: patient Progress: improving Outcome Evaluation: Patient with better pain control today and able to control her waker to get to chair. Recommend also working on w/c transfers and propulsion. Anticipated Discharge Disposition (PT): penitentiary facility * Thomas Sierra RN - 08/29/2024 4:42 AM EDT Goal Outcome Evaluation: Plan of Care Reviewed With: patient Progress: no change Pt is alert and oriented X 4. VSS. RA/2L NC. Tylenol for pain. Voiding well via purewick. Q2H turned. * Chelsea Padilla RN - 08/28/2024 6:41 PM EDT Goal Outcome Evaluation: Plan of Care Reviewed With: patient Progress: no change Outcome Evaluation: Up to the recliner and tolerates well. Remains sinus on telemetry. Up with PT see PT notes. Partial protected weight bearing observed. Ambien ordered for bedtime. Aspirin and Gabapentin added today. waiting a discharge plan. * Nevin Larsen OT - 08/28/2024 2:59 PM EDT Goal Outcome Evaluation: Plan of Care Reviewed With: patient Progress: no change Outcome Evaluation: OT evaluation complete. Pt declined OOB mobility secondary to fatigue and on bed farrell at time of OT arrival. Pt did agree to roll to R 1x for better positioning of bed farrell and was able to roll with Mod A and use of bed rails. Pt performed BUE AROM exercises without difficulty. Ptpresents below baseline level secondary to weakness, decreased activity tolerance, impaired balance, and decreased independence with ADLs and fxnl mobility and would benefit from skilled IPOT services to improve fxnl status. OT recommends SNF at discharge. Anticipated Discharge Disposition (OT): penitentiary facility * Susan Guerrero, PT - 08/28/2024 10:10 AM EDT Goal Outcome Evaluation: Plan of Care Reviewed With: patient Progress: improving Outcome Evaluation: Patient performed bed to chair t/f via pivoting on R LE, with use of RW and minassist x2, limited by pain and weakness. Patient was unable to adequately weight shift to attempt forward ambulation. Patient currently below functional baseline, demonstrating decreased functional mobility status, impaired balance, decreased endurance, and decreased strength/ROM. Will address these deficits to promote return to PLOF. Recommend SNF at d/c. Anticipated Discharge Disposition (PT): penitentiary facility * Thomas Sierra RN - 08/28/2024 4:54 AM EDT Goal Outcome Evaluation: Plan of Care Reviewed With: patient Progress: no change Pt is alert and oriented X 4. VSS. RA/2L NC. Voiding well. * Chelsea Padilla RN - 08/27/2024 7:44 PM EDT Goal Outcome Evaluation: Plan of Care Reviewed With: patient Progress: no change Outcome Evaluation: Pt received from the ED today with a Left Acetabular fracture. Remains sinus onthe monitor. Need urine specimen. Pain managed with oral medications. Pt reports last BM today. o2 at 2 liters NC placed tonight while sleeping. A & O x4. Non weight bearing to left lower extremity. documented in this encounter ED Notes * Shira DegrootFALGUNI - 08/27/2024 1:19 PM EDT Lorin Raymundo Nursing Report ED to Floor: Mental status: A&O 4 Ambulatory status: not ambulatory Oxygen Therapy: RA Cardiac Rhythm: SR Admitted from: home Safety Concerns: Fall Risk Precautions: None Social Issues: None ED Room #: 12 ED Nurse Phone Extension - [phone] or may call [phone]. HPI: Chief Complaint Patient presents with Hip Pain Past Medical History: Past Medical History: Diagnosis Date Anxiety Arthritis Bipolar 1 disorder Cancer Depression Fibromyalgia GERD (gastroesophageal reflux disease) Joint pain localized in the knee Kidney infection Normal routine history and physical examination Seizures Past Surgical History: Past Surgical History: Procedure Laterality Date COLECTOMY PARTIAL / TOTAL N/A Partial COLON SURGERY 1994 HIP TROCHANTERIC NAILING WITH INTRAMEDULLARY HIP SCREW Left 04/21/2017 Procedure: HIP TROCANTERIC NAILING WITH INTRAMEDULLARY HIP SCREW LEFT Debridement of stage 4 decubitus ulcers x 2 with placement of wound vac to left hip; Surgeon: Silver Denny MD; Location: [facility] OR; Service: KNEE ARTHROSCOPY Right Admitting Doctor: Carolyne Reynoso MD Consulting Provider(s): Consults No orders found from 07/29/2024 to 08/28/2024. Admitting Diagnosis: The primary encounter diagnosis was Fall in home, initial encounter. Diagnoses of Closed nondisplaced fracture of left acetabulum, unspecified portion of acetabulum, initial encounter and Inability to bear weight were also pertinent to this visit. Most Recent Vitals: Vitals: 08/27/24 1030 08/27/24 1100 08/27/24 1130 08/27/24 1200 BP: 114/72 114/74 BP Location: Patient Position: Pulse: 83 85 79 86 Resp: Temp: SpO2: 91% 91% 93% 92% Weight: Height: Active LDAs/IV Access: Lines, Drains & Airways Active LDAs None Labs (abnormal labs have a star): Labs Reviewed COMPREHENSIVE METABOLIC PANEL URINALYSIS W/ MICROSCOPIC IF INDICATED (NO CULTURE) CBC WITH AUTO DIFFERENTIAL CBC AND DIFFERENTIAL Narrative: The following orders were created for panel order CBC & Differential. Procedure Abnormality Status --------- ------ CBC Auto Differential[[id number]] Please view results for these tests on the individual orders. Meds Given in ED: Medications traMADol (ULTRAM) tablet 50 mg (50 mg Oral Given 08/27/24 1058) No current facility-administered medications for this encounter. Last NIH score: Dysphagia screening results: Patient Factors Component (Dysphagia:Stroke or Rule-out) Best Eye Response: 4-->(E4) spontaneous (08/27/24 1216) Best Motor Response: 6-->(M6) obeys commands (08/27/24 1216) Best Verbal Response: 5-->(V5) oriented (08/27/24 1216) [place] Coma Scale Score: 15 (08/27/24 1216) [place] Coma Scale: No data recorded CIWA: Restraint Type: Isolation Status: No active isolations * Karmen Wilson MD - 08/27/2024 10:26 AM EDT Subjective History of Present Illness Mrs. Raymundo presents with left hip pain. She typically uses a walker. Last night she was going to the restroom and was holding onto the dresser for support. She pulled the dresser over on top of her.Since that time has pain in her left hip. Unable to bear any weight on her hip. Denies any significant injury anywhere else. Has had cough and upper respiratory symptoms. Has had intermittent fever as well. Lives in an independent living by herself. Review of Systems Past Medical History: Diagnosis Date Anxiety Arthritis Bipolar 1 disorder Cancer Depression Fibromyalgia GERD (gastroesophageal reflux disease) Joint pain localized in the knee Kidney infection Normal routine history and physical examination Seizures Allergies Allergen Reactions [place] Other (See Comments) Stated had trouble talking and could not walk Past Surgical History: Procedure Laterality Date COLECTOMY PARTIAL / TOTAL N/A Partial COLON SURGERY 1994 HIP TROCHANTERIC NAILING WITH INTRAMEDULLARY HIP SCREW Left 04/21/2017 Procedure: HIP TROCANTERIC NAILING WITH INTRAMEDULLARY HIP SCREW LEFT Debridement of stage 4 decubitus ulcers x 2 with placement of wound vac to left hip; Surgeon: Silver Denny MD; Location: [facility]; Service: KNEE ARTHROSCOPY Right Family History Problem Relation Age of Onset Cancer Mother Cancer Father Cancer Brother Cancer Daughter Social History Socioeconomic History Marital status: Tobacco Use Smoking status: Never Smokeless tobacco: Never Substance and Sexual Activity Alcohol use: No Drug use: No Sexual activity: Never Objective Physical Exam Vitals and nursing note reviewed. Constitutional: General: She is not in acute distress. Appearance: Normal appearance. HENT: Head: Normocephalic and atraumatic. Nose: Nose normal. No congestion or rhinorrhea. Eyes: General: No scleral icterus. Conjunctiva/sclera: Conjunctivae normal. Neck: Comments: No JVD Cardiovascular: Rate and Rhythm: Normal rate and regular rhythm. Heart sounds: No murmur heard. No friction rub. Pulmonary: Effort: Pulmonary effort is normal. Breath sounds: Normal breath sounds. No wheezing or rales. Abdominal: General: Bowel sounds are normal. Palpations: Abdomen is soft. Tenderness: There is no abdominal tenderness. There is no guarding or rebound. Musculoskeletal: General: Tenderness present. Cervical back: Normal range of motion and neck supple. Right lower leg: No edema. Left lower leg: No edema. Comments: No leg length discrepancy. Has pain with any movement of her left lower extremity. Lower leg is pink warm and well-perfused. She is comfortable and in no distress Skin: General: Skin is warm and dry. Coloration: Skin is not pale. Findings: No erythema. Neurological: General: No focal deficit present. Mental Status: She is alert. Motor: No weakness. Coordination: Coordination normal. Psychiatric: Mood and Affect: Mood normal. Behavior: Behavior normal. Thought Content: Thought content normal. Procedures ED Course ED Course as of 08/27/24 1434 Sun August 27, [address] Cody who is reviewing her x-rays. [DT] 1032 He asks that we get CT scan. [DT] 1145 Dr. Cody advises at this point is nonoperative. Okay to admit here. Will follow. [DT] ED Course User Index [DT] Karmen Wilson MD Medical Decision Making Ordered and interpreted x-rays. Had orthopedic consultation. Ordered CT head and CT scan of her pelvis. Problems Addressed: Closed nondisplaced fracture of left acetabulum, unspecified portion of acetabulum, initial encounter: complicated acute illness or injury that poses a threat to life or bodily functions Fall in home, initial encounter: complicated acute illness or injury that poses a threat to life orbodily functions Inability to bear weight: complicated acute illness or injury that poses a threat to life or bodilyfunctions Amount and/or Complexity of Data Reviewed External Data Reviewed: notes. Labs: ordered. Decision-making details documented in ED Course. Radiology: ordered. Decision-making details documented in ED Course. ECG/medicine tests: ordered. Decision-making details documented in ED Course. Risk Prescription drug management. Decision regarding hospitalization. Final diagnoses: Fall in home, initial encounter Closed nondisplaced fracture of left acetabulum, unspecified portion of acetabulum, initial encounter Inability to bear weight ED Disposition ED Disposition ED Disposition Decision to Admit Condition -- Comment Level of Care: Telemetry [5] Diagnosis: Hip fracture [252641] No follow-up provider specified. Medication List ASK your doctor about these medications Ambien CR 12.5 MG CR tablet Generic drug: zolpidem CR Ask about: Which instructions should I use? Karmen Wilson MD 08/27/24 1434 documented in this encounter Miscellaneous Notes * Case Management/Social Work - Amarilis Ramey RN - 09/01/2024 2:01 PM EDT Case Management Discharge Note Final Note: Insurance approved patient to go to [facility] for skilled rehab and plan to transfer her on 09-02. Dtr Sultana will pick patient up at 1300 to take her by car. Call report to [phone] and fax discharge summary to [phone]. I was unable to get wheelchair transportation today with [employer] or [employer] and dtr working. Patient not appropriate for ambulance. Selected Continued Care - Admitted Since 08/27/2024 Destination Coordination complete. Service Provider Services Address Phone Fax Patient Preferred [facility] Assisted [address] [place] [id number] [phone] -- Durable Medical Equipment No services have been selected for the patient. Dialysis/Infusion No services have been selected for the patient. Home Medical Care No services have been selected for the patient. Therapy No services have been selected for the patient. Community Resources No services have been selected for the patient. Community & DME No services have been selected for the patient. Transportation Services Private: Car Final Discharge Disposition Code: 03 - [facility] facility [facility]SNF[facility] * Therapy Treatment Note - Jammie Bianchi, PT - 09/01/2024 10:37 AM EDT Images from the original note were not included. Patient Name: Lorin Raymundo : 1945 Today's Date: 09/01/2024 Admit Date: 08/27/2024 Visit Dx: ICD-10-CM ICD-9-CM 1. Fall in home, initial encounter W19.XXXA E888.9 Y92.009 E849.0 2. Closed nondisplaced fracture of left acetabulum, unspecified portion of acetabulum, initial encounter S32.402A 808.0 3. Inability to bear weight R26.89 V49.89 Patient Active Problem List Diagnosis Insomnia Generalized anxiety disorder Gastroesophageal reflux disease Vitamin D deficiency Osteoporosis Peripheral neuropathy Kidney disease, chronic, stage III (GFR 30-59 ml/min) Overflow incontinence Colon cancer Moderate malnutrition Hip fracture Closed nondisplaced fracture of left acetabulum Past Medical History: Diagnosis Date Anxiety Arthritis Bipolar 1 disorder Cancer Depression Fibromyalgia GERD (gastroesophageal reflux disease) Joint pain localized in the knee Kidney infection Normal routine history and physical examination Seizures Past Surgical History: Procedure Laterality Date COLECTOMY PARTIAL / TOTAL N/A Partial COLON SURGERY 1994 HIP TROCHANTERIC NAILING WITH INTRAMEDULLARY HIP SCREW Left 04/21/2017 Procedure: HIP TROCANTERIC NAILING WITH INTRAMEDULLARY HIP SCREW LEFT Debridement of stage 4 decubitus ulcers x 2 with placement of wound vac to left hip; Surgeon: Silver Denny MD; Location: [facility] OR; Service: KNEE ARTHROSCOPY Right General Information Row Name 09/01/24 1128 Physical Therapy Time and Intention Document Type therapy note (daily note) -AB Mode of Treatment physical therapy -AB Row Name 09/01/24 1128 General Information Patient Profile Reviewed yes -AB Existing Precautions/Restrictions fall;partial weight bearing;left;seizures;other (see comments) partial/protected weight bearing left lower extremity with pelvic/acetabular fractures -AB Barriers to Rehab medically complex -AB Row Name 09/01/24 1128 Cognition Orientation Status (Cognition) oriented x 3 -AB Row Name 09/01/24 1128 Safety Issues/Impairments Affecting Functional Mobility Safety Issues Affecting Function (Mobility) awareness of need for assistance;insight into deficits/self-awareness;safety precaution awareness;safety precautions follow-through/compliance;sequencing abilities -AB Impairments Affecting Function (Mobility) balance;strength;endurance/activity tolerance;pain;range of motion (ROM);motor control;sensation/sensory awareness -AB User Turner (r) = Recorded By, (t) = Taken By, (c) = Cosigned By Initials Name Provider Type AB Jammie Bianchi PT Physical Therapist Mobility Row Name 09/01/24 1129 Bed Mobility Bed Mobility sit-supine -AB Sit-Supine Cosmos (Bed Mobility) minimum assist (75% patient effort);1 person assist;verbal cues;nonverbal cues (demo/gesture) -AB Assistive Device (Bed Mobility) bed rails -AB Comment, (Bed Mobility) Min A to swing legs into bed. -AB Row Name 09/01/24 112 Transfers Comment, (Transfers) Cues for hand placement and sequencing. V/c to maintain WB status. -AB Row Name 09/01/24 112 Bed-Chair Transfer Bed-Chair Cosmos (Transfers) minimum assist (75% patient effort);1 person assist;verbal cues;nonverbal cues (demo/gesture) -AB Assistive Device (Bed-Chair Transfers) walker, front-wheeled -AB Comment, (Bed-Chair Transfer) w/c>bed min A to steady and maintain PWB of LLE. -AB Row Name 09/01/24 112 Sit-Stand Transfer Sit-Stand Cosmos (Transfers) minimum assist (75% patient effort);verbal cues;nonverbal cues (demo/gesture) -AB Assistive Device (Sit-Stand Transfers) walker, front-wheeled -AB Row Name 09/01/24 1129 Gait/Stairs (Locomotion) Cosmos Level (Gait) minimum assist (75% patient effort);verbal cues;nonverbal cues (demo/gesture);1 person assist -AB Assistive Device (Gait) walker, front-wheeled -AB Patient was able to Ambulate yes -AB Distance in Feet (Gait) 2 -AB Deviations/Abnormal Patterns (Gait) left sided deviations;antalgic;stride length decreased;weight shifting decreased;gait speed decreased -AB Bilateral Gait Deviations forward flexed posture -AB Comment, (Gait/Stairs) Pt took 2 steps to w/c using RW w/ cues to maintain PWB status. Pt able to mobilize 150' in w/c using BUEs to propel self. Frequent rest breaks d/t weakness and LUE pain. -AB Row Name 09/01/24 1129 Mobility Extremity Weight-bearing Status left lower extremity -AB Left Lower Extremity (Weight-bearing Status) partial weight-bearing (PWB) -AB User Turner (r) = Recorded By, (t) = Taken By, (c) = Cosigned By Initials Name Provider Type AB Jammie Bianchi, PT Physical Therapist Obj/Interventions Row Name 09/01/24 1132 Balance Balance Assessment sitting static balance;sitting dynamic balance;standing static balance;standing dynamic balance -AB Static Sitting Balance standby assist -AB Dynamic Sitting Balance standby assist -AB Position, Sitting Balance unsupported;sitting edge of bed -AB Static Standing Balance minimal assist -AB Dynamic Standing Balance minimal assist;1-person assist;verbal cues -AB Position/Device Used, Standing Balance supported;walker, front-wheeled -AB Balance Interventions sitting;standing;sit to stand;supported;static;dynamic;occupation based/functional task -AB Comment, Balance No overt LOB. -AB User Turner (r) = Recorded By, (t) = Taken By, (c) = Cosigned By Initials Name Provider Type AB Jammie Bianchi, PT Physical Therapist Goals/Plan No documentation. Clinical Impression Row Name 09/01/24 1132 Pain Pretreatment Pain Rating 2/10 -AB Posttreatment Pain Rating 2/10 -AB Pain Location extremity -AB Pain Side/Orientation left;upper -AB Pain Management Interventions activity modification encouraged;exercise or physical activity utilized;positioning techniques utilized -AB Response to Pain Interventions activity participation with tolerable pain -AB Pre/Posttreatment Pain Comment Pt reports soreness in LUE -AB Row Name 09/01/24 1132 Plan of Care Review Plan of Care Reviewed With patient -AB Progress no change -AB Outcome Evaluation Pt continues to present below baseline with weakness, impaired balance, and decreased endurance. Min A provided for transfer out of w/c. No overt LOB. She continues to progress w/ w/c training. Further IPPT is warrented. PT will progress as able per POC. -AB Row Name 09/01/24 1132 Vital Signs Pre Systolic BP Rehab 104 -AB Pre Treatment Diastolic BP 60 -AB O2 Delivery Pre Treatment room air -AB O2 Delivery Intra Treatment room air -AB O2 Delivery Post Treatment room air -AB Pre Patient Position Sitting -AB Intra Patient Position Standing -AB Post Patient Position Supine -AB Row Name 09/01/24 1132 Positioning and Restraints Pre-Treatment Position other (comment) w/c -AB Post Treatment Position bed -AB In Bed notified nsg;supine;call light within reach;encouraged to call for assist;exit alarm on;SCD pump applied -AB User Turner (r) = Recorded By, (t) = Taken By, (c) = Cosigned By Initials Name Provider Type Jammie Whitman, PT Physical Therapist Outcome Measures Row Name 09/01/24 1135 How much help from another person do you currently need... Turning from your back to your side while in flat bed without using bedrails? 3 -AB Moving from lying on back to sitting on the side of a flat bed without bedrails? 3 -AB Moving to and from a bed to a chair (including a wheelchair)? 3 -AB Standing up from a chair using your arms (e.g., wheelchair, bedside chair)? 3 -AB Climbing 3-5 steps with a railing? 2 -AB To walk in hospital room? 2 -AB AM-PAC 6 Clicks Score (PT) 16 -AB Highest Level of Mobility Goal Stand (1 or More Minutes)-5 -AB Row Name 09/01/24 1135 09/01/24 1123 Functional Assessment Outcome Measure Options AM-PAC 6 Clicks Basic Mobility (PT) -AB AM-PAC 6 Clicks Daily Activity (OT)-MR User Turner (r) = Recorded By, (t) = Taken By, (c) = Cosigned By Initials Name Provider Type MR Yu Tisha, OT Occupational Therapist Jammie Whitman, PT Physical Therapist Physical Therapy Education Title: PT OT [employer] Therapies (In Progress) Topic: Physical Therapy (Done) Point: Mobility training (Done) Learning Progress Summary Patient Acceptance, E,D, VU,NR by AB at 09/01/2024 1135 Acceptance, E, VU by ND at 08/31/2024 1108 Eager, E, VU,NR by MI at 08/30/2024 1138 Comment: reviewed wt bearing status Eager, E, VU by SC at 08/29/2024 1150 Comment: reviewed HEP Acceptance, E,D, VU,NR by LR at 08/28/2024 1010 Comment: Educated on precautions, partial weight bearing status, LE HEP, benefits of mobility and being OOB, correct supine to sit t/f technique, correct sit<->stand t/f technique, correct bed to chair t/f technique, and progression of POC. Point: Home exercise program (Done) Learning Progress Summary Patient Acceptance, E, VU by ND at 08/31/2024 1108 Eager, E, VU,NR by MI at 08/30/2024 1138 Comment: reviewed wt bearing status Eager, E, VU by MI at 08/29/2024 1150 Comment: reviewed HEP Acceptance, E,D, VU,NR by LR at 08/28/2024 1010 Comment: Educated on precautions, partial weight bearing status, LE HEP, benefits of mobility and being OOB, correct supine to sit t/f technique, correct sit<->stand t/f technique, correct bed to chair t/f technique, and progression of POC. Point: Body mechanics (Done) Learning Progress Summary Patient Acceptance, E,D, VU,NR by AB at 09/01/2024 113 Acceptance, E, VU by ND at 08/31/2024 1108 Eager, E, VU,NR by MI at 08/30/2024 1138 Comment: reviewed wt bearing status Eager, E, VU by MI at 08/29/2024 1150 Comment: reviewed HEP Acceptance, E,D, VU,NR by LR at 08/28/2024 1010 Comment: Educated on precautions, partial weight bearing status, LE HEP, benefits of mobility and being OOB, correct supine to sit t/f technique, correct sit<->stand t/f technique, correct bed to chair t/f technique, and progression of POC. Point: Precautions (Done) Learning Progress Summary Patient Acceptance, E,D, VU,NR by AB at 09/01/2024 1135 Acceptance, E, VU by ND at 08/31/2024 1108 Phill Roberts VU,NR by MI at 08/30/2024 1138 Comment: reviewed wt bearing status Eager[place]ill VU by SC at 08/29/2024 1150 Comment: reviewed HEP Acceptance, E,D, VU,NR by LR at 08/28/2024 1010 Comment: Educated on precautions, partial weight bearing status, LE HEP, benefits of mobility and being OOB, correct supine to sit t/f technique, correct sit<->stand t/f technique, correct bed to chair t/f technique, and progression of POC. User Turner Initials Effective Dates Name Provider Type Discipline MI 05/08/22 - Nicole Urias, PT Physical Therapist PT LR 05/08/22 - Susan Guerrero, PT Physical Therapist PT AB 12/25/21 - Jammie Bianchi, PT Physical Therapist PT ND 02/18/23 - Bobbi Arciniega, PT Physical Therapist PT PT Recommendation and Plan Progress: no change Outcome Evaluation: Pt continues to present below baseline with weakness, impaired balance, and decreased endurance. Min A provided for transfer out of w/c. No overt LOB. She continues to progress w/w/c training. Further IPPT is warrented. PT will progress as able per POC. Time Calculation: PT Charges Row Name 09/01/24 1135 09/01/24 1128 Time Calculation Start Time 1037 -AB -- PT Received On 09/01/24 -AB -- Timed Charges 59726 - PT Therapeutic Activity Minutes 10 -AB -- Total Minutes Timed Charges Total Minutes 10 -AB -- Total Minutes 10 -AB -- PT/[employer] KX Modifier Exception criteria met to exceed therapy cap -- Apply KX Modifier -AB User Turner (r) = Recorded By, (t) = Taken By, (c) = Cosigned By Initials Name Provider Type AB Jammie Bianchi, PT Physical Therapist Therapy Charges for Today Code Description Service Date Service Provider Modifiers Qty [id number] HC PT THERAPEUTIC ACT EA 15 MIN 09/01/2024 Jammie Bianchi, PT GP, KX 1 PT G-Codes Outcome Measure Options: AM-PAC 6 Clicks Basic Mobility (PT) AM-PAC 6 Clicks Score (PT): 16 AM-PAC 6 Clicks Score (OT): 13 PT Discharge Summary Anticipated Discharge Disposition (PT): [facility] facility Jammie Bianchi, PT 09/01/2024 * Therapy Treatment Note - Tisha Yu, OT - 09/01/2024 10:14 AM EDT Images from the original note were not included. Patient Name: Lorin Raymundo : 1945 Today's Date: 09/01/2024 Admit Date: 08/27/2024 Visit Dx: ICD-10-CM ICD-9-CM 1. Fall in home, initial encounter W19.XXXA E888.9 Y92.009 E849.0 2. Closed nondisplaced fracture of left acetabulum, unspecified portion of acetabulum, initial encounter S32.402A 808.0 3. Inability to bear weight R26.89 V49.89 Patient Active Problem List Diagnosis Insomnia Generalized anxiety disorder Gastroesophageal reflux disease Vitamin D deficiency Osteoporosis Peripheral neuropathy Kidney disease, chronic, stage III (GFR 30-59 ml/min) Overflow incontinence Colon cancer Moderate malnutrition Hip fracture Closed nondisplaced fracture of left acetabulum Past Medical History: Diagnosis Date Anxiety Arthritis Bipolar 1 disorder Cancer Depression Fibromyalgia GERD (gastroesophageal reflux disease) Joint pain localized in the knee Kidney infection Normal routine history and physical examination Seizures Past Surgical History: Procedure Laterality Date COLECTOMY PARTIAL / TOTAL N/A Partial COLON SURGERY 1994 HIP TROCHANTERIC NAILING WITH INTRAMEDULLARY HIP SCREW Left 04/21/2017 Procedure: HIP TROCANTERIC NAILING WITH INTRAMEDULLARY HIP SCREW LEFT Debridement of stage 4 decubitus ulcers x 2 with placement of wound vac to left hip; Surgeon: Silver Denny MD; Location: [facility] OR; Service: KNEE ARTHROSCOPY Right General Information Row Name 09/01/24 1112 OT Time and Intention Document Type therapy note (daily note) -MR Mode of Treatment occupational therapy -MR Row Name 09/01/24 1112 General Information Patient Profile Reviewed yes -MR Existing Precautions/Restrictions fall;partial weight bearing;left;seizures;other (see comments) PWB, TTWB -MR Barriers to Rehab medically complex -MR Row Name 09/01/24 111 Cognition Orientation Status (Cognition) oriented x 3 -MR Row Name 09/01/24 111 Safety Issues/Impairments Affecting Functional Mobility Safety Issues Affecting Function (Mobility) awareness of need for assistance;insight into deficits/self-awareness;safety precaution awareness;safety precautions follow-through/compliance;sequencing abilities -MR Impairments Affecting Function (Mobility) balance;strength;endurance/activity tolerance;pain;range of motion (ROM);motor control;sensation/sensory awareness -MR User Turner (r) = Recorded By, (t) = Taken By, (c) = Cosigned By Initials Name Provider Type MR Tisha Yu, OT Occupational Therapist Mobility/ADL's Row Name 09/01/24 111 Bed Mobility Bed Mobility supine-sit;scooting/bridging -MR Scooting/Bridging Cosmos (Bed Mobility) moderate assist (50% patient effort);verbal cues;nonverbal cues (demo/gesture) -MR Supine-Sit Cosmos (Bed Mobility) minimum assist (75% patient effort);verbal cues;nonverbal cues (demo/gesture) -MR Assistive Device (Bed Mobility) bed rails;head of bed elevated;repositioning sheet -MR Row Name 09/01/241114 Transfers Transfers bed-chair transfer -MR Comment, (Transfers) bed to w/c w/ Shirley and v/c for WB status. -MR Row Name 09/01/241114 Bed-Chair Transfer Bed-Chair Cosmos (Transfers) minimum assist (75% patient effort);1 person assist;verbal cues;nonverbal cues (demo/gesture) -MR Assistive Device (Bed-Chair Transfers) walker, front-wheeled -MR Row Name 09/01/24 111 Activities of Daily Living BADL Assessment/Intervention upper body dressing;grooming -MR Row Name 09/01/24 111 Mobility Extremity Weight-bearing Status left lower extremity -MR Left Lower Extremity (Weight-bearing Status) partial weight-bearing (PWB) -MR Row Name 09/01/24 111 Grooming Assessment/Training Cosmos Level (Grooming) hair care, combing/brushing;set up -MR Position (Grooming) sitting up in bed -MR Row Name 09/01/24 111 Upper Body Dressing Assessment/Training Cosmos Level (Upper Body Dressing) don;doff;minimum assist (75% patient effort) -MR Position (Upper Body Dressing) edge of bed sitting -MR User Turner (r) = Recorded By, (t) = Taken By, (c) = Cosigned By Initials Name Provider Type Tisha Pierson OT Occupational Therapist Obj/Interventions Row Name 09/01/24 1116 Balance Balance Assessment sitting static balance;sitting dynamic balance;standing static balance;standing dynamic balance -MR Static Sitting Balance standby assist -MR Dynamic Sitting Balance standby assist -MR Position, Sitting Balance unsupported;sitting edge of bed -MR Static Standing Balance minimal assist;non-verbal cues (demo/gesture) -MR Dynamic Standing Balance minimal assist;non-verbal cues (demo/gesture) -MR Position/Device Used, Standing Balance supported;walker, front-wheeled -MR Balance Interventions sitting;standing;sit to stand;supported;static;dynamic;minimal challenge -MR User Turner (r) = Recorded By, (t) = Taken By, (c) = Cosigned By Initials Name Provider Type Tisha Pierson OT Occupational Therapist Goals/Plan No documentation. Clinical Impression Row Name 09/01/24 1120 Pain Assessment Pretreatment Pain Rating 2/10 -MR Posttreatment Pain Rating 2/10 -MR Pain Location hip -MR Pain Side/Orientation left;lower -MR Row Name 09/01/24 1120 Plan of Care Review Plan of Care Reviewed With patient -MR Progress improving -MR Outcome Evaluation Pt demonstrating improvements w/ activity tolerance, transfers and w/c mobility this date. Pt continues to be below her functional baseline warranting continuation of skilled OT services. Continue per current POC. -MR Row Name 09/01/24 1120 Therapy Plan Review/Discharge Plan (OT) Anticipated Discharge Disposition (OT) penitentiary facility -MR Row Name 09/01/24 1120 Vital Signs O2 Delivery Pre Treatment room air -MR O2 Delivery Intra Treatment room air -MR O2 Delivery Post Treatment room air -MR Pre Patient Position Supine -MR Intra Patient Position Standing -MR Post Patient Position Sitting -MR Row Name 09/01/24 1120 Positioning and Restraints Pre-Treatment Position in bed -MR Post Treatment Position wheelchair -MR In Wheelchair with PT -MR User Turner (r) = Recorded By, (t) = Taken By, (c) = Cosigned By Initials Name Provider Type MR Gigi, Tisha, OT Occupational Therapist Outcome Measures Row Name 09/01/24 1123 How much help from another is currently needed... Putting on and taking off regular lower body clothing? 1 -MR Bathing (including washing, rinsing, and drying) 2 -MR Toileting (which includes using toilet bed farrell or urinal) 1 -MR Putting on and taking off regular upper body clothing 3 -MR Taking care of personal grooming (such as brushing teeth) 3 -MR Eating meals 3 -MR AM-PAC 6 Clicks Score (OT) 13 -MR Row Name 09/01/24 112 Functional Assessment Outcome Measure Options AM-PAC 6 Clicks Daily Activity (OT) -MR User Turner (r) = Recorded By, (t) = Taken By, (c) = Cosigned By Initials Name Provider Type Gigi Tisha, OT Occupational Therapist Occupational Therapy Education Title: PT OT [employer] Therapies (In Progress) Topic: Occupational Therapy (In Progress) Point: ADL training (Done) Learning Progress Summary Patient Acceptance, E, VU by MR at 09/01/2024 1124 Acceptance, E, NR by MR at 08/29/2024 1136 Point: Precautions (Done) Learning Progress Summary Patient Acceptance, E, VU by MR at 09/01/2024 1124 Acceptance, E, NR by MR at 08/29/2024 1136 Point: Body mechanics (Done) Learning Progress Summary Patient Acceptance, E, VU by MR at 09/01/2024 1124 Acceptance, E, NR by MR at 08/29/2024 1136 User Turner Initials Effective Dates Name Provider Type Discipline MR 12/25/21 - Tisha Yu OT Occupational Therapist OT OT Recommendation and Plan Plan of Care Review Plan of Care Reviewed With: patient Progress: improving Outcome Evaluation: Pt demonstrating improvements w/ activity tolerance, transfers and w/c mobilitythis date. Pt continues to be below her functional baseline warranting continuation of skilled OT services. Continue per current POC. Time Calculation: Time Calculation- OT Row Name 09/01/244 Time Calculation- OT OT Start Time 1014 -MR OT Received On 09/01/24 -MR Timed Charges 38790 - OT Therapeutic Activity Minutes 13 -MR 71133 - OT Self Care/Mgmt Minutes 10 -MR Total Minutes Timed Charges Total Minutes 23 -MR Total Minutes 23 -MR User Turner (r) = Recorded By, (t) = Taken By, (c) = Cosigned By Initials Name Provider Type GigiTisha, BERNICE Occupational Therapist Therapy Charges for Today Code Description Service Date Service Provider Modifiers Qty [id number] OT THERAPEUTIC ACT EA 15 MIN 09/01/2024 Tisha Yu OT GO 1 [id number] OT SELF CARE/MGMT/TRAIN EA 15 MIN 09/01/2024 Tisha Yu OT GO 1 Tisha BERNICE Yu 09/01/2024 * Case Management/Social Work - Bette Leonardo, RN - 08/31/2024 10:57 AM EDT Continued Stay Note [facility] Patient Name: Lorin Raymundo Today's Date: 08/31/2024 Admit Date: 08/27/2024 Plan: SNF Discharge Plan Row Name 08/31/24 1056 Plan Plan Comments [facility] are out of network for Pt. She and daughter have requesteda referral to [facility]. This was given to Tia who reports they can accept pending insurance precert. This has been started. CM to follow Discharge Codes No documentation. Expected Discharge Date and Time Expected Discharge Date Expected Discharge Time August 29, 2024 Bette Leonardo RN * Therapy Treatment Note - Bobbi Arciniega, PT - 08/31/2024 10:16 AM EDT Images from the original note were not included. Patient Name: Lorin Raymundo : 1945 Today's Date: 08/31/2024 Admit Date: 08/27/2024 Visit Dx: ICD-10-CM ICD-9-CM 1. Fall in home, initial encounter W19.XXXA E888.9 Y92.009 E849.0 2. Closed nondisplaced fracture of left acetabulum, unspecified portion of acetabulum, initial encounter S32.402A 808.0 3. Inability to bear weight R26.89 V49.89 Patient Active Problem List Diagnosis Insomnia Generalized anxiety disorder Gastroesophageal reflux disease Vitamin D deficiency Osteoporosis Peripheral neuropathy Kidney disease, chronic, stage III (GFR 30-59 ml/min) Overflow incontinence Colon cancer Moderate malnutrition Hip fracture Closed nondisplaced fracture of left acetabulum Past Medical History: Diagnosis Date Anxiety Arthritis Bipolar 1 disorder Cancer Depression Fibromyalgia GERD (gastroesophageal reflux disease) Joint pain localized in the knee Kidney infection Normal routine history and physical examination Seizures Past Surgical History: Procedure Laterality Date COLECTOMY PARTIAL / TOTAL N/A Partial COLON SURGERY 1994 HIP TROCHANTERIC NAILING WITH INTRAMEDULLARY HIP SCREW Left 04/21/2017 Procedure: HIP TROCANTERIC NAILING WITH INTRAMEDULLARY HIP SCREW LEFT Debridement of stage 4 decubitus ulcers x 2 with placement of wound vac to left hip; Surgeon: Silver Denny MD; Location: [facility]; Service: KNEE ARTHROSCOPY Right General Information Row Name 08/31/24 1056 Physical Therapy Time and Intention Document Type therapy note (daily note) -ND Mode of Treatment physical therapy -ND Row Name 08/31/24 1056 General Information Patient Profile Reviewed yes -ND Existing Precautions/Restrictions fall;partial weight bearing;left;seizures;other (see comments) PWB, TTWB -ND Barriers to Rehab medically complex -ND Row Name 08/31/24 1056 Cognition Orientation Status (Cognition) oriented x 3 -ND Row Name 08/31/24 1056 Safety Issues/Impairments Affecting Functional Mobility Safety Issues Affecting Function (Mobility) awareness of need for assistance;insight into deficits/self-awareness;safety precaution awareness;safety precautions follow-through/compliance;sequencing abilities -ND Impairments Affecting Function (Mobility) balance;strength;endurance/activity tolerance;pain;range of motion (ROM);motor control;sensation/sensory awareness -ND User Turner (r) = Recorded By, (t) = Taken By, (c) = Cosigned By Initials Name Provider Type ND Bobbi Arciniega PT Physical Therapist Mobility Row Name 08/31/24 1057 Bed Mobility Bed Mobility supine-sit -ND Supine-Sit Cosmos (Bed Mobility) minimum assist (75% patient effort);verbal cues;nonverbal cues (demo/gesture) -ND Assistive Device (Bed Mobility) bed rails;head of bed elevated;repositioning sheet -ND Comment, (Bed Mobility) Increased time for task, pt reports pain/stiffness in LLE. Denies dizzinesswith position change. -ND Row Name 08/31/24 1057 Bed-Chair Transfer Bed-Chair Cosmos (Transfers) minimum assist (75% patient effort);1 person assist;verbal cues;nonverbal cues (demo/gesture) -ND Assistive Device (Bed-Chair Transfers) walker, front-wheeled -ND Comment, (Bed-Chair Transfer) SPT from bed>w/c and w/c>chair. Cues for TTWB and increased reliance on BUE. -ND Row Name 08/31/24 1057 Sit-Stand Transfer Sit-Stand Cosmos (Transfers) minimum assist (75% patient effort);verbal cues;nonverbal cues (demo/gesture) -ND Assistive Device (Sit-Stand Transfers) walker, front-wheeled -ND Comment, (Sit-Stand Transfer) x1 from EOB, x1 from w/c. Cues for hand placement. -NC Row Name 08/31/24 1057 Gait/Stairs (Locomotion) Cosmos Level (Gait) minimum assist (75% patient effort);verbal cues;nonverbal cues (demo/gesture);1 person assist -ND Assistive Device (Gait) walker, front-wheeled -ND Distance in Feet (Gait) 2 -ND Deviations/Abnormal Patterns (Gait) left sided deviations;antalgic;stride length decreased;weight shifting decreased;gait speed decreased -ND Bilateral Gait Deviations forward flexed posture -ND Comment, (Gait/Stairs) Pt takes 2 steps with RWx and TTWB with hop-to pattern, pt requires cues to remember WB precautions and for sequencing. Pt then mobilizes via w/c for 160' with 1 rest break dueto BUE fatigue. -NC Row Name 08/31/24 1057 Mobility Extremity Weight-bearing Status left lower extremity -ND Left Lower Extremity (Weight-bearing Status) partial weight-bearing (PWB) -ND User Turner (r) = Recorded By, (t) = Taken By, (c) = Cosigned By Initials Name Provider Type ND Bobbi Arciniega PT Physical Therapist Obj/Interventions Row Name 08/31/24 1101 Motor Skills Therapeutic Exercise hip;knee;ankle -ND Row Name 08/31/24 1101 Hip (Therapeutic Exercise) Hip (Therapeutic Exercise) isometric exercises -ND Hip Isometrics (Therapeutic Exercise) bilateral;gluteal sets;10 repetitions -ND Hip Strengthening (Therapeutic Exercise) left;aBduction;heel slides;10 repetitions -ND Row Name 08/31/24 110 Knee (Therapeutic Exercise) Knee (Therapeutic Exercise) strengthening exercise -ND Knee Strengthening (Therapeutic Exercise) left;LAQ (long arc quad);SLR (straight leg raise);10 repetitions -ND Row Name 08/31/24 110 Ankle (Therapeutic Exercise) Ankle (Therapeutic Exercise) AROM (active range of motion) -ND Ankle AROM (Therapeutic Exercise) bilateral;dorsiflexion;plantarflexion;10 repetitions -ND Row Name 08/31/24 1101 Balance Balance Assessment standing static balance;sitting static balance;sitting dynamic balance;standing dynamic balance -ND Static Sitting Balance standby assist -ND Dynamic Sitting Balance standby assist -ND Position, Sitting Balance unsupported;sitting edge of bed -ND Static Standing Balance minimal assist;verbal cues;non-verbal cues (demo/gesture) -ND Dynamic Standing Balance minimal assist;non-verbal cues (demo/gesture);verbal cues -ND Position/Device Used, Standing Balance supported;walker, front-wheeled -ND Balance Interventions sitting;standing;sit to stand;supported;static;dynamic -ND Comment, Balance No knee buckling or LOB. -ND User Turner (r) = Recorded By, (t) = Taken By, (c) = Cosigned By Initials Name Provider Type Bobbi Yang PT Physical Therapist Goals/Plan No documentation. Clinical Impression Row Name 08/31/24 1105 Pain Pretreatment Pain Rating 4/10 -ND Posttreatment Pain Rating 0/10 - no pain -ND Pain Location hip -ND Pain Side/Orientation left -ND Pain Management Interventions positioning techniques utilized;exercise or physical activity utilized;activity modification encouraged -ND Response to Pain Interventions intervention effective per patient report -ND Row Name 08/31/24 1105 Plan of Care Review Plan of Care Reviewed With patient -ND Progress improving -ND Outcome Evaluation Pt performs functional transfers with min-A x1 and mobilizes via w/v for 160' with 1 rest break due to BUE fatigue. Pt continues to require cues for maintenance of WB precautions and sequencing of mobility tasks but overall has demonstrated improvement over the course of her stay. Recommend SNF following d/c for best functional outcome. -ND Row Name 08/31/24 1105 Vital Signs Pre Systolic BP Rehab 112 -ND Pre Treatment Diastolic BP 76 -ND Pretreatment Heart Rate (beats/min) 92 -ND Posttreatment Heart Rate (beats/min) 85 -ND Pre SpO2 (%) 92 -ND O2 Delivery Pre Treatment room air -ND O2 Delivery Intra Treatment room air -ND Post SpO2 (%) 95 -ND O2 Delivery Post Treatment room air -ND Pre Patient Position Supine -ND Intra Patient Position Standing -ND Post Patient Position Sitting -ND Row Name 08/31/24 1105 Positioning and Restraints Pre-Treatment Position in bed -ND Post Treatment Position chair -ND In Chair notified nsg;reclined;legs elevated;call light within reach;encouraged to call for assist;exit alarm on;waffle cushion;on mechanical lift sling;with nsg -ND User Turner (r) = Recorded By, (t) = Taken By, (c) = Cosigned By Initials Name Provider Type Bobbi Yang PT Physical Therapist Outcome Measures Row Name 08/31/24 1108 How much help from another person do you currently need... Turning from your back to your side while in flat bed without using bedrails? 3 -ND Moving from lying on back to sitting on the side of a flat bed without bedrails? 3 -ND Moving to and from a bed to a chair (including a wheelchair)? 3 -ND Standing up from a chair using your arms (e.g., wheelchair, bedside chair)? 3 -ND Climbing 3-5 steps with a railing? 2 -ND To walk in hospital room? 2 -ND AM-PAC 6 Clicks Score (PT) 16 -ND Highest Level of Mobility Goal Stand (1 or More Minutes)-5 - Row Name 08/31/24 1108 Functional Assessment Outcome Measure Options AM-PAC 6 Clicks Basic Mobility (PT) -ND User Turner (r) = Recorded By, (t) = Taken By, (c) = Cosigned By Initials Name Provider Type Bobbi Yang PT Physical Therapist Physical Therapy Education Title: PT OT [employer] [facility] (In Progress) Topic: Physical Therapy (Done) Point: Mobility training (Done) Learning Progress Summary Patient Acceptance, OJ Pollock by JUAN at 08/31/2024 1108 Phill Roberts VU,NR by MI at 08/30/2024 1138 Comment: reviewed wt bearing status Eager, E, VU by SC at 08/29/2024 1150 Comment: reviewed HEP Acceptance, E,D, VU,NR by LR at 08/28/2024 1010 Comment: Educated on precautions, partial weight bearing status, LE HEP, benefits of mobility and being OOB, correct supine to sit t/f technique, correct sit<->stand t/f technique, correct bed to chair t/f technique, and progression of POC. Point: Home exercise program (Done) Learning Progress Summary Patient Acceptance, E, VU by ND at 08/31/2024 1108 Eager, E, VU,NR by SC at 08/30/2024 1138 Comment: reviewed wt bearing status Eager, E, VU by SC at 08/29/2024 1150 Comment: reviewed HEP Acceptance, E,D, VU,NR by LR at 08/28/2024 1010 Comment: Educated on precautions, partial weight bearing status, LE HEP, benefits of mobility and being OOB, correct supine to sit t/f technique, correct sit<->stand t/f technique, correct bed to chair t/f technique, and progression of POC. Point: Body mechanics (Done) Learning Progress Summary Patient Acceptance, E, VU by ND at 08/31/20248 Eager, E, VU,NR by SC at 08/30/2024 1138 Comment: reviewed wt bearing status Eager, E, VU by SC at 08/29/2024 1150 Comment: reviewed HEP Acceptance, E,D, VU,NR by LR at 08/28/2024 1010 Comment: Educated on precautions, partial weight bearing status, LE HEP, benefits of mobility and being OOB, correct supine to sit t/f technique, correct sit<->stand t/f technique, correct bed to chair t/f technique, and progression of POC. Point: Precautions (Done) Learning Progress Summary Patient Acceptance, E, VU by ND at 08/31/2024 1108 Eager, E, VU,NR by MI at 08/30/2024 1138 Comment: reviewed wt bearing status Eager, E, VU by SC at 08/29/2024 1150 Comment: reviewed HEP Acceptance, E,D, VU,NR by LR at 08/28/2024 1010 Comment: Educated on precautions, partial weight bearing status, LE HEP, benefits of mobility and being OOB, correct supine to sit t/f technique, correct sit<->stand t/f technique, correct bed to chair t/f technique, and progression of POC. User Turner Initials Effective Dates Name Provider Type Discipline MI 05/08/22 - Nicole Urias, PT Physical Therapist PT LR 05/08/22 - Susan Guerrero, PT Physical Therapist PT ND 02/18/23 - Bobbi Arciniega PT Physical Therapist PT PT Recommendation and Plan Progress: improving Outcome Evaluation: Pt performs functional transfers with min-A x1 and mobilizes via w/v for 160' with 1 rest break due to BUE fatigue. Pt continues to require cues for maintenance of WB precautions and sequencing of mobility tasks but overall has demonstrated improvement over the course of her stay. Recommend SNF following d/c for best functional outcome. Time Calculation: PT Charges Row Name 08/31/24 1109 Time Calculation Start Time 1016 -ND PT Received On 08/31/24 -ND Timed Charges 45507 - PT Therapeutic Activity Minutes 34 -ND Total Minutes Timed Charges Total Minutes 34 -ND Total Minutes 34 -ND User Turner (r) = Recorded By, (t) = Taken By, (c) = Cosigned By Initials Name Provider Type ND Bobbi Arciniega, TORIBIO Physical Therapist Therapy Charges for Today Code Description Service Date Service Provider Modifiers Qty [id number] PT THERAPEUTIC ACT EA 15 MIN 08/31/2024 Bobbi Arciniega, PT GP 2 PT G-Codes Outcome Measure Options: AM-PAC 6 Clicks Basic Mobility (PT) AM-PAC 6 Clicks Score (PT): 16 AM-PAC 6 Clicks Score (OT): 13 PT Discharge Summary Anticipated Discharge Disposition (PT[facility] Bobbi Arciniega PT 08/31/2024 * Therapy Treatment Note - Nicole Urias, PT - 08/30/2024 9:48 AM EDT Images from the original note were not included. Patient Name: Lorin Raymundo : 1945 Today's Date: 08/30/2024 Admit Date: 08/27/2024 Visit Dx: ICD-10-CM ICD-9-CM 1. Fall in home, initial encounter W19.XXXA E888.9 Y92.009 E849.0 2. Closed nondisplaced fracture of left acetabulum, unspecified portion of acetabulum, initial encounter S32.402A 808.0 3. Inability to bear weight R26.89 V49.89 Patient Active Problem List Diagnosis Insomnia Generalized anxiety disorder Gastroesophageal reflux disease Vitamin D deficiency Osteoporosis Peripheral neuropathy Kidney disease, chronic, stage III (GFR 30-59 ml/min) Overflow incontinence Colon cancer Moderate malnutrition Hip fracture Closed nondisplaced fracture of left acetabulum Past Medical History: Diagnosis Date Anxiety Arthritis Bipolar 1 disorder Cancer Depression Fibromyalgia GERD (gastroesophageal reflux disease) Joint pain localized in the knee Kidney infection Normal routine history and physical examination Seizures Past Surgical History: Procedure Laterality Date COLECTOMY PARTIAL / TOTAL N/A Partial COLON SURGERY 1994 HIP TROCHANTERIC NAILING WITH INTRAMEDULLARY HIP SCREW Left 04/21/2017 Procedure: HIP TROCANTERIC NAILING WITH INTRAMEDULLARY HIP SCREW LEFT Debridement of stage 4 decubitus ulcers x 2 with placement of wound vac to left hip; Surgeon: Silver Denny MD; Location: [facility]; Service: KNEE ARTHROSCOPY Right General Information Row Name 08/30/24 1129 08/30/24 1128 Physical Therapy Time and Intention Document Type therapy note (daily note) -MI therapy note (daily note) -MI Mode of Treatment physical therapy -MI physical therapy -MI Row Name 08/30/24 1129 08/30/24 1128 General Information Patient Profile Reviewed yes -SC yes -MI Existing Precautions/Restrictions fall;partial weight bearing;left;seizures;other (see comments) PWB, TTWB -MI fall;partial weight bearing;left;seizures;other (see comments) -MI Row Name 08/30/24 1129 Cognition Orientation Status (Cognition) oriented x 3 -MI Row Name 08/30/24 1129 Safety Issues/Impairments Affecting Functional Mobility Impairments Affecting Function (Mobility) balance;strength;endurance/activity tolerance;pain;range of motion (ROM);motor control;sensation/sensory awareness -MI Comment, Safety Issues/Impairments (Mobility) alert, following commands -MI User Turner (r) = Recorded By, (t) = Taken By, (c) = Cosigned By Initials Name Provider Type MI Nicole Urias PT Physical Therapist Mobility Row Name 08/30/24 1129 Bed Mobility Bed Mobility supine-sit;scooting/bridging -MI Scooting/Bridging Cosmos (Bed Mobility) modified independence -MI Supine-Sit Cosmos (Bed Mobility) verbal cues;minimum assist (75% patient effort) -MI Assistive Device (Bed Mobility) head of bed elevated;bed rails;repositioning sheet -MI Comment, (Bed Mobility) some help with L leg getting in/oob -MI Row Name 08/30/24 112 Transfers Comment, (Transfers) STS with cues for hand placement. Demonstrated good technique -[facility] Name 08/30/24 112 Sit-Stand Transfer Sit-Stand Cosmos (Transfers) verbal cues;minimum assist (75% patient effort);1 person to manage equipment -MI Assistive Device (Sit-Stand Transfers) walker, front-wheeled -[facility] Name 08/30/24 112 Gait/Stairs (Locomotion) Cosmos Level (Gait) 1 person assist;1 person to manage equipment;contact guard;verbal cues -MI Assistive Device (Gait) walker, front-wheeled -MI Distance in Feet (Gait) 3 -MI Deviations/Abnormal Patterns (Gait) left sided deviations;antalgic;stride length decreased;weight shifting decreased;gait speed decreased -MI Bilateral Gait Deviations forward flexed posture -MI Comment, (Gait/Stairs) Gt training limited to transfers with walker. Cues for sequencing steps. Encouraged upright posture and pushing into walker to off load L leg. Some assistance needed to controlwker on turns. Some difficulty off loading leg requiring VC and tactile cues. Time taken to transfer to w/c and work on propulsion with VC for turning. Patietn able to push 200 feet with frequent standing rest breaks. -MI Row Name 08/30/24 1129 Mobility Extremity Weight-bearing Status left lower extremity -MI Left Lower Extremity (Weight-bearing Status) partial weight-bearing (PWB) -MI User Turner (r) = Recorded By, (t) = Taken By, (c) = Cosigned By Initials Name Provider Type MI Nicole Urias PT Physical Therapist Obj/Interventions Row Name 08/30/24 1133 Motor Skills Therapeutic Exercise hip -SC Row Name 08/30/24 1133 Hip (Therapeutic Exercise) Hip Strengthening (Therapeutic Exercise) bilateral;flexion;extension;10 repetitions -[facility] 08/30/24 113 Knee (Therapeutic Exercise) Knee (Therapeutic Exercise) AROM (active range of motion) -MI Knee AROM (Therapeutic Exercise) bilateral;LAQ (long arc quad);10 repetitions -[facility] 08/30/24 113 Ankle (Therapeutic Exercise) Ankle AROM (Therapeutic Exercise) bilateral;dorsiflexion;plantarflexion;10 repetitions -[facility] 08/30/24 1133 Balance Dynamic Standing Balance 1 person to manage equipment;minimal assist -MI Position/Device Used, Standing Balance supported;walker, rolling -MI User Turner (r) = Recorded By, (t) = Taken By, (c) = Cosigned By Initials Name Provider Type MI Nicole Urias, PT Physical Therapist Goals/Plan No documentation. Clinical Impression [facility] 08/30/24 1134 Pain Pain Location hip -MI Pain Side/Orientation left -MI Pain Management Interventions positioning techniques utilized -MI Response to Pain Interventions functional ability unchanged -[facility] 08/30/24 1134 Pain Scale: FACES Pre/Post-Treatment Pain: FACES Scale, Pretreatment 2-->hurts little bit -MI Posttreatment Pain Rating 2-->hurts little bit -[facility] 08/30/24 1134 Plan of Care Review Plan of Care Reviewed With patient -MI Progress improving -MI Outcome Evaluation Patient continues to need reminder for wt bearing status during transfers. She was able to propell w/c with cues and good technique. -[facility] 08/30/24 1134 Therapy Assessment/Plan (PT) Patient/Family Therapy Goals Statement (PT) walk one day -MI Rehab Potential (PT) good -MI Criteria for Skilled Interventions Met (PT) yes;skilled treatment is necessary;meets criteria -MI Therapy Frequency (PT) daily -MI User Turner (r) = Recorded By, (t) = Taken By, (c) = Cosigned By Initials Name Provider Type MI Nicole Urias, PT Physical Therapist Outcome Measures [facility] Name 08/30/24 1137 How much help from another person do you currently need... Turning from your back to your side while in flat bed without using bedrails? 3 -MI Moving from lying on back to sitting on the side of a flat bed without bedrails? 3 -SC Moving to and from a bed to a chair (including a wheelchair)? 3 -SC Standing up from a chair using your arms (e.g., wheelchair, bedside chair)? 3 -SC Climbing 3-5 steps with a railing? 2 -SC To walk in hospital room? 3 -MI AM-PAC 6 Clicks Score (PT) 17 -MI Highest Level of Mobility Goal Stand (1 or More Minutes)-5 -MI Row Name 08/30/24 1137 Functional Assessment Outcome Measure Options AM-PAC 6 Clicks Basic Mobility (PT) -MI User Turner (r) = Recorded By, (t) = Taken By, (c) = Cosigned By Initials Name Provider Type Nicole Ni PT Physical Therapist Physical Therapy Education Title: PT OT [employer] Therap[facility] (In Progress) Topic: Physical Therapy (Done) Point: Mobility training (Done) Learning Progress Summary Patient Eager, E, VU,NR by MI at 08/30/2024 1138 Comment: reviewed wt bearing status Eager, E, VU by MI at 08/29/2024 1150 Comment: reviewed HEP Acceptance, E,D, VU,NR by LR at 08/28/2024 1010 Comment: Educated on precautions, partial weight bearing status, LE HEP, benefits of mobility and being OOB, correct supine to sit t/f technique, correct sit<->stand t/f technique, correct bed to chair t/f technique, and progression of POC. Point: Home exercise program (Done) Learning Progress Summary Patient Eager, E, VU,NR by MI at 08/30/2024 1138 Comment: reviewed wt bearing status Eager, E, VU by MI at 08/29/2024 1150 Comment: reviewed HEP Acceptance, E,D, VU,NR by LR at 08/28/2024 1010 Comment: Educated on precautions, partial weight bearing status, LE HEP, benefits of mobility and being OOB, correct supine to sit t/f technique, correct sit<->stand t/f technique, correct bed to chair t/f technique, and progression of POC. Point: Body mechanics (Done) Learning Progress Summary Patient Eager, E, VU,NR by MI at 08/30/2024 1138 Comment: reviewed wt bearing status Eager, E, VU by MI at 08/29/2024 1150 Comment: reviewed HEP Acceptance, E,D, VU,NR by LR at 08/28/2024 1010 Comment: Educated on precautions, partial weight bearing status, LE HEP, benefits of mobility and being OOB, correct supine to sit t/f technique, correct sit<->stand t/f technique, correct bed to chair t/f technique, and progression of POC. Point: Precautions (Done) Learning Progress Summary Patient Eager, E, VU,NR by MI at 08/30/2024 1138 Comment: reviewed wt bearing status Eager, E, VU by MI at 08/29/2024 1150 Comment: reviewed HEP Acceptance, E,D, VU,NR by LR at 08/28/2024 1010 Comment: Educated on precautions, partial weight bearing status, LE HEP, benefits of mobility and being OOB, correct supine to sit t/f technique, correct sit<->stand t/f technique, correct bed to chair t/f technique, and progression of POC. User Turner Initials Effective Dates Name Provider Type Discipline MI 05/08/22 - Nicole Urias PT Physical Therapist PT LR 05/08/22 - Susan Guerrero, PT Physical Therapist PT PT Recommendation and Plan Progress: improving Outcome Evaluation: Patient continues to need reminder for wt bearing status during transfers. She was able to propell w/c with cues and good technique. Time Calculation: PT Charges Row Name 08/30/24 0948 Time Calculation Start Time 0948 -MI PT Received On 08/30/24 -MI PT Goal Re-Cert Due Date 09/07/24 -MI Timed Charges 81857 - PT Therapeutic Exercise Minutes 5 -MI 02300 - Gait Training Minutes 5 -MI 80667 - PT Therapeutic Activity Minutes 25 -MI Total Minutes Timed Charges Total Minutes 35 -MI Total Minutes 35 -MI User Turner (r) = Recorded By, (t) = Taken By, (c) = Cosigned By Initials Name Provider Type MI Nicole Urias, PT Physical Therapist Therapy Charges for Today Code Description Service Date Service Provider Modifiers Qty [id number] HC PT THER PROC EA 15 MIN 08/29/2024 Nicole Urias, PT GP 1 [id number] HC PT THERAPEUTIC ACT EA 15 MIN 08/30/2024 Nicole Urias, PT GP 2 [id number] PT THER SUPP EA 15 MIN 08/30/2024 Nicole Urias, PT GP 2 PT G-Codes Outcome Measure Options: AM-PAC 6 Clicks Basic Mobility (PT) AM-PAC 6 Clicks Score (PT): 17 AM-PAC 6 Clicks Score (OT): 13 PT Discharge Summary Anticipated Discharge Disposition (PT[facility] Nicole Urias, PT 08/30/2024 * Therapy Treatment Note - Tisha Yu, OT - 08/29/2024 11:15 AM EDT Images from the original note were not included. Patient Name: Lorin Raymundo : 1945 Today's Date: 08/29/2024 Admit Date: 08/27/2024 Visit Dx: ICD-10-CM ICD-9-CM 1. Fall in home, initial encounter W19.XXXA E888.9 Y92.009 E849.0 2. Closed nondisplaced fracture of left acetabulum, unspecified portion of acetabulum, initial encounter S32.402A 808.0 3. Inability to bear weight R26.89 V49.89 Patient Active Problem List Diagnosis Insomnia Generalized anxiety disorder Gastroesophageal reflux disease Vitamin D deficiency Osteoporosis Peripheral neuropathy Kidney disease, chronic, stage III (GFR 30-59 ml/min) Overflow incontinence Colon cancer Moderate malnutrition Hip fracture Closed nondisplaced fracture of left acetabulum Past Medical History: Diagnosis Date Anxiety Arthritis Bipolar 1 disorder Cancer Depression Fibromyalgia GERD (gastroesophageal reflux disease) Joint pain localized in the knee Kidney infection Normal routine history and physical examination Seizures Past Surgical History: Procedure Laterality Date COLECTOMY PARTIAL / TOTAL N/A Partial COLON SURGERY 1994 HIP TROCHANTERIC NAILING WITH INTRAMEDULLARY HIP SCREW Left 04/21/2017 Procedure: HIP TROCANTERIC NAILING WITH INTRAMEDULLARY HIP SCREW LEFT Debridement of stage 4 decubitus ulcers x 2 with placement of wound vac to left hip; Surgeon: Silver Denny MD; Location: [facility]; Service: KNEE ARTHROSCOPY Right General Information Row Name 08/29/24 1133 OT Time and Intention Document Type therapy note (daily note) -MR Mode of Treatment occupational therapy -MR Row Name 08/29/24 1133 General Information Existing Precautions/Restrictions fall;partial weight bearing;left;seizures;other (see comments) L acetabulum fx s/p fall, partial/protected weight bearing L LE -MR Barriers to Rehab medically complex -MR Row Name 08/29/24 1133 Cognition Orientation Status (Cognition) oriented x 3 -MR Row Name 08/29/24 1133 Safety Issues/Impairments Affecting Functional Mobility Safety Issues Affecting Function (Mobility) awareness of need for assistance;insight into deficits/self-awareness;positioning of assistive device;safety precaution awareness;safety precautions follow- through/compliance;sequencing abilities -MR Impairments Affecting Function (Mobility) balance;strength;endurance/activity tolerance;pain;range of motion (ROM);motor control;sensation/sensory awareness -MR User Turner (r) = Recorded By, (t) = Taken By, (c) = Cosigned By Initials Name Provider Type MR Tisha Yu OT Occupational Therapist Mobility/ADL's Row Name 08/29/24 1133 Bed Mobility Bed Mobility rolling left;sidelying-sit -MR Rolling Right Cosmos (Bed Mobility) moderate assist (50% patient effort);verbal cues;nonverbal cues (demo/gesture) -MR Sidelying-Sit Cosmos (Bed Mobility) moderate assist (50% patient effort);2 person assist;verbal cues;nonverbal cues (demo/gesture) -MR Assistive Device (Bed Mobility) head of bed elevated;bed rails -MR Row Name 08/29/24 1133 Transfers Transfers bed-chair transfer -MR Row Name 08/29/24 1133 Bed-Chair Transfer Bed-Chair Cosmos (Transfers) verbal cues;minimum assist (75% patient effort);2 person assist -MR Assistive Device (Bed-Chair Transfers) walker, front-wheeled -MR Row Name 08/29/24 1133 Activities of Daily Living BADL Assessment/Intervention grooming;lower body dressing -MR Row Name 08/29/24 1133 Mobility Extremity Weight-bearing Status left lower extremity -MR Left Lower Extremity (Weight-bearing Status) partial weight-bearing (PWB);other (see comments) partial/protected weight bearing -MR Row Name 08/29/24 1133 Grooming Assessment/Training Cosmos Level (Grooming) hair care, combing/brushing;wash face, hands;set up -MR Position (Grooming) supported sitting -MR Row Name 08/29/24 1133 Lower Body Dressing Assessment/Training Cosmos Level (Lower Body Dressing) don;socks;dependent (less than 25% patient effort) -MR Position (Lower Body Dressing) supine -MR User Turner (r) = Recorded By, (t) = Taken By, (c) = Cosigned By Initials Name Provider Type Tisha Pierson OT Occupational Therapist Obj/Interventions Row Name 08/29/24 1134 Balance Balance Assessment sitting static balance;sitting dynamic balance;standing static balance;standing dynamic balance -MR Static Sitting Balance standby assist -MR Dynamic Sitting Balance contact guard -MR Position, Sitting Balance unsupported;sitting edge of bed;sitting in chair -MR Static Standing Balance minimal assist;verbal cues;non-verbal cues (demo/gesture) -MR Dynamic Standing Balance minimal assist;2-person assist;verbal cues;non-verbal cues (demo/gesture) -MR Position/Device Used, Standing Balance supported;walker, front-wheeled -MR Balance Interventions sitting;standing;sit to stand;supported;static;dynamic -MR User Turner (r) = Recorded By, (t) = Taken By, (c) = Cosigned By Initials Name Provider Type Tisha Yu, OT Occupational Therapist Goals/Plan No documentation. Clinical Impression Row Name 08/29/24 1135 Pain Assessment Pretreatment Pain Rating 0/10 - no pain -MR Posttreatment Pain Rating 0/10 - no pain -MR Row Name 08/29/24 1135 Plan of Care Review Plan of Care Reviewed With patient -MR Progress no change -MR Outcome Evaluation Patient demonstrated improvements w/ activity tolerance, good effort noted w/ grooming tasks. Pt continues to be below her functional baseline warranting continuation of skilled OTservices. Continue per current POC as able. -MR Row Name 08/29/24 1135 Therapy Plan Review/Discharge Plan (OT) Anticipated Discharge Disposition (OT) [facility]entiary facility -MR Row Name 08/29/24 1135 Vital Signs O2 Delivery Pre Treatment room air -MR O2 Delivery Intra Treatment room air -MR O2 Delivery Post Treatment room air -MR Pre Patient Position Supine -MR Intra Patient Position Standing -MR Post Patient Position Sitting -MR Row Name 08/29/24 1135 Positioning and Restraints Pre-Treatment Position in bed -MR Post Treatment Position chair -MR In Chair with PT;sitting -MR User Turner (r) = Recorded By, (t) = Taken By, (c) = Cosigned By Initials Name Provider Type Gigi Tisha, BERNICE Occupational Therapist Outcome Measures Row Name 08/29/24 1136 How much help from another is currently needed... Putting on and taking off regular lower body clothing? 1 -MR Bathing (including washing, rinsing, and drying) 2 -MR Toileting (which includes using toilet bed farrell or urinal) 1 -MR Putting on and taking off regular upper body clothing 3 -MR Taking care of personal grooming (such as brushing teeth) 3 -MR Eating meals 3 -MR AM-PAC 6 Clicks Score (OT) 13 -MR Row Name 08/29/24 113 Functional Assessment Outcome Measure Options AM-PAC 6 Clicks Daily Activity (OT) -MR User Turner (r) = Recorded By, (t) = Taken By, (c) = Cosigned By Initials Name Provider Type Tisha PiersonBERNICE Occupational Therapist Occupational Therapy Education Title: PT OT [employer] Therapies (In Progress) Topic: Occupational Therapy (In Progress) Point: ADL training (In Progress) Learning Progress Summary Patient Acceptance, E, NR by MR at 08/29/2024 1136 Acceptance, E, NR by at 08/28/2024 1533 Point: Precautions (In Progress) Learning Progress Summary Patient Acceptance, E, NR by MR at 08/29/2024 1136 Acceptance, E, NR by at 08/28/2024 1533 Point: Body mechanics (In Progress) Learning Progress Summary Patient Acceptance, E, NR by MR at 08/29/2024 1136 Acceptance, E, NR by at 08/28/2024 1533 User Turner Initials Effective Dates Name Provider Type Discipline MR 12/25/21 - Tisha Yu, OT Occupational Therapist OT 07/19/24 - Nevin Larsen OT Occupational Therapist OT OT Recommendation and Plan Plan of Care Review Plan of Care Reviewed With: patient Progress: no change Outcome Evaluation: Patient demonstrated improvements w/ activity tolerance, good effort noted w/ grooming tasks. Pt continues to be below her functional baseline warranting continuation of skilled OT services. Continue per current POC as able. Time Calculation: Time Calculation- OT Row Name 08/29/24 1136 Time Calculation- OT OT Start Time 1115 -MR OT Received On 08/29/24 -MR Timed Charges 52451 - OT Therapeutic Activity Minutes 5 -MR 25287 - OT Self Care/Mgmt Minutes 5 -MR Total Minutes Timed Charges Total Minutes 10 -MR Total Minutes 10 -MR User Turner (r) = Recorded By, (t) = Taken By, (c) = Cosigned By Initials Name Provider Type Tisha Yu OT Occupational Therapist Therapy Charges for Today Code Description Service Date Service Provider Modifiers Qty [id number] OT THERAPEUTIC ACT EA 15 MIN 08/29/2024 Tisha Yu OT GO 1 Tisha Yu OT 08/29/2024 * Therapy Treatment Note - Nicole Urias, PT - 08/29/2024 11:15 AM EDT Images from the original note were not included. Patient Name: Lorin Raymundo : 1945 Today's Date: 08/29/2024 Admit Date: 08/27/2024 Visit Dx: ICD-10-CM ICD-9-CM 1. Fall in home, initial encounter W19.XXXA E888.9 Y92.009 E849.0 2. Closed nondisplaced fracture of left acetabulum, unspecified portion of acetabulum, initial encounter S32.402A 808.0 3. Inability to bear weight R26.89 V49.89 Patient Active Problem List Diagnosis Insomnia Generalized anxiety disorder Gastroesophageal reflux disease Vitamin D deficiency Osteoporosis Peripheral neuropathy Kidney disease, chronic, stage III (GFR 30-59 ml/min) Overflow incontinence Colon cancer Moderate malnutrition Hip fracture Closed nondisplaced fracture of left acetabulum Past Medical History: Diagnosis Date Anxiety Arthritis Bipolar 1 disorder Cancer Depression Fibromyalgia GERD (gastroesophageal reflux disease) Joint pain localized in the knee Kidney infection Normal routine history and physical examination Seizures Past Surgical History: Procedure Laterality Date COLECTOMY PARTIAL / TOTAL N/A Partial COLON SURGERY 1994 HIP TROCHANTERIC NAILING WITH INTRAMEDULLARY HIP SCREW Left 04/21/2017 Procedure: HIP TROCANTERIC NAILING WITH INTRAMEDULLARY HIP SCREW LEFT Debridement of stage 4 decubitus ulcers x 2 with placement of wound vac to left hip; Surgeon: Silver Denny MD; Location: [facility]; Service: KNEE ARTHROSCOPY Right General Information Row Name 08/29/24 1138 Physical Therapy Time and Intention Document Type therapy note (daily note) -MI Mode of Treatment physical therapy;co-treatment -MI Row Name 08/29/24 1138 General Information Patient Profile Reviewed yes -MI Existing Precautions/Restrictions fall;partial weight bearing;left;seizures;other (see comments) L acetabular fx, pwb -MI Row Name 08/29/24 1138 Cognition Orientation Status (Cognition) oriented x 3 -MI Row Name 08/29/24 1138 Safety Issues/Impairments Affecting Functional Mobility Impairments Affecting Function (Mobility) balance;strength;endurance/activity tolerance;pain;range of motion (ROM);motor control;sensation/sensory awareness -MI Comment, Safety Issues/Impairments (Mobility) alert, following commands -MI User Turner (r) = Recorded By, (t) = Taken By, (c) = Cosigned By Initials Name Provider Type MI Nicole Urias PT Physical Therapist Mobility Row Name 08/29/24 1139 Bed Mobility Bed Mobility supine-sit;scooting/bridging -MI Scooting/Bridging Cosmos (Bed Mobility) minimum assist (75% patient effort);moderate assist (50% patient effort) -MI Supine-Sit Cosmos (Bed Mobility) verbal cues;minimum assist (75% patient effort) -MI Assistive Device (Bed Mobility) head of bed elevated;bed rails;repositioning sheet -MI Comment, (Bed Mobility) worked on getting up to EOB with VC for sequencing. Able to move legs over edge and reach for bed rail. Assistance needed to scoot forward which required alot of cueing -MI Row Name 08/29/24 113 Transfers Comment, (Transfers) STS from EOb with VC for hand placement.. Demonstrated slow, careful transfer into standing -[facility] Name 08/29/24 113 Bed-Chair Transfer Bed-Chair Cosmos (Transfers) verbal cues;minimum assist (75% patient effort);2 person assist -MI Assistive Device (Bed-Chair Transfers) walker, front-wheeled -MI Row Name 08/29/24 1139 Sit-Stand Transfer Sit-Stand Cosmos (Transfers) verbal cues;minimum assist (75% patient effort);1 person to manage equipment -MI Assistive Device (Sit-Stand Transfers) walker, front-wheeled -MI Row Name 08/29/24 1139 Gait/Stairs (Locomotion) Cosmos Level (Gait) 1 person assist;1 person to manage equipment;contact guard;verbal cues -MI Assistive Device (Gait) walker, front-wheeled -MI Distance in Feet (Gait) 3 -MI Deviations/Abnormal Patterns (Gait) left sided deviations;antalgic;stride length decreased;weight shifting decreased;gait speed decreased -MI Bilateral Gait Deviations forward flexed posture -MI Comment, (Gait/Stairs) Gt training limited to transfer with walker. Cues for sequencing steping . Encouraged upright posture and pushing into walker to off load L leg. Some assistance needed to control walker on turns. Further ambuilation deferred due to inability to sustaing PWB for longer distance -[facility] Name 08/29/24 1139 Mobility Extremity Weight-bearing Status left lower extremity -MI Left Lower Extremity (Weight-bearing Status) partial weight-bearing (PWB) -MI User Turner (r) = Recorded By, (t) = Taken By, (c) = Cosigned By Initials Name Provider Type MI Nicole Urias, PT Physical Therapist Obj/Interventions [facility] Name 08/29/24 1144 Motor Skills Therapeutic Exercise hip;knee;ankle -[facility] 08/29/24 1144 Hip (Therapeutic Exercise) Hip (Therapeutic Exercise) AAROM (active assistive range of motion) -MI Hip AAROM (Therapeutic Exercise) left;flexion;extension;10 repetitions;supine -[facility] 08/29/24 1144 Knee (Therapeutic Exercise) Knee (Therapeutic Exercise) AROM (active range of motion) -MI Knee Isometrics (Therapeutic Exercise) bilateral;10 repetitions;quad sets -MI Knee Strengthening (Therapeutic Exercise) bilateral;flexion;extension;LAQ (long arc quad);10 repetitions;2 sets -[facility] Name 08/29/24 1144 Ankle (Therapeutic Exercise) Ankle (Therapeutic Exercise) AROM (active range of motion) -MI Ankle AROM (Therapeutic Exercise) bilateral;dorsiflexion;plantarflexion;10 repetitions -[facility] Name 08/29/24 1144 Balance Balance Assessment standing dynamic balance -MI Dynamic Standing Balance 1-person assist;1 person to manage equipment;minimal assist -MI Position/Device Used, Standing Balance supported;walker, rolling -MI Comment, Balance no lob -MI User Turner (r) = Recorded By, (t) = Taken By, (c) = Cosigned By Initials Name Provider Type Nicole Ni PT Physical Therapist Goals/Plan No documentation. Clinical Impression Row Name 08/29/24 1147 Pain Pain Location hip -MI Pain Side/Orientation left -MI Pain Management Interventions positioning techniques utilized -MI Response to Pain Interventions functional ability unchanged -[facility] Name 08/29/24 1147 Pain Scale: FACES Pre/Post-Treatment Pain: FACES Scale, Pretreatment 2-->hurts little bit -MI Posttreatment Pain Rating 4-->hurts little more -MI Row Name 08/29/24 1147 Plan of Care Review Plan of Care Reviewed With patient -MI Progress improving -MI Outcome Evaluation Patient with better pain control today and able to control her waker to get to chair. Recommend also working on w/c transfers and propulsion. -[facility] Name 08/29/24 1147 Therapy Assessment/Plan (PT) Patient/Family Therapy Goals Statement (PT) decrease pain -MI Rehab Potential (PT) good -MI Criteria for Skilled Interventions Met (PT) yes;skilled treatment is necessary;meets criteria -MI Therapy Frequency (PT) daily -MI Row Name 08/29/24 1147 Positioning and Restraints Pre-Treatment Position in bed -MI Post Treatment Position chair -MI In Chair notified nsg;reclined;sitting;call light within reach;encouraged to call for assist -MI User Turner (r) = Recorded By, (t) = Taken By, (c) = Cosigned By Initials Name Provider Type MI Nicole Urias PT Physical Therapist Outcome Measures Row Name 08/29/24 1149 How much help from another person do you currently need... Turning from your back to your side while in flat bed without using bedrails? 3 -SC Moving from lying on back to sitting on the side of a flat bed without bedrails? 3 -SC Moving to and from a bed to a chair (including a wheelchair)? 3 -SC Standing up from a chair using your arms (e.g., wheelchair, bedside chair)? 3 -SC Climbing 3-5 steps with a railing? 2 -SC To walk in hospital room? 3 -SC AM-PAC 6 Clicks Score (PT) 17 -MI Highest Level of Mobility Goal Stand (1 or More Minutes)-5 -MI Row Name 08/29/24 1149 08/29/24 1136 Functional Assessment Outcome Measure Options AM-PAC 6 Clicks Basic Mobility (PT) -MI AM-PAC 6 Clicks Daily Activity (OT)-MR User Turner (r) = Recorded By, (t) = Taken By, (c) = Cosigned By Initials Name Provider Type MI Nicole Urias, PT Physical Therapist Tisha Pierson, OT Occupational Therapist Physical Therapy Education Title: PT OT [employer] Therapies (In Progress) Topic: Physical Therapy (Done) Point: Mobility training (Done) Learning Progress Summary Patient Eager, E, VU by MI at 08/29/2024 115 Comment: reviewed HEP Acceptance, E,D, VU,NR by LR at 08/28/2024 1010 Comment: Educated on precautions, partial weight bearing status, LE HEP, benefits of mobility and being OOB, correct supine to sit t/f technique, correct sit<->stand t/f technique, correct bed to chair t/f technique, and progression of POC. Point: Home exercise program (Done) Learning Progress Summary Patient Eager, E, VU by MI at 08/29/2024 1150 Comment: reviewed HEP Acceptance, E,D, VU,NR by LR at 08/28/2024 1010 Comment: Educated on precautions, partial weight bearing status, LE HEP, benefits of mobility and being OOB, correct supine to sit t/f technique, correct sit<->stand t/f technique, correct bed to chair t/f technique, and progression of POC. Point: Body mechanics (Done) Learning Progress Summary Patient Eager, E, VU by MI at 08/29/2024 1150 Comment: reviewed HEP Acceptance, E,D, VU,NR by LR at 08/28/2024 1010 Comment: Educated on precautions, partial weight bearing status, LE HEP, benefits of mobility and being OOB, correct supine to sit t/f technique, correct sit<->stand t/f technique, correct bed to chair t/f technique, and progression of POC. Point: Precautions (Done) Learning Progress Summary Patient Eager, E, VU by MI at 08/29/2024 1150 Comment: reviewed HEP Acceptance, E,D, VU,NR by LR at 08/28/2024 1010 Comment: Educated on precautions, partial weight bearing status, LE HEP, benefits of mobility and being OOB, correct supine to sit t/f technique, correct sit<->stand t/f technique, correct bed to chair t/f technique, and progression of POC. User Turner Initials Effective Dates Name Provider Type Discipline MI 05/08/22 - Nicole Urias PT Physical Therapist PT LR 05/08/22 - Susan Guerrero PT Physical Therapist PT PT Recommendation and Plan Progress: improving Outcome Evaluation: Patient with better pain control today and able to control her waker to get to chair. Recommend also working on w/c transfers and propulsion. Time Calculation: PT Charges Row Name 08/29/24 1115 Time Calculation Start Time 1115 -SC PT Received On 08/29/24 -MI PT Goal Re-Cert Due Date 09/07/24 -MI Timed Charges 45662 - PT Therapeutic Exercise Minutes 5 -SC 39114 - Gait Training Minutes 5 -SC Total Minutes Timed Charges Total Minutes 10 -SC Total Minutes 10 -SC User Turner (r) = Recorded By, (t) = Taken By, (c) = Cosigned By Initials Name Provider Type MI Nicole Urias, PT Physical Therapist Therapy Charges for Today Code Description Service Date Service Provider Modifiers Qty [id number] HC PT THER PROC EA 15 MIN 08/29/2024 Nicole Urias PT GP 1 PT G-Codes Outcome Measure Options: AM-PAC 6 Clicks Basic Mobility (PT) AM-PAC 6 Clicks Score (PT): 17 AM-PAC 6 Clicks Score (OT): 13 PT Discharge Summary Anticipated Discharge Disposition (PT): [facility] Nicole Urias PT 08/29/2024 * Case Management/Social Work - Bette Leonardo, RN - 08/29/2024 9:47 AM EDT Continued Stay Note [facility] Patient Name: Lorin Raymundo Today's Date: 08/29/2024 Admit Date: 08/27/2024 Plan: SNF Discharge Plan Row Name 08/29/24 0947 Plan Plan Comments CM spoke with pts daughter who has requested a referral to [facility]. This was made. If accepted pt will need insurance precert. CM to follow Final Discharge Disposition Code 03 - penitentiary facility (SNF) Discharge Codes No documentation. Expected Discharge Date and Time Expected Discharge Date Expected Discharge Time August 29, 2024 Bette Leonardo RN * Therapy Evaluation - Nevin Larsen OT - 08/28/2024 2:59 PM EDT Images from the original note were not included. Patient Name: Lorin Raymundo : 1945 Today's Date: 08/28/2024 Admit Date: 08/27/2024 Visit Dx: ICD-10-CM ICD-9-CM 1. Fall in home, initial encounter W19.XXXA E888.9 Y92.009 E849.0 2. Closed nondisplaced fracture of left acetabulum, unspecified portion of acetabulum, initial encounter S32.402A 808.0 3. Inability to bear weight R26.89 V49.89 Patient Active Problem List Diagnosis Insomnia Generalized anxiety disorder Gastroesophageal reflux disease Vitamin D deficiency Osteoporosis Peripheral neuropathy Kidney disease, chronic, stage III (GFR 30-59 ml/min) Overflow incontinence Colon cancer Moderate malnutrition Hip fracture Closed nondisplaced fracture of left acetabulum Past Medical History: Diagnosis Date Anxiety Arthritis Bipolar 1 disorder Cancer Depression Fibromyalgia GERD (gastroesophageal reflux disease) Joint pain localized in the knee Kidney infection Normal routine history and physical examination Seizures Past Surgical History: Procedure Laterality Date COLECTOMY PARTIAL / TOTAL N/A Partial COLON SURGERY 1994 HIP TROCHANTERIC NAILING WITH INTRAMEDULLARY HIP SCREW Left 04/21/2017 Procedure: HIP TROCANTERIC NAILING WITH INTRAMEDULLARY HIP SCREW LEFT Debridement of stage 4 decubitus ulcers x 2 with placement of wound vac to left hip; Surgeon: Silver Denny MD; Location: [facility]; Service: KNEE ARTHROSCOPY Right General Information Row Name 08/28/24 1519 OT Time and Intention Document Type evaluation -SA Mode of Treatment occupational therapy -SA Row Name 08/28/24 1519 General Information Patient Profile Reviewed yes - Prior Level of Function independent:;all household mobility;gait;transfer;bed mobility;ADL's Independent with rollator, w/c for long distances - Existing Precautions/Restrictions fall;partial weight bearing;left;seizures;other (see comments) L acetabulum fx s/p fall, partial/protected weight bearing L LE - Barriers to Rehab medically complex - Row Name 08/28/24 1519 Living Environment Current Living Arrangements independent living facility - People in Home alone - Row Name 08/28/24 1519 Home Main Entrance Number of Stairs, Main Entrance none - Row Name 08/28/24 1519 Stairs Within Home, Primary Number of Stairs, Within Home, Primary none - Row Name 08/28/24 151 Cognition Orientation Status (Cognition) oriented x 3 - Row Name 08/28/24 151 Safety Issues/Impairments Affecting Functional Mobility Safety Issues Affecting Function (Mobility) awareness of need for assistance;insight into deficits/self-awareness;positioning of assistive device;safety precaution awareness;safety precautions follow- through/compliance;sequencing abilities - Impairments Affecting Function (Mobility) balance;strength;endurance/activity tolerance;pain;range of motion (ROM);motor control;sensation/sensory awareness - User Turner (r) = Recorded By, (t) = Taken By, (c) = Cosigned By Initials Name Provider Type Nevin Cisneros OT Occupational Therapist Mobility/ADL's Row Name 08/28/24 1521 Bed Mobility Bed Mobility rolling right - Rolling Right Cosmos (Bed Mobility) verbal cues;moderate assist (50% patient effort) - Assistive Device (Bed Mobility) bed rails - Row Name 08/28/24 152 Transfers Comment, (Transfers) Pt declined transfers at this time, pt reported too fatigued after sitting in chair so long, also reported soreness from sitting in chair; pt also on bed farrell upon OT arrival and had not yet had a bowel movement; pt agreeable to rolling right to reposition bed farrell for comfort - Row Name 08/28/24 1521 Functional Mobility Patient was able to Ambulate no, other medical factors prevent ambulation - Row Name 08/28/24 1521 Mobility Extremity Weight-bearing Status left lower extremity - Left Lower Extremity (Weight-bearing Status) partial weight-bearing (PWB);other (see comments) partial/protected weight bearing - User Turner (r) = Recorded By, (t) = Taken By, (c) = Cosigned By Initials Name Provider Type Nevin Cisneros OT Occupational Therapist Obj/Interventions Row Name 08/28/24 1525 08/28/24 1523 Sensory Assessment (Somatosensory) Sensory Assessment (Somatosensory) sensation intact -SA -- -SA Row Name 08/28/24 1525 08/28/24 1523 Vision Assessment/Intervention Visual Impairment/Limitations WFL -SA -- -SA Row Name 08/28/24 1525 08/28/24 1523 Range of Motion Comprehensive General Range of Motion bilateral upper extremity ROM WNL -SA -- - Row Name 08/28/24 1525 08/28/24 1523 Strength Comprehensive (MMT) Comment, General Manual Muscle Testing (MMT) Assessment BUE grossly at least 3/5 throughout as demonstrated with functional movement -SA -- - Row Name 08/28/24 1525 Shoulder (Therapeutic Exercise) Shoulder (Therapeutic Exercise) AROM (active range of motion) - Shoulder AROM (Therapeutic Exercise) bilateral;flexion;extension;scapular elevation;10 repetitions - Row Name 08/28/24 152 Elbow/Forearm (Therapeutic Exercise) Elbow/Forearm (Therapeutic Exercise) AROM (active range of motion) - Elbow/Forearm AROM (Therapeutic Exercise) bilateral;flexion;extension;10 repetitions -[facility] Name 08/28/24 1525 Motor Skills Therapeutic Exercise shoulder;elbow/forearm - User Turner (r) = Recorded By, (t) = Taken By, (c) = Cosigned By Initials Name Provider Type Nevin Cisneros OT Occupational Therapist Goals/Plan Row Name 08/28/24 153 Bed Mobility Goal 1 (OT) Activity/Assistive Device (Bed Mobility Goal 1, OT) supine to sit -SA Cosmos Level/Cues Needed (Bed Mobility Goal 1, OT) standby assist -SA Time Frame (Bed Mobility Goal 1, OT) ferry terminal supervisor goal (LTG);10 days -SA Progress/Outcomes (Bed Mobility Goal 1, OT) new goal - Row Name 08/28/24 153 Transfer Goal 1 (OT) Activity/Assistive Device (Transfer Goal 1, OT) [id number]/[id number] -SA Cosmos Level/Cues Needed (Transfer Goal 1, OT) minimum assist (75% or more patient effort) -SA Time Frame (Transfer Goal 1, OT) long-term goal (LTG);10 days -SA Progress/Outcome (Transfer Goal 1, OT) new goal -SA Row Name 08/28/24 153 Dressing Goal 1 (OT) Activity/Device (Dressing Goal 1, OT) lower body dressing -SA Cosmos/Cues Needed (Dressing Goal 1, OT) minimum assist (75% or more patient effort) -SA Time Frame (Dressing Goal 1, OT) long-term goal (LTG);10 days -SA Progress/Outcome (Dressing Goal 1, OT) new goal -SA Row Name 08/28/241530 Grooming Goal 1 (OT) Activity/Device (Grooming Goal 1, OT) hair care;wash face, hands;oral care;other (see comments) Sitting EOB -SA Cosmos (Grooming Goal 1, OT) set-up required -SA Time Frame (Grooming Goal 1, OT) short term goal (STG);5 days -SA Progress/Outcome (Grooming Goal 1, OT) new goal -SA Row Name 08/28/24 153 Therapy Assessment/Plan (OT) Planned Therapy Interventions (OT) activity tolerance training;adaptive equipment training;functional balance retraining;occupation/activity based interventions;patient/caregiver education/training;ROM/therapeutic exercise;strengthening exercise;transfer/mobility retraining -SA User Turner (r) = Recorded By, (t) = Taken By, (c) = Cosigned By Initials Name Provider Type SA Nevin Larsen, OT Occupational Therapist Clinical Impression Row Name 08/28/24 1527 08/28/24 1524 Pain Assessment Pretreatment Pain Rating 0/10 - no pain -SA 0/10 - no pain Reported no pain at rest, general soreness LLE after sitting up in chair -SA Posttreatment Pain Rating 0/10 - no pain -SA 0/10 - no pain -SA Row Name 08/28/24 1527 08/28/24 1524 Plan of Care Review Plan of Care Reviewed With patient -SA patient -SA Progress no change -SA no change -SA Outcome Evaluation OT evaluation complete. Pt declined OOB mobility secondary to fatigue and on bedpan at time of OT arrival. Pt did agree to roll to R 1x for better positioning of bed farrell and was able to roll with Mod A and use of bed rails. Pt performed BUE AROM exercises without difficulty. Pt presents below baseline level secondary to weakness, decreased activity tolerance, impaired balance,and decreased independence with ADLs and fxnl mobility and would benefit from skilled IPOT servicesto improve fxnl status. OT recommends SNF at discharge. - -- Row Name 08/28/24 1527 Therapy Assessment/Plan (OT) Patient/Family Therapy Goal Statement (OT) Return to PLOF - Rehab Potential (OT) good - Criteria for Skilled Therapeutic Interventions Met (OT) yes;meets criteria;skilled treatment is necessary - Therapy Frequency (OT) daily - Predicted Duration of Therapy Intervention (OT) 10 days - Row Name 08/28/24 1527 Therapy Plan Review/Discharge Plan (OT) Anticipated Discharge Disposition (OT) [facility] Name 08/28/24 1527 Vital Signs Pre Systolic BP Rehab 122 -SA Pre Treatment Diastolic BP 69 -SA Pre SpO2 (%) 95 -SA O2 Delivery Pre Treatment room air - Pre Patient Position Supine - Row Name 08/28/24 1527 Positioning and Restraints Pre-Treatment Position in bed -SA Post Treatment Position bed -SA In Bed notified nsg;supine;fowlers;call light within reach;encouraged to call for assist;exit alarmon - User Turner (r) = Recorded By, (t) = Taken By, (c) = Cosigned By Initials Name Provider Type SA Nevin Larsen, OT Occupational Therapist Outcome Measures Row Name 08/28/24 1532 How much help from another is currently needed... Putting on and taking off regular lower body clothing? 1 -SA Bathing (including washing, rinsing, and drying) 2 -SA Toileting (which includes using toilet bed farrell or urinal) 1 -SA Putting on and taking off regular upper body clothing 3 -SA Taking care of personal grooming (such as brushing teeth) 3 -SA Eating meals 3 -SA AM-PAC 6 Clicks Score (OT) 13 -SA Row Name 08/28/24 1010 08/28/24 0805 How much help from another person do you currently need... Turning from your back to your side while in flat bed without using bedrails? 3 -LR 3 -MK Moving from lying on back to sitting on the side of a flat bed without bedrails? 3 -LR 3 -MK Moving to and from a bed to a chair (including a wheelchair)? 2 -LR 2 -MK Standing up from a chair using your arms (e.g., wheelchair, bedside chair)? 3 - LR 2 -MK Climbing 3-5 steps with a railing? 1 -LR 1 -MK To walk in hospital room? 1 -LR 1 -MK AM-PAC 6 Clicks Score (PT) 13 -LR 12 -MK Highest Level of Mobility Goal Move to Chair/Commode-4 -LR Move to Chair/Commode-4 -MK Row Name 08/28/24 1532 08/28/24 1010 Functional Assessment Outcome Measure Options AM-PAC 6 Clicks Daily Activity (OT) - AM-PAC 6 Clicks Basic Mobility (PT)- User Turner (r) = Recorded By, (t) = Taken By, (c) = Cosigned By Initials Name Provider Type LR Susan Guerrero, PT Physical Therapist Chelsea Frye RN Registered Nurse Nevin Larsen, OT Occupational Therapist Occupational Therapy Education Title: PT OT [employer] Therapies (In Progress) Topic: Occupational Therapy (In Progress) Point: ADL training (In Progress) Learning Progress Summary Patient Acceptance, E, NR by at 08/28/2024 1533 Point: Precautions (In Progress) Learning Progress Summary Patient Acceptance, E, NR by at 08/28/2024 1533 Point: Body mechanics (In Progress) Learning Progress Summary Patient Acceptance, E, NR by at 08/28/2024 1533 User Turner Initials Effective Dates Name Provider Type Discipline 07/19/24 - Nevin Larsen, OT Occupational Therapist OT OT Recommendation and Plan Planned Therapy Interventions (OT): activity tolerance training, adaptive equipment training, functional balance retraining, occupation/activity based interventions, patient/caregiver education/training, ROM/therapeutic exercise, strengthening exercise, transfer/mobility retraining Therapy Frequency (OT): daily Plan of Care Review Plan of Care Reviewed With: patient Progress: no change Outcome Evaluation: OT evaluation complete. Pt declined OOB mobility secondary to fatigue and on bed farrell at time of OT arrival. Pt did agree to roll to R 1x for better positioning of bed farrell and was able to roll with Mod A and use of bed rails. Pt performed BUE AROM exercises without difficulty. Ptpresents below baseline level secondary to weakness, decreased activity tolerance, impaired balance, and decreased independence with ADLs and fxnl mobility and would benefit from skilled IPOT services to improve fxnl status. OT recommends SNF at discharge. Time Calculation: Evaluation Complexity (OT) Review Occupational Profile/Medical/Therapy History Complexity: expanded/moderate complexity Assessment, Occupational Performance/Identification of Deficit Complexity: 3-5 performance deficits Clinical Decision Making Complexity (OT): detailed assessment/moderate complexity Overall Complexity of Evaluation (OT): moderate complexity Time Calculation- OT Row Name 08/28/24 1533 Time Calculation- OT OT Start Time 1459 -SA OT Received On 08/28/24 - OT Goal Re-Cert Due Date 09/07/24 - Untimed Charges OT Eval/Re-eval Minutes 40 -SA Total Minutes Untimed Charges Total Minutes 40 -SA Total Minutes 40 -SA User Turner (r) = Recorded By, (t) = Taken By, (c) = Cosigned By Initials Name Provider Type Nevin Larsen OT Occupational Therapist Therapy Charges for Today Code Description Service Date Service Provider Modifiers Qty [id number] OT EVAL MOD COMPLEXITY 3 08/28/2024 Nevin Larsen OT GO 1 Nevin Larsen OT 08/28/2024 * Case Management/Social Work - Bette Leonardo RN - 08/28/2024 10:47 AM EDT Continued Stay Note [facility] Patient Name: Lorin Raymundo Today's Date: 08/28/2024 Admit Date: 08/27/2024 Plan: SNF Discharge Plan Row Name 08/28/24 1045 Plan Plan SNF Patient/Family in Agreement with Plan yes Plan Comments Pt reports she lives at [facility] [place] in their independent living. She use a rollingwalker for mobility and has a wheelchair for long distances. She reports she was independent with ADLs prior to admit. Pt is followed by her PCP and has drug coverage. At this time pt reports she is i nterested in a short term rehab in [place] prior to returning to her independent living. Once therapy notes are available CM will make referrals. CM to follow Discharge Codes No documentation. Expected Discharge Date and Time Expected Discharge Date Expected Discharge Time August 29, 2024 Bette Leonardo RN * Therapy Evaluation - Guerrero Susan Kaila, PT - 08/28/2024 10:10 AM EDT Images from the original note were not included. Patient Name: Lorin Raymundo : 1945 Today's Date: 08/28/2024 Admit Date: 08/27/2024 Visit Dx: ICD-10-CM ICD-9-CM 1. Fall in home, initial encounter W19.XXXA E888.9 Y92.009 E849.0 2. Closed nondisplaced fracture of left acetabulum, unspecified portion of acetabulum, initial encounter S32.402A 808.0 3. Inability to bear weight R26.89 V49.89 Patient Active Problem List Diagnosis Insomnia Generalized anxiety disorder Gastroesophageal reflux disease Vitamin D deficiency Osteoporosis Peripheral neuropathy Kidney disease, chronic, stage III (GFR 30-59 ml/min) Overflow incontinence Colon cancer Moderate malnutrition Hip fracture Closed nondisplaced fracture of left acetabulum Past Medical History: Diagnosis Date Anxiety Arthritis Bipolar 1 disorder Cancer Depression Fibromyalgia GERD (gastroesophageal reflux disease) Joint pain localized in the knee Kidney infection Normal routine history and physical examination Seizures Past Surgical History: Procedure Laterality Date COLECTOMY PARTIAL / TOTAL N/A Partial COLON SURGERY 1994 HIP TROCHANTERIC NAILING WITH INTRAMEDULLARY HIP SCREW Left 04/21/2017 Procedure: HIP TROCANTERIC NAILING WITH INTRAMEDULLARY HIP SCREW LEFT Debridement of stage 4 decubitus ulcers x 2 with placement of wound vac to left hip; Surgeon: Silver Denny MD; Location: [facility]; Service: KNEE ARTHROSCOPY Right General Information Row Name 08/28/24 1010 Physical Therapy Time and Intention Document Type evaluation -LR Mode of Treatment physical therapy;individual therapy -LR Row Name 08/28/24 1010 General Information Patient Profile Reviewed yes -LR Prior Level of Function independent:;all household mobility;gait;transfer;bed mobility;ADL's ambulated independently with rollator, w/c for long distances -LR Existing Precautions/Restrictions fall;partial weight bearing;left;seizures;other (see comments) L acetabulum fx s/p fall, partial/protected weight bearing L LE -LR Barriers to Rehab none identified -LR Row Name 08/28/24 1010 Living Environment Current Living Arrangements independent living facility states she has 2 call buttons in room and one on her phone if she needs assistance -LR People in Home alone -LR Row Name 08/28/24 1010 Home Main Entrance Number of Stairs, Main Entrance none -LR Row Name 08/28/24 1010 Stairs Within Home, Primary Number of Stairs, Within Home, Primary none -LR Row Name 08/28/24 1010 Cognition Orientation Status (Cognition) oriented x 3;other (see comments) required increased time for current month and year -LR Row Name 08/28/24 1010 Safety Issues/Impairments Affecting Functional Mobility Safety Issues Affecting Function (Mobility) awareness of need for assistance;insight into deficits/self-awareness;safety precautions follow- through/compliance;safety precaution awareness;positioning of assistive device;sequencing abilities -LR Impairments Affecting Function (Mobility) balance;strength;endurance/activity tolerance;pain;range of motion (ROM);motor control;sensation/sensory awareness -LR User Turner (r) = Recorded By, (t) = Taken By, (c) = Cosigned By Initials Name Provider Type LR Susan Guerrero, PT Physical Therapist Mobility Row Name 08/28/24 1010 Bed Mobility Bed Mobility supine-sit;scooting/bridging -LR Scooting/Bridging Cosmos (Bed Mobility) verbal cues;moderate assist (50% patient effort) -LR Supine-Sit Cosmos (Bed Mobility) verbal cues;minimum assist (75% patient effort) -LR Assistive Device (Bed Mobility) head of bed elevated;bed rails;other (see comments);repositioning sheet -LR Comment, (Bed Mobility) Verbal cues to move LEs towards EOB and to push up from bed to raise trunk into sitting. Once in long sitting, patient had difficulty pushing from bed to scoot hips to get feet on floor. Required mod assist with draw sheet to scoot hips out to get feet on floor. Denied dizziness upon sitting up. -LR Row Name 08/28/24 1010 Transfers Comment, (Transfers) Verbal cues to push up from bed to stand and to reach back for chair to lower into sitting. Verbal cues to step L LE out before t/f for comfort and to keep R LE under her prior to t/f. Cues for limited weight bearing on L LE during t/f. Mild dizziness upon standing. PT demonstrated correct technique for forward ambulation prior to patient standing. Patient unable to adequately weight shift to take steps forward. Verbal cues for t/f to chair. Patient could only unweight R LEenough to pivot to chair. One small side step noted with R LE at the end. Limited weight bearing noted on L d/t pain and weight bearing restriction. -LR Row Name 08/28/24 1010 Bed-Chair Transfer Bed-Chair Cosmos (Transfers) verbal cues;minimum assist (75% patient effort);2 person assist -LR Assistive Device (Bed-Chair Transfers) walker, front-wheeled - Row Name 08/28/24 1010 Sit-Stand Transfer Sit-Stand Cosmos (Transfers) verbal cues;minimum assist (75% patient effort);1 person to manage equipment -LR Assistive Device (Sit-Stand Transfers) walker, front-wheeled - Row Name 08/28/24 1010 Gait/Stairs (Locomotion) Patient was able to Ambulate no, other medical factors prevent ambulation -LR Reason Patient was unable to Ambulate Uncontrolled Pain;Excessive Weakness -LR Cosmos Level (Stairs) not tested -LR Comment, (Gait/Stairs) Patient could not adequately weight shift and maintain PWB on L to attempt forward ambulation. -LR Row Name 08/28/24 1010 Mobility Extremity Weight-bearing Status left lower extremity -LR Left Lower Extremity (Weight-bearing Status) partial weight-bearing (PWB);other (see comments) partial/protected weigh bearing -LR User Turner (r) = Recorded By, (t) = Taken By, (c) = Cosigned By Initials Name Provider Type LR Susan Guerrero, PT Physical Therapist Obj/Interventions Row Name 08/28/24 1010 Range of Motion Comprehensive General Range of Motion lower extremity range of motion deficits identified -LR Row Name 08/28/24 1010 Strength Comprehensive (MMT) General Manual Muscle Testing (MMT) Assessment lower extremity strength deficits identified - Row Name 08/28/24 1010 Motor Skills Therapeutic Exercise ankle;hip;knee;other (see comments) cues for technique; min assist L hip abd, L heel slides -LR Row Name 08/28/24 1010 Hip (Therapeutic Exercise) Hip (Therapeutic Exercise) strengthening exercise;isometric exercises - Hip Isometrics (Therapeutic Exercise) bilateral;gluteal sets;sitting;10 repetitions -LR Hip Strengthening (Therapeutic Exercise) bilateral;aBduction;sitting;10 repetitions -LR Row Name 08/28/24 1010 Knee (Therapeutic Exercise) Knee (Therapeutic Exercise) strengthening exercise;isometric exercises - Knee Isometrics (Therapeutic Exercise) bilateral;quad sets;sitting;10 repetitions -LR Knee Strengthening (Therapeutic Exercise) bilateral;heel slides;sitting;10 repetitions -LR Row Name 08/28/24 1010 Ankle (Therapeutic Exercise) Ankle (Therapeutic Exercise) AROM (active range of motion) - Ankle AROM (Therapeutic Exercise) bilateral;dorsiflexion;plantarflexion;sitting;10 repetitions - Row Name 08/28/24 1010 Balance Balance Assessment sitting static balance;sitting dynamic balance;standing static balance;standing dynamic balance - Static Sitting Balance standby assist - Dynamic Sitting Balance contact guard -LR Position, Sitting Balance unsupported;sitting edge of bed -LR Static Standing Balance minimal assist;1 person to manage equipment -LR Dynamic Standing Balance minimal assist;2-person assist -LR Position/Device Used, Standing Balance supported;walker, rolling - Row Name 08/28/24 1010 Sensory Assessment (Somatosensory) Sensory Assessment (Somatosensory) LE sensation intact;other (see comments) patient denied numbness/tingling presently, reports neuropathy in feet at baseline, reported light touch was equal and intact upon assessment - Row Name 08/28/24 1010 General Lower Extremity Assessment (Range of Motion) Lower Extremity: Range of Motion RLE ROM WFL - Comment: Lower Extremity ROM L hip AROM impaired 15% d/t pain, L knee/ankle AROM WFL -LR Row Name 08/28/24 1010 Lower Extremity (Manual Muscle Testing) Lower Extremity: Manual Muscle Testing (MMT) other (see comments) - Comment, MMT: Lower Extremity L LE functionally 4-/5, R LE functionally 4/5 -LR User Turner (r) = Recorded By, (t) = Taken By, (c) = Cosigned By Initials Name Provider Type LR Susan Guerrero, PT Physical Therapist Goals/Plan Row Name 08/28/24 1010 Bed Mobility Goal 1 (PT) Activity/Assistive Device (Bed Mobility Goal 1, PT) sit to supine/supine to sit -LR Cosmos Level/Cues Needed (Bed Mobility Goal 1, PT) contact guard required -LR Time Frame (Bed Mobility Goal 1, PT) short term goal (STG);3 days -LR Progress/Outcomes (Bed Mobility Goal 1, PT) goal ongoing -LR Row Name 08/28/24 1010 Transfer Goal 1 (PT) Activity/Assistive Device (Transfer Goal 1, PT) [id number]-tx-[id number]/moint-dp-tzg;zuy-ch-azdpa/bgkkn-of-yjx-LR Cosmos Level/Cues Needed (Transfer Goal 1, PT) contact guard required -LR Time Frame (Transfer Goal 1, PT) ferry terminal supervisor goal (LTG);5 days -LR Progress/Outcome (Transfer Goal 1, PT) goal ongoing -LR Row Name 08/28/24 1010 Gait Training Goal 1 (PT) Activity/Assistive Device (Gait Training Goal 1, PT) gait (walking locomotion);walker, rolling -LR Cosmos Level (Gait Training Goal 1, PT) minimum assist (75% or more patient effort);other (see comments) x2 -LR Distance (Gait Training Goal 1, PT) 25 feet -LR Time Frame (Gait Training Goal 1, PT) ferry terminal supervisor goal (LTG);5 days -LR Progress/Outcome (Gait Training Goal 1, PT) goal ongoing -LR Row Name 08/28/24 1010 Therapy Assessment/Plan (PT) Planned Therapy Interventions (PT) balance training;bed mobility training;home exercise program;gait training;patient/family education;transfer training;strengthening;ROM (range of motion) -LR User Turner (r) = Recorded By, (t) = Taken By, (c) = Cosigned By Initials Name Provider Type LR Susan Guerrero, PT Physical Therapist Clinical Impression Row Name 08/28/24 1010 Pain Pretreatment Pain Rating 0/10 - no pain -LR Pain Location hip -LR Pain Side/Orientation left;lateral -LR Pain Management Interventions exercise or physical activity utilized;movement retraining implemented -LR Response to Pain Interventions activity level improved;mobility function improved;functional ability improved;activity participation with increased pain -LR Additional Documentation Pain Scale: FACES Pre/Post-Treatment (Group) -LR Row Name 08/28/24 1010 Pain Scale: FACES Pre/Post-Treatment Pain: FACES Scale, Pretreatment 0-->no hurt -LR Posttreatment Pain Rating 4-->hurts little more -LR Row Name 08/28/24 1010 Plan of Care Review Plan of Care Reviewed With patient -LR Progress improving -LR Outcome Evaluation Patient performed bed to chair t/f via pivoting on R LE, with use of RW and min assist x2, limited by pain and weakness. Patient was unable to adequately weight shift to attempt forward ambulation. Patient currently below functional baseline, demonstrating decreased functional mobility status, impaired balance, decreased endurance, and decreased strength/ROM. Will address thesedeficits to promote return to PLOF. Recommend SNF at d/c. -LR Row Name 08/28/24 1010 Therapy Assessment/Plan (PT) Patient/Family Therapy Goals Statement (PT) decrease pain, get better -LR Rehab Potential (PT) good -LR Criteria for Skilled Interventions Met (PT) yes;skilled treatment is necessary;meets criteria -LR Therapy Frequency (PT) daily -LR Predicted Duration of Therapy Intervention (PT) 5 days -LR Row Name 08/28/24 1010 Vital Signs Pre Systolic BP Rehab 107 -LR Pre Treatment Diastolic BP 63 -LR Intra Systolic BP Rehab 117 -LR Intra Treatment Diastolic BP 70 -LR Post Systolic BP Rehab 129 -LR Post Treatment Diastolic BP 69 -LR Pre Patient Position Supine -LR Intra Patient Position Sitting -LR Post Patient Position Sitting -LR Row Name 08/28/24 1010 Positioning and Restraints Pre-Treatment Position in bed -LR Post Treatment Position chair -LR In Chair notified nsg;reclined;sitting;call light within reach;encouraged to call for assist;exit alarm on;compression device;legs elevated;waffle cushion;on mechanical lift sling -LR User Turner (r) = Recorded By, (t) = Taken By, (c) = Cosigned By Initials Name Provider Type LR Susan Guerrero, PT Physical Therapist Outcome Measures Row Name 08/28/24 1010 08/28/24 0805 How much help from another person do you currently need... Turning from your back to your side while in flat bed without using bedrails? 3 -LR 3 -DJ Moving from lying on back to sitting on the side of a flat bed without bedrails? 3 -LR -- Moving to and from a bed to a chair (including a wheelchair)? 2 -LR -- Standing up from a chair using your arms (e.g., wheelchair, bedside chair)? 3 - LR -- Climbing 3-5 steps with a railing? 1 -LR -- To walk in hospital room? 1 -LR -- AM-PAC 6 Clicks Score (PT) 13 -LR -- Highest Level of Mobility Goal Move to Chair/Commode-4 -LR -- Row Name 08/28/24 1010 Functional Assessment Outcome Measure Options AM-PAC 6 Clicks Basic Mobility (PT) -LR User Turner (r) = Recorded By, (t) = Taken By, (c) = Cosigned By Initials Name Provider Type LR Susan Guerrero, PT Physical Therapist Be Collado, RN Registered Nurse Physical Therapy Education Title: PT OT [employer] Therapies (In Progress) Topic: Physical Therapy (Done) Point: Mobility training (Done) Learning Progress Summary Patient Acceptance, E,D, VU,NR by LR at 08/28/2024 1010 Comment: Educated on precautions, partial weight bearing status, LE HEP, benefits of mobility and being OOB, correct supine to sit t/f technique, correct sit<->stand t/f technique, correct bed to chair t/f technique, and progression of POC. Point: Home exercise program (Done) Learning Progress Summary Patient Acceptance, E,D, VU,NR by LR at 08/28/2024 1010 Comment: Educated on precautions, partial weight bearing status, LE HEP, benefits of mobility and being OOB, correct supine to sit t/f technique, correct sit<->stand t/f technique, correct bed to chair t/f technique, and progression of POC. Point: Body mechanics (Done) Learning Progress Summary Patient Acceptance, E,D, VU,NR by LR at 08/28/2024 1010 Comment: Educated on precautions, partial weight bearing status, LE HEP, benefits of mobility and being OOB, correct supine to sit t/f technique, correct sit<->stand t/f technique, correct bed to chair t/f technique, and progression of POC. Point: Precautions (Done) Learning Progress Summary Patient Acceptance, E,D, VU,NR by LR at 08/28/2024 1010 Comment: Educated on precautions, partial weight bearing status, LE HEP, benefits of mobility and being OOB, correct supine to sit t/f technique, correct sit<->stand t/f technique, correct bed to chair t/f technique, and progression of POC. User Turner Initials Effective Dates Name Provider Type Discipline LR 05/08/22 - Susan Guerrero, PT Physical Therapist PT PT Recommendation and Plan Planned Therapy Interventions (PT): balance training, bed mobility training, home exercise program,gait training, patient/family education, transfer training, strengthening, ROM (range of motion) Progress: improving Outcome Evaluation: Patient performed bed to chair t/f via pivoting on R LE, with use of RW and minassist x2, limited by pain and weakness. Patient was unable to adequately weight shift to attempt forward ambulation. Patient currently below functional baseline, demonstrating decreased functional mobility status, impaired balance, decreased endurance, and decreased strength/ROM. Will address these deficits to promote return to PLOF. Recommend SNF at d/c. Time Calculation: PT Evaluation Complexity History, PT Evaluation Complexity: 3 or more personal factors and/or comorbidities Examination of Body Systems (PT Eval Complexity): total of 3 or more elements Clinical Presentation (PT Evaluation Complexity): evolving Clinical Decision Making (PT Evaluation Complexity): moderate complexity Overall Complexity (PT Evaluation Complexity): moderate complexity PT Charges Row Name 08/28/24 1010 Time Calculation Start Time 1010 -LR PT Received On 08/28/24 -LR PT Goal Re-Cert Due Date 09/07/24 -LR Timed Charges 94503 - PT Therapeutic Exercise Minutes 10 -LR Untimed Charges PT Eval/Re-eval Minutes 60 -LR Total Minutes Timed Charges Total Minutes 10 -LR Untimed Charges Total Minutes 60 -LR Total Minutes 70 -LR User Turner (r) = Recorded By, (t) = Taken By, (c) = Cosigned By Initials Name Provider Type LR Susan Guerrero, PT Physical Therapist Therapy Charges for Today Code Description Service Date Service Provider Modifiers Qty [id number] PT THER PROC EA 15 MIN 08/28/2024 Susan Guerrero, PT GP 1 [id number] HC PT EVAL MOD COMPLEXITY 4 08/28/2024 Susan Guerrero, PT GP 1 [id number] HC PT THER SUPP EA 15 MIN 08/28/2024 Susan Guerrero, PT GP 3 PT G-Codes Outcome Measure Options: AM-PAC 6 Clicks Basic Mobility (PT) AM-PAC 6 Clicks Score (PT): 13 PT Discharge Summary Anticipated Discharge [facility]position [facility] Susan Guerrero, PT 08/28/2024 documented in this encounter Plan of Treatment Not on file documented as of this encounter Procedures Procedure Name Priority Date/Time Associated Diagnosis Comments CBC (NO DIFF) Urgent 09/02/2024 1:05 PM EDT MAGNESIUM Urgent 09/02/2024 1:05 PM EDT BASIC METABOLIC PANEL Urgent 09/02/2024 1:05 PM EDT CBC (NO DIFF) Urgent 09/01/2024 2:08 PM EDT MAGNESIUM Urgent 09/01/2024 2:08 PM EDT BASIC METABOLIC PANEL Urgent 09/01/2024 2:08 PM EDT CBC (NO DIFF) Urgent 08/31/2024 8:44 AM EDT MAGNESIUM Urgent 08/31/2024 8:44 AM EDT BASIC METABOLIC PANEL Urgent 08/31/2024 8:44 AM EDT CBC (NO DIFF) Urgent 08/30/2024 8:26 AM EDT MAGNESIUM Urgent 08/30/2024 8:26 AM EDT BASIC METABOLIC PANEL Urgent 08/30/2024 8:26 AM EDT CBC (NO DIFF) Urgent 08/29/2024 12:31 PM EDT MAGNESIUM Urgent 08/29/2024 12:31 PM EDT BASIC METABOLIC PANEL Urgent 08/29/2024 12:31 PM EDT CBC WITH AUTO DIFFERENTIAL Urgent 08/28/2024 7:10 AM EDT TSH Urgent 08/28/2024 7:10 AM EDT PHOSPHORUS Urgent 08/28/2024 7:10 AM EDT MAGNESIUM Urgent 08/28/2024 7:10 AM EDT COMPREHENSIVE METABOLIC PANEL Urgent 08/28/2024 7:10 AM EDT URINALYSIS, MICROSCOPIC ONLY STAT 08/28/2024 4:39 AM EDT URINALYSIS W/ MICROSCOPIC IF INDICATED (NO CULTURE) STAT 08/28/2024 4:39 AM EDT COMPREHENSIVE METABOLIC PANEL Urgent 08/27/2024 3:10 PM EDT CBC WITH AUTO DIFFERENTIAL STAT 08/27/2024 1:19 PM EDT CBC AND DIFFERENTIAL STAT 08/27/2024 1:[address] PELVIS WO CONTRAST STAT 08/27/2024 12:[address] HEAD WO CONTRAST STAT 08/27/2024 1 2:27 PM EDT ECG 12-LEAD STAT 08/27/2024 10:41 AM EDT XR CHEST 1 VW STAT 08/27/2024 10:37 AM EDT XR HIP W OR WO PELVIS 2-3 VIEW LEFT STAT 08/27/2024 9:58 AM EDT XR KNEE 1 OR 2 VW LEFT STAT 9:56 AM EDT SCANNED - TELEMETRY 08/27/2024 documented in this encounter Results * (ABNORMAL) CBC (No Diff) (09/02/2024 1:05 PM EDT) WBC 9.98 3.40 - 10.80 10*3/mm3 09/02/2024 1:23 PM EDT [facility] RBC 3.13(L) 3.77 - 5.28 10*6/mm3 09/02/2024 1:23 PM EDT [facility] Hemoglobin 9.3(L) 12.0 - 15.9 g/dL 09/02/2024 1:23 PM EDT [facility] Hematocrit 29.5(L) 34.0 - 46.6 % 09/02/2024 1:23 PM EDT [facility] MCV 94.2 79.0 - 97.0 fL 09/02/2024 1:23 PM EDT [facility] MCH 29.7 26.6 - 33.0 pg 09/02/2024 1:23 PM EDT [facility] MCHC 31.5 31.5 - 35.7 g/dL 09/02/2024 1:23 PM EDT [facility] RDW 15.1 12.3 - 15.4 % 09/02/2024 1:23 PM EDT [facility] RDW-SD 52.3 37.0 - 54.0 fl 09/02/2024 1:23 PM EDT [facility] MPV 9.5 6.0 - 12.0 fL 09/02/2024 1:23 PM EDT [facility] Platelets 326 140 - 450 10*3/mm3 09/02/2024 1:23 PM EDT [facility] Blood Venipuncture / Unknown 09/02/2024 1:05 PM EDT 09/02/2024 1:18 PM EDT us Luca Bell MD LAB BLOOD ORDERABLES Final R esult [facility]
[address] [place] [address], * (ABNORMAL) Basic Metabolic Panel (09/02/2024 1:05 PM EDT) Glucose 91 65 - 99 mg/dL 09/02/2024 1:39 PM EDT [facility] BUN 14.8 8.0 - 23.0 mg/dL 09/02/2024 1:39 PM EDT [facility] Creatinine 0.67 0.57 - 1.00 mg/dL 09/02/2024 1:39 PM EDT [facility] Sodium 139 136 - 145 mmol/L 09/02/2024 1:39 PM EDT [facility] Potassium 4.2 3.5 - 5.2 mmol/L 09/02/2024 1:39 PM EDT [facility] Chloride 102 98 - 107 mmol/L 09/02/2024 1:39 PM EDT [facility] CO2 28.0 22.0 - 29.0 mmol/L 09/02/2024 1:39 PM EDT [facility] Calcium 8.4(L) 8.6 - 10.5 mg/dL 09/02/2024 1:39 PM EDT [facility] BUN/Creatinine Ratio 22.1 7.0 - 25.0 09/02/2024 1:39 PM EDT [facility] Anion Gap 9.0 5.0 - 15.0 mmol/L 09/02/2024 1:39 PM EDT [facility] eGFR 87.9 >60.0 mL/min/1.7 3 09/02/2024 1:39 PM EDT [facility] Blood Venipuncture / Unknown 09/02/2024 1:05 PM EDT 09/02/2024 1:18 PM EDT Narrative [facility] - 09/02/2024 1:39 PM EDT GFR Categories in Chronic Kidney Disease (CKD) GFR Category GFR (mL/min/1.73) Interpretation G1 90 or greater Normal or high (1) G2 60-89 Mild decrease (1) G3a 45-59 Mild to moderate decrease G3b 30-44 Moderate to severe decrease G4 15-29 Severe decrease G5 14 or less Kidney failure (1)In the absence of evidence of kidney disease, neither GFR category G1 or G2 fulfill the criteria for CKD. eGFR calculation 2020 CKD-EPI creatinine equation, which does not include race as a factor Luca Bell MD LAB BLOOD ORDERABLES Final R esult Performing Organization Address City/[facility]/ZIP Co de Phone Number [facility]
[address] [place] [address], * Magnesium (09/02/2024 1:05 PM EDT) Magnesium 1.9 1.6 - 2.4 mg/dL 09/02/2024 1:39 PM EDT [facility] Blood Venipuncture / Unknown 09/02/2024 1:05 PM EDT 09/02/2024 1:18 PM EDT Luca Bell MD LAB BLOOD ORDERABLES Final R esult Performing Organization Address City/[facility]/ZIP Co de Phone Number [facility]
[address] [place] [address], * (ABNORMAL) CBC (No Diff) (09/01/2024 2:08 PM EDT) WBC 11.19(H) 3.40 - 10.80 10*3/mm3 09/01/2024 2:34 PM EDT [facility] RBC 3.07(L) 3.77 - 5.28 10*6/mm3 09/01/2024 2:34 PM EDT [facility] Hemoglobin 9.1(L) 12.0 - 15.9 g/dL 09/01/2024 2:34 PM EDT [facility] Hematocrit 28.9(L) 34.0 - 46.6 % 09/01/2024 2:34 PM EDT [facility] MCV 94.1 79.0 - 97.0 fL 09/01/2024 2:34 PM EDT [facility] MCH 29.6 26.6 - 33.0 pg 09/01/2024 2:34 PM EDT [facility] MCHC 31.5 31.5 - 35.7 g/dL 09/01/2024 2:34 PM EDT [facility] RDW 15.4 12.3 - 15.4 % 09/01/2024 2:34 PM EDT [facility] RDW-SD 52.7 37.0 - 54.0 fl 09/01/2024 2:34 PM EDT [facility] MPV 9.3 6.0 - 12.0 fL 09/01/2024 2:34 PM EDT [facility] Platelets 304 140 - 450 10*3/mm3 09/01/2024 2:34 PM EDT [facility] Blood Venipuncture / Unknown 09/01/2024 2:08 PM EDT 09/01/2024 2:20 PM EDT Luca Bell MD LAB BLOOD ORDERABLES Final R esult [facility]
[address] [place] [address], * (ABNORMAL) Basic Metabolic Panel (09/01/2024 2:08 PM EDT) Glucose 157(H) 65 - 99 mg/dL 09/01/2024 2:57 PM EDT [facility] BUN 16.7 8.0 - 23.0 mg/dL 09/01/2024 2:57 PM EDT [facility] Creatinine 1.00 0.57 - 1.00 mg/dL 09/01/2024 2:57 PM EDT [facility] Sodium 143 136 - 145 mmol/L 09/01/2024 2:57 PM EDT [facility] Potassium 4.1 3.5 - 5.2 mmol/L 09/01/2024 2:57 PM EDT [facility] Chloride 104 98 - 107 mmol/L 09/01/2024 2:57 PM EDT [facility] CO2 29.0 22.0 - 29.0 mmol/L 09/01/2024 2:57 PM EDT [facility] Calcium 7.9(L) 8.6 - 10.5 mg/dL 09/01/2024 2:57 PM EDT [facility] BUN/Creatinine Ratio 16.7 7.0 - 25.0 09/01/2024 2:57 PM EDT [facility] Anion Gap 10.0 5.0 - 15.0 mmol/L 09/01/2024 2:57 PM EDT [facility] eGFR 56.7(L) >60.0 mL/min/1.7 3 09/01/2024 2:57 PM EDT [facility] Blood Venipuncture / Unknown 09/01/2024 2:08 PM EDT 09/01/2024 2:20 PM EDT [facility] - 09/01/2024 2:57 PM EDT GFR Categories in Chronic Kidney Disease (CKD) GFR Category GFR (mL/min/1.73) Interpretation G1 90 or greater Normal or high (1) G2 60-89 Mild decrease (1) G3a 45-59 Mild to moderate decrease G3b 30-44 Moderate to severe decrease G4 15-29 Severe decrease G5 14 or less Kidney failure (1)In the absence of evidence of kidney disease, neither GFR category G1 or G2 fulfill the criteria for CKD. eGFR calculation 2020 CKD-EPI creatinine equation, which does not include race as a factor us Luca Bell MD LAB BLOOD ORDERABLES Final R esult [facility]
[address] [place] [address], * Magnesium (09/01/2024 2:08 PM EDT) Pathologist [facility] Magnesium 2.2 1.6 - 2.4 mg/dL 09/01/2024 2:57 PM EDT [facility] Blood Venipuncture / Unknown 09/01/2024 2:08 PM EDT 09/01/2024 2:20 PM EDT Luca Bell MD LAB BLOOD ORDERABLES Final R esult [facility]
[address] [place] [address], * (ABNORMAL) CBC (No Diff) (08/31/2024 8:44 AM EDT) [facility] WBC 12.27(H) 3.40 - 10.80 10*3/mm3 08/31/2024 9:01 AM EDT [facility] RBC 3.26(L) 3.77 - 5.28 10*6/mm3 08/31/2024 9:01 AM EDT [facility] Hemoglobin 9.7(L) 12.0 - 15.9 g/dL 08/31/2024 9:01 AM EDT [facility] Hematocrit 30.6(L) 34.0 - 46.6 % 08/31/2024 9:01 AM EDT [facility] MCV 93.9 79.0 - 97.0 fL 08/31/2024 9:01 AM EDT [facility] MCH 29.8 26.6 - 33.0 pg 08/31/2024 9:01 AM EDT [facility] MCHC 31.7 31.5 - 35.7 g/dL 08/31/2024 9:01 AM EDT [facility] RDW 15.2 12.3 - 15.4 % 08/31/2024 9:01 AM EDT [facility] RDW-SD 52.6 37.0 - 54.0 fl 08/31/2024 9:01 AM EDT [facility] MPV 9.5 6.0 - 12.0 fL 08/31/2024 9:01 AM EDT [facility] Platelets 263 140 - 450 10*3/mm3 08/31/2024 9:01 AM EDT [facility] Blood Venipuncture / Unknown 08/31/2024 8:44 AM EDT 08/31/2024 8:55 AM EDT Luca Bell MD LAB BLOOD ORDERABLES Final R esult [facility]
[address] [place] [address], * (ABNORMAL) Basic Metabolic Panel (08/31/2024 8:44 AM EDT) Glucose 101(H) 65 - 99 mg/dL 08/31/2024 9:27 AM EDT [facility] BUN 14.5 8.0 - 23.0 mg/dL 08/31/2024 9:27 AM EDT [facility] Creatinine 0.69 0.57 - 1.00 mg/dL 08/31/2024 9:27 AM EDT [facility] Sodium 139 136 - 145 mmol/L 08/31/2024 9:27 AM EDT [facility] Potassium 4.1 3.5 - 5.2 mmol/L 08/31/2024 9:27 AM EDT [facility] Chloride 102 98 - 107 mmol/L 08/31/2024 9:27 AM EDT [facility] CO2 25.0 22.0 - 29.0 mmol/L 08/31/2024 9:27 AM EDT [facility] Calcium 8.4(L) 8.6 - 10.5 mg/dL 08/31/2024 9:27 AM EDT [facility] BUN/Creatinine Ratio 21.0 7.0 - 25.0 08/31/2024 9:27 AM EDT [facility] Anion Gap 12.0 5.0 - 15.0 mmol/L 08/31/2024 9:27 AM EDT [facility] eGFR 87.3 >60.0 mL/min/1.7 3 08/31/2024 9:27 AM EDT [facility] Blood Venipuncture / Unknown 08/31/2024 8:44 AM EDT 08/31/2024 8:55 AM EDT Narrative [facility] - 08/31/2024 9:27 AM EDT GFR Categories in Chronic Kidney Disease (CKD) GFR Category GFR (mL/min/1.73) Interpretation G1 90 or greater Normal or high (1) G2 60-89 Mild decrease (1) G3a 45-59 Mild to moderate decrease G3b 30-44 Moderate to severe decrease G4 15-29 Severe decrease G5 14 or less Kidney failure (1)In the absence of evidence of kidney disease, neither GFR category G1 or G2 fulfill the criteria for CKD. eGFR calculation 2020 CKD-EPI creatinine equation, which does not include race as a factor Luca Bell MD LAB BLOOD ORDERABLES Final R esult [facility]
[address] [place] [address], * Magnesium (08/31/2024 8:44 AM EDT) Magnesium 1.8 1.6 - 2.4 mg/dL 08/31/2024 9:27 AM EDT [facility] Blood Venipuncture / Unknown 08/31/2024 8:44 AM EDT 08/31/2024 8:55 AM EDT Luca Bell MD LAB BLOOD ORDERABLES Final R esult [facility]
[address] [place] [address], * (ABNORMAL) CBC (No Diff) (08/30/2024 8:26 AM EDT) WBC 11.84(H) 3.40 - 10.80 10*3/mm3 08/30/2024 9:39 AM EDT [facility] RBC 3.44(L) 3.77 - 5.28 10*6/mm3 08/30/2024 9:39 AM EDT [facility] Hemoglobin 10.1(L) 12.0 - 15.9 g/dL 08/30/2024 9:39 AM EDT [facility] Hematocrit 32.3(L) 34.0 - 46.6 % 08/30/2024 9:39 AM EDT [facility] MCV 93.9 79.0 - 97.0 fL 08/30/2024 9:39 AM EDT [facility] MCH 29.4 26.6 - 33.0 pg 08/30/2024 9:39 AM EDT [facility] MCHC 31.3(L) 31.5 - 35.7 g/dL 08/30/2024 9:39 AM EDT [facility] RDW 15.2 12.3 - 15.4 % 08/30/2024 9:39 AM EDT [facility] RDW-SD 51.7 37.0 - 54.0 fl 08/30/2024 9:39 AM EDT [facility] MPV 9.8 6.0 - 12.0 fL 08/30/2024 9:39 AM EDT [facility] Platelets 241 140 - 450 10*3/mm3 08/30/2024 9:39 AM EDT [facility] Blood Venipuncture / Unknown 08/30/2024 8:26 AM EDT 08/30/2024 9:32 AM EDT Luca Bell MD LAB BLOOD ORDERABLES Final R esult [facility]
[address] [place] [address], * (ABNORMAL) Basic Metabolic Panel (08/30/2024 8:26 AM EDT) Glucose 114(H) 65 - 99 mg/dL 08/30/2024 10:03 AM EDT [facility] BUN 15.4 8.0 - 23.0 mg/dL 08/30/2024 10:03 AM EDT [facility] Creatinine 0.74 0.57 - 1.00 mg/dL 08/30/2024 10:03 AM EDT [facility] Sodium 137 136 - 145 mmol/L 08/30/2024 10:03 AM [facility] Potassium 3.8 3.5 - 5.2 mmol/L 08/30/2024 10:03 AM EDT [facility] Comment:Slight hemolysis det ected by analyzer. Result may be falsely elevated. Chloride 101 98 - 107 mmol/L 08/30/2024 10:03 AM EDT [facility] CO2 25.0 22.0 - 29.0 mmol/L 08/30/2024 10:03 AM [facility] Calcium 8.6 8.6 - 10.5 mg/dL 08/30/2024 10:03 AM [facility] BUN/Creatinine Ratio 20.8 7.0 - 25.0 08/30/2024 10:03 AM EDT [facility] Anion Gap 11.0 5.0 - 15.0 mmol/L 08/30/2024 10:03 AM [facility] eGFR 81.4 >60.0 mL/min/1.7 3 08/30/2024 10:03 AM [facility] Blood Venipuncture / Unknown 08/30/2024 8:26 AM EDT 08/30/2024 9:33 AM EDT [facility] - 08/30/2024 10:03 AM EDT GFR Categories in Chronic Kidney Disease (CKD) GFR Category GFR (mL/min/1.73) Interpretation G1 90 or greater Normal or high (1) G2 60-89 Mild decrease (1) G3a 45-59 Mild to moderate decrease G3b 30-44 Moderate to severe decrease G4 15-29 Severe decrease G5 14 or less Kidney failure (1)In the absence of evidence of kidney disease, neither GFR category G1 or G2 fulfill the criteria for CKD. eGFR calculation 2020 CKD-EPI creatinine equation, which does not include race as a factor Luca Bell MD LAB BLOOD ORDERABLES Final R esult Performing Organization Address City/[facility]/ZIP Co de Phone Number [facility]
[address] [place] [address], * Magnesium (08/30/2024 8:26 AM EDT) Magnesium 2.1 1.6 - 2.4 mg/dL 08/30/2024 10:03 AM EDT [facility] Blood Venipuncture / Unknown 08/30/2024 8:26 AM EDT 08/30/2024 9:33 AM EDT Luca Bell MD LAB BLOOD ORDERABLES Final R esult Performing Organization Address City/[facility]/ZIP Co de Phone Number [facility]
[address] [place] [address], * (ABNORMAL) CBC (No Diff) (08/29/2024 12:31 PM EDT) WBC 8.91 3.40 - 10.80 10*3/mm3 08/29/2024 12:56 PM EDT [facility] RBC 3.25(L) 3.77 - 5.28 10*6/mm3 08/29/2024 12:56 PM EDT [facility] Hemoglobin 9.6(L) 12.0 - 15.9 g/dL 08/29/2024 12:56 PM EDT [facility] Hematocrit 31.1(L) 34.0 - 46.6 % 08/29/2024 12:56 PM EDT [facility] MCV 95.7 79.0 - 97.0 fL 08/29/2024 12:56 PM EDT [facility] MCH 29.5 26.6 - 33.0 pg 08/29/2024 12:56 PM EDT [facility] MCHC 30.9(L) 31.5 - 35.7 g/dL 08/29/2024 12:56 PM EDT [facility] RDW 14.9 12.3 - 15.4 % 08/29/2024 12:56 PM EDT [facility] RDW-SD 52.2 37.0 - 54.0 fl 08/29/2024 12:56 PM EDT [facility] MPV 10.2 6.0 - 12.0 fL 08/29/2024 12:56 PM EDT [facility] Platelets 207 140 - 450 10*3/mm3 08/29/2024 12:56 PM EDT [facility] Blood Venipuncture / Unknown 08/29/2024 12:31 PM EDT 08/29/2024 12:43 PM EDT Luca Bell MD LAB BLOOD ORDERABLES Final R esult [facility]
[address] [place] [address], * (ABNORMAL) Basic Metabolic Panel (08/29/2024 12:31 PM EDT) Glucose 126(H) 65 - 99 mg/dL 08/29/2024 1:31 PM EDT [facility] BUN 17.6 8.0 - 23.0 mg/dL 08/29/2024 1:31 PM EDT [facility] Creatinine 0.99 0.57 - 1.00 mg/dL 08/29/2024 1:31 PM EDT [facility] Sodium 137 136 - 145 mmol/L 08/29/2024 1:31 PM EDT [facility] Potassium 4.2 3.5 - 5.2 mmol/L 08/29/2024 1:31 PM EDT [facility] Comment:Slight hemolysis det ected by analyzer. Result may be falsely elevated. Chloride 101 98 - 107 mmol/L 08/29/2024 1:31 PM EDT [facility] CO2 24.0 22.0 - 29.0 mmol/L 08/29/2024 1:31 PM EDT [facility] Calcium 8.5(L) 8.6 - 10.5 mg/dL 08/29/2024 1:31 PM EDT [facility] BUN/Creatinine Ratio 17.8 7.0 - 25.0 08/29/2024 1:31 PM EDT [facility] Anion Gap 12.0 5.0 - 15.0 mmol/L 08/29/2024 1:31 PM EDT [facility] eGFR 57.4(L) >60.0 mL/min/1.7 3 08/29/2024 1:31 PM EDT [facility] Blood Venipuncture / Unknown 08/29/2024 12:31 PM EDT 08/29/2024 12:43 PM EDT [facility] - 08/29/2024 1:31 PM EDT GFR Categories in Chronic Kidney Disease (CKD) GFR Category GFR (mL/min/1.73) Interpretation G1 90 or greater Normal or high (1) G2 60-89 Mild decrease (1) G3a 45-59 Mild to moderate decrease G3b 30-44 Moderate to severe decrease G4 15-29 Severe decrease G5 14 or less Kidney failure (1)In the absence of evidence of kidney disease, neither GFR category G1 or G2 fulfill the criteria for CKD. eGFR calculation 2020 CKD-EPI creatinine equation, which does not include race as a factor Luca Bell MD LAB BLOOD ORDERABLES Final R esult [facility]
[address] [place] [address], * Magnesium (08/29/2024 12:31 PM EDT) Magnesium 2.0 1.6 - 2.4 mg/dL 08/29/2024 1:31 PM EDT [facility] Blood Venipuncture / Unknown 08/29/2024 12:31 PM EDT 08/29/2024 12:43 PM EDT Luca Bell MD LAB BLOOD ORDERABLES Final R esult Performing Organization Address [facility] Co de Phone Number [facility]
[address] [place] [address], * TSH (08/28/2024 7:10 AM EDT) TSH 1.260 0.270 - 4.200 uIU/mL 08/28/2024 9:44 AM EDT [facility] Blood Venipuncture / Unknown 08/28/2024 7:10 AM EDT 08/28/2024 7:46 AM EDT Carolyne Reynoso MD LAB BLOOD ORDERABLES Final Resu lt Performing Organization Address [facility] Co de Phone Number [facility]
[address] [place] [address], * Phosphorus (08/28/2024 7:10 AM EDT) Phosphorus 3.1 2.5 - 4.5 mg/dL 08/28/2024 8:30 AM EDT [facility] Blood Venipuncture / Unknown 08/28/2024 7:10 AM EDT 08/28/2024 7:46 AM EDT us Carolyne Reynoso MD LAB BLOOD ORDERABLES Final Resu lt Performing Organization Address City/[facility]/ZIP Co de Phone Number [facility]
[address] [place] [address], * Magnesium (08/28/2024 7:10 AM EDT) Magnesium 1.9 1.6 - 2.4 mg/dL 08/28/2024 8:30 AM EDT [facility] Blood Venipuncture / Unknown 08/28/2024 7:10 AM EDT 08/28/2024 7:46 AM EDT us Carolyne Reynoso MD LAB BLOOD ORDERABLES Final Resu lt Performing Organization Address [facility] Co de Phone Number [facility]
[address] [place] [address], * (ABNORMAL) CBC Auto Differential (08/28/2024 7:10 AM EDT) WBC 8.79 3.40 - 10.80 10*3/mm3 08/28/2024 7:56 AM EDT [facility] RBC 3.46(L) 3.77 - 5.28 10*6/mm3 08/28/2024 7:56 AM EDT [facility] Hemoglobin 10.2(L) 12.0 - 15.9 g/dL 08/28/2024 7:56 AM EDT [facility] Hematocrit 32.8(L) 34.0 - 46.6 % 08/28/2024 7:56 AM EDT [facility] MCV 94.8 79.0 - 97.0 fL 08/28/2024 7:56 AM EDT [facility] MCH 29.5 26.6 - 33.0 pg 08/28/2024 7:56 AM EDT [facility] MCHC 31.1(L) 31.5 - 35.7 g/dL 08/28/2024 7:56 AM [facility] RDW 15.0 12.3 - 15.4 % 08/28/2024 7:56 AM [facility] RDW-SD 52.5 37.0 - 54.0 fl 08/28/2024 7:56 AM [facility] MPV 9.6 6.0 - 12.0 fL 08/28/2024 7:56 [facility] Platelets 231 140 - 450 10*3/mm3 08/28/2024 7:56 AM [facility] Neutrophil % 72.3 42.7 - 76.0 % 08/28/2024 7:56 AM [facility] Lymphocyte % 14.4(L) 19.6 - 45.3 % 08/28/2024 7:56 AM [facility] Monocyte % 9.2 5.0 - 12.0 % 08/28/2024 7:56 AM [facility] LABORATORY Eosinophil % 3.3 0.3 - 6.2 % 08/28/2024 7:56 AM [facility] Basophil % 0.5 0.0 - 1.5 % 08/28/2024 7:56 AM [facility] Immature Grans % 0.3 0.0 - 0.5 % 08/28/2024 7:56 AM [facility] Neutrophils, Absolute 6.35 1.70 - 7.00 10*3/mm3 08/28/2024 7:56 AM [facility] Lymphocytes, Absolute 1.27 0.70 - 3.10 10*3/mm3 08/28/2024 7:56 AM [facility] Monocytes, Absolute 0.81 0.10 - 0.90 10*3/mm3 08/28/2024 7:56 AM [facility] Eosinophils, Absolute 0.29 0.00 - 0.40 10*3/mm3 08/28/2024 7:56 AM [facility] Basophils, Absolute 0.04 0.00 - 0.20 10*3/mm3 08/28/2024 7:56 AM EDT [facility] Immature Grans, Absolute 0.03 0.00 - 0.05 10*3/mm3 08/28/2024 7:56 AM EDT [facility] nRBC 0.0 0.0 - 0.2 /100 WBC 08/28/2024 7:56 AM EDT [facility] Blood Venipuncture / Unknown 08/28/2024 7:10 AM EDT 08/28/2024 7:46 AM EDT us Carolyne Reynoso MD LAB BLOOD ORDERABLES Final Resu lt [facility]
[address] [place] [address], * (ABNORMAL) Comprehensive Metabolic Panel (08/28/2024 7:10 AM EDT) Glucose 115(H) 65 - 99 mg/dL 08/28/2024 8:30 AM EDT [facility] BUN 12 8 - 23 mg/dL 08/28/2024 8:30 AM EDT [facility] Creatinine 1.04(H) 0.57 - 1.00 mg/dL 08/28/2024 8:30 AM EDT [facility] Sodium 136 136 - 145 mmol/L 08/28/2024 8:30 AM EDT [facility] Potassium 4.1 3.5 - 5.2 mmol/L 08/28/2024 8:30 AM EDT [facility] Chloride 100 98 - 107 mmol/L 08/28/2024 8:30 AM EDT [facility] CO2 26.0 22.0 - 29.0 mmol/L 08/28/2024 8:30 AM EDT [facility] Calcium 8.2(L) 8.6 - 10.5 mg/dL 08/28/2024 8:30 AM EDT [facility] Total Protein 5.8(L) 6.0 - 8.5 g/dL 08/28/2024 8:30 AM [facility] Albumin 3.4(L) 3.5 - 5.2 g/dL 08/28/2024 8:30 AM [facility] ALT (SGPT) 7 1 - 33 U/L 08/28/2024 8:30 AM [facility] AST (SGOT) 13 1 - 32 U/L 08/28/2024 8:30 AM [facility] Alkaline Phosphatase 56 39 - 117 U/L 08/28/2024 8:30 AM [facility] Total Bilirubin 0.4 0.0 - 1.2 mg/dL 08/28/2024 8:30 AM [facility] Globulin 2.4 gm/dL 08/28/2024 8:30 AM [facility] Comment:Calculated Result A/G Ratio 1.4 g/dL 08/28/2024 8:30 AM [facility] BUN/Creatinine Ratio 11.5 7.0 - 25.0 08/28/2024 8:30 AM [facility] Anion Gap 10.0 5.0 - 15.0 mmol/L 08/28/2024 8:30 AM [facility] eGFR 54.1(L) >60.0 mL/min/1.7 3 08/28/2024 8:30 AM [facility] Blood Venipuncture / Unknown 08/28/2024 7:10 AM EDT 08/28/2024 7:46 AM T [facility] - 08/28/2024 8:30 AM EDT GFR Categories in Chronic Kidney Disease (CKD) GFR Category GFR (mL/min/1.73) Interpretation G1 90 or greater Normal or high (1) G2 60-89 Mild decrease (1) G3a 45-59 Mild to moderate decrease G3b 30-44 Moderate to severe decrease G4 15-29 Severe decrease G5 14 or less Kidney failure (1)In the absence of evidence of kidney disease, neither GFR category G1 or G2 fulfill the criteria for CKD. eGFR calculation 2020 CKD-EPI creatinine equation, which does not include race as a factor us Carolyne Reynoso MD LAB BLOOD ORDERABLES Final Resu lt [facility]
[address] [place] [address], * (ABNORMAL) Urinalysis, Microscopic Only - Urine, Clean Catch (08/28/2024 4:39 AM EDT) RBC, UA 6-10(A) None Seen, 0-2 /HPF 08/28/2024 4:51 AM EDT [facility] WBC, UA 11-20(A) None Seen, 0-2 /HPF 08/28/2024 4:51 AM EDT [facility] Bacteria, UA None Seen None Seen, Trace /HPF 08/28/2024 4:51 AM EDT [facility] Squamous Epithelial Cells, UA 3-6(A) None Seen, 0-2 /HPF 08/28/2024 4:51 AM EDT [facility] Hyaline Casts, UA 0-6 0 - 6 /LPF 08/28/2024 4:51 AM EDT [facility] Methodology Automated Microscopy 08/28/2024 4:51 AM EDT [facility] Urine Urine specimen obtained by clean catch procedure / Unknown Collection / Unknown 08/28/2024 4:39 AM EDT 08/28/2024 4:39 AM EDT us Carolyne Reynoso MD URINE ORDERABLES Final Result Performing Organization Address City/[facility]/ZIP Co de Phone Number [facility]
[address] [place] [address], * (ABNORMAL) Urinalysis With Microscopic If Indicated (No Culture) - Urine, Clean Catch (08/28/2024 4:39 AM EDT) Color, UA Yellow Yellow, Straw 08/28/2024 4:51 AM EDT [facility] Appearance, UA Clear Clear 08/28/2024 4:51 AM EDT [facility] pH, UA 5.5 5.0 - 8.0 08/28/2024 4:51 AM EDT [facility] Specific [place], UA 1.023 1.001 - 1.030 08/28/2024 4:51 AM EDT [facility] Glucose, UA Negative Negative 08/28/2024 4:51 AM EDT [facility] Ketones, UA Trace(A) Negative 08/28/2024 4:51 AM EDT [facility] Bilirubin, UA Negative Negative 08/28/2024 4:51 AM EDT [facility] Blood, UA Trace(A) Negative 08/28/2024 4:51 AM EDT [facility] Protein, UA Trace(A) Negative 08/28/2024 4:51 AM EDT [facility] Leuk Esterase, UA Small (1+)(A) Negative 08/28/2024 4:51 AM EDT [facility] Nitrite, UA Negative Negative 08/28/2024 4:51 AM EDT [facility] Urobilinogen, UA 1.0 E.U./dL 0.2 - 1.0 E.U./dL 08/28/2024 4:51 AM EDT [facility] Urine Urine specimen obtained by clean catch procedure / Unknown Collection / Unknown 08/28/2024 4:39 AM EDT 08/28/2024 4:39 AM EDT us Carolyne Reynoso MD URINE ORDERABLES Final Result [facility]
[address] [place] [address], * Comprehensive Metabolic Panel (08/27/2024 3:10 PM EDT) Glucose 95 65 - 99 mg/dL 08/27/2024 3:41 PM EDT [facility] BUN 11 8 - 23 mg/dL 08/27/2024 3:41 PM T [facility] Creatinine 0.87 0.57 - 1.00 mg/dL 08/27/2024 3:41 PM T [facility] Sodium 139 136 - 145 mmol/L 08/27/2024 3:41 PM EDT [facility] Potassium 4.3 3.5 - 5.2 mmol/L 08/27/2024 3:41 PM EDT [facility] Chloride 101 98 - 107 mmol/L 08/27/2024 3:41 PM EDT [facility] CO2 25.0 22.0 - 29.0 mmol/L 08/27/2024 3:41 PM EDT [facility] Calcium 9.0 8.6 - 10.5 mg/dL 08/27/2024 3:41 PM T [facility] Total Protein 6.7 6.0 - 8.5 g/dL 08/27/2024 3:41 PM [facility] Albumin 3.8 3.5 - 5.2 g/dL 08/27/2024 3:41 PM [facility] ALT (SGPT) 13 1 - 33 U/L 08/27/2024 3:41 PM [facility] AST (SGOT) 17 1 - 32 U/L 08/27/2024 3:41 PM T [facility] Alkaline Phosphatase 66 39 - 117 U/L 08/27/2024 3:41 PM T [facility] Total Bilirubin 0.5 0.0 - 1.2 mg/dL 08/27/2024 3:41 PM T [facility] Globulin 2.9 gm/dL 08/27/2024 3:41 PM [facility] Comment:Calculated Result A/G Ratio 1.3 g/dL 08/27/2024 3:41 PM T [facility] BUN/Creatinine Ratio 12.6 7.0 - 25.0 08/27/2024 3:41 PM EDT [facility] Anion Gap 13.0 5.0 - 15.0 mmol/L 08/27/2024 3:41 PM EDT [facility] eGFR 67.0 >60.0 mL/min/1.7 3 08/27/2024 3:41 PM EDT [facility] Blood Venipuncture / Unknown 08/27/2024 3:10 PM EDT 08/27/2024 3:14 PM EDT [facility] - 08/27/2024 3:41 PM EDT GFR Categories in Chronic Kidney Disease (CKD) GFR Category GFR (mL/min/1.73) Interpretation G1 90 or greater Normal or high (1) G2 60-89 Mild decrease (1) G3a 45-59 Mild to moderate decrease G3b 30-44 Moderate to severe decrease G4 15-29 Severe decrease G5 14 or less Kidney failure (1)In the absence of evidence of kidney disease, neither GFR category G1 or G2 fulfill the criteria for CKD. eGFR calculation 2020 CKD-EPI creatinine equation, which does not include race as a factor us Carolyne Reynoso MD LAB BLOOD ORDERABLES Final Resu lt [facility]
[address] [place] [address], * (ABNORMAL) CBC Auto Differential (08/27/2024 1:19 PM EDT) WBC 11.31(H) 3.40 - 10.80 10*3/mm3 08/27/2024 1:29 PM EDT [facility] RBC 3.89 3.77 - 5.28 10*6/mm3 08/27/2024 1:29 PM EDT [facility] Hemoglobin 11.7(L) 12.0 - 15.9 g/dL 08/27/2024 1:29 PM EDT [facility] Hematocrit 36.4 34.0 - 46.6 % 08/27/2024 1:29 PM EDT [facility] MCV 93.6 79.0 - 97.0 fL 08/27/2024 1:29 PM EDT [facility] MCH 30.1 26.6 - 33.0 pg 08/27/2024 1: PM EDT [facility] MCHC 32.1 31.5 - 35.7 g/dL 08/27/2024 1: PM EDT [facility] RDW 14.7 12.3 - 15.4 % 08/27/2024 1:29 PM EDT [facility] RDW-SD 50.6 37.0 - 54.0 fl 08/27/2024 1: PM EDT [facility] MPV 9.0 6.0 - 12.0 fL 08/27/2024 1:29 PM EDT [facility] Platelets 283 140 - 450 10*3/mm3 08/27/2024 1:29 PM EDT [facility] Neutrophil % 73.2 42.7 - 76.0 % 08/27/2024 1:29 PM EDT [facility] Lymphocyte % 16.9(L) 19.6 - 45.3 % 08/27/2024 1:29 PM EDT [facility] Monocyte % 8.2 5.0 - 12.0 % 08/27/2024 1:29 PM EDT [facility] Eosinophil % 0.8 0.3 - 6.2 % 08/27/2024 1:29 PM EDT [facility] Basophil % 0.4 0.0 - 1.5 % 08/27/2024 1:29 PM EDT [facility] Immature Grans % 0.5 0.0 - 0.5 % 08/27/2024 1:29 PM EDT [facility] Neutrophils, Absolute 8.28(H) 1.70 - 7.00 10*3/mm3 08/27/2024 1:29 PM EDT [facility] Lymphocytes, Absolute 1.91 0.70 - 3.10 10*3/mm3 08/27/2024 1:29 PM EDT [facility] Monocytes, Absolute 0.93(H) 0.10 - 0.90 10*3/mm3 08/27/2024 1:29 PM EDT [facility] Eosinophils, Absolute 0.09 0.00 - 0.40 10*3/mm3 08/27/2024 1:29 PM EDT [facility] Basophils, Absolute 0.04 0.00 - 0.20 10*3/mm3 08/27/2024 1:29 PM EDT [facility] Immature Grans, Absolute 0.06(H) 0.00 - 0.05 10*3/mm3 08/27/2024 1:29 PM EDT [facility] nRBC 0.0 0.0 - 0.2 /100 WBC 08/27/2024 1:29 PM EDT [facility] Blood Venipuncture / Unknown 08/27/2024 1:19 PM EDT 08/27/2024 1:25 PM EDT us Karmen Wilson MD LAB BLOOD ORDERABLES Final Res ult [facility]
[address] [place] [address], * CT Head Without Contrast (08/27/2024 12:27 PM EDT) Anatomical Region Laterality Modality Head N/A Computed Tomogra phy 08/27/2024 12:5 0 PM EDT Impressions 08/27/2024 12:58 PM EDT Impression: No acute intracranial findings. Acute comminuted fracture of the left acetabulum. Electronically Signed: Reynaldo Santamaria MD 08/27/2024 12:58 PM EDT Workstation ID: [id number] Narrative 08/27/2024 12:[address] HEAD WO CONTRAST, CT PELVIS WO CONTRAST Date of Exam: 08/27/2024 12:24 PM EDT Indication: Fell 2 weeks ago, headache since, fell again last night. Comparison: Head CT 12/27/2021. Hip and pelvis radiographs 08/27/2024.. CT abdomen/pelvis 12/27/2021. Technique: Axial CT images were obtained of the head and pelvis without contrast administration. Automated exposure control and iterative construction methods were used. Findings: Head CT: No acute intracranial hemorrhage.Intact appearing malone-white differentiation.No extra-axial fluid collection.No significant mass effect. No hydrocephalus. Mild generalized parenchymal volume loss. Moderate periventricular and subcortical white matter hypoattenuation, nonspecific, perhaps from small vessel ischemic/hypertensive changes in a patient of this age.There are intracranial atherosclerotic calcifications. Mild scattered mucosal thickening in the paranasal sinuses.nonspecific small bilateral mastoid effusions. . Bilateral lens replacements. No acute or aggressive appearing bony or extracranial soft tissue process. Pelvis CT: Small and large bowel:No significant abnormality. Peritoneal cavity: No free fluid or free air. Bladder: No significant abnormality. Pelvic organs: No significant abnormality. Vasculature: Atherosclerotic calcifications. Lymph nodes: No pathologic appearing lymph nodes by imaging criteria. Bones and soft tissues: Acute comminuted fracture of the left acetabulum. Subacute to chronic appearing nondisplaced fracture of the left inferior pubic ramus. Left proximal femoral fixation hardware. Degenerative changes of the imaged spine. Mild osteoarthrosis of the bilateral hips and sacroiliac joints. Procedure Note Reynaldo Santamaria MD - 08/27/2024 CT HEAD WO CONTRAST, CT PELVIS WO CONTRAST Date of Exam: 08/27/2024 12:24 PM EDT Indication: Fell 2 weeks ago, headache since, fell again last night. Comparison: Head CT 12/27/2021. Hip and pelvis radiographs 08/27/2024.. CTabdomen/pelvis 12/27/2021. Technique: Axial CT images were obtained of the head and pelvis withoutcontrast administration. Automated exposure control and iterativeconstruction methods were used. Findings: Head CT: No acute intracranial hemorrhage.Intact appearing malone-whitedifferentiation.No extra-axial fluid collection.No significant masseffect. No hydrocephalus. Mild generalized parenchymal volume loss. Moderate periventricular and subcortical white matter hypoattenuation,nonspecific, perhaps from small vessel ischemic/hypertensive changes in apatient of this age.There are intracranial atheroscleroticcalcifications. Mild scattered mucosal thickening in the paranasal sinuses.nonspecificsmall bilateral mastoid effusions. . Bilateral lens replacements. No acute or aggressive appearing bony or extracranial soft tissueprocess. Pelvis CT: Small and large bowel:No significant abnormality. Peritoneal cavity: No free fluid or free air. Bladder: No significant abnormality. Pelvic organs: No significant abnormality. Vasculature: Atherosclerotic calcifications. Lymph nodes: No pathologic appearing lymph nodes by imaging criteria. Bones and soft tissues: Acute comminuted fracture of the left acetabulum.Subacute to chronic appearing nondisplaced fracture of the left inferiorpubic ramus. Left proximal femoral fixation hardware. Degenerative changesof the imaged spine. Mild osteoarthrosis of the bilateral hips and sacroiliac joints. IMPRESSION: Impression: No acute intracranial findings. Acute comminuted fracture of the left acetabulum. Electronically Signed: Reynaldo Santamaria MD 08/27/2024 12:58 PM EDT Workstation ID: [id number] us Karmen Wilson MD IMG CT ORDERABLES Final Result * CT Pelvis Without Contrast (08/27/2024 12:27 PM EDT) Anatomical Region Laterality Modality Pelvis N/A Computed Tomogra phy 08/27/2024 12:5 0 PM EDT Impressions 08/27/2024 12:58 PM EDT Impression: No acute intracranial findings. Acute comminuted fracture of the left acetabulum. Electronically Signed: Reynaldo Santamaria MD 08/27/2024 12:58 PM EDT Workstation ID: [id number] Narrative 08/27/2024 12:[address] HEAD WO CONTRAST, CT PELVIS WO CONTRAST Date of Exam: 08/27/2024 12:24 PM EDT Indication: Fell 2 weeks ago, headache since, fell again last night. Comparison: Head CT 12/27/2021. Hip and pelvis radiographs 08/27/2024.. CT abdomen/pelvis 12/27/2021. Technique: Axial CT images were obtained of the head and pelvis without contrast administration. Automated exposure control and iterative construction methods were used. Findings: Head CT: No acute intracranial hemorrhage.Intact appearing malone-white differentiation.No extra-axial fluid collection.No significant mass effect. No hydrocephalus. Mild generalized parenchymal volume loss. Moderate periventricular and subcortical white matter hypoattenuation, nonspecific, perhaps from small vessel ischemic/hypertensive changes in a patient of this age.There are intracranial atherosclerotic calcifications. Mild scattered mucosal thickening in the paranasal sinuses.nonspecific small bilateral mastoid effusions. . Bilateral lens replacements. No acute or aggressive appearing bony or extracranial soft tissue process. Pelvis CT: Small and large bowel:No significant abnormality. Peritoneal cavity: No free fluid or free air. Bladder: No significant abnormality. Pelvic organs: No significant abnormality. Vasculature: Atherosclerotic calcifications. Lymph nodes: No pathologic appearing lymph nodes by imaging criteria. Bones and soft tissues: Acute comminuted fracture of the left acetabulum. Subacute to chronic appearing nondisplaced fracture of the left inferior pubic ramus. Left proximal femoral fixation hardware. Degenerative changes of the imaged spine. Mild osteoarthrosis of the bilateral hips and sacroiliac joints. Procedure Note Reynaldo Santamaria MD - 08/27/2024 CT HEAD WO CONTRAST, CT PELVIS WO CONTRAST Date of Exam: 08/27/2024 12:24 PM EDT Indication: Fell 2 weeks ago, headache since, fell again last night. Comparison: Head CT 12/27/2021. Hip and pelvis radiographs 08/27/2024.. CTabdomen/pelvis 12/27/2021. Technique: Axial CT images were obtained of the head and pelvis withoutcontrast administration. Automated exposure control and iterativeconstruction methods were used. Findings: Head CT: No acute intracranial hemorrhage.Intact appearing malone-whitedifferentiation.No extra-axial fluid collection.No significant masseffect. No hydrocephalus. Mild generalized parenchymal volume loss. Moderate periventricular and subcortical white matter hypoattenuation,nonspecific, perhaps from small vessel ischemic/hypertensive changes in apatient of this age.There are intracranial atheroscleroticcalcifications. Mild scattered mucosal thickening in the paranasal sinuses.nonspecificsmall bilateral mastoid effusions. . Bilateral lens replacements. No acute or aggressive appearing bony or extracranial soft tissueprocess. Pelvis CT: Small and large bowel:No significant abnormality. Peritoneal cavity: No free fluid or free air. Bladder: No significant abnormality. Pelvic organs: No significant abnormality. Vasculature: Atherosclerotic calcifications. Lymph nodes: No pathologic appearing lymph nodes by imaging criteria. Bones and soft tissues: Acute comminuted fracture of the left acetabulum.Subacute to chronic appearing nondisplaced fracture of the left inferiorpubic ramus. Left proximal femoral fixation hardware. Degenerative changesof the imaged spine. Mild osteoarthrosis of the bilateral hips and sacroiliac joints. IMPRESSION: Impression: No acute intracranial findings. Acute comminuted fracture of the left acetabulum. Electronically Signed: Reynaldo Santamaria MD 08/27/2024 12:58 PM EDT Workstation ID: [id number] Karmen Wilson MD IMG CT ORDERABLES Final Result * ECG 12 Lead Pre-Op / Pre-Procedure (08/27/2024 10:41 AM EDT) QT Interval 370 ms ECG QTC Interval 434 ms ECG 08/27/2024 10:4 1 AM EDT 08/27/2024 4:38 PM EDT Narrative ECG - 08/27/2024 4:38 PM EDT Test Reason : Pre-Op / Pre-Procedure Blood Pressure : */* mmHG Vent. Rate : 83 BPM Atrial Rate : 83 BPM P-R Int : 106 ms QRS Dur : 76 ms QT Int : 370 ms P-R-T Axes : 19 40 57 degrees QTcB Int : 434 ms Sinus rhythm with short [place] Nonspecific ST and T wave abnormality Abnormal ECG When compared with ECG of 25-May-2024 11:21, No significant change was found Confirmed by KARMEN WILSON MD ([id number]) on 08/27/2024 4:38:33 PM Referred By: BEVERLEY HITCHCOCK Confirmed By: KARMEN WILSON MD Procedure Note Karmen Wilson MD - 08/27/2024 Test Reason : Pre-Op / Pre-Procedure Blood Pressure : */* mmHG Vent. Rate : 83 BPM Atrial Rate : 83 BPM P-R Int : 106 ms QRS Dur : 76 ms QT Int : 370 ms P-R-T Axes : 19 40 57 degrees QTcB Int : 434 ms Sinus rhythm with short [place] Nonspecific ST and T wave abnormality Abnormal ECG When compared with ECG of 25-May-2024 11:21, No significant change was found Confirmed by KARMEN WILSON MD ([id number]) on 08/27/2024 4:38:33 PM Referred By: ED MD Confirmed By: KARMEN WILSON MD us Karmen Wilson MD ECG ORDERABLES Final Result ECG * XR Chest 1 View (08/27/2024 10:37 AM EDT) Anatomical Region Laterality Modality Body N/A Radiographic Anaid ging 08/27/2024 10:4 9 AM EDT Impressions 08/27/2024 10:49 AM EDT Impression: No active cardiopulmonary disease Electronically Signed: Denys Munguia 08/27/2024 10:49 AM EDT Workstation ID: [id number] Narrative 08/27/2024 10:49 AM EDT XR CHEST 1 VW Date of Exam: 08/27/2024 10:35 AM EDT Indication: cough, preop Comparison: 08/10/2024 Findings: Heart size and pulmonary vasculature are within normal limits. Lungs clear than calcified granuloma on the left. Costophrenic angles sharp Procedure Note Denys Munguia MD - 08/27/2024 XR CHEST 1 VW Date of Exam: 08/27/2024 10:35 AM EDT Indication: cough, preop Comparison: 08/10/2024 Findings: Heart size and pulmonary vasculature are within normal limits. Lungs clearthan calcified granuloma on the left. Costophrenic angles sharp IMPRESSION: Impression: No active cardiopulmonary disease Electronically Signed: Denys Munguia 08/27/2024 10:49 AM EDT Workstation ID: [id number] us Karmen Wilson MD IMG DIAGNOSTIC IMAGING ORDERAB LES Final Result * XR Hip With or Without Pelvis 2 - 3 View Left (08/27/2024 9:58 AM EDT) Anatomical Region Laterality Modality Lower Extremities, Hip Left Radiograp hic Imaging 08/27/2024 10:0 0 AM EDT Impressions 08/27/2024 10:02 AM EDT Impression: Nondisplaced comminuted fracture of the left acetabulum Electronically Signed: Denys Munguia 08/27/2024 10:02 AM EDT Workstation ID: [id number] Narrative 08/27/2024 10:02 AM EDT XR HIP W OR WO PELVIS 2-3 VIEW LEFT Date of Exam: 08/27/2024 9:26 AM EDT Indication: For the last night, cannot put weight on left hip today Comparison: None available. Findings: There is a nondisplaced comminuted fracture of the acetabulum. The fracture involves the acetabular roof and medial acetabular wall. There is an associated fracture at the junction of the superior pubic ramus and ilium. The left hip is not dislocated. There has been previous internal fixation of a fracture of the proximal left femur with a nail and kailee. No acute fracture of the proximal left femur is demonstrated. Degenerative disease in the lower lumbar spine noted Procedure Note Denys Munguia MD - 08/27/2024 XR HIP W OR WO PELVIS 2-3 VIEW LEFT Date of Exam: 08/27/2024 9:26 AM EDT Indication: For the last night, cannot put weight on left hip today Comparison: None available. Findings: There is a nondisplaced comminuted fracture of the acetabulum. Thefracture involves the acetabular roof and medial acetabular wall. There isan associated fracture at the junction of the superior pubic ramus andilium. The left hip is not dislocated. There has been previous internal fixation of a fracture of the proximalleft femur with a nail and kailee. No acute fracture of the proximal leftfemur is demonstrated. Degenerative disease in the lower lumbar spinenoted IMPRESSION: Impression: Nondisplaced comminuted fracture of the left acetabulum Electronically Signed: Denys Munguia 08/27/2024 10:02 AM EDT Workstation ID: [id number] us Karmen Wilson MD IMG DIAGNOSTIC IMAGING ORDERAB LES Final Result * XR Knee 1 or 2 View Left (08/27/2024 9:56 AM EDT) Anatomical Region Laterality Modality Lower Extremities, Knee Left Radiogra phic Imaging 08/27/2024 10:0 0 AM EDT Impressions 08/27/2024 10:02 AM EDT Impression: 1.Moderate knee joint effusion without evidence of acute fracture or malalignment. 2.Moderate degenerative changes of the knee. Electronically Signed: Richard Wilkerson MD 08/27/2024 10:02 AM EDT Workstation ID: [id number] Narrative 08/27/2024 10:02 AM EDT XR KNEE 1 OR 2 VW LEFT Date of Exam: 08/27/2024 9:46 AM EDT Indication: trauma Comparison: 10/18/2020 knee radiographs Findings: Partially visualized femoral hardware without evidence of complication. Moderate knee joint effusion. No traumatic malalignment. Moderate degenerative changes of the knee. Articular surfaces appear grossly intact. No evidence of fracture. Procedure Note Richard Wilkerson MD - 08/27/2024 XR KNEE 1 OR 2 VW LEFT Date of Exam: 08/27/2024 9:46 AM EDT Indication: trauma Comparison: 10/18/2020 knee radiographs Findings: Partially visualized femoral hardware without evidence of complication.Moderate knee joint effusion. No traumatic malalignment. Moderatedegenerative changes of the knee. Articular surfaces appear grosslyintact. No evidence of fracture. IMPRESSION: Impression: 1.Moderate knee joint effusion without evidence of acute fracture ormalalignment. 2.Moderate degenerative changes of the knee. Electronically Signed: Richard Wilkerson MD 08/27/2024 10:02 AM EDT Workstation ID: [id number] Karmen Wilson MD IMG DIAGNOSTIC IMAGING ORDERAB LES Final Result * Telemetry Scan (08/27/2024) [facility] Onbase ECG ORDERABLES Final Result documented in this encounter Visit Diagnoses Diagnosis Hip fracture- Primary Closed fracture of unspecified part of neck of femur Fall in home, initial encounter Closed nondisplaced fracture of left acetabulum, unspecified portion of acetabulum, initial encounter Inability to bear weight Other specified conditions influencing health status Insomnia, unspecified type Idiopathic peripheral neuropathy Unspecified hereditary and idiopathic peripheral neuropathy Generalized anxiety disorder Kidney disease, chronic, stage III (GFR 30-59 ml/min) Moderate malnutrition Closed nondisplaced fracture of left acetabulum documented in this encounter Admitting Diagnoses Diagnosis Hip fracture Closed fracture of unspecified part of neck of femur documented in this encounter Administered Medications Inactive Administered Medications - up to 3 most recent administrations Medication Order MAR Action Action Date Dose Rate Site acetaminophen (TYLENOL) tablet 650 mg 650 mg, Oral, Every 4 Hours PRN, Mild Pain, Starting on 08/27/24 at 1453, If given for fever, use fever parameter: fever greater than 100.4 F Based on patient request - if ordered for moderate or severe pain, provider allows for administration of a medication prescribed for a lower pain scale. Do not exceed 4 grams of acetaminophen in a 24 hr period. Max dose of 2gm for AST/ALT greater than 120 units/L. If given for pain, use the following pain scale: Mild Pain = Pain Score of 1-3, CPOT 1-2 Moderate Pain = Pain Score of 4-6, CPOT 3-4 Severe Pain = Pain Score of 7-10, CPOT 5-8 Given 09/01/2024 5:22 PM EDT 650 mg Given 09/01/2024 5:18 AM EDT 650 mg Given 08/31/2024 8:05 PM EDT 650 mg aspirin EC tablet 81 mg 81 mg, Oral, Daily, First dose on 08/28/24 at 1200, Do not crush or chew the capsules or tablets. The drug may not work as designed if the capsule or tablet is crushed or chewed. Swallow whole. Do not exceed 4 grams of aspirin in a 24 hr period. If given for pain, use the following pain scale: Mild Pain = Pain Score of 1-3, CPOT 1-2 Moderate Pain = Pain Score of 4-6, CPOT 3-4 Severe Pain = Pain Score of 7-10, CPOT 5-8 Given 09/02/2024 8:57 AM EDT 81 mg Given 09/01/2024 8:53 AM EDT 81 mg Given 08/31/2024 8:37 AM EDT 81 mg bisacodyl (DULCOLAX) EC tablet 5 mg 5 mg, Oral, Daily PRN, Constipation, Use if polyethylene glycol is ineffective, Starting on 08/27/24 at 1453, Use if no bowel movement after 12 hours. Swallow whole. Do not crush, split, or chew tablet. Given 08/31/2024 5:03 AM EDT 5 mg bisacodyl (DULCOLAX) suppository 10 mg 10 mg, Rectal, Daily PRN, Constipation, Use if bisacodyl oral is ineffective, Starting on Wed08/27/24 at 1453, Use if no bowel movement after 12 hours. Hold for diarrhea enoxaparin sodium (LOVENOX) syringe 30 mg 30 mg, Subcutaneous, Daily, First dose on 08/27/24 at 1545, Give subcutaneous in abdomen only. Do not massage site after injection., Indications: VTE ProphylaxisIndications:VTE Prophylaxis Given 09/02/2024 8:57 AM EDT 30 mg Left Lower Abdomen Given 09/01/2024 8:53 AM EDT 30 mg Le ft Lower Abdomen Given 08/31/2024 8:37 AM EDT 30 mg Le ft Lower Abdomen gabapentin (NEURONTIN) capsule 600 mg 600 mg, Oral, Every 8 Hours Scheduled, First dose on Wed08/28/24 at 1400, {OSMIN} Given 09/02/2024 5:44 AM EDT 600 mg Given 09/01/2024 8:04 PM EDT 600 mg Given 09/01/2024 1:13 PM EDT 600 mg ibuprofen (ADVIL,MOTRIN) tablet 600 mg 600 mg, Oral, Once, On 08/27/24 at 1645, For 1 dose, Based on patient request - if ordered for moderate or severe pain, provider allows for administration of a medication prescribed for a lower pain scale. Mucous membrane irritant. Do not crush or chew tablet or capsule unless administered through a feeding tube. If given for pain, use the following pain scale: Mild Pain = Pain Score of 1-3, CPOT 1-2 Moderate Pain = Pain Score of 4-6, CPOT 3-4 Severe Pain = Pain Score of 7-10, CPOT 5-8 Given 08/27/2024 3:57 PM EDT 600 mg Lidocaine 4 % 1 patch 1 patch, Transdermal, Administer over 12 Hours, Every 24 Hours Scheduled, First dose on 08/27/24 at 1600, Apply to skin on Hip. Remove patch in 12 hours. Apply patch only once for up to 12 hours in 24 hour period. Based on patient request - if ordered for moderate or severe pain, provider allows for administration of a medication prescribed for a lower pain scale. If given for pain, use the following pain scale: Mild Pain = Pain Score of 1-3, CPOT 1-2 Moderate Pain = Pain Score of 4-6, CPOT 3-4 Severe Pain = Pain Score of 7-10, CPOT 5-8 Medication Applied 09/02/2024 8:57 AM EDT 1 patch Other Medication Applied 09/01/2024 8:52 AM EDT 1 patch Other Medication Applied 08/31/2024 8:37 AM EDT 1 patch Other loperamide (IMODIUM) capsule 2 mg 2 mg, Oral, 3 Times Daily PRN, Diarrhea, Starting on 09/02/24 at 0857, Maximum recommended 16 mg / 24 hours. {BKC} loperamide (IMODIUM) capsule 4 mg 4 mg, Oral, Once, On 09/02/24 at 0930, For 1 dose, Maximum recommended 16 mg / 24 hours. {BKC} Given 09/02/2024 8:57 AM EDT 4 mg melatonin tablet 5 mg 5 mg, Oral, Nightly PRN, Sleep, Starting on 08/27/24 at 2101 Given 08/27/2024 9:18 PM EDT 5 mg ondansetron (ZOFRAN) injection 4 mg 4 mg, Intravenous, Every 6 Hours PRN, Nausea, Vomiting, Starting on 08/27/24 at 1453, If BOTH ondansetron (ZOFRAN) and promethazine (PHENERGAN) are ordered use ondansetron first and THEN promethazine IF ondansetron is ineffective. ondansetron ODT (ZOFRAN-ODT) disintegrating tablet 4 mg 4 mg, Oral, Every 6 Hours PRN, Nausea, Vomiting, Starting on 08/27/24 at 1453, If BOTH ondansetron (ZOFRAN) and promethazine (PHENERGAN) are ordered use ondansetron first and THEN promethazine IF ondansetron is ineffective. Place on tongue and allow to dissolve. pantoprazole (PROTONIX) EC tablet 40 mg 40 mg, Oral, Every Tub Puller, First dose on 08/28/24 at 0600, Swallow whole; do not crush, split, or chew. Given 09/02/2024 5:44 AM EDT 40 mg Given 09/01/2024 5:14 AM EDT 40 mg Given 08/31/2024 5:03 AM EDT 40 mg polyethylene glycol (MIRALAX) packet 17 g 17 g, Oral, Daily PRN, Constipation, Use if senna-docusate is ineffective, Starting on 08/27/24 at 1453, Use if no bowel movement after 12 hours. Mix in 6-8 ounces of water. Use 4-8 ounces of water, tea, or juice for each 17 gram dose. Given 08/31/2024 1:41 PM EDT 17 g Given 08/30/2024 5:46 PM EDT 17 g polyethylene glycol (MIRALAX) packet 17 g 17 g, Oral, Daily, First dose on 09/03/24 at 0900, Use 4-8 ounces of water, tea, or juice for each 17 gram dose. risperiDONE (risperDAL) tablet 0.25 mg 0.25 mg, Oral, 2 Times Daily, First dose on 08/27/24 at 2100, Caution: Look alike/sound alike drug alert Given 09/02/2024 8:57 AM EDT 0.25 mg Given 09/01/2024 8:04 PM EDT 0.25 mg Given 09/01/2024 8:53 AM EDT 0.25 mg sennosides-docusate (PERICOLACE) 8.6-50 MG per tablet 2 tablet 2 tablet, Oral, 2 Times Daily PRN, Constipation, Starting on 08/27/24 at 1453, Start bowel management regimen if patient has not had a bowel movement after 12 hours. Given 08/31/2024 8:37 AM EDT 2 tablets Given 08/30/2024 5:46 PM EDT 2 tablets sertraline (ZOLOFT) tablet 100 mg 100 mg, Oral, Daily, First dose on 08/27/24 at 1545 Given 09/02/2024 8:57 AM EDT 100 mg Given 09/01/2024 8:53 AM EDT 100 mg Given 08/31/2024 8:37 AM EDT 100 mg sodium chloride 0.9 % flush 10 mL 10 mL, Intravenous, Every 12 Hours Scheduled, First dose on Wed08/27/24 at 2100 Given 08/31/2024 8:41 AM EDT 10 mL Given 08/30/2024 9:22 PM EDT 10 mL Given 08/30/2024 8:21 AM EDT 10 mL traMADol (ULTRAM) tablet 50 mg 50 mg, Oral, Once, On Wed08/27/24 at 1040, For 1 dose, Based on patient request - if ordered for moderate or severe pain, provider allows for administration of a medication prescribed for a lower pain scale. {OSMIN} Caution: Look alike/sound alike drug alert If given for pain, use the following pain scale: Mild Pain = Pain Score of 1-3, CPOT 1-2 Moderate Pain = Pain Score of 4-6, CPOT 3-4 Severe Pain = Pain Score of 7-10, CPOT 5-8 Given 08/27/2024 10:58 AM EDT 50 mg zolpidem (AMBIEN) tablet 10 mg 10 mg, Oral, Nightly, First dose (after last modification) on Wed08/30/24 at 2100, {OSMIN} Given 09/01/2024 8:04 PM EDT 10 mg Given 08/31/2024 8:05 PM EDT 10 mg Given 08/30/2024 9:22 PM EDT 10 mg zolpidem (AMBIEN) tablet 5 mg 5 mg, Oral, Nightly, First dose on Wed08/28/24 at 2100, {OSMIN} Given 08/29/2024 8:49 PM EDT 5 mg Given 08/28/2024 8:06 PM EDT 5 mg documented in this encounter Active and Recently Administered Medications Times are shown in EDT. Scheduled Medication Order 08/31/2024 09/01/2024 09/02/2024 aspirin EC tablet 81 mg 81 mg, Oral, Daily, First dose on Wed08/28/24 at 1200, Do not crush or chew the capsules or tablets. The drug may not work as designed if the capsule or tablet is crushed or chewed. Swallow whole. Do not exceed 4 grams of aspirin in a 24 hr period. If given for pain, use the following pain scale: Mild Pain = Pain Score of 1-3, CPOT 1-2 Moderate Pain = Pain Score of 4-6, CPOT 3-4 Severe Pain = Pain Score of 7-10, CPOT 5-8 0837 (Given - Provider: Natalai Mccain RN) 0853 (Given - Provider: Natalia Mccain RN) 0857 (Given - Provider: Natalia Mccain RN) enoxaparin sodium (LOVENOX) syringe 30 mg 30 mg, Subcutaneous, Daily, First dose on Wed08/27/24 at 1545, Give subcutaneous in abdomen only. Do not massage site after injection., Indications: VTE Prophylaxis 0837 (Given - Provider: Natalia Mccain RN) 0853 (Given - Provider: Natalia Mccain RN) 0857 (Given - Provider: Natalia Mccain RN) gabapentin (NEURONTIN) capsule 600 mg 600 mg, Oral, Every 8 Hours Scheduled, First dose on Wed08/28/24 at 1400, {OSMIN} 0503 (Given - Provider: Jeremias Keenan RN)1341 (Given - Provider: Natalia Mccain RN)2004 (Given - Provider: Samia Aviles RN) 0514 (Given - Provider: Samia Aviles RN)1313 (Given - Provider: Natalia Mccain RN)2003 (Given - Provider: Samia Aviles RN) 0544 (Given - Provider: Vonnie Garrett RN)1342 (Not Given - Provider: Natalia Mccain RN - Reason: Other - Comment: patient DC'ing) Lidocaine 4 % 1 patch 1 patch, Transdermal, Administer over 12 Hours, Every 24 Hours Scheduled, First dose on Wed08/27/24 at 1600, Apply to skin on Hip. Remove patch in 12 hours. Apply patch only once for up to 12 hours in 24 hour period. Based on patient request - if ordered for moderate or severe pain, provider allows for administration of a medication prescribed for a lower pain scale. If given for pain, use the following pain scale: Mild Pain = Pain Score of 1-3, CPOT 1-2 Moderate Pain = Pain Score of 4-6, CPOT 3-4 Severe Pain = Pain Score of 7-10, CPOT 5-8 0837 (Medication Applied - Provider: Natalia Mccain RN - Comment: lower back)2007 (Medication Removed - Provider: Samia Aviles RN) 0852 (Medication Applied - Provider: Natalia Mccain RN - Comment: back)2005 (Medication Removed - Provider: Samia Aviles RN) 0857 (Medication Applied - Provider: Natalia Mccain RN - Comment: back)2056 (Due: Medication Removed - Provider: Natalia Mccain RN) loperamide (IMODIUM) capsule 4 mg (COMPLETED) 4 mg, Oral, Once, On 09/02/24 at 0930, For 1 dose, Maximum recommended 16 mg / 24 hours. {BK} 0857 (Given - Provider: Natalia Mccain RN) pantoprazole (PROTONIX) EC tablet 40 mg 40 mg, Oral, Every Tub Puller, First dose on 08/28/24 at 0600, Swallow whole; do not crush, split, or chew. 0503 (Given - Provider: Jeremias Keenan RN) 0514 (Given - Provider: Samia Aviles RN) 0544 (Given - Provider: Vonnie Garrett RN) polyethylene glycol (MIRALAX) packet 17 g 17 g, Oral, Daily, First dose on 09/03/24 at 0900, Use 4-8 ounces of water, tea, or juice for each 17 gram dose. risperiDONE (risperDAL) tablet 0.25 mg 0.25 mg, Oral, 2 Times Daily, First dose on 08/27/24 at 2100, Caution: Look alike/sound alike drug alert 0835 (Not Given - Provider: Natalia Mccain RN - Reason: Medication not available)2004 (Given - Provider: Samia Aviles RN) 0853 (Given - Provider: Natalia Mccain RN)2003 (Given - Provider: Samia Aviles RN) 0857 (Given - Provider: Natalia Mccain, FALGUNI) sertraline (ZOLOFT) tablet 100 mg 100 mg, Oral, Daily, First dose on 08/27/24 at 1545 0837 (Given - Provider: Natalia Mccain RN) 0853 (Given - Provider: Natalia Mccain RN) 0857 (Given - Provider: Natalia Mccain, FALGUNI) sodium chloride 0.9 % flush 10 mL 10 mL, Intravenous, Every 12 Hours Scheduled, First dose on 08/27/24 at 2100 0841 (Given - Provider: Natalia Mccain RN)2007 (Not Given - Provider: Samia Aviles RN - Reason: Loss of IV access) 0900 (Hold - Provider: Natalia Mccain RN - Reason: Loss of IV access)2005 (Not Given - Provider: Samia Aviles RN - Reason: Loss of IV access) 0858 (Not Given - Provider: Natalia Mccain RN - Reason: Loss of IV access) zolpidem (AMBIEN) tablet 10 mg 10 mg, Oral, Nightly, First dose (after last modification) on Wed08/30/24 at 2100, {OSMIN} 2004 (Given - Provider: Samia Aviles RN) 2003 (Given - Provider: Samia Aviles RN) PRN Medication Order 08/31/2024 09/01/2024 09/02/2024 acetaminophen (TYLENOL) tablet 650 mg(Linked Group 1) 650 mg, Oral, Every 4 Hours PRN, Mild Pain, Starting on 08/27/24 at 1453, If given for fever, use fever parameter: fever greater than 100.4 F Based on patient request - if ordered for moderate or severe pain, provider allows for administration of a medication prescribed for a lower pain scale. Do not exceed 4 grams of acetaminophen in a 24 hr period. Max dose of 2gm for AST/ALT greater than 120 units/L. If given for pain, use the following pain scale: Mild Pain = Pain Score of 1-3, CPOT 1-2 Moderate Pain = Pain Score of 4-6, CPOT 3-4 Severe Pain = Pain Score of 7-10, CPOT 5-8 2004 (Given - Provider: Samia Aviles RN) 0518 (Given - Provider: Samia Aviles RN)1722 (Given - Provider: Natalia Mccain RN)2005 [facility] Samia Aviles [facility]) bisacodyl (DULCOLAX) EC tablet 5 mg(Linked Group 2) 5 mg, Oral, Daily PRN, Constipation, Use if polyethylene glycol is ineffective, Starting on 08/27/24 at 1453, Use if no bowel movement after 12 hours. Swallow whole. Do not crush, split, or chew tablet. 0503 (Given - Provider: Jeremias Keenan RN) bisacodyl (DULCOLAX) suppository 10 mg(Linked Group 2) 10 mg, Rectal, Daily PRN, Constipation, Use if bisacodyl oral is ineffective, Starting on 08/27/24 at 1453, Use if no bowel movement after 12 hours. Hold for diarrhea Calcium Replacement - Follow Nurse / BPA Driven Protocol Open Order & Select [facility] Electrolyte Replacement Protocol Algorithm to View Details loperamide (IMODIUM) capsule 2 mg 2 mg, Oral, 3 Times Daily PRN, Diarrhea, Starting on 09/02/24 at 0857, Maximum recommended 16 mg / 24 hours. {BKC} Magnesium Standard Dose Replacement - Follow Nurse / BPA Driven Protocol Open Order & Select [facility] Electrolyte Replacement Protocol Algorithm to View Details melatonin tablet 5 mg 5 mg, Oral, Nightly PRN, Sleep, Starting on 08/27/24 at 2101 ondansetron (ZOFRAN) injection 4 mg(Linked Group 3) 4 mg, Intravenous, Every 6 Hours PRN, Nausea, Vomiting, Starting on 08/27/24 at 1453, If BOTH ondansetron (ZOFRAN) and promethazine (PHENERGAN) are ordered use ondansetron first and THEN promethazine IF ondansetron is ineffective. ondansetron ODT (ZOFRAN-ODT) disintegrating tablet 4 mg(Linked Group 3) 4 mg, Oral, Every 6 Hours PRN, Nausea, Vomiting, Starting on 08/27/24 at 1453, If BOTH ondansetron (ZOFRAN) and promethazine (PHENERGAN) are ordered use ondansetron first and THEN promethazine IF ondansetron is ineffective. Place on tongue and allow to dissolve. Phosphorus Replacement - Follow Nurse / BPA Driven Protocol Open Order & Select [facility] Electrolyte Replacement Protocol Algorithm to View Details polyethylene glycol (MIRALAX) packet 17 g(Linked Group 2) 17 g, Oral, Daily PRN, Constipation, Use if senna-docusate is ineffective, Starting on 08/27/24 at 1453, Use if no bowel movement after 12 hours. Mix in 6-8 ounces of water. Use 4-8 ounces of water, tea, or juice for each 17 gram dose. 1341 (Given - Provider: Natalia Mccain RN) Potassium Replacement - Follow Nurse / BPA Driven Protocol Open Order & Select [facility] Electrolyte Replacement Protocol Algorithm to View Details sennosides-docusate (PERICOLACE) 8.6-50 MG per tablet 2 tablet(Linked Group 2) 2 tablet, Oral, 2 Times Daily PRN, Constipation, Starting on 08/27/24 at 1453, Start bowel management regimen if patient has not had a bowel movement after 12 hours. 0837 (Given - Provider: Natalia Mccain RN) sodium chloride 0.9 % flush 10 mL 10 mL, Intravenous, As Needed, Line Care, Starting on 08/27/24 at 1453 sodium chloride 0.9 % infusion 40 mL 40 mL, Intravenous, at 100 mL/hr, As Needed, Line Care, Starting on 08/27/24 at 1453, Following administration of an IV intermittent medication, flush line with 40mL NS at 100mL/hr. Linked Groups Order Group 1: acetaminophen (TYLENOL) tablet 650 mgJump to med 650 mg, Oral, Every 4 Hours PRN, Mild Pain, Starting on 08/27/24 at 1453, If given for fever, use fever parameter: fever greater than 100.4 F Based on patient request - if ordered for moderate or severe pain, provider allows for administration of a medication prescribed for a lower pain scale. Do not exceed 4 grams of acetaminophen in a 24 hr period. Max dose of 2gm for AST/ALT greater than 120 units/L. If given for pain, use the following pain scale: Mild Pain = Pain Score of 1-3, CPOT 1-2 Moderate Pain = Pain Score of 4-6, CPOT 3-4 Severe Pain = Pain Score of 7-10, CPOT 5-8 Or acetaminophen (TYLENOL) 160 MG/5ML oral solution 650 mg (CANCELED) 650 mg, Oral, Every 4 Hours PRN, Mild Pain, Starting on 08/27/24 at 1453, If given for fever, use fever parameter: fever greater than 100.4 F Based on patient request - if ordered for moderate or severe pain, provider allows for administration of a medication prescribed for a lower pain scale. Do not exceed 4 grams of acetaminophen in a 24 hr period. Max dose of 2gm for AST/ALT greater than 120 units/L. If given for pain, use the following pain scale: Mild Pain = Pain Score of 1-3, CPOT 1-2 Moderate Pain = Pain Score of 4-6, CPOT 3-4 Severe Pain = Pain Score of 7-10, CPOT 5-8 Or acetaminophen (TYLENOL) suppository 650 mg (CANCELED) 650 mg, Rectal, Every 4 Hours PRN, Mild Pain, Starting on 08/27/24 at 1453, If given for fever, use fever parameter: fever greater than 100.4 F Based on patient request - if ordered for moderate or severe pain, provider allows for administration of a medication prescribed for a lower pain scale. Do not exceed 4 grams of acetaminophen in a 24 hr period. Max dose of 2gm for AST/ALT greater than 120 units/L. If given for pain, use the following pain scale: Mild Pain = Pain Score of 1-3, CPOT 1-2 Moderate Pain = Pain Score of 4-6, CPOT 3-4 Severe Pain = Pain Score of 7-10, CPOT 5-8 Group 2: sennosides-docusate (PERICOLACE) 8.6-50 MG per tablet 2 tabletJump to med 2 tablet, Oral, 2 Times Daily PRN, Constipation, Starting on 08/27/24 at 1453, Start bowel management regimen if patient has not had a bowel movement after 12 hours. And polyethylene glycol (MIRALAX) packet 17 gJump to med 17 g, Oral, Daily PRN, Constipation, Use if senna-docusate is ineffective, Starting on 08/27/24 at 1453, Use if no bowel movement after 12 hours. Mix in 6-8 ounces of water. Use 4-8 ounces of water, tea, or juice for each 17 gram dose. And bisacodyl (DULCOLAX) EC tablet 5 mgJump to med 5 mg, Oral, Daily PRN, Constipation, Use if polyethylene glycol is ineffective, Starting on 08/27/24 at 1453, Use if no bowel movement after 12 hours. Swallow whole. Do not crush, split, or chew tablet. And bisacodyl (DULCOLAX) suppository 10 mgJump to med 10 mg, Rectal, Daily PRN, Constipation, Use if bisacodyl oral is ineffective, Starting on 08/27/24 at 1453, Use if no bowel movement after 12 hours. Hold for diarrhea Group 3: ondansetron ODT (ZOFRAN-ODT) disintegrating tablet 4 mgJump to med 4 mg, Oral, Every 6 Hours PRN, Nausea, Vomiting, Starting on 08/27/24 at 1453, If BOTH ondansetron (ZOFRAN) and promethazine (PHENERGAN) are ordered use ondansetron first and THEN promethazine IF ondansetron is ineffective. Place on tongue and allow to dissolve. Or ondansetron (ZOFRAN) injection 4 mgJump to med 4 mg, Intravenous, Every 6 Hours PRN, Nausea, Vomiting, Starting on 08/27/24 at 1453, If BOTH ondansetron (ZOFRAN) and promethazine (PHENERGAN) are ordered use ondansetron first and THEN promethazine IF ondansetron is ineffective. documented in this encounter Additional Health Concerns Assessment Noted Time PHQ-2 Depression Total Score: 1 03/02/20 22 11:11 AM EST documented as of this encounter Care Teams Laundry Routeman Relationship Specialty Start Date End Date Provider, [place] [address] PCP - General 08/10/24 documented as of this encounter
--- OUTSIDE RECORDS SUMMARY | 2024-10-26 15:05 | XMS_ITS ---
Author Name Auto Generated, Auto Generated Organization [facility] Address [address] [place] [address] Phone [phone] Care Team Providers Care Probe Operator Name Role Phone Himanshu Winter Unavailable [phone] Functional Status No Results Mental Status No Results Allergies and Intolerances Name Onset Date Reaction Severity Espino Analogues (Allergy) WedSep 05 15:44:00 EDT 2024 Encounters Program Name Primary Diagnosis Admission Date/Time Dis charge Date/Time null Unspecified fracture of left acetabulum, subsequent encounter for fracture with routine healing WedSeptember 01 20:00:00 EDT 2024 Medications Medication Directions Start Date End Date gabapentin 600 mg tablet 1 Tablet Oral 3 Times Daily Indication: for neuropathic pain WedSep 05 00:00:00 EDT 2024 Ambien CR 12.5 mg tablet,extended release 1 Tablet Oral Hour Of Sleep, PRN Indication: for sleep WedSep 05 00:00:00 EDT 2024 Problems No Known Problems Social History Social History Observation Description Date Smoking Status Never smoked Sat September 02 00:00 :00 EDT 2024 Sex Female Sat Mar 15 00:00 :00 EDT 1944 Reason for Referral
--- NOTE | 2024-10-26 15:07 | XR_ITS ---
FINAL REPORT CLINICAL HISTORY: Left Hip/ pelvis COMPARISON: 09/28/2024 FINDINGS: LEFT HIP Two views of the left hip and an AP pelvis view were obtained. Post-ORIF changes of the left femur are noted. The fracture fragments along the greater trochanter are stable. There are healing fractures of the left pubic rami and left acetabulum. No further displacement is noted. IMPRESSION: Healing subacute left pelvic fractures. Post ORIF changes left femur. Reviewed, Interpreted and Dictated by Torsten Hatfield MD Transcribed by Denita Singh Authenticated and [facility]
--- OUTSIDE RECORDS SUMMARY | 2024-10-26 15:07 | XMS_ITS | Encounter Summary ---
Author Organization [facility] Address [address] [place] [address] Care Team Providers Care Rough Patcher Name Role Phone Provider, No Known Primary Care Provider Unavail able Encounter Details Date Type Department Care Team (Latest Contact Info) Description 08/27/2024 Travel Social History Tobacco Use Types Packs/Day Years Used Date Smoking Tobacco: Never Smokeless Tobacco: Never Alcohol Use Standard Drinks/Week Comments No 0 [...] Brief Depression Severity Measure Score 1 03/02/2022 Hunger Vital Sign Answer Date Recorded Within [...] place to sleep or slept in a [facility] (including now)? No 03/03/2022 Abuse Screen Answer [...] Housing Conditions Not on brittney e 08/28/2024 Education Answer Date Recorded Help with school or training? Not on file Preferred Language Trinidadian 03/03/2022 Comments No Sex and Gender Information Value Date Recorded Sex Assigned at Not on file Legal Sex Female 1:29 PM EDT Gender Identity Not on file Sexual Orientation Not on file documented as of this encounter Functional Status * Calculated C-SSRS Risk Score (Lifetime/Recent) Answer Date of Assessment Author No Risk Indicated 08/27/2024 9:02 AM EDT Helga Ernst RN * Stevens Suicide Severity Rating Scale (Screener/Recent Self-Report) Question Answer Date of Assessment Author 1. Wish to be (Past 1 Month) No 08/27/2024 9:02 AM EDT Helga Ernst, FALGUNI 2. Non-Specific Active Suicidal Thoughts (Past 1 Month) No 08/27/2024 9:02 AM BEVERLEYT Helga Ernst, FALGUNI 6. Suicidal Behavior (Lifetime) No 08/27/2024 9:02 AM BEVERLEYT Helga Ernst, FALGUNI documented as of this encounter Plan of Treatment Not on file documented as of this encounter Visit Diagnoses Not on filedocumented in this encounter Additional Health Concerns Assessment Noted Time PHQ-2 Depression Total Score: 1 03/02/20 22 11:11 AM EST documented as of this encounter Care Teams Rough Patcher Relationship Specialty Start Date End Date Provider, [place] [address] PCP - General 08/10/24 documented as of this encounter
--- OUTSIDE RECORDS SUMMARY | 2024-10-26 15:07 | XMS_ITS | Clinical Summary ---
Author Organization [facility] Address [address] [place] [address] Phone Care Team Providers Care Industrial Maintenance Electrician Name Role Phone Karissa Garcia Unavailable Conditions or Problems Problem Name Problem Code Onset Date Status Entry Date Provider Comment Standard Description Annotate Gastroenteri tis/colitis, non-infectio us NEC 83923805 (SNOMED CT) 0 Active 0 Karissa Garcia Noninfectious gastroenteritis CKD III(document a or b) 785870608 (SNOMED CT) 0 Active 0 Karissa Garcia Chronic kidney disease stage 3A Staph Kloosi Sepsis A41.1 (ICD-10-CM ) 0 Active 0 Karisas Garcia Sepsis due to other specified staphylococcus Hematuria, gross 91933615 (SNOMED CT) 0 Active 0 Karissa Garcia Blood in urine Urinary tract infection (UTI) 54654841 (SNOMED CT) 0 Active 0 Karissa Garcia Urinary tract infectious disease CKD, Stage III 684367448 (SNOMED CT) 04/30 Resolved 04/30 Karissa Garcia Chronic kidney disease stage 3 Acute renal failure due to dehydration 708890206 (SNOMED CT) 04/30 Resolved 04/30 Karissa Garcia Acute renal failure due to ischemia Pulmonary infiltrates 844576214 (SNOMED CT) 04/30 Resolved 04/30 Karissa Garcia Asthmatic pulmonary eosinophilia Cough 90923589 (SNOMED CT) 04/30 Resolved 04/30 Karissa Garcia Cough Pressure ulcer of left hip, stage 4 280408698 (SNOMED CT) 04/30 Resolved 04/30 Karissa Garcia Pressure ulcer stage 4 Pressure ulcer of left hip, unstageable 044078759 (SNOMED CT) 04/30 Resolved 04/30 Karissa Garcia Nonstageable pressure ulcer Acute renal failure due to dehydration 140222752 (SNOMED CT) 04/30 Removed 04/30 Karissa Garcia Acute renal failure due to ischemia Pressure ulcer of left hip, unstageable 364738256 (SNOMED CT) 04/30 Removed 04/30 Karissa Garcia Nonstageable pressure ulcer Pressure ulcer of left hip, stage 4 448211701 (SNOMED CT) 04/30 Removed 04/30 Karissa Garcia Pressure ulcer stage 4 Pulmonary infiltrates 581730513 (SNOMED CT) 04/30 Removed 04/30 Karissa Garcia Asthmatic pulmonary eosinophilia Cough 40106452 (SNOMED CT) 04/30 Removed 04/30 Karissa aGrcia Cough Neutrophilic leukemoid reaction 51310112 (SNOMED CT) 04/30 Active 04/30 Karissa Garcia Leukemoid reaction CKD, Stage III 735588279 (SNOMED CT) 04/30 Removed 04/30 Karissa Garcia Chronic kidney disease stage 3 Medications Medication Instructions Start Date Stop Date Generic Name ND Provider ZOFRAN 4 MG ORAL TABLET Take 1 tablet by mouth every six hours as needed 0 ZOFRAN 4 MG ORAL TABLET Caihakan Michi DULCOLAX 10 MG SUPP Insert once a day as needed 003 bisacodyl 48626684591 Caihakan Michi RANITIDINE HCL 150 MG ORAL TABLET Take 1 tablet by mouth once a day 003 RANITIDINE HCL 150 MG ORAL TABLET Caihakan Michi VITAMIN C 1000 MG TABS Take 1 tablet by mouth once a day 0/03 ascorbic acid (vitamin c) 14058910393 Cailybetito Michi SEROQUEL 100 MG TABS Take 1 tablet by mouth once a day 0/03 quetiapine 01495795354 Stephanie Borden DOXYCYCLINE HYCLATE 100 MG CAPS Take 1 tablet by mouth twice a day 0/03 doxycycline hyclate 92723288673 Stephanie Borden Ditropan XL 10 mg tablet extended release 24hr Take 1 tablet by mouth once a day 0/03 oxybutynin chloride 39819264626 Stephanie Borden AUGMENTIN 875-125 MG ORAL TABLET Take 1 tablet by mouth twice a day 003 AUGMENTIN 875-125 MG ORAL TABLET Stephanie Borden FLORASTOR 250 MG CAPS Take 1 tablet by mouth twice a day 0/03 saccharomyces boulardii 26272394057 Stephanie Borden FERROUS SULFATE 325 (65 Fe) MG TABS Take 1 tablet by mouth twice a day 003 ferrous sulfate 51222821185 Stephanie Borden COLACE 100 MG CAPS Take 1 tablet by mouth twice a day 0/03 docusate sodium 25834480937 Stephanie Borden DIALYVITE VITAMIN D3 MAX 1.25 MG (11185 UT) TABS Take 1 tablet by mouth twice a week 0/03 cholecalciferol (vitamin d3) 52787761763 Stephanie Borden PERCOCET 5-325 MG TABS Take 1 tablet by mouth every four hours as needed 0/03 oxycodone-acetami nophen 37472865385 Stephanie Borden TYLENOL 325 MG CAPS Take 2 tablet by mouth every four hours 0/03 ACETAMINOPHEN Stephanie Borden PAXIL 40 MG TABS Take 1 tablet by mouth once a day 0/03 paroxetine hcl 63499371774 Stephanie Borden LOVENOX 100 MG/ML SUBCUTANEOUS SOLUTION Inject 0.3 ml subcutaneously once a day 0/03 LOVENOX 100 MG/ML SUBCUTANEOUS SOLUTION Stephanie Borden MIDODRINE HCL 10 MG TABS 10 mg, Oral, 3 Times Daily Before Meals midodrine 96451733352 Alejohakan Borden ALENDRONATE SODIUM 70 MG TABS 1 PO every 7 days. Give w/ water 30 minutes before first food/drink in the AM. Do not lay down 30 min after taken alendronate 05862537633 Stephanie Borden ALPRAZOLAM 1 MG TABS TAKE ONE-HALF TO ONE TABLET BY MOUTH ONCE DAILY (EVERY 24 HOURS) NEEDED alprazolam 79235939142 Alejohakan Borden ascorbic acid (vitamin C) 1,000 mg capsule 1,000 mg, Oral, Daily ascorbic acid (vitamin c) 05969346859 Alejohakan Borden aspirin 81 mg capsule 81 mg, Oral, Daily aspirin Alejohakan Borden ETODOLAC 200 MG CAPS 200 mg, Oral, 2 Times Daily PRN etodolac 31381057124 Alejohakan Borden MULTIVITAMIN WOMEN 50+ TABS 1 tablet, Oral, Daily fwehrerx-twz-iuan -fa-lutein 41110810831 Alejohakan Borden Ditropan XL 10 mg tablet extended release 24hr 10 mg, Oral, Daily oxybutynin chloride 52468048137 Alejohakan Borden PAROXETINE HCL 40 MG TABS 40 mg, Oral, Daily paroxetine hcl 71591746492 Alejohakan Borden QUETIAPINE FUMARATE 300 MG TABS 300 mg, Oral, Nightly quetiapine 66457560438 Alejohakan Borden VITAMIN D (ERGOCALCIFEROL ) 82148 UNIT CAPS TAKE 1 CAPSULE TWICE WEEKLY ergocalciferol (vitamin d2) 66091070414 Alejohakan Borden PEPCID 20 MG TABS Take 1 tablet by mouth daily 05/05 FAMOTIDINE 24490890528 Emily Kerr RANITIDINE HCL 150 MG ORAL TABLET Take 1 tablet by mouth daily 0/03 RANITIDINE HCL 39368665214 Emily Kerr DIALYVITE VITAMIN D3 MAX 1.25 MG (22998 UT) TABS Take one (1) tablet by mouth twice a week 0/03 CHOLECALCIFEROL 25836394091 Emily Kerr VITAMIN C 1000 MG TABS Take 1 tablet by mouth daily 0/03 ASCORBIC ACID 37949064971 Emily Kerr FLORASTOR 250 MG CAPS Take one (1) tablet by mouth twice a day 0/03 SACCHAROMYCES MARSHALLI 06056870823 Emily Kerr SEROQUEL 100 MG TABS Take 1 tablet by mouth daily 0/03 QUETIAPINE FUMARATE 44876643168 Emily Kerr PAXIL 40 MG TABS Take 1 tablet by mouth daily 0/03 PAROXETINE HCL 82902764020 Emily Kerr PERCOCET 5-325 MG TABS Take 1 tablet by mouth every 4 hours as needed 0/03 OXYCODONE-ACETAMI NOPHEN 82223822543 Emily Kerr DITROPAN XL 10 MG ORAL TABLET EXTENDED RELEASE 24 HOUR Take 1 tablet by mouth daily 0/03 OXYBUTYNIN CHLORIDE 21918744064 Emily Kerr ZOFRAN 4 MG ORAL TABLET Take 1 tablet by mouth every 6 hours as needed 0/03 ONDANSETRON HCL 19515625539 Emily Kerr FERROUS SULFATE 325 (65 Fe) MG TABS Take one (1) tablet by mouth twice a day 003 FERROUS SULFATE 17252572404 Emily Kerr PEPCID 20 MG TABS Take 1 tablet by mouth daily 07/04 FAMOTIDINE 41172979172 Emily Kerr LOVENOX 100 MG/ML SUBCUTANEOUS SOLUTION Inject 0.3 mL subq daily 0/03 ENOXAPARIN SODIUM 59558925573 Emily Kerr DOXYCYCLINE HYCLATE 100 MG CAPS .Take one (1) tablet by mouth twice a day 4/08 DOXYCYCLINE HYCLATE 35254450477 Emily Kerr COLACE 100 MG CAPS Take one (1) tablet by mouth twice a day 7 DOCUSATE SODIUM 27519241920 Emily Kerr DULCOLAX 10 MG SUPP insert 1 daily as needed 0/03 BISACODYL 74764585827 Emily Kerr AUGMENTIN 875-125 MG ORAL TABLET Take one (1) tablet by mouth twice a day 0/03 AMOXICILLIN-POT CLAVULANATE 75068780597 Emily Kerr TYLENOL 325 MG CAPS Take 2 tablets by mouth every 4 hours 0/03 ACETAMINOPHEN 14875005059 Emily Kerr Medications Administered No information available. [...] smoking status SMOK STATUS Never smoker Toba patient accounting representative smoking status Plan of Care No information [...]
--- OUTSIDE RECORDS SUMMARY | 2024-10-26 15:08 | XMS_ITS | Encounter Summary ---
Author Organization [facility] Address [address] [place] [address] Care Team Providers Care Help Desk Consultant Name Role Phone Elizabeth Nova APRN Primary Care Provider Mickey Briseno MD Unavailable Reason for Referral * Consultation (Routine) - Authorized Specialty Diagnoses / Procedures Referred By Marina sinclair Referred To Contact Gastroenterology Diagnoses Other iron deficiency anemia Elizabeth Nova APRN [address] [place] [address] Phone: tel: fax: Referral ID Status Reason Start Date Expiration Date Visits Requested Visits Authorized [id number] Authorized Specialty Services Required 07/27/2023 01/25/2025 1 1 Encounter Details Date Type Department Care Team (Late st Contact Info) Description 07/27/2023 Community [facility] [address] [place] [address] Elizabeth Nova APRN [address] [place] [address] Iron deficiency anemia secondary to inadequate dietary [...] anemia documented in this encounter Care Teams Help Desk Consultant Relationship Specialty Start Date End Date Elizabeth Nova APRN [address] [place] [address] PCP - General 06/23/23 Mickey Briseno MD [address] [place] [address] Medical Oncologist Medical Oncology 08/16/23 documented as of this encounter
--- OUTSIDE RECORDS SUMMARY | 2024-10-26 15:08 | XMS_ITS | Encounter Summary ---
Author Organization [facility] Address [address] [place] [address] Care Team Providers Care Manager Assurance Name Role Phone Provider, No Known Primary Care Provider Unavail able Reason for Visit * Reason Onset Date Comments Med Refill 07/28/2021 Encounter Details Date Type Department Care Team (Late st Contact Info) Description 07/28/2021 Telephone [facility] [address] [place] [address] Gianfranco Meraz MD [address] [place] [address] Med Refill Social History Tobacco Use Types Packs/Day Years Used Date Smoking Tobacco: Never Smokeless Tobacco: Never Alcohol Use Standard Drinks/Week Comments No 0 (1 standard drink = 0.6 oz pur e alcohol) Overall Financial Resource Strain (CARDIA) Answe r Date Recorded How hard is it for you to pa y for the very basics like food, housing, medical care, and heating? Somewhat hard 02/10/2021 PHQ-2 Answer Date Recorded Retired Total Score 1 02/25/2021 Hunger Vital Sign Answer Date Recorded Within [...] medical appointments or from getting medications? No 11/2020 In the past 12 months, has l ack of transportation kept you from meetings, work, or from getting things needed for daily living? No 02/10/2021 Housing Stability Vital Sign Answer Clyde e Recorded In the last 12 months, was t here a time when you were not able to pay the mortgage or rent on time? No 02/10/2021 In the last 12 months, how many places have you lived? 1 02/10/2021 In the last 12 months, was t here a time when you did not have a steady place to sleep or slept in a long term (including now)? No 02/10/2021 Comments No Sex and Gender Information Value Date Recorded Sex Assigned at Not on file Legal Sex Female 1:29 PM EDT Gender Identity Not on file Sexual Orientation Not on file documented as of this encounter Plan of Treatment Not on file documented as of this encounter Visit Diagnoses Not on filedocumented in this encounter Additional Health Concerns Infection Onset Date Last Indicated Resolved Time COVID Screen (preop/placement) 03/13/2022 03/13/2022 03/13/2022 2:42 AM EST COVID Screen (preop/placement) 10/11/2023 10/11/2023 10/11/2023 12:45 PM EDT documented as of this encounter Care Teams Manager Assurance Relationship Specialty Start Date End Date Provider, No Known [facility] [place] [address] PCP - General 08/10/24 documented as of this encounter
--- OUTSIDE RECORDS SUMMARY | 2024-10-26 15:08 | XMS_ITS | Encounter Summary ---
Author Organization [facility] Address [address] [place] [address] Care Team Providers Care Circulation Librarian Name Role Phone Provider, No Known Primary Care Provider Unavail able Reason for Visit * Reason Comments Med Refill Encounter Details Date Type Department Care Team (Late st Contact Info) Description 09/30/2021 Refill [facility] [address] [facility] [place] [address] Gianfranco Meraz MD [address] [facility] [place] [address] Generalized anxiety disorder Social History Tobacco Use Types Packs/Day Years [...] place to sleep or slept in a fpc (including now)? No 02/10/2021 Comments No Sex and Gender Information Value Date Recorded Sex Assigned at Not on file Legal Sex Female 1:29 PM EDT Gender Identity Not on file Sexual Orientation Not on file documented as of this encounter Plan of Treatment Not on file documented as of this encounter Visit Diagnoses Diagnosis Generalized anxiety disorder documented in this encounter Additional Health Concerns Infection Onset Date Last Indicated Resolved Time COVID Screen (preop/placement) 03/13/2022 03/13/2022 03/13/2022 2:42 AM EST COVID Screen (preop/placement) 10/11/2023 10/11/2023 10/11/2023 12:45 PM EDT documented as of this encounter Care Teams Circulation Librarian Relationship Specialty Start Date End Date Provider, [place] [address] PCP - General 08/10/24 documented as of this encounter
--- OUTSIDE RECORDS SUMMARY | 2024-10-26 15:08 | XMS_ITS | Clinical Summary ---
Author Organization [facility] Address [address] [place] [address] Care Team Providers Care Biology Lecturer Name Role Phone Elizabeth Nova APRN Primary Care Provider Mickey Briseno MD Unavailable [phone] Allergies Active Allergy Reactions Criticality Noted Date Comments [place] Dizziness High 12/30/2009 Dizziness, nausea, syncopal episode [...] Annual Wellness (AWV) 03/02/2023 03/02/2022, 02/25/2021, 02/20/2020 [id number] Vaccine ( season) 2023 01/12/2023, 07/22/2020 [facility]-Influenza Vaccine (#1) 12/04/202402/25, 01/03/2019, 11/19/2015, Additional history exists [facility]-Bone Density [...] this topic Insurance [employer] MEDICARE Care Teams Biology Lecturer Relationship Specialty Start Date End Date Elizabeth Nova, FITNESS CENTRE MANAGER [address] [place] [address] PCP - General 06/23/23 Mickey Briseno MD [address] [facility] [address] [place] [address] Medical Oncologist Medical Oncology 08/16/23
--- OUTSIDE RECORDS SUMMARY | 2024-10-26 15:08 | XMS_ITS | Encounter Summary ---
Author Organization [facility] Address [address] [place] [address] Care Team Providers Care Inventory Specialist Manager Name Role Phone Provider, No Known Primary Care Provider Unavail able Reason for Visit * Reason Onset Date Comments Med Refill 08/31/2019 Encounter Details Date Type Department Care Team (Late st Contact Info) Description 08/31/2019 Refill [facility] [address] [place] [address] Gianfranco Meraz MD [address] [place] [address] Overflow incontinence; Generalized anxiety disorder Social History Tobacco Use Types Packs/Day Years Used Date Smoking Tobacco: Never Smokeless Tobacco: Never Alcohol Use Standard Drinks/Week Comments No 0 (1 standard drink = 0.6 oz pur e alcohol) PHQ-2 Answer Date Recorded PHQ-2 Score 1 05/03/2019 Comments No Sex and Gender Information Value Date Recorded Sex Assigned at Not on file Legal Sex Female 1:29 PM EDT Gender Identity Not on file Sexual Orientation Not on file documented as of this encounter Miscellaneous Notes * Telephone Encounter - Woodrow Susan - 08/31/2019 4:07 PM EDT PT CALLED REQUESTING REFILLS FOR: oxybutynin XL (DITROPAN XL) 15 MG 24 hr tablet AND PARoxetine (PAXIL) 40 MG tablet AND ALPRAZolam (XANAX) 1 MG tablet AND PT IS REQUESTING SOMETHING FOR HER SORE THROAT [facility] Mail [facility] - [facility] [address] [facility] - [phone] - [phone] FX?? documented in this encounter Plan of Treatment Not on file documented as of this encounter Visit Diagnoses Diagnosis Overflow incontinence Generalized anxiety disorder documented in this encounter Additional Health Concerns Infection Onset Date Last Indicated Resolved Time COVID Screen (preop/placement) 03/13/2022 03/13/2022 03/13/2022 2:42 AM EST COVID Screen (preop/placement) 10/11/2023 10/11/2023 10/11/2023 12:45 PM EDT documented as of this encounter Care Teams Inventory Specialist Manager Relationship Specialty Start Date End Date Provider, No Known [facility] [place] [place] [address] PCP - General 08/10/24 documented as of this encounter
--- OUTSIDE RECORDS SUMMARY | 2024-10-26 15:08 | XMS_ITS | Encounter Summary ---
Author Organization [facility] Address [address] [place] [id number] Care Team Providers Care Body Shop Mechanic Name Role Phone Provider, No Known Primary Care Provider Unavail able Encounter Details Date Type Department Care Team (Late st Contact Info) Description 06/02/[address] [facility] [address] [place] [address] Silver Denny MD [address] [facility] [address] [place] [address] Social History Tobacco Use Types Packs/Day Years Used Date Smoking Tobacco: Never Smokeless Tobacco: Never Alcohol Use Standard Drinks/Week Comments No 0 (1 standard drink = 0.6 oz pur e alcohol) Comments No Sex and Gender Information Value [...] documented as of this encounter Care Teams Body Shop Mechanic Relationship Specialty Start Date End Date Provider, [place] [address] PCP - General 08/10/24 documented as of this encounter
--- OUTSIDE RECORDS SUMMARY | 2024-10-26 15:08 | XMS_ITS | Encounter Summary ---
Author Organization [facility] Address [address] [place] [id number] Care Team Providers Care Textile Science Technician Name Role Phone Provider, No Known Primary Care Provider Unavail able Encounter Details Date Type Department Care Team (Late st Contact Info) Description 06/04/2017 Telephone [facility] [address] [place] [address] Silver Denny MD [address] [address] Social History Tobacco Use Types Packs/Day Years [...] encounter Miscellaneous Notes * Telephone Encounter - Howard Bro MA - 06/04/2017 11:37 AM EST I spoke with Meenu Todd in regards to pt. With Dr. Denny approval, I gave her a verbal order for pt to have 3 Home Health Social Work visits. I provided her with my name. * Telephone Encounter - Silver Denny MD - 06/04/2017 9:43 AM EST Ok JRT * Telephone Encounter - Howard Bro MA - 06/04/2017 9:10 AM EST Verbal order is needed? If you are ok with this, I can call give a verbal order. * Telephone Encounter - Lew Conley - 06/04/2017 8:29 AM EST MEENU TODD FROM [facility] CALLED ASKING FOR VERBAL ORDERS TO HAVE 3 HOME HEALTH SOCIAL WORK VISITS. HER CALL BACK NUMBER IS [phone]. documented in this encounter Plan of Treatment Not on file documented as of this encounter Visit Diagnoses Not on filedocumented in this encounter Additional Health Concerns Infection Onset Date Last Indicated Resolved Time COVID Screen (preop/placement) 03/13/2022 03/13/2022 03/13/2022 2:42 AM EST COVID Screen (preop/placement) 10/11/2023 10/11/2023 10/11/2023 12:45 PM EDT documented as of this encounter Care Teams Textile Science Technician Relationship Specialty Start Date End Date Provider, No Known [facility] [place] [address] PCP - General 08/10/24 documented as of this encounter
--- OUTSIDE RECORDS SUMMARY | 2024-10-26 15:08 | XMS_ITS | Encounter Summary ---
Author Organization [facility] Address [address] [place] [address] Care Team Providers Care Leak Patcher Name Role Phone Provider, No Known Primary Care Provider Unavail able Reason for Visit * Reason Comments Med Refill Encounter Details Date Type Department Care Team (Late st Contact Info) Description 10/31/[address] [facility] [address] [facility] [place] [address] Gianfranco Meraz MD [address] [facility] [place] [address] Generalized anxiety disorder Social History [...] place to sleep or slept in a custodial (including now)? No 02/10/2021 Comments No Sex and Gender Information Value Date Recorded Sex Assigned at Not on file Legal Sex Female 1:29 PM EDT Gender Identity Not on file Sexual Orientation Not on file documented as of this encounter Miscellaneous Notes * Telephone Encounter - Samantha Jenkins - 11/05/2021 11:01 AM EDT Pt called in to check on the status of her medication refill. She states that she has been out for almost a week now. Please advise documented in this encounter Plan of Treatment Not on file documented as of this encounter Visit Diagnoses Diagnosis Generalized anxiety disorder documented in this encounter Additional Health Concerns Infection Onset Date Last Indicated Resolved Time COVID Screen (preop/placement) 03/13/2022 03/13/2022 03/13/2022 2:42 AM EST COVID Screen (preop/placement) 10/11/2023 10/11/2023 10/11/2023 12:45 PM EDT documented as of this encounter Care Teams Leak Patcher Relationship Specialty Start Date End Date Provider, No Known [facility] [place] [address] PCP - General 08/10/24 documented as of this encounter
--- OUTSIDE RECORDS SUMMARY | 2024-10-26 15:08 | XMS_ITS | Encounter Summary ---
Author Organization [facility] Address [address] [place] [phone] Care Team Providers Care Procedures Tech Name Role Phone Provider, No Known Primary Care Provider Unavail able Reason for Visit * Reason Comments Med Refill Encounter Details Date Type Department Care Team (Late st Contact Info) Description 10/04/2019 Refill [facility] [address] [facility] [place] [address] Gianfranco Meraz MD [address] [facility] [place] [place] [address] Generalized anxiety disorder Social History [...] documented as of this encounter Care Teams Procedures Tech Relationship Specialty Start Date End Date Provider, No Known [facility] [place] [place] [address] PCP - General 08/10/24 documented as of this encounter
--- OUTSIDE RECORDS SUMMARY | 2024-10-26 15:08 | XMS_ITS | Clinical Summary ---
Author Organization [facility] Address [address] [place] [address] Care Team Providers Care Perfume Maker Name Role Phone Provider, No Known Primary Care Provider Unavail able Allergies Active Allergy Reactions Criticality Noted Date Comments Fish-Derived Products Hives 08/27/2024 [place] Other (See Comments) 08/06/2015 Stated had trouble talking and could not walk Poultry Meal Hives 08/27/2024 Shellfish-Derived Products Hives 08/27/2024 Medications vitamin C (VITAMIN C) 1000 MG tablet Take 1 tablet by mouth Daily. 8 Active Cholecalciferol (Vitamin D) 50 MCG (1999 UT) tablet Take 1 tablet by mouth Daily. OTC Active aspirin 81 MG EC tablet Take 1 tablet by mouth Daily. OTC Active fluvoxaMINE (LUVOX) 50 MG tablet Take 2 tablets by mouth Every Night. Active acetaminophen (TYLENOL) 325 MG tablet Take 2 tablets by mouth Every 4 (Four) Hours As Needed for Mild Pain. 5 Active Lidocaine 4 % Place 1 patch on the skin as directed by provider Daily. Remove & Discard patch within 12 hours or as directed by MD 5 Active gabapentin (NEURONTIN) 600 MG tabletIndication s:Idiopathic peripheral neuropathy Take 1 tablet by mouth 3 (Three) Times a Day. 9 tablet 5 Active risperiDONE (risperDAL) 0.25 MG tablet Take 2 tablets by mouth 2 (Two) Times a Day. 5 Active zolpidem CR (Ambien CR) 12.5 MG CR tabletIndication s:Insomnia, unspecified type Take 1 tablet by mouth At Night As Needed for Sleep. 3 tablet 5 Active polyethylene glycol (MIRALAX) 17 g packet Take 17 g by mouth Daily. 5 Active loperamide (IMODIUM) 2 MG capsule Take 1 capsule by mouth 3 (Three) Times a Day As Needed for Diarrhea. 5 Active promethazine (PHENERGAN) 12.5 MG tablet Take 1 tablet by mouth Every 8 (Eight) Hours As Needed for Nausea or Vomiting. 5 Active sennosides-docus ate (PERICOLACE) 8.6-50 MG per tablet Take 2 tablets by mouth 2 (Two) Times a Day As Needed for Constipation. 5 Active Active Problems Problem Noted Date Diagnosed Date Hip fracture 08/27/2024 Closed nondisplaced fracture of left acetabulum 08/27/2024 Moderate malnutrition 01/01/2022 Kidney disease, chronic, stage III (GFR 30-59 ml /min) 10/09/2015 Overflow incontinence 10/09/2015 Colon cancer 10/09/2015 Insomnia 08/09/2015 Generalized anxiety disorder 08/09/2015 Gastroesophageal reflux disease 08/09/2015 Vitamin D deficiency 08/09/2015 Osteoporosis 08/09/2015 Peripheral neuropathy 08/09/2015 Resolved Problems Problem Noted Date Diagnosed Date Resolved Date Insomnia 01/09/2022 02/03/2022 Bacteremia 01/04/2022 01/09/2022 Stercoral colitis 12/27/2021 01/09/2022 Nausea & vomiting 12/27/2021 01/04/2022 Elevated lactic acid level 12/27/2021 1 Leukocytosis 12/27/2021 01/04/2022 Anxiety 06/19/2020 02/09/2022 Bacterial pneumonia 04/25/2017 07/05/19 19 Dehydration 04/20/2017 04/29/2017 UTI (urinary tract infection) 04/19/2017 07/04/2018 MEHDI (acute kidney injury) 04/19/2017 Hypernatremia 04/19/2017 04/29/2017 Closed fracture of left hip 04/19/2017 02/09/2022 Rhabdomyolysis 04/19/2017 04/29/2017 Fall at home, initial encounter 04/19/2017 07/24/2021 Pressure ulcer 04/19/2017 07/04/2018 Decubitus ulcer of left hip, stage 4 04/19/2017 07/04/2018 Overview (04/20/2017): Added automatically from request for surgery [id number] Esophageal reflux 02/11/2016 02/09/2022 Well woman exam 10/09/2015 07/07/2017 Fatigue 08/09/2015 07/07/2017 Cobalamin deficiency 08/09/2015 022 Encounters Date Type Department Care Team Description 08/27/2024 9:21 AM EDT - 09/02/2024 2:06 PM EDT Hospital Encounter [facility] [address] [place] [id number] Karmen Wilson MD Lyons, Andrea L, MD Emsalem, Rabie, MD Bhinder, MD Luca Fall in home, initial encounter (Primary Dx); Closed nondisplaced fracture of left acetabulum, unspecified portion of acetabulum, initial encounter; Inability to bear weight; Insomnia, unspecified type; Idiopathic peripheral neuropathy Discharge Disposition: Halfway Facility (DC - External) 08/27/2024 Travel 08/10/2024 2:26 PM EDT - 08/10/2024 11:59 PM EDT Hospital Encounter [facility] [place] [address] [place] [address] Sindi Bethea APRN Cough, unspecified type Discharge Disposition: Home or Self Care 08/10/2024 Travel from Last 3 Months Immunizations Immunization Administration Dates Next Due COVID-19 (PFIZER) Purple Cap Monovalent 07/23/19 21 FluMist 2-49yrs 04/09/2014 Fluad Quad 65+ 01/03/2019 Fluzone High-Dose 65+YRS 11/19/2015 Fluzone High-Dose 65+yrs 02/25/2021 PEDS-Pneumococcal Conjugate (PCV7) 05/25/2016 Pneumococcal Conjugate 13-Valent (PCV13) 017 Pneumococcal Polysaccharide (PPSV23) 07/04/2018, 05/25/2016 Family History Medical History Relation Name Comments Cancer Brother Cancer Daughter Cancer Father Cancer Mother Relation Name Status Comments Brother Daughter Father Mother Social History Tobacco Use Types Packs/Day Years [...] place to sleep or slept in a halfway (including now)? No 03/03/2022 Abuse Screen Answer [...] or training? Not on file Preferred Language Tajik 08/31/2024 Comments No Sex and Gender Information [...] Mass Index 21.48 08/27/2024 8:59 AM EDT Plan of Treatment Health Maintenance Due Date Last Done Comments TDAP/TD VACCINES (1 - Tdap) 1964 ZOSTER VACCINE (2 of 2) 07/20/2016 05/25/2016 (Decli gwendolyn) RSV Vaccine - Adults (1 - 1- dose 75+ series) 2018 ANNUAL WELLNESS VISIT 03/02/2023 03/02/2022 , 02/25/2021, 02/20/2020, Additional history exists COVID-19 Vaccine (2 - 2023-2 5 season) 2023 07/22/2020 PT PLAN OF CARE 11/26/2024 08/28/2024, 12/05, 05/31/2019 INFLUENZA VACCINE 01/03/2025 02/25/2021, , 02/10/2016, Additional history exists DXA SCAN 03/04/2025 03/04/2023, 04/2018, 08/03/2018, Additional history exists Pneumococcal Vaccine 50+ Completed 019, 05/25/2016, 05/25/2016, Additional history exists MAMMOGRAM Discontinued 08/03/2018, 04/2018, 04/05/2017, Additional history exists COLONOSCOPY Discontinued 05/19/2022, 02/04, 02/26/2020 Medical Devices Implanted Type Area Merchandising Manager Device Identifier Shelf Expiration Date Model / Serial / Lot Nail Fem Fn Adv Prox 130d Lng [id number] Lt Strl - [id number] Implanted:Qty: 1 on 04/21/2017 by Silver Denny MD at [facility] Implant Left: Hip DEPUY SYNTHES 07/03/2026 [id number] / / [id number] Bld Fem Fix Harini Tfn Adv 85mm Strl - [id number] Implanted:Qty: 1 on 04/21/2017 by Silver Denny MD at [facility] Implant Left: Hip DEPUY SYNTHES 10/02/2026 [id number] / / [id number] Scrw Lk Strdrv Ti 5x42mm Strl - [id number] Implanted:Qty: 1 on 04/21/2017 by Silver Denny MD at [facility] Implant Left: Hip DEPUY SYNTHES 10/02/2024 [id number] / / [id number] Procedures Procedure Name Priority Date/Time Associated Diagnosis Comments CBC (NO DIFF) Urgent 09/02/2024 1:05 PM EDT BASIC METABOLIC PANEL Urgent 09/02/2024 1:05 PM EDT MAGNESIUM Urgent 09/02/2024 1:05 PM EDT CBC (NO DIFF) Urgent 09/01/2024 2:08 PM EDT BASIC METABOLIC PANEL Urgent 09/01/2024 2:08 PM EDT MAGNESIUM Urgent 09/01/2024 2:08 PM EDT CBC (NO DIFF) Urgent 08/31/2024 8:44 AM EDT BASIC METABOLIC PANEL Urgent 08/31/2024 8:44 AM EDT MAGNESIUM Urgent 08/31/2024 8:44 AM EDT CBC (NO DIFF) Urgent 08/30/2024 8:26 AM EDT BASIC METABOLIC PANEL Urgent 08/30/2024 8:26 AM EDT MAGNESIUM Urgent 08/30/2024 8:26 AM EDT CBC (NO DIFF) Urgent 08/29/2024 12:31 PM EDT BASIC METABOLIC PANEL Urgent 08/29/2024 12:31 PM EDT MAGNESIUM Urgent 08/29/2024 12:31 PM EDT TSH Urgent 08/28/2024 7:10 AM EDT PHOSPHORUS Urgent 08/28/2024 7:10 AM EDT MAGNESIUM Urgent 08/28/2024 7:10 AM EDT CBC WITH AUTO DIFFERENTIAL Urgent 08/28/2024 7:10 AM EDT COMPREHENSIVE METABOLIC PANEL Urgent 08/28/2024 7:10 AM EDT URINALYSIS, MICROSCOPIC ONLY STAT 08/28/2024 4:39 AM EDT URINALYSIS W/ MICROSCOPIC IF INDICATED (NO CULTURE) STAT 08/28/2024 4:39 AM EDT COMPREHENSIVE METABOLIC PANEL Urgent 08/27/2024 3:10 PM EDT CBC AND DIFFERENTIAL STAT 08/27/2024 1:19 PM EDT CBC WITH AUTO DIFFERENTIAL STAT 08/27/2024 1:[address] HEAD WO CONTRAST STAT 08/27/2024 1 2:[address] PELVIS WO CONTRAST STAT 08/27/2024 12:27 PM EDT ECG 12-LEAD STAT 08/27/2024 10:41 AM EDT XR CHEST 1 VW STAT 08/27/2024 10:37 AM EDT XR HIP W OR WO PELVIS 2-3 VIEW LEFT STAT 08/27/2024 9:58 AM EDT XR KNEE 1 OR 2 VW LEFT STAT 9:56 AM EDT SCANNED - TELEMETRY 08/27/2024 XR CHEST PA AND LATERAL STAT 08/10/2024 2:39 PM EDT Cough, unspecified type DEXA BONE DENSITY AXIAL Routine 03/04/2023 11:28 AM EST Postmenopausal state MAMMO SCREENING BILATERAL W CAD Routine 06/04/2015 1:07 PM EST from Last 3 Months or Most Recently Relevant to Health Maintenance Results * (ABNORMAL) CBC (No Diff) (09/02/2024 1:05 PM EDT) Only the most recent of5 resultswithin the time period is included. WBC 9.98 3.40 - 10.80 10*3/mm3 09/02/2024 1:23 PM EDT [facility] RBC 3.13(L) 3.77 - 5.28 10*6/mm3 09/02/2024 1:23 PM EDT [facility] Hemoglobin 9.3(L) 12.0 - 15.9 g/dL 09/02/2024 1:23 PM EDT [facility] Hematocrit 29.5(L) 34.0 - 46.6 % 09/02/2024 1:23 PM EDT [facility] MCV 94.2 79.0 - 97.0 fL 09/02/2024 1:23 PM EDT [facility] MCH 29.7 26.6 - 33.0 pg 09/02/2024 1:23 PM EDT [facility] MCHC 31.5 31.5 - 35.7 g/dL 09/02/2024 1:23 PM EDT [facility] RDW 15.1 12.3 - 15.4 % 09/02/2024 1:23 PM EDT [facility] RDW-SD 52.3 37.0 - 54.0 fl 09/02/2024 1:23 PM EDT [facility] MPV 9.5 6.0 - 12.0 fL 09/02/2024 1:23 PM EDT [facility] Platelets 326 140 - 450 10*3/mm3 09/02/2024 1:23 PM EDT [facility] Blood Venipuncture / Unknown 09/02/2024 1:05 PM EDT 09/02/2024 1:18 PM EDT us Luca Bell MD LAB BLOOD ORDERABLES Final R esult [facility]
[address] [place] [address], * Magnesium (09/02/2024 1:05 PM EDT) Only the most recent of6 resultswithin the time period is included. Magnesium 1.9 1.6 - 2.4 mg/dL 09/02/2024 1:39 PM EDT [facility] Blood Venipuncture / Unknown 09/02/2024 1:05 PM EDT 09/02/2024 1:18 PM EDT Luca Bell MD LAB BLOOD ORDERABLES Final R esult [facility]
[address] [place] [address], * (ABNORMAL) Basic Metabolic Panel (09/02/2024 1:05 PM EDT) Only the most recent of5 resultswithin the time period is included. Glucose 91 65 - 99 mg/dL 09/02/2024 1:39 PM EDT [facility] BUN 14.8 8.0 - 23.0 mg/dL 09/02/2024 1:39 PM EDT [facility] Creatinine 0.67 0.57 - 1.00 mg/dL 09/02/2024 1:39 PM EDT [facility] Sodium 139 136 - 145 mmol/L 09/02/2024 1:39 PM EDT [facility] Potassium 4.2 3.5 - 5.2 mmol/L 09/02/2024 1:39 PM EDT [facility] Chloride 102 98 - 107 mmol/L 09/02/2024 1:39 PM EDT [facility] CO2 28.0 22.0 - 29.0 mmol/L 09/02/2024 1:39 PM EDT [facility] Calcium 8.4(L) 8.6 - 10.5 mg/dL 09/02/2024 1:39 PM EDT [facility] BUN/Creatinine Ratio 22.1 7.0 - 25.0 09/02/2024 1:39 PM EDT [facility] Anion Gap 9.0 5.0 - 15.0 mmol/L 09/02/2024 1:39 PM EDT [facility] eGFR 87.9 >60.0 mL/min/1.7 3 09/02/2024 1:39 PM EDT [facility] Blood Venipuncture / Unknown 09/02/2024 1:05 PM EDT 09/02/2024 1:18 PM EDT [facility] - 09/02/2024 1:39 PM EDT GFR [...] MD LAB BLOOD ORDERABLES Final R esult [facility]
[address] [place] [address], * (ABNORMAL) CBC Auto Differential (08/28/2024 7:10 AM EDT) Only the most recent of2 resultswithin the time period is included. WBC 8.79 3.40 - 10.80 10*3/mm3 08/28/2024 7:56 AM EDT [facility] RBC 3.46(L) 3.77 - 5.28 10*6/mm3 08/28/2024 7:56 AM EDT [facility] Hemoglobin 10.2(L) 12.0 - 15.9 g/dL 08/28/2024 7:[facility] Hematocrit 32.8(L) 34.0 - 46.6 % 08/28/2024 7:56 AM EDT [facility] MCV 94.8 79.0 - 97.0 fL 08/28/2024 7:56 AM EDT [facility] MCH 29.5 26.6 - 33.0 pg 08/28/2024 7:56 AM EDT [facility] MCHC 31.1(L) 31.5 - 35.7 g/dL 08/28/2024 7:56 AM [facility] RDW 15.0 12.3 - 15.4 % 08/28/2024 7:56 AM [facility] RDW-SD 52.5 37.0 - 54.0 fl 08/28/2024 7:56 AM [facility] MPV 9.6 6.0 - 12.0 fL 08/28/2024 7:56 AM [facility] Platelets 231 140 - 450 10*3/mm3 08/28/2024 7:56 AM [facility] Neutrophil % 72.3 42.7 - 76.0 % 08/28/2024 7:56 AM [facility] Lymphocyte % 14.4(L) 19.6 - 45.3 % 08/28/2024 7:56 AM [facility] Monocyte % 9.2 5.0 - 12.0 % 08/28/2024 7:56 AM EDT [facility] Eosinophil % 3.3 0.3 - 6.2 % 08/28/2024 7:56 AM EDT [facility] Basophil % 0.5 0.0 - 1.5 % 08/28/2024 7:56 AM [facility] Immature Grans % 0.3 0.0 - 0.5 % 08/28/2024 7:56 AM [facility] Neutrophils, Absolute 6.35 1.70 - 7.00 10*3/mm3 08/28/2024 7:56 AM EDT [facility] Lymphocytes, Absolute 1.27 0.70 - 3.10 10*3/mm3 08/28/2024 7:56 AM EDT [facility] Monocytes, Absolute 0.81 0.10 - 0.90 10*3/mm3 08/28/2024 7:56 AM EDT [facility] Eosinophils, Absolute 0.29 0.00 - 0.40 10*3/mm3 08/28/2024 7:56 AM EDT [facility] Basophils, Absolute 0.04 0.00 - 0.20 10*3/mm3 08/28/2024 7:56 AM EDT [facility] Immature Grans, Absolute 0.03 0.00 - 0.05 10*3/mm3 08/28/2024 7:56 AM EDT [facility] nRBC 0.0 0.0 - 0.2 /100 WBC 08/28/2024 7:56 AM EDT [facility] Blood Venipuncture / Unknown 08/28/2024 7:10 AM EDT 08/28/2024 7:46 AM EDT us Carolyne Reynoso MD LAB BLOOD ORDERABLES Final Resu lt [facility]
[address] [place] [address], * TSH (08/28/2024 7:10 AM EDT) TSH 1.260 0.270 - 4.200 uIU/mL 08/28/2024 9:44 AM EDT [facility] Blood Venipuncture / Unknown 08/28/2024 7:10 AM EDT 08/28/2024 7:46 AM EDT us Carolyne Reynoso MD LAB BLOOD ORDERABLES Final Resu lt [facility]
[address] [place] [address], * Phosphorus (08/28/2024 7:10 AM EDT) Pathologist [facility] Phosphorus 3.1 2.5 - 4.5 mg/dL 08/28/2024 8:30 AM EDT [facility] Blood Venipuncture / Unknown 08/28/2024 7:10 AM EDT 08/28/2024 7:46 AM EDT Carolyne Reynoso MD LAB BLOOD ORDERABLES Final Resu lt [facility]
[address] [place] [address], * (ABNORMAL) Comprehensive Metabolic Panel (08/28/2024 7:10 AM EDT) Only the most recent of2 resultswithin the time period is included. Glucose 115(H) 65 - 99 mg/dL 08/28/2024 8:30 AM EDT [facility] BUN 12 8 - 23 mg/dL 08/28/2024 8:30 AM EDT [facility] Creatinine 1.04(H) 0.57 - 1.00 mg/dL 08/28/2024 8:30 AM EDT [facility] Sodium 136 136 - 145 mmol/L 08/28/2024 8:30 AM EDT [facility] Potassium 4.1 3.5 - 5.2 mmol/L 08/28/2024 8:30 AM EDT [facility] Chloride 100 98 - 107 mmol/L 08/28/2024 8:30 AM EDT [facility] CO2 26.0 22.0 - 29.0 mmol/L 08/28/2024 8:30 AM EDT [facility] Calcium 8.2(L) 8.6 - 10.5 mg/dL 08/28/2024 8:30 AM EDT [facility] Total Protein 5.8(L) 6.0 - 8.5 g/dL 08/28/2024 8:30 AM [facility] Albumin 3.4(L) 3.5 - 5.2 g/dL 08/28/2024 8:30 AM [facility] ALT (SGPT) 7 1 - 33 U/L 08/28/2024 8:30 AM [facility] AST (SGOT) 13 1 - 32 U/L 08/28/2024 8:30 AM [facility] Alkaline Phosphatase 56 39 - 117 U/L 08/28/2024 8:30 AM [facility] Total Bilirubin 0.4 0.0 - 1.2 mg/dL 08/28/2024 8:30 AM [facility] Globulin 2.4 gm/dL 08/28/2024 8:30 AM [facility] Comment:Calculated Result A/G Ratio 1.4 g/dL 08/28/2024 8:30 AM [facility] BUN/Creatinine Ratio 11.5 7.0 - 25.0 08/28/2024 8:30 AM [facility] Anion Gap 10.0 5.0 - 15.0 mmol/L 08/28/2024 8:30 AM [facility] eGFR 54.1(L) >60.0 mL/min/1.7 3 08/28/2024 8:30 AM [facility] Blood Venipuncture / Unknown 08/28/2024 7:10 AM EDT 08/28/2024 7:46 AM [facility] - 08/28/2024 8:30 AM EDT GFR [...] does not include race as a factor Carolyne Reynoso MD LAB BLOOD ORDERABLES Final Resu lt [facility]
[address] [place] [address], * (ABNORMAL) Urinalysis, Microscopic Only - Urine, Clean Catch (08/28/2024 4:39 AM EDT) RBC, UA 6-10(A) None Seen, 0-2 /HPF 08/28/2024 4:51 AM EDT [facility] WBC, UA 11-20(A) None Seen, 0-2 /HPF 08/28/2024 4:51 AM EDT [facility] Bacteria, UA None Seen None Seen, Trace /HPF 08/28/2024 4:51 AM EDT [facility] Squamous Epithelial Cells, UA 3-6(A) None Seen, 0-2 /HPF 08/28/2024 4:51 AM EDT [facility] Hyaline Casts, UA 0-6 0 - 6 /LPF 08/28/2024 4:51 AM EDT [facility] Methodology Automated Microscopy 08/28/2024 4:51 AM EDT [facility] Urine Urine specimen obtained by clean catch procedure / Unknown Collection / Unknown 08/28/2024 4:39 AM EDT 08/28/2024 4:39 AM EDT Carolyne Reynoso MD URINE ORDERABLES Final Result Performing Organization Address City/[facility]/ZIP Co de Phone Number [facility]
[address] [place] [address], * (ABNORMAL) Urinalysis With Microscopic If Indicated (No Culture) - Urine, Clean Catch (08/28/2024 4:39 AM EDT) Color, UA Yellow Yellow, Straw 08/28/2024 4:51 AM EDT [facility] Appearance, UA Clear Clear 08/28/2024 4:51 AM EDT [facility] pH, UA 5.5 5.0 - 8.0 08/28/2024 4:51 AM EDT [facility] Specific [place], UA 1.023 1.001 - 1.030 08/28/2024 4:51 AM EDT [facility] Glucose, UA Negative Negative 08/28/2024 4:51 AM EDT [facility] Ketones, UA Trace(A) Negative 08/28/2024 4:51 AM EDT [facility] Bilirubin, UA Negative Negative 08/28/2024 4:51 AM EDT [facility] Blood, UA Trace(A) Negative 08/28/2024 4:51 AM EDT [facility] Protein, UA Trace(A) Negative 08/28/2024 4:51 AM EDT [facility] Leuk Esterase, UA Small (1+)(A) Negative 08/28/2024 4:51 AM EDT [facility] Nitrite, UA Negative Negative 08/28/2024 4:51 AM EDT [facility] Urobilinogen, UA 1.0 E.U./dL 0.2 - 1.0 E.U./dL 08/28/2024 4:51 AM EDT [facility] Urine Urine specimen obtained by clean catch procedure / Unknown Collection / Unknown 08/28/2024 4:39 AM EDT 08/28/2024 4:39 AM EDT us Carolyne Reynoso MD URINE ORDERABLES Final Result [facility]
[address] [place] [address], * CT Pelvis Without Contrast (08/27/2024 12:27 PM EDT) Anatomical Region Laterality Modality Pelvis N/A Computed Tomogra phy 08/27/2024 12:5 0 PM EDT Impressions 08/27/2024 12:58 PM EDT Impression: No acute intracranial findings. Acute comminuted fracture of the left acetabulum. Electronically Signed: Reynaldo Santamaria MD 08/27/2024 12:58 PM EDT Workstation ID: [id number] Narrative 08/27/2024 12:[address] HEAD [...] MD 08/27/2024 12:58 PM EDT Workstation ID: [id number] Karmen Wilson MD IM CT ORDERABLES Final Result * CT Head Without Contrast (08/27/2024 12:27 PM EDT) Anatomical Region Laterality Modality Head N/A Computed Tomogra phy 08/27/2024 12:5 0 PM EDT Impressions 08/27/2024 12:58 PM EDT Impression: No acute intracranial findings. Acute comminuted fracture of the left acetabulum. Electronically Signed: Reynaldo Santamaria MD 08/27/2024 12:58 PM EDT Workstation ID: [id number] Narrative 08/27/2024 12:[address] HEAD [...] MD 08/27/2024 12:58 PM EDT Workstation ID: [id number] Karmen Wilson MD IMG CT ORDERABLES [...] : 434 ms Sinus rhythm with short CO Nonspecific ST and T wave abnormality Abnormal ECG When compared with ECG of 25-May-2024 11:21, No significant change was found Confirmed by KARMEN WILSON MD ([id number]) on 08/27/2024 4:38:33 PM Referred By: ED Confirmed By: KARMEN WILSON MD Procedure Note [...] : 434 ms Sinus rhythm with short CO Nonspecific ST and T wave abnormality Abnormal ECG When compared with ECG of 25-May-2024 11:21, No significant change was found Confirmed by KARMEN WILSON MD ([id number]) on 08/27/2024 4:38:33 PM Referred By: BEVERLEY HITCHCOCK Confirmed By: KARMEN WILSON MD Karmen Wilson MD ECG ORDERABLES Final Result [...] 08/27/2024 10:02 AM EDT Workstation ID: [id number] Karmen Wilson MD IMG DIAGNOSTIC IMAGING ORDERAB [...] MD 08/27/2024 10:02 AM EDT Workstation ID: [id number] Narrative 08/27/2024 10:02 AM EDT XR KNEE [...] MD 08/27/2024 10:02 AM EDT Workstation ID: [id number] Karemn Wilson MD IMG DIAGNOSTIC IMAGING ORDERAB LES Final Result * Telemetry Scan (08/27/2024) [facility] New Onbase ECG ORDERABLES Final Result * XR Chest PA & Lateral (08/10/2024 2:39 PM EDT) Anatomical Region Laterality Modality Body, Chest N/A Radiographic Anaid ging 08/10/2024 2:55 PM EDT Impressions 08/10/2024 3:20 PM EDT Impression: 1. Blunting of both costophrenic angle suggesting small bilateral pleural effusions. 2. No focal airspace consolidation. 3. Large hiatal hernia. Electronically Signed: Tyler Ramsey MD 08/10/2024 3:20 PM EDT Workstation ID: [id number] Narrative 08/10/2024 3:20 PM EDT XR CHEST PA AND LATERAL Date of Exam: 08/10/2024 2:29 PM EDT Indication: FLU Comparison: 05/25/2024 Findings: The heart size and pulmonary vessels are within normal limits. The lungs are clear there is blunting of the bilateral costophrenic angles suggesting small bilateral pleural effusions. No pneumothorax. Large hiatal hernia is noted. Procedure Note [place] Ramsey MD - 08/10/2024 XR CHEST PA AND LATERAL Date of Exam: 08/10/2024 2:29 PM EDT Indication: FLU Comparison: 05/25/2024 Findings: The heart size and pulmonary vessels are within normal limits. The lungsare clear there is blunting of the bilateral costophrenic anglessuggesting small bilateral pleural effusions. No pneumothorax. Largehiatal hernia is noted. IMPRESSION: Impression: 1. Blunting of both costophrenic angle suggesting small bilateral pleuraleffusions. 2. No focal airspace consolidation. 3. Large hiatal hernia. Electronically Signed: Tyler Ramsey MD 08/10/2024 3:20 PM EDT Workstation ID: [id number] Sindi Bethea [facility] IMG DIAGNOSTIC IMAGING ORDER SHANTE Final Result * DEXA Bone Density Axial (03/04/2023 11:28 AM EST) Anatomical Region Laterality Modality Wrist, Hip, L-spine N/A Other 03/04/2023 11:3 3 AM EST Impressions 03/04/2023 4:40 PM EST Osteoporosis of the right femoral neck, and total right hip. Osteopenia of the L3 and L4 vertebrae. The ten year fracture risk assessment was not calculated because some T-scores were at or below -2.5. All the treatment decisions require clinical judgment and consideration of individual patient factors, including patient preferences, co-morbidities, previous drug use, risk factors not captured in the FRAX model (frailty, falls, vitamin D deficiency, increased bone turnover, interval significant decline in bone density) and possible under or over estimation of fracture risk by FRAX. Approaches to reduce osteoporosis related fracture risk include optimizing calcium and vitamin D status, appropriate weight bearing exercises and fall-prevention measurements. The National Osteoporosis Foundation recommends (http://www.nof.org/hcp/practice/lfjrxxmm-vea-rtsnbibd-guidelines/clinicians-hever de) that FDA-approved medical therapies be considered in postmenopausal women and men aged equal or greater than 50 years with : a) hip or vertebral (clinical or morphometric) fracture; b) T-score of -2.5 or less at the spine or hip; c) Ten-year fracture probability by FRAX of greater than 3% for hip fracture of greater than 20% for major osteoporotic fracture. Secondary causes of bone loss should be evaluated if clinically indicated since the etiology of low BMD cannot be determined by BMD measurement alone. FOLLOWUP: Consider repeating the study in 2-3 years to reassess the patient's status or sooner if there is some new clinical indication. INTERVAL CHANGE: There was an increase in bone mineral density of the L3 and L4 vertebrae by 7.0%, and a decrease in bone mineral density of the total right hip by 11.2% when compared to previous study performed on 06/04/2015. At this facility, the least significant change in the BMD at the left hip with 95% confidence is 0.735409 gm/cm2 at the hip and 0.463874 g/cm2 at the lumbar spine. Electronically Signed: Yair Kumari MD 03/04/2023 4:40 PM EST Workstation ID: [id number] Narrative 03/04/2023 4:40 PM EST DUAL-ENERGY X-RAY ABSORPTIOMETRY (DXA) INDICATION: Postmenopausal, osteoporosis, height loss, inflammatory bowel disease, history of glucocorticoids, prior fracture, cancer, seizure disorder COMPARISON: Previous bone mineral density exam performed on 06/04/2015 PROCEDURE: A DXA scan was performed using a Hologic densitometer. The lumbar spine L3 and L4 was evaluated as well as right total hip. The T-score compares the patient's bone mineral density with the peak bone mass of young normal patients. According to criteria established by the World Health Organization, patients with T-scores between 1.0 and 2.5 standard deviations BELOW the mean are osteopenic (low bone mass). Patients with T-scores EQUAL TO OR GREATER than 2.5 standard deviations below the mean are osteoporotic. The Z-score compares the patient bone mineral density with age and sex matched peers. According to the International Society for Clinical Densitometry's 2007 consensus conference: In women prior to menopause and men less than age 50, Z-scores, not T-scores are preferred. A Z-score of -2.0 or lower is defined as below the expected range for age and a Z-score above -2.0 is within the expected range for age. The WHO diagnostic criteria may be applied in women in the menopausal transition. Osteoporosis cannot be diagnosed in men under age 50 on the basis of BMD alone. TECHNICAL QUALITY: The study is of good technical quality. RESULTS: Lumbar Spine: The BMD measured in the L3 and L4 region is 0.840 g/cm2. The average T-score is -2.4. The Z-score is 0.4. Total Hip: The BMD measured at the right total proximal femur is 0.498 g/cm2. The T-score is -3.6. The Z-score is -1.6. Femoral Neck: The BMD measured at the right femoral neck is 0.468 g/cm2. The T-score is -3.4. The Z-score is -1.1. Procedure Note Safia Hubbard PA - 03/04/2023 DUAL-ENERGY X-RAY ABSORPTIOMETRY (DXA) INDICATION: Postmenopausal, osteoporosis, height loss, inflammatory boweldisease, history of glucocorticoids, prior fracture, cancer, seizuredisorder COMPARISON: Previous bone mineral density exam performed on 06/04/2015 PROCEDURE: A DXA scan was performed using a Hologic densitometer. The lumbar spine L3 and L4 was evaluated as well as right total hip. The T-score compares the patient's bone mineral density with the peak bonemass of young normal patients. According to criteria established by the[facility], patients with T-scores between 1.0 and 2.5standard deviations BELOW the mean are osteopenic (low bone mass). Patients with T-scores EQUAL TO ORGREATER than 2.5 standard deviations below the mean are osteoporotic. The Z-score compares the patient bone mineral density with age and sexmatched peers. According to the International Society for ClinicalDensitometry's 2007 consensus conference: In women prior to menopause andmen less than age 50, Z-scores, not T-scores are preferred. A Z-score of -2.0 or lower is defined as belowthe expected range for age and a Z-score above -2.0 is within theexpected range for age. The WHO diagnostic criteria may be applied inwomen in the menopausal transition. Osteoporosis cannot be diagnosed in men under age 50 on the basis of BMDalone. TECHNICAL QUALITY: The study is of good technical quality. RESULTS: Lumbar Spine: The BMD measured in the L3 and L4 region is 0.840 g/cm2.The average T-score is -2.4. The Z-score is 0.4. Total Hip: The BMD measured at the right total proximal femur is 0.498g/cm2. The T-score is -3.6. The Z-score is -1.6. Femoral Neck: The BMD measured at the right femoral neck is 0.468 g/cm2.The T- score is -3.4. The Z-score is -1.1. IMPRESSION: Osteoporosis of the right femoral neck, and total right hip. Osteopenia ofthe L3 and L4 vertebrae. The ten year fracture risk assessment was not calculated because someT-scores were at or below -2.5. All the treatment decisions require clinical judgment and consideration ofindividual patient factors, including patient preferences, co-morbidities,previous drug use, risk factors not captured in the FRAX model (frailty,falls, vitamin D deficiency, increased bone turnover, interval significant decline in bone density) andpossible under or over estimation of fracture risk by FRAX. Approaches toreduce osteoporosis related fracture risk include optimizing calcium andvitamin D status, appropriate weight bearing exercises and fall-prevention measurements. The NationalOsteoporosis Foundation recommends(http://www.nof.org/hcp/practice/uolyunwb-awx-myugatog-guidelines/clin ician s-guide) that FDA-approved medical therapies be considered in postmenopausal women and men aged equal or greater than 50 years with :a) hip or vertebral (clinical or morphometric) fracture; b) T-score of-2.5 or less at the spine or hip; c) Ten-year fracture probability by FRAXof greater than 3% for hip fracture of greater than 20% for major osteoporotic fracture. Secondary causes of bone loss should be evaluated if clinically indicatedsince the etiology of low BMD cannot be determined by BMD measurementalone. FOLLOWUP: Consider repeating the study in 2-3 years to reassess thepatient's status or sooner if there is some new clinical indication. INTERVAL CHANGE: There was an increase in bone mineral density of the L3and L4 vertebrae by 7.0%, and a decrease in bone mineral density of thetotal right hip by 11.2% when compared to previous study performed on06/04/2015. At this facility, the least significant change in the BMD at the left hipwith 95% confidence is 0.852174 gm/cm2 at the hip and 0.332405 g/cm2 atthe lumbar spine. Electronically Signed: Yair Kumari MD 03/04/2023 4:40 PM EST Workstation ID: [id number] Elizabeth Nova APRN [facility] [place] DXA ORDERABLES Final Result * Mammo screening bilateral w CAD (06/04/2015 1:07 PM EST) Anatomical Region Laterality Modality Breast Bilateral Mammography 06/04/2015 1:07 PM EST Narrative 06/05/2015 2:36 PM EST HISTORY- Screening Mammography. Baseline Low Dose full field Digital Breast Tomosynthesis examination was performed with 2D and 3D acquisitions. Examination is read in conjunction with computer aided detection. FINDINGS- There are scattered areas of fibroglandular density. Multiple images had to be repeated as the patient had difficulty in holding still and cooperate with the exam No suspicious masses, microcalcifications or areas of architectural distortion are present. IMPRESSION- Negative bilateral mammogram. RECOMMENDATION- Continue annual screening mammography. BI-RADS CATEGORY I, NEGATIVE. CAD was utilized. The standard false-negative rate of mammography is between 10% and 25%. Complex patterns or increased breast density will markedly elevate the false-negative rate of mammography. A letter, in lay terminology, with the results of this exam will be mailed to the patient. Reading David LARSON Releasing David LARSON Released Date Time- 06/05/15 [id number] Cabinet Worker- S.S. Procedure Note Meenu Larson MD - 06/05/2015 HISTORY- Screening Mammography. Baseline Low Dose full field Digital Breast Tomosynthesis examination was performed with 2D and 3D acquisitions. Examination is read in conjunction with computer aided detection. FINDINGS- There are scattered areas of fibroglandular density. Multiple images had to be repeated as the patient had difficulty in holding still and cooperate with the exam No suspicious masses, microcalcifications or areas of architectural distortion are present. IMPRESSION- Negative bilateral mammogram. RECOMMENDATION- Continue annual screening mammography. BI-RADS CATEGORY I, NEGATIVE. CAD was utilized. The standard false-negative rate of mammography is between 10% and 25%. Complex patterns or increased breast density will markedly elevate the false-negative rate of mammography. A letter, in lay terminology, with the results of this exam will be mailed to the patient. Reading David LARSON Released Date Time- 06/05/15 1436 Cabinet Worker- S.S. Gianfranco Meraz MD IM MAMMOGRAPHY ORDERABLES Loretta solitario Result from Last 3 Months or Most Recently Relevant to Health Maintenance Insurance [facility] MEDICARE ADVANTAGE PPO Advance Directives * No CPR (Do Not Attempt to Resuscitate) (Latest Code Status on File) Date Activated Date Inactivated Comments 08/30/2024 3:44 PM 09/02/2024 4:06 PM Question Answer Comments Code Status (Patient has no pulse and is not breathing): No CPR (Do Not Attempt to Resuscitate) Medical Interventions (Patie nt has pulse or is breathing): Limited Support Medical Intervention Limits: No intubation (DNI) Level Of Support Discussed With: Patient * No CPR (Do Not Attempt to Resuscitate) Date Activated Date Inactivated Comments 12/29/2021 9:09 AM 01/09/2022 5:44 PM Question Answer Comments Code Status (Patient has no pulse and is not breathing): No CPR (Do Not Attempt to Resuscitate) Medical Interventions (Patie nt has pulse or is breathing): Full Support Release to patient: Routine Release * Full Code Date Activated Date Inactivated Comments 04/21/2017 3:15 PM 04/29/2017 7:15 PM * Full Code Date Activated Date Inactivated Comments 04/19/2017 10:27 PM 04/21/2017 3:15 PM Care Teams Perfume Maker Relationship Specialty Start Date End Date Provider, No Known [facility] [place] [address] PCP - General 08/10/24
== END 2024-10-26 23:59 | disposition home or self-care (01) ==
LOC: RAD 15:05
PROVIDERS: PCP Internal Medicine Adolescent Medicine; Visit Provider Physician Assistant
DX: S32.402D Unspecified fracture of left acetabulum, subsequent encounter for fracture with routine healing (principal); S32.502D Unspecified fracture of left pubis, subsequent encounter for fracture with routine healing; Z98.890 Other specified postprocedural states
CPT/HCPCS: 73502